=== PATIENT | male | born 1975 | race Two or more races ===

== ENCOUNTER 2022-12-21 07:58 | Outpatient (OUT) | payer BC, SELFPAY ==
--- NOTE | 2022-12-21 08:27 | PM.CN ---
Consult Note: HPI Data of Consult Patient: known to practice within the last 3 years Requesting Physician: Jeanna Stokes NP Primary Care Provider: Aguila Ponce DO Consult Narrative Reason for consult: Chronic Low back pain post lumbar fusion Narrative: Yasir Orourke a pleasant 47 year old male presents for follow up on chronic low back pain. Today rating low back pain 3/10. Patient had RFAs at bilateral L1/2/3/4 July/August of this year with moderate continuous pain relief and functional improvement. Patient reporting low back pain with intermittent left sided radiculopathy, chronic right leg numbness since spine surgery 10 years ago. Patient has been doing home exercises and using motrin 800mg daily for pain. cc:: CC: Jeanna Stokes NP Review of Systems ROS Status of ROS 10 or more systems reviewed and unremarkable except as noted in history and below Musculoskeletal Reports: back pain Meds Home Medications and Allergies Home Medications Medication Instructions Recorded Confirmed Type baclofen 10 mg tablet 10 mg PO DAILY #90 tabs 12/21/22 Rx Exam Constitutional Documenting provider has reviewed patient's vital signs: yes Common normals: no apparent distress, oriented x3, healthy appearing, alert and well nourished General appearance: cooperative HENMT Common normals: normocephalic, hearing grossly normal bilaterally and moist oral mucous membranes Head and scalp: normocephalic Eye Common normals: PERRL Pupil: PERRL Neck & C-Spine Common normals: full ROM General: normal visual inspection Chest Common normals: inspection of chest normal Respiratory Common normals: normal respiratory effort, no retractions and no use of accessory muscles Back & Pelvis Lumbar spine/lower back: ROM limited, pain with ROM and straight leg raise positive left Sacroiliac joints: SI joint(s) abnormal (bilateral positive JT, gaenslen, and thigh thrust) SI joint details: tender to palpation Extremity Common normals: normal to inspection, full ROM and no joint enlargement Neuro Common normals: oriented x3, CN's II-XII intact bilaterally, moves all extremities, no focal motor deficits, no sensory deficits noted and deep tendon reflexes 2+ bilaterally Sensorium/orientation: alert Gait (neuro): normal gait Motor exam: no movement abnormalities noted and strength abnormal (4/5 BLE) Other: 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 A drug screen was completed and reviewed within the last year, and if there has not been a drug screen completed we ordered one today to monitor higher risk, state monitored pain medication use. As part of providing excellent, safe, comprehensive care, the following was completed at our patient's visit: 1. A medication reconciliation and review to ensure accurate knowledge of current/active medications, including asking our patients to inform us about any [id number] medications or herbal remedies/nutritional supplements/alternative remedies. 2. A review to specifically ensure our patients have had annual screening for: elevated body mass index (BMI), tobacco use, screening for depression, and screening for unhealthy alcohol use. When screening is concerning, patients are provided with education and the specific recommendation to discuss the concerning health issue and treatment options with their primary care provider. The patient has had over 3 months of moderate to severe low back pain with radiculopathy with functional impairment and inadequate response to conservative care including NSAIDS (unless there are contraindication such as concurrent blood thinners), multiple oral or topical pain medications, and home exercise program/physical therapy.? Patient has completed >6 weeks of guided home exercise program and/or formal physical therapy program without relief of their symptoms.? I have reviewed the imaging of the lumbar spine and no red flags were identified.? 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 The Oswestry Disability Index was completed, and the patient scored a 28%.? The patient noted the following:??moderate pain, pain preventing from lighting heavy weights from the floor, pain prevents him from standing more than 1 hr, pain is interuptive to sleep and social life. We discussed the risks and benefits of the procedure with the patient, and we are not planning on using sedation as outlined in the guidelines from Medicare unless there is a documented reason that sedation would be strongly recommended.?? The procedure will be completed with fluoroscopic guidance.? Assessment and Plan Assessment and Plan (1) Status post lumbar spinal fusion: (2) Lumbar radiculopathy: (3) Muscle spasm: (4) Bilateral sacroiliitis: Assessment and Plan: bilateral positive JT, gaenslen, and thigh thrust (5) Neuropathy: Assessment and Plan: chronic RLE since fusion surgery, consider lyrica or gabapentin after HEBER (6) Diabetes mellitus: Assessment and Plan: patient unsure of last a1c reports blood sugars typically around 130, can be as high as 150 Plan refill and continue baclofen 10mg PRN continue home exercise program Lumbar HEBER under fluoroscopy f/u after HEBER
== END 2022-12-21 07:59 | disposition home or self-care (01) ==
PROVIDERS: PCP Internal Medicine; Visit Provider Nurse Practitioner
DX: M54.16 Radiculopathy, lumbar region (principal); M62.838 Other muscle spasm; M46.1 Sacroiliitis, not elsewhere classified; E11.40 Type 2 diabetes mellitus with diabetic neuropathy, unspecified
CPT/HCPCS: G0463

== ENCOUNTER 2023-02-28 10:03 | Day surgery (SDC) | payer BC, SELFPAY ==
[2023-02-28 10:19] VITALS: BP 147/89; PULSE 79; RESP 16; TEMP 36.3; O2SAT 98
[2023-02-28 10:26] LABS: Glucometer 164 mg/dL (74-106)
[2023-02-28 11:17] VITALS: BP 145/71; PULSE 70; RESP 16; O2SAT 98
[2023-02-28] MEDS: METHYLPREDNISOLONE ACETATE 80 MG/ML VIAL INJ (11:19)
[2023-02-28] MEDS: LIDOCAINE HCL 2% PF 100 MG/5 ML VIAL 12 ML INJ (11:19)
[2023-02-28] MEDS: 0.9 % SODIUM CHLORIDE 10 ML SYRINGE - SALINE FLUSH 2 ML INJ (11:19)
[2023-02-28] MEDS: IOHEXOL 300 MG/ML - 50 ML BTL 18 MG INJ (11:19)
[2023-02-28] MEDS: BUPIVACAINE HCL 0.25% PF 25 MG/10 ML VIAL 2 ML INJ (11:19)
[2023-02-28 11:21] VITALS: BP 144/72; PULSE 67; RESP 16; O2SAT 96
--- NOTE | 2023-02-28 11:38 | P.ON_ITS ---
Date of procedure: 02/28/23 Pre-op diagnosis: Lumbar Radiculopathy Post-op diagnosis: same as pre-op Procedure: Caudal Epidural Steroid Injection Under fluoroscopic guidance Immediate complications none Solution used for injection: Marcaine 0.25% 2mL, 2cc Normal saline, Depo-Medrol 80mg Omnipaque 3 mL Anesthesia local 2% lidocaine up to 4ml Timeout process compliant After informed consent obtained. Patient brought to the procedure room placed in the prone position. Skin overlying the area was prepped and draped in a sterile fashion using betadine. 25 gauge needle used to raise a skin wheel with local anesthetic over the target area identified under fluoroscopy. A 17 gauge Touhy needle Was inserted over the anesthetized area and directed towards the inter- space under fluoroscopic guidance. Epidural space was identified with loss of resistance technique to air. Needle Tip placement confirmed with injection of contrast solution. Steroid solution was then injected. Anesthesia: Local Surgeon: Rima Soto Condition: stable
== END 2023-02-28 11:27 | disposition home or self-care (01) ==
LOC: SURGOUT 10:03
PROVIDERS: PCP Internal Medicine; Visit Provider Anesthesiology Pain Medicine
DX: M54.16 Radiculopathy, lumbar region (principal)
CPT/HCPCS: 36415; 62323; 82948; J1040; Q9967

== ENCOUNTER 2023-03-09 07:37 | Outpatient (OUT) | payer BC, SELFPAY ==
--- NOTE | 2023-03-09 07:49 | PM.CN ---
Consult Note: HPI Data of Consult Patient: known to practice within the last 3 years Requesting Physician: Jeanna Stokes NP Primary Care Provider: Aguila Ponce DO Consult Narrative Reason for consult: Chronic Low back pain post lumbar fusion Narrative: Yasir Orourke a pleasant 47 year old male presents for follow up on chronic low back pain post fusion. Today rating low back pain /, continues to have neuropathy to RLE. Recently underwent caudal HEBER with 50% improvement in pain and functional ability ongoing. cc:: CC: Jeanna Stokes NP Review of Systems ROS Status of ROS 10 or more systems reviewed and unremarkable except as noted in history and below Musculoskeletal Reports: back pain Meds Home Medications and Allergies Home Medications Medication Instructions Recorded Confirmed Type baclofen 10 mg tablet 10 mg PO DAILY #90 tabs 12/21/22 Rx dulaglutide subcut QWEEK 12/21/22 History ibuprofen 800 mg tablet (IBU) 800 mg PO DAILY 12/21/22 02/28/23 History omeprazole 40 mg capsule,delayed 40 mg PO DAILY 12/21/22 02/28/23 History release Allergies Allergy/AdvReac Type Severity Reaction Status Date / Time No Known Drug Allergies Allergy Verified 12/21/22 08:59 Exam Constitutional Documenting provider has reviewed patient's vital signs: yes Common normals: no apparent distress, oriented x3, healthy appearing, alert and well nourished General appearance: cooperative HENMT Common normals: normocephalic, hearing grossly normal bilaterally and moist oral mucous membranes Head and scalp: normocephalic Eye Common normals: PERRL Pupil: PERRL Neck & C-Spine Common normals: full ROM General: normal visual inspection Chest Common normals: inspection of chest normal Respiratory Common normals: normal respiratory effort, no retractions and no use of accessory muscles Back & Pelvis Lumbar spine/lower back: ROM limited and pain with ROM Extremity Common normals: normal to inspection, full ROM and no joint enlargement Neuro Common normals: oriented x3, CN's II-XII intact bilaterally, moves all extremities, no focal motor deficits, no sensory deficits noted and deep tendon reflexes 2+ bilaterally Sensorium/orientation: alert Gait (neuro): normal gait Motor exam: no movement abnormalities noted and strength abnormal (4/5 BLE) Other: 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 patient reports this has been present 10 years since surgery, decrease in sensation to RLE Psych Common normals: mental status grossly normal, thought process normal, cooperative, affect normal, speech normal and activity/motor behavior normal Speech: normal speech Thought process: normal thought process Assessment and Plan Assessment and Plan (1) Neuropathy: (2) Muscle spasm: (3) Lumbar radiculopathy: (4) Status post lumbar spinal fusion: Plan start lyrica 50mg HS for one month then 100mg HS continue baclofen 10mg HS continue HEP f/u 3 months for medication management, consider SCS in the future
== END 2023-03-09 07:38 | disposition home or self-care (01) ==
LOC: PM 07:38
PROVIDERS: PCP Internal Medicine; Visit Provider Nurse Practitioner
DX: G62.9 Polyneuropathy, unspecified (principal); M62.838 Other muscle spasm; M54.16 Radiculopathy, lumbar region; Z98.890 Other specified postprocedural states
CPT/HCPCS: G0463

== ENCOUNTER 2023-05-30 07:46 | Outpatient (OUT) | payer BC, SELFPAY ==
--- OUTSIDE RECORDS SUMMARY | 2023-05-30 07:50 | XMS_ITS | CCD ---
Author Name Unknown Address [address] [place] [address] Organization [facility] Care Team Providers Care Ecommerce Marketing Manager Name Role Phone Aguila Ponce Unavailable LAKSHMIPATHY ., PRASHANT Attending Zina vailable LAKSHMIPATHY ., PRASHANT Admitting Zina vailable KRIS, DR NEWBY Primary Care Unavailable MARISABEL ROJAS Admitting Unavailable MARISABEL ROJAS Attending Unavailable KRIS, DR NEWBY Primary Care Unavailable GRECHNY ., HASEEB COHN Consulting UnavailSERGE Laboy Consulting Unavailable KRIS, DR NEWBY Primary Care Unavailable STEPANIC, DR MINER Admitting Unavailable STEPANIC, DR MINER Attending Unavailable BALL, DR NEWBY Primary Care Unavailable ANDERSON ., DR NADIR Xiao Admitting Unavailable ANDERSON ., DR NADIR Xiao Consulting Unavailable ANDERSON ., DR NADIR Xiao Attending Unavailable LAKSHMIPATHY ., PRASHANT Attending Zina vailable LAKSHMIPATHY ., PRASHANT Admitting Zina vailable KRIS, DR NEWBY Primary Care Unavailable SB VILLAFANA Consulting Unavailable LAKSHMIPATHY ., PRASHANT Consulting Zina vailable KRIS, DR NEWBY Primary Care Unavailable ANDERSON ., DR NADIR Xiao Admitting Unavailable ANDERSON ., DR NADIR Xiao Attending Unavailable MOSLEY .VIDHYA Consulting Unavailable ELIZABETH JUNIOR Consulting Unavailable KRIS, DR NEWBY Primary Care Unavailable BALL, DR NEWBY Attending Unavailable KRIS, DR NEWBY Admitting Unavailable KRIS, DR NEWBY Consulting Unavailable KRIS, DR NEWBY Admitting Unavailable KRIS, DR NEWBY Primary Care Unavailable BALL, DR NEWBY Consulting Unavailable KRIS, DR NEWBY Attending Unavailable BALL, DR NEWBY Admitting Unavailable BALL, DR NEWBY Primary Care Unavailable BALL, DR NEWBY Consulting Unavailable KRIS, DR NEWBY Attending Unavailable BALL, DR NEWBY Primary Care Unavailable MISC, DR WEBSTER Attending Unavailable MISC, DR WEBSTER Admitting Unavailable MISC, DR WEBSTER Consulting Unavailable ZIEBER, DR BEATRIZ Martinez Consulting Unavailable BALL, DR NEWBY Primary Care Unavailable ANDERSON ., DR NADIR Xiao Admitting Unavailable ANDERSON ., DR NADIR Xiao Consulting Unavailable ANDERSON ., DR NADIR Xiao Attending Unavailable MOSLEY ., VIDHAY Consulting Unavailable LAKSHMIPATHY ., NARENDRANATH Attending Zina vailable LAKSHMIPATHY ., NARENDRANATH Admitting Zina vailable LAKSHMIPATHY ., NARENDRANATH Consulting Zina vailable KRIS, DR NEWBY Primary Care Unavailable LAKSHMIPATHY ., NARENDRANATH Attending Zina vailable LAKSHMIPATHY ., NARENDRANATH Admitting Zina vailable LAKSHMIPATHY ., NARENDRANATH Consulting Zina vailable KRIS, DR NEWBY Primary Care Unavailable LAKSHMIPATHY ., NARENDRANATH Attending Zina vailable LAKSHMIPATHY ., NARENDRANATH Admitting Zina vailable KRIS, DR NEWBY Primary Care Unavailable SB VILLAFANA Consulting Unavailable LAKSHMIPATHY ., NARENDRANATH Consulting Zina vailable KRIS, DR NEWBY Primary Care Unavailable YULIA ., DANIELLE Admitting Unavailable YULIA ., DANIELLE Attending Unavailable YULIA ., DANIELLE Consulting Unavailable YULIA ., DANIELLE Attending Unavailable YULIA ., DANIELLE Admitting Unavailable KRIS, DR NEWBY Primary Care Unavailable YULIA ., DANIELLE Consulting Unavailable KRISTOFER MENON Attending Unavailable Provider, None Primary Care Unavailable STEPKRISTOFER VILLAFUERTE Admitting Unavailable STEPKRISTOFER VILLAFUERTE Admitting Unavailable STEPKRISTOFER VILLAFUERTE Attending Unavailable Provider, None Primary Care Unavailable Allergies Allergy Classification Reported Allergen(s) Allergy Type Date of Onset Reaction(s) Facility (2 sources) metFORMIN Drug Allergy unknown [facility] Other (7 sources) SITagliptin Drug Allergy unknown [facility] Other (6 sources) metFORMIN Drug Allergy 9 unknown [facility] Other (1 source) metFORMIN Drug Allergy [facility] Repository (1 source) patient allergy list reviewed by nurse or physicia Propensity to adverse reactions 9 Comment:Done [facility] Other Medications Current Medications Medication Drug Class(es) Dates Sig (Normalized) Sig (Original) BD Ultra-Fine Micro Pen Needle (7 sources) BD Ultra-Fine Micro Pen Needle 32g x1/4 misc needle subcutaneous as directed Active benazepril hydrochloride 10 mg oral tablet (7 sources) Angiotensin Converting Enzyme Inhibitor take 1 tablet by mouth every twenty-four hours Benazepril HCl 10 MG 1 tablet Orally Once a day for 90 days Active 24 hr buPROPion hydrochloride 300 mg extended release oral tablet (7 sources) Aminoketone take 1 tablet by mouth every twenty-four hours buPROPion HCl ER (XL) 300 MG 1 tablet in the morning Orally Once a day for 30 Active dapagliflozin 10 mg oral tablet (7 sources) Sodium-Glucose Cotransporter 2 Inhibitor Farxiga 10 MG TAKE 1 TABLET BY MOUTH EVERY DAY Orally Once a day for 30 days Active 0.5 ml dulaglutide 1.5 mg/ml auto-injector (3 sources) GLP-1 Receptor Agonist Start: 08-17-2022 Trulicity 0.75 MG/0.5ML as directed Subcutaneous weekly for 28 days Jul, Active glimepiride 4 mg oral tablet (5 sources) Sulfonylurea Start: 02-03-2023 take 1 tablet by mouth every twenty-four hours Glimepiride 4 MG 1 tablet with breakfast or the first main meal of the day Orally Once a day for 90 days Jan, Active take 1 tablet by prince th once daily 30 minutes before breakfast Glimepiride 4 MG 1 tablet daily, 30 minutes before breakfast Orally Not-Taking omeprazole 40 mg delayed release oral capsule (7 sources) Proton Pump Inhibitor Omeprazole 40 MG TAKE 1 CAPSULE BY MOUTH DAILY ON AN EMPTY STOMACH, FOLLOWED IN 30 MINUTES BY BREAKFAST for 90 Active OneTouch Verio - (7 sources) OneTouch Verio - as directed use to test home BS daily Active Completed/Discontinued Medications Medication Drug Class(es) Dates Sig (Normalized) Sig (Original) doxycycline hyclate 100 mg oral capsule (7 sources) Tetracycline-clas s Drug Start: 05-10-2022 take 1 capsule by mouth twice daily Doxycycline Hyclate 100 MG 1 capsule Orally twice daily for 7 days Apr, Not-Taking 3 ml insulin aspart protamine, human 70 unt/ml / insulin aspart, human 30 unt/ml pen injector (7 sources) Insulin Analog NovoLOG Mix 70/3 0 FlexPen (70-30) 100 UNIT/ML 40 units before breakfast, 30 units before supper. Subcutaneous Not-Taking ondansetron 8 mg disintegrating oral tablet (7 sources) Serotonin-3 Receptor Antagonist take 1 tablet by mouth every eight hours as needed for nausea Ondansetron 8 MG 1 tablet on the tongue and allow to dissolve as needed Orally Every 8 hours as needed for nausea Not-Taking tiZANidine 4 mg oral tablet (7 sources) Central alpha-2 Adrenergic Agonist tiZANidine HCl 4 MG TAKE 1/2 - 1 TABLET BY MOUTH EVERYDAY AT BEDTIME 30 for 90 Not-Taking Problems Active Problems Problem Classification Problem Date Documented Da te Episodic/Chronic Abdominal pain (7 sources) Epigastric pain; Translations: [Epigastric pain] Resolved: 03-17-2020 Episodic Acute bronchitis (1 source) Acute bronchitis; Translations: [Acute bronchitis due to other specified organisms] Episodic Diabetes mellitus with complications (19 sources) Hyperglycemia due to type 2 diabetes mellitus; Translations: [Type 2 diabetes mellitus with hyperglycemia] Onset: 06-22-2022 Chronic Diabetes mellitus without complication (2 sources) Type 2 diabetes mellitus without complications; Translations: [Type 2 diabetes mellitus without complication] Onset: 04-13-2018 Chronic Disorders of lipid metabolism (10 sources) Mixed hyperlipidemia; Translations: [Mixed hyperlipidemia] Onset: 05-11-2018 Chronic Esophageal disorders (2 sources) Gastro-esophageal reflux disease with esophagitis; Translations: [Gastro-esophageal reflux disease with esophagitis, without bleeding] Chronic Essential hypertension (11 sources) Essential hypertension; Translations: [Essential (primary) hypertension] Onset: 06-26-2022 Chronic Miscellaneous mental health disorders (1 source) Primary insomnia; Translations: [Primary insomnia] Chronic Mood disorders (8 sources) Recurrent major depression in remission; Translations: [Major depressive disorder, recurrent, in partial remission] Chronic Nausea and vomiting (11 sources) Nausea and vomiting; Translations: [Nausea with vomiting, unspecified] Episodic Open wounds of extremities (1 source) Laceration without foreign body of left hand, initial encounter Episodic Other aftercare (3 sources) Long-term current use of insulin; Translations: [correction (current) use of insulin] Episodic Other aftercare (1 source) long term care social worker (current) use of insulin Episodic Other connective tissue disease (5 sources) Inflammation of rotator cuff tendon; Translations: [Other shoulder lesions, right shoulder] Episodic Other connective tissue disease (1 source) Mass of shoulder region; Translations: [Other shoulder lesions, right shoulder] Episodic Other endocrine disorders (1 source) Testicular hypofunction; Translations: [Other testicular hypofunction] Onset: 04-06-2018 Chronic Other gastrointestinal disorders (5 sources) Diarrhea of presumed infectious origin; Translations: [Diarrhea, unspecified] Episodic Other gastrointestinal disorders (1 source) Diarrhea; Translations: [Diarrhea, unspecified] Episodic Other nervous system disorders (10 sources) Chronic pain; Translations: [Other chronic pain] Chronic Other nervous system disorders (1 source) Other chronic pain Chronic Other non-traumatic joint disorders (4 sources) Other specific joint derangements of right shoulder, not elsewhere classified; Translations: [OTH SPEC JOINT DERANG RT SHLDR NEC] Onset: 04-26-2022 Chronic Other non-traumatic joint disorders (7 sources) Shoulder joint pain; Translations: [Pain in right shoulder] Onset: 09-16-2016 Episodic Other nutritional; endocrine; and metabolic disorders (5 sources) Simple obesity ; Translations: [Other obesity due to excess calories] Chronic Other nutritional; endocrine; and metabolic disorders (6 sources) Obesity; Translations: [Obesity, unspecified] Chronic Other nutritional; endocrine; and metabolic disorders (1 source) Body mass index 30+ - obesity; Translations: [Body mass index 36.0-36.9, adult] Onset: 11-29-2016 Chronic Other nutritional; endocrine; and metabolic disorders (2 sources) Obese class I; Translations: [Body mass index 33.0-33.9, adult] Onset: 04-04-2018 Chronic Other nutritional; endocrine; and metabolic disorders (1 source) Morbid obesity; Translations: [Morbid (severe) obesity due to excess calories] Onset: 11-29-2016 Chronic Other upper respiratory disease (6 sources) Allergic rhinitis due to pollen; Translations: [Allergic rhinitis due to pollen] Chronic Residual codes; unclassified (5 sources) Influenza vaccination declined; Translations: [Immunization not carried out because of patient refusal] Episodic Residual codes; unclassified (1 source) Immunization refused ; Translations: [Immunization not carried out because of patient refusal] Episodic Skin and subcutaneous tissue infections (6 sources) Cellulitis of hand; Translations: [Cellulitis of unspecified part of limb] Episodic Spondylosis; intervertebral disc disorders; other back problems (20 sources) Disorder of joint of spine; Translations: [Other spondylosis with radiculopathy, lumbar region] Onset: 05-31-2022 Chronic Spondylosis; intervertebral disc disorders; other back problems (9 sources) Chronic low back pain; Translations: [Low back pain, unspecified] Onset: 09-22-2021 Episodic Substance-related disorders (8 sources) Tobacco user; Translations: [Nicotine dependence, chewing tobacco, uncomplicated] Chronic Unclassified (4 sources) LOW BACK PAIN, UNSPECIFIED; Translations: [LOW BACK PAIN, UNSPECIFIED] Onset: 07-16-2022 Unclassified (1 source) ELEV LVLS LIVER TRANSAMINASE LVLS; Translations: [ELEV LVLS LIVER TRANSAMINASE LVLS] Onset: 06-26-2022 Viral infection (10 sources) Disease caused by 2019-nCoV; Translations: [COVID-19] Onset: 11-04-2021 Past or Other Problems Problem Classification Problem Date Documented Date Episodic/Chronic E Codes: Cut/pierceb (1 source) Contact with other powered hand tools and household machinery, initial encounter; Translations: [CONTACT OTH POWER HT AND HH MACH INIT] Onset: 09-17-2021 Episodic Esophageal disorders (7 sources) Esophageal disorders; Translations: [Gastroesophageal reflux disease with esophagitis without hemorrhage] Headache; including migraine (1 source) Tension-type headache; Translations: [Tension-type headache, unspecified, intractable] Resolved: 03-17-2020 Episodic Immunizations and screening for infectious disease (2 sources) Encounter for immunization; Translations: [Contact with and (suspected) exposure to other viral communicable diseases] Onset: 11-05-2021 Resolved: 03-17-2020 Episodic Intestinal infection (1 source) Infectious colitis, enteritis and gastroenteritis; Translations: [Infectious gastroenteritis and colitis, unspecified] Resolved: 06-16-2021 Episodic Malaise and fatigue (1 source) Malaise and fatigue; Translations: [Other malaise and fatigue] Onset: 04-04-2018 Episodic Mycoses (1 source) Candidal balanitis; Translations: [Candidal balanitis] Resolved: 07-14-2020 Episodic Open wounds of extremities (4 sources) Laceration without foreign body of right index finger without damage to nail, initial encounter; Translations: [LAC W/O FB RT IF W/O DMG NAIL INIT] Onset: 09-15-2021 Episodic Other aftercare (1 source) correction (current) use of oral hypoglycemic drugs; Translations: [INTERMEDIATE USE ORAL HYPOGLYCEMIC DX] Onset: 09-17-2021 Episodic Other connective tissue disease (4 sources) Bicipital tendinitis, right shoulder; Translations: [BICIPITAL TENDINITIS RIGHT SHOULDER] Onset: 04-28-2022 Episodic Other connective tissue disease (1 source) Spasm; Translations: [Cramp and spasm] Resolved: 06-16-2021 Episodic Other connective tissue disease (1 source) Nontraumatic rupture of rotator cuff of left shoulder; Translations: [Unspecified rotator cuff tear or rupture of left shoulder, not specified as traumatic] Onset: 09-16-2016 Episodic Other liver diseases (1 source) Elevated levels of transaminase & lactic acid dehydrogenase; Translations: [Nonspecific elevation of levels of transaminase or lactic acid dehydrogenase (LDH)] Onset: 06-23-2018 Episodic Other lower respiratory disease (1 source) Cough; Translations: [Cough, unspecified] Onset: 10-22-2018 Episodic Other non-traumatic joint disorders (1 source) Arthralgia of the pelvic region and thigh; Translations: [Pain in joint, pelvic region and thigh] Onset: 04-04-2018 Episodic Other upper respiratory disease (1 source) Bleeding from nose; Translations: [Epistaxis] Onset: 04-11-2014 Episodic Screening and history of mental health and substance abuse codes (1 source) Personal history of nicotine dependence; Translations: [PERSONAL HISTORY OF NICOTINE DEPEND] Onset: 09-17-2021 Episodic Unclassified (1 source) Low back pain, unspecified M54.50 Unclassified (1 source) Elevated transaminase level R74.01 Unclassified (1 source) LOW BACK PAIN, UNSPECIFIED; Translations: [LOW BACK PAIN, UNSPECIFIED] Onset: 07-28-2022 Unclassified (1 source) Long-term current use of drug therapy; Translations: [Long-term (current) use of other medications] Onset: 04-11-2018 Results Test Name Value Interpretation Reference Range [facility] it POINT OF CARE GLUCOSEon 05-0 Glucose [Mass/Vol] 254 mg/dL Critically high 74-106 [facility] Comment on above: Performed By: #### P OCGLUC #### [facility] [address] [place] [address] Dr. Jose Cruz Balderas POINT OF CARE GLUCOSEon 07-24 Glucose [Mass/Vol] 241 mg/dL Critically high 74-106 [facility] Comment on above: Performed By: #### P OCGLUC #### [facility] [address] [place] [address] Dr. Jose Cruz Balderas POINT OF CARE GLUCOSEon 06-23 Glucose [Mass/Vol] 204 mg/dL Critically high 74-106 [facility] Comment on above: Performed By: #### P OCGLUC #### [facility] [address] [address] [address] Jose Cruz Balderas GLYCOHEMOGLOBIN A1Con 2022 ADA RECOMMENDATION SEE BELOW Normal [facility] Comment on above: Result Comment: ADA RECOMMENDED LIMIT 4.0 - 6.0 ADA THERAPEUTIC TARGET < 7.0 ACTION SUGGESTED > 7.0 Performed By: #### P OCGLUC #### [facility] [address] [place] [address] Dr. Jose Cruz Balderas Glucose [Mass/Vol] 134 mg/dL Normal [facility] Comment on above: Performed By: #### P OCGLUC #### [facility] [address] [place] [address] Dr. Jose Cruz Balderas HbA1c (Bld) [Mass fraction] 6.3 % Critically high 4.5-6.2 [facility] Comment on above: Performed By: #### P OCGLUC #### [facility] [address] [place] [address] Dr. Jose Cruz Balderas PROF 14(COMP METB)on 023 Albumin [Mass/Vol] 4.5 g/dL Normal 3.4-5.0 [facility] Comment on above: Performed By: #### C MP #### [facility] [address] [place] [address] Dr. Jose Cruz Balderas Albumin/Globulin [Mass ratio] 1.3 {ratio} Normal [facility] Comment on above: Performed By: #### C MP #### [facility] [address] [place] [address] Dr. Jose Cruz Balderas ALP [Catalytic activity/Vol] 93 U/L Normal 46-116 [facility] Comment on above: Performed By: #### C MP #### [facility] [address] [place] [address] Dr. Jose Cruz Balderas ALT [Catalytic activity/Vol] 41 U/L Normal 16-63 [facility] Comment on above: Performed By: #### C MP #### [facility] [address] [address] [address] Jose Cruz Balderas Anion gap [Moles/Vol] 12.0 mmol/L Normal [facility] Comment on above: Performed By: #### C MP #### [facility] [address] [address] [address] Jose Curz Balderas AST [Catalytic activity/Vol] 21 U/L Normal 15-37 [facility] Comment on above: Performed By: #### C MP #### [facility] [address] [place] [address] Dr. Jose Cruz Balderas Bilirubin [Mass/Vol] 0.8 mg/dL Normal 0.2-1.0 [facility] Comment on above: Performed By: #### C MP #### [facility] [address] [address] [address] Jose Cruz Balderas Calcium [Mass/Vol] 9.3 mg/dL Normal 8.5-10.1 [facility] Comment on above: Performed By: #### C MP #### [facility] [address] [address] [address] Jose Cruz Balderas Chloride [Moles/Vol] 105 mmol/L Normal 98-107 [facility] Comment on above: Performed By: #### C MP #### [facility] [address] [address] [address] Jose Cruz Balderas CO2 [Moles/Vol] 26.7 mmol/L Normal 21.0-32.0 [facility] Comment on above: Performed By: #### C MP #### [facility] [address] [address] [address] Jose Cruz Balderas Creatinine [Mass/Vol] 0.82 mg/dL Normal 0.70-1.30 [facility] Comment on above: Performed By: #### C MP #### [facility] [address] [address] [address] Jose Cruz Balderas EGFR-AF MONEGASQUE >60 Normal >=60 [facility] Comment on above: Performed By: #### C MP #### [facility] [address] [address] [address] Jose Cruz Balderas EGFR-NON AF MONEGASQUE >60 Normal >=60 [facility] Comment on above: Performed By: #### C MP #### [facility] [address] [address] [address] Jose Cruz Balderas Globulin (S) [Mass/Vol] 3.5 g/dL Normal [facility] Comment on above: Performed By: #### C MP #### [facility] [address] [address] [address] Jose Cruz Balderas Glucose [Mass/Vol] 180 mg/dL Critically high 74-106 [facility] Comment on above: Performed By: #### C MP #### [facility] [address] [address] [address] Jose Cruz Balderas Potassium [Moles/Vol] 3.7 mmol/L Normal 3.5-5.1 [facility] Comment on above: Performed By: #### C MP #### [facility] [address] [address] [address] Jose Cruz Balderas Protein [Mass/Vol] 8.0 g/dL Normal 6.4-8.2 [facility] Comment on above: Performed By: #### C MP #### [facility] [address] [address] [address] Jose Cruz Balderas Sodium [Moles/Vol] 140 mmol/L Normal 136-145 [facility] Comment on above: Performed By: #### C MP #### [facility] [address] [address] [address] Jose Cruz Balderas Urea nitrogen [Mass/Vol] 19.0 mg/dL Critically high 7.0-18.0 [facility] Comment on above: Performed By: #### C MP #### [facility] [address] [address] [address] Jose Cruz Balderas Urea nitrogen/Creatinine [Mass ratio] 23.2 mg/mg Normal [facility] Comment on above: Performed By: #### C MP #### [facility] [address] [place] [address] Dr. Jose Cruz Balderas POINT OF CARE GLUCOSEon 05-26 Glucose [Mass/Vol] 174 mg/dL Critically high 74-106 [facility] Comment on above: Performed By: #### P OCGLUC #### [facility] [address] [place] [address] Dr. Jose Cruz Balderas XR SHOULDER RT INJon 023 XR SHOULDER RT INJ EXAMINATION: XR SHOULDER RT INJ, XR SHOULDER RT 2V or > HISTORY: Derangement of right shoulder joint COMPARISON: No relevant comparison available. FLUOROSCOPY TIME: Fluoro time measures 1 minute and 4 images were obtained. TECHNIQUE: A joint injection was performed in the usual sterile manner after obtaining informed consent. Standard level fluoroscopic mode of operation utilized. FINDINGS: JOINT: Right shoulder NEEDLE: 22 gauge, 3.5 spinal needle. MEDICATION: 2cc buffered 1% lidocaine for subcutaneous anesthesia 2cc Omnipaque-300 iodinated contrast to visualize the joint space Mixture of Kenalog 40 mg, 0.5% Bupivacaine 2 mL and Omnipaque 300 5 mL was injected into the joint space. TECHNIQUE: Anterior approach was successful in gaining access to the joint space. CLINICAL: No change in patient's pain level immediately following the injection (5/10 pre and post injection). COMPLICATIONS: None. IMPRESSION: 1. Technically successful right shoulder injection. No immediate decrease in pain following the injection. 2. No contrast within the subacromial or subdeltoid bursa to suggest full-thickness rotator cuff tear. Electronically authenticated by: BEATRIZ MITCHELL Date: 2022-04-26 15:27 Normal [facility] CBC AUTO DIFFon 04-21-2022 BASO # 0.0 103/ul Normal 0.0-0.1 [facility] Comment on above: Performed By: #### P OCGLUC #### [facility] [address] [place] [address] Dr. Jose Cruz Balderas Basophils/100 WBC (Bld) 0.8 % Normal 0.2-2.0 [facility] Comment on above: Performed By: #### P OCGLUC #### [facility] [address] [place] [address] Dr. Jose Cruz Balderas EO # 0.1 103/ul Normal 0.0-0.7 [facility] Comment on above: Performed By: #### P OCGLUC #### [facility] [address] [place] [address] Dr. Jose Cruz Balderas Eosinophils/100 WBC (Bld) 2.3 % Normal 0.9-7.0 [facility] Comment on above: Performed By: #### P OCGLUC #### [facility] [address] [place] [address] Dr. Jose Cruz Balderas Erythrocyte distribution width (RBC) [Ratio] 12.8 % Normal 11.0-15.0 [facility] Comment on above: Performed By: #### P OCGLUC #### [facility] [address] [place] [address] Dr. Jose Cruz Balderas Hematocrit (Bld) [Volume fraction] 47.2 % Normal 42.0-54.0 [facility] Comment on above: Performed By: #### P OCGLUC #### [facility] [address] [place] [address] Dr. Jose Cruz Balderas Hemoglobin (Bld) [Mass/Vol] 16.4 g/dL Normal 14.0-18.0 [facility] Comment on above: Performed By: #### P OCGLUC #### [facility] [address] [place] [address] Dr. Jose Cruz Balderas IG # 0.01 10e3/ul Normal 0.00-0.03 [facility] Comment on above: Performed By: #### P OCGLUC #### [facility] [address] [place] [address] Dr. Jose Cruz Balderas IG % 0.2 % Normal 0.0-0.5 [facility] Comment on above: Performed By: #### P OCGLUC #### [facility] [address] [place] [address] Dr. Jose Cruz Balderas LYMPH # 1.3 103/ul Normal 1.2-3.8 [facility] Comment on above: Performed By: #### P OCGLUC #### [facility] [address] [place] [address] Dr. Jose Cruz Balderas Lymphocytes/100 WBC (Bld) 25.6 % Normal 20.5-60.0 [facility] Comment on above: Performed By: #### P OCGLUC #### [facility] [address] [place] [address] Dr. Jose Cruz Balderas MANUAL DIFF REQ NO Normal [facility] Comment on above: Performed By: #### P OCGLUC #### [facility] [address] [place] [address] Dr. Jose Cruz Balderas MCH (RBC) [Entitic mass] 30.7 pg Normal 25.9-34.0 [facility] Comment on above: Performed By: #### P OCGLUC #### [facility] [address] [place] [address] Dr. Jose Cruz Balderas MCHC (RBC) [Mass/Vol] 34.7 g/dL Normal 29.9-35.2 [facility] Comment on above: Performed By: #### P OCGLUC #### [facility] [address] [place] [address] Dr. Jose Cruz Balderas MCV (RBC) [Entitic vol] 88.4 fL Normal 80.0-94.0 [facility] Comment on above: Performed By: #### P OCGLUC #### [facility] [address] [place] [address] Dr. Jose Cruz Balderas MONO # 0.5 103/ul Normal 0.3-0.8 [facility] Comment on above: Performed By: #### P OCGLUC #### [facility] [address] [place] [address] Dr. Jose Cruz Balderas Monocytes/100 WBC (Bld) 8.7 % Normal 1.7-12.0 [facility] Comment on above: Performed By: #### P OCGLUC #### [facility] [address] [place] [address] Dr. Jose Cruz Balderas NEUT # 3.2 103/ul Normal 1.4-6.5 [facility] Comment on above: Performed By: #### P OCGLUC #### [facility] [address] [address] [address] Jose Cruz Balderas Neutrophils/100 WBC (Bld) 62.4 % Normal 43.0-75.0 [facility] Comment on above: Performed By: #### P OCGLUC #### [facility] [address] [address] [address] Jose Cruz Balderas Platelet mean volume (Bld) [Entitic vol] 10.9 fL Normal 9.5-13.5 [facility] Comment on above: Performed By: #### P OCGLUC #### [facility] [address] [address] [address] Jose Cruz Balderas PLT 159 103/ul Normal 150-450 [facility] Comment on above: Performed By: #### P OCGLUC #### [facility] [address] [address] [address] Jose Cruz Balderas RBC 5.34 106/ul Normal 4.70-6.10 [facility] Comment on above: Performed By: #### P OCGLUC #### [facility] [address] [address] [address] Jose Cruz Balderas WBC 5.2 103/ul Normal 4.0-11.0 [facility] Comment on above: Performed By: #### P OCGLUC #### [facility] [address] [place] [address] Dr. Jose Cruz Balderas GLYCOHEMOGLOBIN A1Con 2021 ADA RECOMMENDATION SEE BELOW Normal [facility] Comment on above: Result Comment: ADA RECOMMENDED LIMIT 4.0 - 6.0 ADA THERAPEUTIC TARGET < 7.0 ACTION SUGGESTED > 7.0 Performed By: #### P OCGLUC #### [facility] [address] [place] [address] Dr. Jose Cruz Balderas Glucose [Mass/Vol] 163 mg/dL Normal [facility] Comment on above: Performed By: #### P OCGLUC #### [facility] [address] [place] [address] Dr. Jose Cruz Balderas HbA1c (Bld) [Mass fraction] 7.3 % Critically high 4.5-6.2 [facility] Comment on above: Performed By: #### P OCGLUC #### [facility] [address] [address] [address] Jose Cruz Balderas LIPID PROFILEon 04-21-2022 CHOL-HDL RATIO NORM SEE BELOW Normal [facility] Comment on above: Result Comment: 3.3 - 4.4 LOW RISK 4.4 - 7.1 AVERAGE RISK 7.1 - 11.0 MODERATE RISK >11.0 HIGH RISK Performed By: #### L IPID, CMP #### [facility] [address] [address] [address] Jose Cruz Balderas Cholesterol [Mass/Vol] 197 mg/dL Normal <=200 [facility] Comment on above: Performed By: #### L IPID, CMP #### [facility] [address] [address] [address] Jose Cruz Balderas Cholesterol in HDL [Mass/Vol] 49 mg/dL Normal 40-60 [facility] Comment on above: Performed By: #### L IPID, CMP #### [facility] [address] [address] [address] Jose Cruz Balderas Cholesterol in LDL [Mass/Vol] 109.4 mg/dL Normal [facility] Comment on above: Performed By: #### L IPID, CMP #### [facility] [address] [place], [place] [address] Dr. Jose Cruz Balderas Cholesterol.total/Cho lesterol in HDL [Mass ratio] 4.0 {ratio} Normal [facility] Comment on above: Performed By: #### L IPID, CMP #### [facility] [address] [place], [place] [address] Dr. Jose Cruz Balderas HDL NORMAL > or = 60 mg/dl - LOW CARDIOVASCULAR RISK <40 mg/dl - HIGH CARDIOVASCULAR RISK Normal [facility] Comment on above: Performed By: #### L IPID, CMP #### [facility] [address] [address] [address] Jose Cruz Balderas LDL CALC NORMAL SEE BELOW Normal [facility] Comment on above: Result Comment: <100 mg/dl OPTIMAL 100 - 129 mg/dl NEAR OR ABOVE OPTIMAL 130 - 159 mg/dl BORDERLINE HIGH 160 - 189 mg/dl HIGH >190 mg/dl VERY HIGH Performed By: #### L IPID, CMP #### [facility] [address] [place] [address] Dr. Jose Cruz Balderas Triglyceride [Mass/Vol] 193 mg/dL Critically high <=150 [facility] Comment on above: Performed By: #### L IPID, CMP #### [facility] [address] [place] [address] Dr. Jose Cruz Balderas VLDL CALC 38.6 mg/dL Normal [facility] Comment on above: Performed By: #### L IPID, CMP #### [facility] [address] [place] [address] Dr. Jose Cruz Balderas MICROALBUMIN, RAND URon 12-2 mALB 1.4 mg/L Normal <=30.0 [facility] Comment on above: Performed By: #### M ALBR #### [facility] [address] [place] [address] Dr. Jose Cruz Balderas PROF 14(COMP METB)on 022 Albumin [Mass/Vol] 4.3 g/dL Normal 3.4-5.0 [facility] Comment on above: Performed By: #### L IPID, CMP #### [facility] [address] [place] [address] Dr. Jose Cruz Balderas Albumin/Globulin [Mass ratio] 1.2 {ratio} Normal [facility] Comment on above: Performed By: #### L IPID, CMP #### [facility] [address] [place] [address] Dr. Jose Cruz Balderas ALP [Catalytic activity/Vol] 94 U/L Normal 46-116 [facility] Comment on above: Performed By: #### L IPID, CMP #### [facility] [address] [place] [address] Dr. Jose Cruz Balderas ALT [Catalytic activity/Vol] 135 U/L Critically high 16-63 [facility] Comment on above: Performed By: #### L IPID, CMP #### [facility] [address] [address] [address] Jose Cruz Balderas Anion gap [Moles/Vol] 11.7 mmol/L Normal [facility] Comment on above: Performed By: #### L IPID, CMP #### [facility] [address] [address] [address] Jose Cruz Balderas AST [Catalytic activity/Vol] 105 U/L Critically high 15-37 [facility] Comment on above: Performed By: #### L IPID, CMP #### [facility] [address] [address] [address] Jose Cruz Balderas Bilirubin [Mass/Vol] 0.8 mg/dL Normal 0.2-1.0 [facility] Comment on above: Performed By: #### L IPID, CMP #### [facility] [address] [place] [address] Dr. Jose Cruz Balderas Calcium [Mass/Vol] 9.3 mg/dL Normal 8.5-10.1 [facility] Comment on above: Performed By: #### L IPID, CMP #### [facility] [address] [address] [address] Jose Cruz Balderas Chloride [Moles/Vol] 101 mmol/L Normal 98-107 [facility] Comment on above: Performed By: #### L IPID, CMP #### [facility] [address] [address] [address] Jose Cruz Balderas CO2 [Moles/Vol] 32.8 mmol/L Critically high 21.0-32.0 [facility] Comment on above: Performed By: #### L IPID, CMP #### [facility] [address] [address] [address] Jose Cruz Balderas Creatinine [Mass/Vol] 1.09 mg/dL Normal 0.70-1.30 [facility] Comment on above: Performed By: #### L IPID, CMP #### [facility] [address] [address] [address] Jose Cruz Balderas EGFR-AF MONEGASQUE >60 Normal >=60 [facility] Comment on above: Performed By: #### L IPID, CMP #### [facility] [address] [address] [address] Jose Cruz Balderas EGFR-NON AF MONEGASQUE >60 Normal >=60 [facility] Comment on above: Performed By: #### L IPID, CMP #### [facility] [address] [address] [address] Jose Cruz Balderas Globulin (S) [Mass/Vol] 3.6 g/dL Normal [facility] Comment on above: Performed By: #### L IPID, CMP #### [facility] [address] [address] [address] Jose Cruz Balderas Glucose [Mass/Vol] 174 mg/dL Critically high 74-106 [facility] Comment on above: Performed By: #### L IPID, CMP #### [facility] [address] [place] [address] Dr. Jose Cruz Balderas Potassium [Moles/Vol] 4.5 mmol/L Normal 3.5-5.1 [facility] Comment on above: Performed By: #### L IPID, CMP #### [facility] [address] [place] [address] Dr. Jose Cruz Balderas Protein [Mass/Vol] 7.9 g/dL Normal 6.4-8.2 [facility] Comment on above: Performed By: #### L IPID, CMP #### [facility] [address] [place] [address] Dr. Jose Cruz Balderas Sodium [Moles/Vol] 141 mmol/L Normal 136-145 [facility] Comment on above: Performed By: #### L IPID, CMP #### [facility] [address] [place] [address] Dr. Jose Cruz Balderas Urea nitrogen [Mass/Vol] 14.0 mg/dL Normal 7.0-18.0 [facility] Comment on above: Performed By: #### L IPID, CMP #### [facility] [address] [place] [address] Dr. Jose Cruz Balderas Urea nitrogen/Creatinine [Mass ratio] 12.8 mg/mg Normal [facility] Comment on above: Performed By: #### L IPID, CMP #### [facility] [address] [address] [address] Jose Cruz Balderas POINT OF CARE GLUCOSEon 08-23 Glucose [Mass/Vol] 240 mg/dL Critically high 74-106 [facility] Comment on above: Performed By: #### P OCGLUC #### [facility] [address] [address] [address] Jose Cruz Balderas XR FINGER MIN 2 VIEWSon 08-23 XR FINGER MIN 2 VIEWS EXAM: XR FINGER NM N 2 VIEWS HISTORY: Laceration of finger COMPARISON: None. TECHNIQUE: 3 views of the right index finger FINDINGS: No acute fracture seen. Joint alignment is normal. Joint spaces are preserved. Soft tissues are unremarkable. No radiopaque density seen within the soft tissues of the right second digit to suggest retained radiopaque foreign body. IMPRESSION: No acute fracture or malalignment. Electronically authenticated by: SERGE TAN Date: 2021-09-15 19:17 Normal [facility] Pathology Noteon 07-09-2021 Pathology Note [id number]#1.00CD:127 Normal [facility] Outside Colonoscopyon 2021 Outside Colonoscopy [id number] #1.00CD:127 Normal [facility] Lab Reportson 07-06-2021 Lab Reports [id number] #1.00CD:127 Normal [facility] Consent for Procedure/Surger yon 06-24-2021 Consent for Procedure/Surgery [id number] #1.00CD:127 Normal [facility] Ambulatory Visit Summaryon 0 06-23-2021 Ambulatory Visit Summary KYRAMYOY :1975 Visit Date:06/23/2021 Ambulatory Visit Instructions Your Diagnosis Nausea Dyspepsia, Abdominal pain, epigastric Change in bowel habits Abdominal pain, RLQ Frequent loose stools Your Care Team Attending Physician - XANDER DIEHL, Luc Martinez Primary Care Physician - AGUILA PONCE DO Referring Physician - AGUILA PONCE DO This Is Your Medications List Contact prescribing physician if questions or concerns benazepril (benazepril 10 mg Tab) glimepiride (glimepiride 4 mg Tab) insulin glargine (Basaglar KwikPen 100 units/mL subcutaneous solution) omeprazole (omeprazole 40 mg Cap-DR) ondansetron (ondansetron 8 mg Dis Tab) semaglutide (Ozempic (1 mg dose) 4 mg/3 mL subcutaneous solution) Procedures Performed Circumcision (04/22/2020), Arthroscopy of knee, Cholecystectomy, History of lumbar fusion, Rotator cuff repair. Discharge Vitals Temperature (Temporal Artery) 36.4 ?C Heart Rate (Peripheral) 68 Respiratory Rate 16 Blood Pressure 116/74 Height 188.0 cm Height 187.96 cm Weight 117.0 kg Weight 117 kg BMI 33.12 Medications What How Much When Instructions Unchanged benazepril (benazepril 10 mg Tab) 1 Tablets By Mouth Every day Contact prescribing physician if questions or concerns Unchanged glimepiride (glimepiride 4 mg Tab) 1 Tablets By Mouth Every day Contact prescribing physician if questions or concerns Unchanged insulin glargine (Basaglar KwikPen 100 units/ mL subcutaneous solution) 10 Units Subcutaneous Once a day (at bedtime) Contact prescribing physician if questions or concerns Unchanged omeprazole (omeprazole 40 mg Cap-DR) 1 Capsules By Mouth Every day Contact prescribing physician if questions or concerns Unchanged ondansetron (ondansetron 8 mg Dis Tab) 1 Tablets By Mouth Every 6 hours Contact prescribing physician if questions or concerns Unchanged semaglutide (Ozempic (1 mg dose) 4 mg/ 3 mL subcutaneous solution) 1 Milligram Subcutaneous Every week Contact prescribing physician if questions or concerns Medications and Immunizations Administered Not Given influenza virus vaccine, inactivated, Patient Refuses Allergies metFORMIN (Diarrhea) Problems Ongoing - Any problem that you are currently receiving treatment for. Abdominal pain, epigastric Abdominal pain, RLQ BMI 33.0-33.9,adult Change in bowel habits Diabetes Dyspepsia Dysuria Frequent loose stools Glycosuria Nausea Nocturia Phimosis S/P routine circumcision Swelling Historical - Any problem that you are no longer receiving treatment for. Hypertension Normal [facility] Physician Referralon 03-02-2 022 Physician Referral [id number] #1.00CD:127 [facility] Physician Referralon 022 Physician Referral [id number] #1.00CD:127 [facility] Vital Signs Date Time Vital Sign Value Performing Clinician Facility 06-20-2022 15:00-0500 Body height 187.96 cm Aguila Ball Other [facility] Other 06-20-2022 15:00-0500 Body mass index (BMI) [Ratio] 33.74 kg/m2 Aguila Ball Other [facility] Other 06-20-2022 15:00-0500 Body weight 119.21 kg Aguila Ball Other [facility] Other 06-20-2022 15:00-0500 Diastolic blood pressure 70 mm[Hg] Aguila Ball Other [facility] Other 06-20-2022 15:00-0500 Respiratory rate 12 /min Aguila Ball Other [facility] Other 06-20-2022 15:00-0500 Systolic blood pressure 108 mm[Hg] Aguila Ball Other [facility] Other 05-10-2022 11:15-0500 Body height 187.96 cm Aguila Ball Other [facility] Other 05-10-2022 11:15-0500 Body mass index (BMI) [Ratio] 33.79 kg/m2 Aguila Ball Other [facility] Other 05-10-2022 11:15-0500 Body weight 119.39 kg Aguila Ball Other [facility] Other 05-10-2022 11:15-0500 Diastolic blood pressure 70 mm[Hg] Aguila Ponce Other [facility] Other 05-10-2022 11:15-0500 Respiratory rate 12 /min Aguila Ponce Other [facility] Other 05-10-2022 11:15-0500 Systolic blood pressure 118 mm[Hg] Aguila Ponce Other [facility] Other Encounters Encounter Date Encounter Type Care Provider Facility Start: 02-03-2023 End: 02-03-2023 ambulatory Aguila Ponce Other [facility] Other Start: 02-03-2023 Telephone encounter Aguila Cody [facility] Start: 11-08-2022 End: 11-08-2022 ambulatory [facility] Facility:[facility] Start: 10-21-2022 End: 10-21-2022 ambulatory Aguila Ponce Other [facility] Other Start: 10-21-2022 Telephone encounter Aguila Cody [facility] Start: 10-21-2022 End: 10-21-2022 ambulatory [facility] Facility:[facility] Start: 09-22-2022 ambulatory NARENDRANATH LAKSHMIPATHY . Facility:[facility] Start: 08-23-2022 End: 08-23-2022 ambulatory NARENDRANATH LAKSHMIPATHY . Facility:[facility] Start: 08-16-2022 End: 08-16-2022 ambulatory NARENDRANATH LAKSHMIPATHY . Facility:[facility] Start: 08-15-2022 End: 08-15-2022 ambulatory Aguila Ponce Other [facility] Other Start: 08-15-2022 Telephone encounter Aguila [facility]DR[facility] Start: 07-28-2022 End: 07-29-2022 ambulatory NARENDRANATH LAKSHMIPATHY . Facility:[facility] Start: 07-12-2022 End: 07-12-2022 ambulatory NARENDRANBONG LAKSHMIPATHY . Facility:[facility] Start: 07-07-2022 End: 07-08-[address] AGUILA PONCE Facility:[facility] Start: 06-22-2022 End: 06-23-[address] AGUILA PONCE Facility:[facility] Start: 06-21-2022 Telephone encounter [facility] Start: 06-21-2022 End: 06-21-[address] AGUILA PONCE [employer] Other Start: 06-20-2022 End: 06-20-2022 ambulatory Aguila Ponce Other [facility] Other Start: 06-20-2022 Encounter for other preprocedural examination Aguila Ponce [facility] Start: 06-20-2022 Office outpatient vi sit 25 minutes Aguila Ponce [facility] Start: 05-26-2022 End: 05-27-[address] AGUILA PONCE Facility:[facility] Start: 05-10-2022 End: 05-10-2022 ambulatory Aguila Ponce Other [facility] Other Start: 05-10-2022 Office outpatient vi sit 15 minutes Aguila Ponce [facility] Start: 04-28-2022 End: 06-01-[address] AGUILA PONCE Facility:[facility] Start: 04-26-2022 Telephone encounter [facility] Start: 04-26-2022 End: 04-26-[address] AGUILA PONCE [employer] Other Start: 04-23-2022 Encounter for genera l adult medical examination without abnormal findings DR AGUILA PONCE [facility] Start: 04-21-2022 End: 04-22-[address] AGUILA PONCE Facility:[facility] Start: 04-21-2022 End: 04-22-2022 Encounter for general adult medical examination without abnormal findings DR AGUILA PONCE Facility:[facility] Start: 03-31-2022 Adult health examination Aguila Ponce Other [facility] Other Start: 11-04-2021 End: 11-04-[address] AGUILA PONCE Facility:[facility] Start: 09-24-2021 ambulatory DANIELLE Roque ty:[facility] Start: 09-17-2021 End: 09-17-[address] AGUILA PONCE Facility:[facility] Start: 09-15-2021 End: 09-15-2021 ambulatory MARISABEL ROJAS Facility:[facility] Procedures Date Procedure Procedure Detail Performing Clinician Start: 04-04-2018 General examination of patient Aguila Ponce Other End: 06-16-2021 Laboratory test result abnormal Aguila Ponce Other Immunizations Immunization Date Immunization Notes Care Provider Fa cility 09-15-2021 diphtheria, tetanus toxoids and pertussis vaccine Aguila Kris Other [facility] Other 02-12-2021 COVID-19 Vaccine Moderna - Documentation Purposes Only Aguila Ponce Other [facility] Other 07-03-2020 COVID-19 Vaccine Chelo - Documentation Purposes Only Aguila Ponce Other [facility] Other Payers Date Payer Category Payer [facility] [id number] 2019 Unknown [id number] 1975 Unknown [id number] 06.09. [id number] 1975 Unknown [id number] 1975 Unknown [id number] 0.1.174053.3.579.2.593 1975 Unknown [id number] 0.1.039513.3.579.2.593 1973 Unknown [id number] 06.09.84 0.1.540382.3.579.2.593 1975 Unknown [id number] 2.16.84 0.1.667411.3.579.2.593 1975 Unknown [id number] 2.16.84 0.1.819282.3.579.2.593 1975 Unknown [id number] 2.16.84 0.1.539107.3.579.2.593 1973 Unknown [id number] 2.16.84 0.1.835096.3.579.2.593 1973 Unknown [id number] 2.16.84 0.1.692032.3.579.2.593 1973 Unknown [id number] 2.16.84 0.1.946823.3.579.2.593 1973 Unknown [id number] 2.16.84 0.1.594532.3.579.2.593 1973 Unknown [id number] 2.16.84 0.1.806888.3.579.2.593 1973 Unknown [id number] 2.16.84 0.1.448750.3.579.2.593 1973 Unknown [id number] 2.16.84 0.1.823833.3.579.2.593 1973 Unknown [id number] 2.16.84 0.1.184174.3.579.2.593 1973 Unknown [id number] 2.16.8 40.1.895118.3.579.2.718 1975 Unknown [id number] 2.16.8 40.1.221135.3.579.2.718 Private Health Insurance BBS [id number] Social History Date Type Detail Facility Sex Assigned At [facility] Other Medical Equipment Procedure Code Equipment Code Equipment Original Text Equi pment Identifier Dates Sure-Fine Pen Ne edles 31G X 5 MM Clinical Notes 06-23-2021 to 02-03-2023 Note Date & Type Note Facility 02-03-2023 Evaluation note Encounter Date Diagnosis Assessment Notes Jan, Type 2 diabetes mellitus with hyperglycemia (ICD-10 - E11.65) [facility] Other 06-30-2023 Evaluation note* Encounter Date Diagnosis Assessment Notes Treatment Notes Treatment Clinical Notes Sep, Essential (primary) hypertension (ICD-10 - I10) [facility] Other 04-24-2023 Evaluation note* Encounter Date Diagnosis Assessment Notes Treatment Notes Treatment Clinical Notes Jul, Type 2 diabetes mellitus with hyperglycemia (ICD-10 - E11.65) Jul, 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 HISTORY: Patient presents today complaining of 5-7/10 pain in his lower back bilaterally, described as sharp pain, increased with activity such as standing, walking and performing transitioning maneuvers. He feels most comfortable in a semi-recumbent position. Denies any change in bowel and bladder habits or new sensorimotor changes in his lower extremities. EXAM: Notable for patient having no clinical radiculopathy or myelopathy involving his lower extremities. Patient did have severe pain with lumbar facet joint loading maneuvers occurring bilaterally, worse on the left than the right side, from L1 through L4 area, mainly from L1 through L3. Again, worse on the left than the right side, with associated myofascial spasm over the lumbar paravertebral muscles. IMPRESSION: Our impression is patient with chronic pain secondary to post laminectomy syndrome, complicated by lumbosacral spondylosis occurring bilaterally, worse on the left than the right side, occurring above his fusion levels. It appears to be most painful at the L2-3 level. He has had acute positive diagnostic medial branch blocks at L1, 2, 3, 4, with his pain improving by at least 80% in the immediate post procedural period, lasting for several hours, with recurrence of pain back to his baseline. RECOMMENDATIONS: I have recommended proceeding with a rhizotomy using radiofrequency ablation of the L1, 2, 3, 4 medial branches, starting on the left side initially, proceeding to the contralateral side, approximately 1-2 weeks later. In the interim, I have asked him to start Zonegran 50 mg pills, one pill at h.s. for one week, then two pills at h.s. thereafter, as tolerated. His MORAIMA on today's visit was 6. As part of providing excellent, safe, comprehensive care, the following was completed at our patient's visit: 1. A medication reconciliation and review to ensure accurate knowledge of current/active medications, including asking our patients to inform us about any [id number] medications or herbal remedies/nutritional supplements/alternative remedies. 2. A review to specifically ensure our patients have had annual screening for: elevated body mass index (BMI, see intake chart for exact total), tobacco use, screening for depression, and screening for unhealthy alcohol use. When screening is concerning, patients are provided with education and the specific recommendation to discuss the concerning health issue and treatment options with their primary care provider.[id number] Note CONSULTATION CONSULTATION DATE: 07/07/2022 HISTORY: This is a 47-year-old gentleman who returns to the clinic status post #1 bilateral MBB of L1, L2 and L3, L4 completed on 06/21/2022 that afforded him 80% relief for one day. Today, he rates his pain 3/10 at rest, will increase to 5/10 with activity. Twisting, pushing, pulling, prolonged standing, walking and lifting aggravate his pain. He does not currently use heat or ice, but he does stretch. Medications include Motrin 800 mg daily p.r.n. and baclofen 10 mg q.h.s. Patient does have a pending right shoulder surgery with Dr. Menon on 08/09/2022. Patient's REVIEW OF SYSTEMS / PAST MEDICAL HISTORY / ALLERGIES and IMAGES have been reviewed and noted on the chart. PHYSICAL EXAM: VITAL SIGNS: Blood pressure is 144/83. Heart rate is 79. Temperature is 97.5. He is 6'2 , weighs 119 kg. GENERAL IMPRESSION: Pleasant, appropriate, in no acute distress. FOCUSED EXAM - BACK: Range of motion is guarded in lateral rotation and flexion/extension. Paravertebral muscles are non-spasmodic. Reproduction of spinal axial pain noted to compression along the lumbar facets of L1, L2 and L3, L4 bilaterally. Fullness palpated at the facets as well, indicative of facet arthropathy, lumbar spondylosis. Pain does radiate to his right lower extremity. Elma's point non-tender bilaterally. MUSCULOSKELETAL: Motor is intact, 5/5 bilaterally. No vasomotor weakness noted. Patient walks unassisted with a stable gait and has good muscle tone. NEUROLOGICAL: Patchy hypoesthesia noted along the right L3, L4 distribution to the level of the ankle. +1 bilateral patellar and Achilles reflexes. DIAGNOSIS: Lumbar spondylosis, lumbar degenerative disc disease, spinal axial lower back pain, lumbar radiculitis. PLAN: We will progress to #2 bilateral MBB of L1, L2 and L3, L4. Patient states the baclofen does make him groggy in the morning; therefore, I recommended he break it in half and decrease the dose to 5 mg q.h.s. He is to continue with stretches and exercises, and I highly recommended the use of heat application. Patient agrees with this plan of care and will be followed up in the clinic post procedure.[id number]* Encounter Date Diagnosis Assessment Notes Treatment Notes Treatment Clinical Notes May, Elevated transaminase level (ICD-10 - R74.01) May, Essential (primary) hypertension (ICD-10 - I10) May, Controlled type 2 diabetes mellitus with hyperglycemia, without long-term current use of insulin (ICD-10 - E11.65) [facility] Other 02-27-2023 Evaluation note* Encounter Date Diagnosis Assessment Notes Treatment Notes Treatment Clinical Notes May, Essential (primary) hypertension (ICD-10 - I10) HTN stable w/ treatment, continue medication w/o interruption May, Preop exam for internal medicine (ICD-10 - Z01.818) Instructed to hold Farxiga the morning of surgery May, Controlled type 2 diabetes mellitus with hyperglycemia, without long-term current use of insulin (ICD-10 - E11.65) BS controlled, instructed to hold Farxiga the morning of surgery. May, Gastroesophageal reflux disease with esophagitis without hemorrhage (ICD-10 - K21.00) GERD stable, continue medication w/o interruption May, Hyperlipidemia, mixe d (ICD-10 - E78.2) Healthy diet and exercise. [facility] Other 02-02-2023 NoteCONSULTATION CONSULTATION DATE: 05/26/2022 HISTORY OF PRESENT ILLNESS: This is a 46-year-old gentleman who has been seen at this clinic prior, years ago by Dr. Anderson, but within a year he saw Dr. Pike. His complaint is lower back pain. He did have a lumbar fusion of L4- L5, L5-S1 in the past. Dr. Pike did bilateral SI joint injection on 09/17/2021 that did give him some relief. He christopher not returned since that time. Today, at rest, he rates his pain a 2/10; describes it as sharp and steady. With activity such as twisting, pushing, pulling, lying, lifting and bending, his pain will increase to 5/10. He denies any radiating pain down his lower extremities. Patient is a known diabetic with his last A1c at 7.0. He does take insulin daily. Patient currently does not use any heat to his back and does not do stretches. Medications include Motrin 800 mg daily p.r.n. He did have increased LFTs this past fall and is very aware of any Tylenol use or alcohol use. In the past, he was on Zanaflex, but he quit taking that, as he felt it made him foggy. His pain is in his lower back. He describes it as diffuse and deep and achy. Patient's REVIEW OF SYSTEMS / PAST MEDICAL HISTORY / ALLERGIES and IMAGES have been reviewed and noted on the chart. PHYSICAL EXAM: VITAL SIGNS: Blood pressure 121/69, heart rate is 53. Temperature is 97.7. He is 6'2 , weighs 121 kg. GENERAL IMPRESSION: Pleasant, appropriate, in no acute distress. FOCUSED EXAM - BACK: Range of motion is guarded in lateral rotation and flexion/extension. Slight extension is most painful. Compression along the posterior elements of L1, L2 and L3, L4 facets reproduce the patient's pain pattern. Fullness is palpated indicative of facet arthropathy, lumbar spondylosis. Bilateral lumbar trapezius and erector spinae muscles are taut, tender to the touch. Elma's point is non-tender bilaterally. No radiating pain. Negative FABERs, compression test and thigh thrust test. MUSCULOSKELETAL: Motor is intact, 5/5 bilaterally. Patient walks unassisted with a stable gait. NEUROLOGICAL: Radicular sensory is intact. Negative polyneuropathy. Reflexes are 2/2 bilaterally. DIAGNOSIS: Lower back pain, lumbar spondylosis, lumbar degenerative disc disease and lumbar spasms. PLAN: We will progress forward with a #1 bilateral MBB of L1, L2 and L3, L4 and start him on baclofen 10 mg q.h.s. Education was given regarding the use of a heat rub and heat pad application twice daily. Stretches were encouraged and demonstrated. Patient agrees to move forward with the plan of care and the procedure. He will be followed up in the office thereafter.[facility] 05-10-2022 Evaluation note* Encounter Date Diagnosis Assessment Notes Treatment Notes Treatment Clinical Notes Apr, Cellulitis of hand (ICD-10 - L03.119) Elevate and begin antibiotics. Apr, Laceration of left hand without foreign body, initial encounter (ICD-10 - S61.412A) Cleanse w/ soap and water. Keep dry. Monitor for worsening pain, erythmea or swelling Apr, Controlled type 2 diabetes mellitus with hyperglycemia, without long-term current use of insulin (ICD-10 - E11.65) Increased risk for severe infection Apr, Other Keep clean and dry. Cleanse w/ soap and water. UTD w/ tetanus booster Keep clean and dry. Cleanse w/ soap and water. UTD w/ tetanus booster [facility] Other 01-03-2023 Evaluation note* Encounter Date Diagnosis Assessment Notes Treatment Notes Treatment Clinical Notes Apr, Other chronic pain (ICD-10 - G89.29) Apr, Low back pain, unspecified (ICD-10 - M54.50) [facility] Other 03-02-2022 NoteChief Complaint consultation for screening colonoscopy and GI complaints HPI Staff 45 year old male presents on consultation from Dr. Ponce for screening colonoscopy and GI complaints. Reports intermittent diarrhea, nausea and bloating. Denies abdominal pain, vomiting, rectal pain or bleeding. Never had colonoscopy in the past. No known family history of colon cancer. History of Present Illness 45 yo male with h/o DMII, htn, referred for nausea, dyspepsia, epigastric pain, change in bms with frequent episodes of loose stools, no blood; no emesis; no fevers, no recent antibiotic therapy or travel; describes intermittent crampy abdominal pain, some sharp pains in epigastrium and RLQ, no radiation; no change with eating; no wt loss; no previous EGD or colonoscopy; only abdominal operation open cholecystectomy. denies asa or NSAID use, no SBE prophylaxis; no fmhx of GI malignancy or IBD. Review of Systems PHQ Score Initial Depression Screen Score: 0 ROS - Provider Constitutional: no fever, no sweats, no weight loss. Eyes: yes glasses, no blurred vision, no visual loss. ENMT: no dentures, no hoarseness, no swallowing difficulties, no hearing loss, no ear infection(s),no nose bleeds. Cardiovascular: normal blood pressure, no chest pain, regular heartbeat, no heart murmur. Respiratory: no shortness of breath, no cough, no asthma, no wheezing. Gastrointestinal: yes nausea, no vomiting, yes diarrhea, no constipation, no blood in stool, yes change in bowel habits, no abdominal pain, no hepatitis. Genitourinary: no kidney stones, no urine infection, no dysuria. Musculoskeletal: no pain, no weakness. Skin: no changing moles, no rash, no skin lumps. Neurologic: no seizures, no epilepsy, no headache. Psychiatric: no emotional or psychiatric problem. Heme/Lymph: no bleeding problems, no anemia, no blood clots, no transfusions. Allergy/Immunologic: no swollen lymph nodes/glands, no IV drug abuse. Other: Additional ROS info: Except as noted in the above Review of Systems and in the History of Present Illness, all other systems have been reviewed and are negative or noncontributory. Physical Exam Vitals & Measurements T: 36.4 ?C(Temporal Artery) HR: 68(Peripheral) RR: 16 BP: 116/74 HT: 188.0 cm HT: 187.96 cm WT: 117.0 kg WT: 117 kg BMI: 33.12 HEENT: normal conjunctiva, sclera clear, no scleral icterus, EOM intact, PERRLA, oral mucosa moist without lesions. Neck: trachea midline, no mass, symmetric, no thyromegaly or nodules, no adenopathy Respiratory: lungs CTA, respirations non labored. Cardiovascular: regular rate and rhythm, no murmur, no pedal edema or varicosities. Gastrointestinal: soft, non distended, no tenderness, no masses, well-healed right subcoastal scar no palpable hernias, diastasis recti no, no hepatosplenomegaly; normal bs Lymphatic: no cervical adenopathy, Musculoskeletal: normal gait, digits and nails without infection, nodes, cyanosis, clubbing. Skin: no rashes, no lesions, no ulcers, no subcutaneous nodules, induration. Psychiatric/Neuro: oriented to time, place, person, judgement normal, affect appropriate for age, insight intact, no focal deficits. Tests: labs reviewed, review of old records completed, Discussed surgical options, risks, and possible complications with patient. Assessment/Plan 1. Nausea (R11.0: Nausea) plan EGD and colonoscopy for further evaluation, informed consent obtained. 2. Dyspepsia, (R10.13: Epigastric pain)Abdominal pain, epigastric see # 1 3. Change in bowel habits (R19.4: Change in bowel habit) see # 1 5. Abdominal pain, RLQ (R10.31: Right lower quadrant pain) see # 1 6. Frequent loose stools (R19.7: Diarrhea, unspecified) see # 1 7. Smokeless tobacco use (Z72.0: Tobacco use) We strongly recommend to quit tobacco use. Cigarette smoking harms nearly every organ of the body, causes many diseases, and reduces the health of smokers in general. Quitting smoking lowers your risk for smoking-related diseases and can add years to your life. We encourage you to visit www.smokefree.gov access to helpful resources including free telephone support. If you decide on prescription treatment to help you quit, your family doctor would be happy to provide these. Follow-up No qualifying data available Problem List/Past Medical History Ongoing Abdominal pain, epigastric Abdominal pain, RLQ BMI 33.0-33.9,adult Change in bowel habits Diabetes Dyspepsia Dysuria Frequent loose stools Glycosuria Nausea Nocturia Phimosis S/P routine circumcision Smokeless tobacco use Swelling Historical Hypertension Procedure/Surgical History Circumcision (04/22/2020), Arthroscopy of knee, Cholecystectomy, History of lumbar fusion, Rotator cuff repair. Medications Basaglar KwikPen 100 units/mL subcutaneous solution, 10 unit(s), SubCutaneous, Once a day (at bedtime) benazepril 10 mg Tab, 10 mg= 1 tab(s), Oral, Daily glimepiride 4 mg Tab, 4 mg= 1 tab(s), Oral, Da (more content not included)... [facility]Comment [facility]:Result Comment: Electronically Signed By: XANDER DIEHL, Luc Blandon\Date and Time Signed: 06/23/21 17:02 EST History general Narrative - Reported* Type Description Date Medical History Right rotator cuff tendonitis Medical History Depression, major, recurrent, in partial remission Medical History Essential (primary) hypertension Medical History Controlled type 2 di abetes mellitus with hyperglycemia, without long-term current use of insulin Medical History Nausea and vomiting in adult Medical History Chronic pain Medical History Right shoulder pain Medical History COVID Medical History Lumbar spondylosis Medical History Degenerative disc disease, lumba r Medical History Epigastric abdominal pain Medical History Diarrhea of presumed infectious origin Medical History Primary insomnia Medical History Nausea Medical History Influenza vaccine refused Medical History Hyperlipidemia, mixed Medical History Acute seasonal allergic rhinitis due to pollen Medical History Obesity Medical History Gastroesophageal ref lux disease with esophagitis without hemorrhage Medical History Other obesity due to excess desmond gillian Medical History Chewing tobacco nicotine depende nce without complication Surgical History EGD 07/07/2021 Surgical History colonoscopy 07/07/2021 Surgical History Lumbar Discectomy 1999 Surgical History Lumbar Decompression Surgical History Bilateral Laminectomies Surgical History Foraminotomies 2003 Surgical History Right Knee Arthroscopy 2009 Surgical History Lumbar Discectomy with Fusion 2 011 Surgical History cholecystectomy 1993 Surgical History Arthroscopy L Shoulder 12/2016 Surgical History Debridement SLAP Lesion Surgical History Subacromion Decompression [facility] Other History general Narrative - Reported* Type Description Date Medical History Right rotator cuff tendonitis Medical History Depression, major, recurrent, in partial remission Medical History Essential (primary) hypertension Medical History Controlled type 2 di abetes mellitus with hyperglycemia, without long-term current use of insulin Medical History Nausea and vomiting in adult Medical History Chronic pain Medical History Right shoulder pain Medical History COVID Medical History Lumbar spondylosis Medical History Degenerative disc disease, lumba r Medical History Epigastric abdominal pain Medical History Diarrhea of presumed infectious origin Medical History Primary insomnia Medical History Nausea Medical History Influenza vaccine refused Medical History Hyperlipidemia, mixed Medical History Acute seasonal allergic rhinitis due to pollen Medical History Obesity Medical History Gastroesophageal ref lux disease with esophagitis without hemorrhage Medical History Other obesity due to excess desmond gillian Medical History Chewing tobacco veronica esperanza dependence without complication Surgical History EGD 07/07/2021 Surgical History colonoscopy 07/07/2021 Surgical History Lumbar Discectomy 1999 Surgical History Lumbar Decompression Surgical History Bilateral Laminectomies Surgical History Foraminotomies 2003 Surgical History Right Knee Arthroscopy 2009 Surgical History Lumbar Discectomy with Fusion 2 011 Surgical History cholecystectomy 1993 Surgical History Arthroscopy L Shoulder 12/2016 Surgical History Debridement SLAP Lesion Surgical History Subacromion Decompression Hospitalization History see surgical history [facility] Other Summary Purpose Family History No Family History Records FoundNo Family History Records FoundNo Family History Records Found Advance Directives No Advanced Directives Records FoundNo Advanced Directives Records FoundNo Advanced Directives Records Found Reason for Referral Reason 05/26/22 Patient morteza juan referred for treatment of low back pain. Diagnosis 1 Osteoarthritis of sp ine with radiculopathy, lumbar region (M47.26) Referral Organization [facility] Kris Tuttle alie Referring Provider First Name Aguila Referring Provider Last Name Kris Referring Provider Specialty Internal Me dicine Referred [facility] Referred Provider VIDHYA MOSLEY Referred Address [address], [place],[address] Referred Provider Specialty Pain Medicin e Referral Priority Routine Referral Appointment Date 2022-05-26 General Notes Patient experiencing persistent low back pain with history of HNP w/ central canal stenosis that involved L2-4. At times, his pain will radiate into both hips and legs. He has experienced N/T in his right lower extremity. Activity worsens his pain, while lying supine relieves his pain. He has a hx of 3 previous back surgeries (1999, 2003 and 2010). Emily Lee 04/29/2022 11:14:57 AM >received today, attached CT results and faxed referral Emily Lee 05/06/2022 10:01:28 AM >faxed first attempt letter Emily Lee 05/13/2022 11:03:41 AM >faxed second attempt letter Emily Lee 05/20/2022 09:54:00 AM >faxed third attempt letter. will call next Emily Lee 05/30/2022 03:23:04 PM >spoke with patient, he states he was seen last week sometime, and now is trying to get insurance to cover the injections. faxed letter to Dr. Anderson office for consult notes Emily Lee 06/06/2022 03:55:13 PM >faxed first request for consult notes to [phone] Emily Lee 06/07/2022 01:51:17 PM >received today notes sent for review. closing referral at this time. Clinical Notes CT lumbar spine comp leted July, P: [id number] F: [id number] Additional Source Comments (unrecognized sect ion and content) No Status Records FoundNo Status Records FoundNo Status Records Found INFORMATION SOURCE (unrecogn ized section and content) DATE CREATED AUTHOR 07/20/2021 [facility] DATE CREATED AUTHOR AUTHOR'S ORGANIZ ATION 09/07/2022 [facility] DATE CREATED AUTHOR AUTHOR'S ORGANIZ ATION 11/07/2022 [facility] l REASON FOR VISIT (unrecogniz ed section and content) Referralpossible cellulitisN o InformationPre-Op ClearancerefillRefillRefill FOR RECORDS PERTAINING TO PATIENTS WHO ARE OR HAVE BEEN ENROLLED IN A CHEMICAL DEPENDENCY/SUBSTANCEABUSE PROGRAM, SOME INFORMATION MAY BE OMITTED. This clinical summary was aggregated from multiple sources. Caution should be exercised in using it in the provision of clinical care. This summary normalizes information from multiple sources, and as a consequence, information in this document may materially change the coding, format and clinical context of patient data. In addition, data may be omitted in some cases. CLINICAL DECISIONS SHOULD BE BASED ON THE PRIMARY CLINICAL RECORDS. [facility] [employer] provides no warranty or guarantee of the accuracy or completeness of information in this document.
[2023-05-30 08:11] LABS: Basophils Percent Auto 0.8 % (0.2-2.0); Eosinophils Absolute Auto 0.2 10^3/uL (0.0-0.7); Eosinophils Percent Auto 3.4 % (0.9-7.0); Hematocrit 45.6 % (42.0-54.0); Hemoglobin 15.7 g/dL (14.0-18.0); Immature Granulocytes Abs Auto 0.01 10^3/uL (0.00-0.03); Immature Granulocytes Pct Auto 0.2 % (0.0-0.5); Lymphocytes Absolute Auto 1.2 10^3/uL (1.2-3.8); Lymphocytes Percent Auto 24.5 % (20.5-60.0); Mean Corpuscular HGB Conc 34.4 g/dL (29.9-35.2); Mean Corpuscular Hemoglobin 30.6 pg (25.9-34.0); Mean Corpuscular Volume 88.9 fL (80.0-94.0); Mean Platelet Volume 11.2 fL (9.5-13.5); Monocytes Absolute Auto 0.4 10^3/uL (0.3-0.8); Monocytes Percent Auto 7.3 % (1.7-12.0); Neutrophils Absolute Auto 3.1 10^3/uL (1.4-6.5); Neutrophils Percent Auto 63.8 % (43.0-75.0); Platelet Count 172 10^3/uL (150-450); Red Blood Count 5.13 10^6/uL (4.70-6.10); Red Cell Distribution Width 11.5 % (11.0-15.0); White Blood Count 4.9 10^3/uL (4.0-11.0)
[2023-05-30 08:56] LABS: Microalbumin Urine Random <1.3 mg/dL (<=30.0)
[2023-05-30 09:16] LABS: Prostate Specific Antigen Scrn <0.13 ng/mL (<=4.00)
[2023-05-30 10:41] LABS: Estimated Average Glucose 151 mg/dL; Glycohemoglobin A1C 6.9 % (4.5-6.2)
[2023-05-30 11:06] LABS: Alanine Aminotransferase 50 U/L (16-63); Albumin Globulin Ratio 1.1; Alkaline Phosphatase 139 U/L (46-116); Anion Gap 15.9; Aspartate Amino Transferase 24 U/L (15-37); BUN Creatinine Ratio 19.5; Bilirubin Total 0.6 mg/dL (0.2-1.0); Calcium 8.8 mg/dL (8.5-10.1); Carbon Dioxide 24.6 mmol/L (21.0-32.0); Chloride 105 mmol/L (98-107); Chol HDL Ratio 3.8; Cholesterol 148 mg/dL (<=200); Estimated GFR (African America >60 (>=60); Estimated GFR (Non-African Ame >60 (>=60); Globulin 3.8 g/dL; Glucose 229 mg/dL (74-106); HDL Cholesterol 39 mg/dL (40-60); Potassium 3.5 mmol/L (3.5-5.1); Sodium 142 mmol/L (136-145); Total Protein 7.8 g/dL (6.4-8.2); Triglycerides 197 mg/dL (<=150); VLDL CHOLESTEROL 39.4 mg/dL
== END 2023-05-30 07:47 | disposition home or self-care (01) ==
LOC: LAB 07:47
PROVIDERS: PCP Internal Medicine; Visit Provider Internal Medicine
DX: Z00.00 Encounter for general adult medical examination without abnormal findings (principal); Z12.5 Encounter for screening for malignant neoplasm of prostate
CPT/HCPCS: 36415; 80053; 80061; 82043; 83036; 85025; G0103

== ENCOUNTER 2023-06-08 15:24 | Outpatient (OUT) | payer BC, SELFPAY ==
--- NOTE | 2023-06-08 15:38 | P.CN_ITS ---
Consult Note: HPI Data of Consult Patient: known to practice within the last 3 years Requesting Physician: Jeanna Stokes NP Primary Care Provider: Aguila Ponce DO Consult Narrative Reason for consult: Chronic Low back pain post lumbar fusion Narrative: Yasir Orourke a pleasant 47 year old male presents for follow up on chronic low back pain post fusion. Today rating low back pain 2/10, continues to have neuropathy to RLE. Previous caudal HEBER with 50% improvement in pain and functional ability ongoing. Has started lyrica 50mg HS 1 week ago with no improvement in radicular symptoms. cc:: CC: Jeanna Stokes NP Review of Systems ROS Status of ROS 10 or more systems reviewed and unremark able except as noted in history and below Musculoskeletal Reports: back pain Meds Home Medications and Allergies Home Medications Medication Instructions Recorded Confirmed Type baclofen 10 mg tablet 10 mg PO DAILY #90 tabs 12/21/22 Rx dulaglutide subcut QWEEK 12/21/22 History ibuprofen 800 mg tablet (IBU) 800 mg PO DAILY 12/21/22 02/28/23 History omeprazole 40 mg capsule,delayed 40 mg PO DAILY 12/21/22 02/28/23 History release Allergies Allergy/AdvReac Type Severity Reaction Status Date / Time No Known Drug Allergies Allergy Verified 12/21/22 08:59 Exam Constitutional Documenting provider has reviewed patient's vital signs: yes Common normals: no apparent distress, oriented x3, healthy appearing, alert and well nourished General appearance: cooperative HENPA Common normals: normocephalic, hearing grossly normal bilaterally and moist oral mucous membranes Head and scalp: normocephalic Eye Common normals: PERRL Pupil: PERRL Neck & C-Spine Common normals: full ROM General: normal visual inspection Chest Common normals: inspection of chest normal Respiratory Common normals: normal respiratory effort, no retractions and no use of accessory muscles Back & Pelvis Lumbar spine/lower back: ROM limited and pain with ROM Extremity Common normals: normal to inspection, full ROM and no joint enlargement Neuro Common normals: oriented x3, CN's II-XII intact bilaterally, moves all extremities, no focal motor deficits, no sensory deficits noted and deep tendon reflexes 2+ bilaterally Sensorium/orientation: alert Gait (neuro): normal gait Motor exam: strength 5/5 throughout and no movement abnormalities noted Other: 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 A drug screen was completed and reviewed within the last year, and if there has not been a drug screen completed we ordered one today to monitor higher risk, state monitored pain medication use. As part of providing excellent, safe, comprehensive care, the following was completed at our patient's visit: 1. A medication reconciliation and review to ensure accurate knowledge of current/active medications, including asking our patients to inform us about any [id number] medications or herbal remedies/nutritional supplements/alternative remedies. 2. A review to specifically ensure our patients have had annual screening for: elevated body mass index (BMI), tobacco use, screening for depression, and screening for unhealthy alcohol use. When screening is concerning, patients are provided with education and the specific recommendation to discuss the concerning health issue and treatment options with their primary care provider. Assessment and Plan Assessment and Plan (1) Neuropathy: (2) Muscle spasm: (3) Lumbar radiculopathy: (4) Status post lumbar spinal fusion: Plan increase lyrica 100mg HS, can increase to BID next fill continue baclofen 10mg HS continue HEP f/u 3 months for medication management, consider SCS revision in the future
--- OUTSIDE RECORDS SUMMARY | 2023-06-08 15:46 | XMS_ITS | CCD ---
Author Name Unknown Address [address] [place] [address] Organization [facility] Care Team Providers Care Flamer After Lasting Name Role Phone Aguila Ponce Unavailable LAKSHMIPATHY [...] Care Unavailable BALL, DR NEWBY Consulting Unavailable KIRS, DR NEWBY Attending Unavailable BALL, DR NEWBY Admitting Unavailable BALL, DR NEWBY Primary Care Unavailable BALL, DR NEWBY Consulting Unavailable KRIS, DR NEWBY Attending Unavailable BALL, DR NEWBY Primary Care Unavailable MISC, DR WEBSTER Attending Unavailable MISC, DR WEBSTER Admitting Unavailable MISC, DR WEBSTER Consulting Unavailable ZIEBER, DR BEATRIZ Martinez Consulting Unavailable BALL, DR NEWBY Primary Care Unavailable ANDERSON ., DR NADRI Xiao Admitting Unavailable ANDERSON ., DR NADIR Xiao Consulting Unavailable ANDERSON ., DR NADIR Xiao Attending Unavailable MOSLEY ., VIDHYA Consulting Unavailable LAKSHMIPATHY ., NARENDRANATH Attending Zina [...] Facility (2 sources) metFORMIN Drug Allergy unknown [employer] Other (7 sources) SITagliptin Drug Allergy unknown [employer] Other (6 sources) [employer] Drug Allergy 9 unknown [employer] Other (1 source) metFORMIN Drug Allergy [facility] Repository (1 source) patient allergy list reviewed by nurse or physicia Propensity to adverse reactions 9 Comment:Done [employer] Other Medications Current Medications Medication Drug Class(es) [...] sources) Long-term current use of insulin; Translations: [snf (current) use of insulin] Episodic Other aftercare (1 source) snf (current) use of insulin Episodic Other connective [...] Onset: 09-15-2021 Episodic Other aftercare (1 source) snf (current) use of oral hypoglycemic drugs; Translations: [DETENTION USE ORAL HYPOGLYCEMIC DX] Onset: 09-17-2021 Episodic [...] Results Test Name Value Interpretation Reference Range [facility] it POINT OF CARE GLUCOSEon 05-0 Glucose [Mass/Vol] 254 mg/dL Critically high 74-106 T [facility] Comment on above: Performed By: #### P OCGLUC #### [facility] [address] [place] [address] Dr. Jose Cruz Balderas POINT OF CARE GLUCOSEon 07-24 Glucose [Mass/Vol] 241 mg/dL Critically high 74-106 [facility] Comment on above: Performed By: #### P OCGLUC #### [facility] [address] [place] [address] Dr. Jose Cruz Balderas POINT OF CARE GLUCOSEon 06-23 Glucose [Mass/Vol] 204 mg/dL Critically high 74-106 [facility] Comment on above: Performed By: #### P OCGLUC #### [facility] [address] [address] [address] Jose Cruz Balderas GLYCOHEMOGLOBIN A1Con 2022 ADA RECOMMENDATION SEE BELOW Normal [facility] Comment on above: Result Comment: ADA RECOMMENDED LIMIT 4.0 - 6.0 ADA THERAPEUTIC TARGET < 7.0 ACTION SUGGESTED > 7.0 Performed By: #### P OCGLUC #### [facility] [address] [place] [address] Dr. Jose Cruz Balderas Glucose [Mass/Vol] 134 mg/dL Normal [facility] Comment on above: Performed By: #### P OCGLUC #### [facility] [address] [place] [address] Dr. Jose Cruz Balderas HbA1c (Bld) [Mass fraction] 6.3 % Critically high 4.5-6.2 [facility] Comment on above: Performed By: #### P OCGLUC #### [facility] [address] [place] [address] Dr. Jose Cruz Balderas PROF 14(COMP METB)on 023 Albumin [Mass/Vol] 4.5 g/dL Normal 3.4-5.0 [facility] Comment on above: Performed By: #### C MP #### [facility] [address] [place] [address] Dr. Jose Cruz Balderas Albumin/Globulin [Mass ratio] 1.3 {ratio} Normal [facility] Comment on above: Performed By: #### C MP #### [facility] [address] [place] [address] Dr. Jose Cruz Balderas ALP [Catalytic activity/Vol] 93 U/L Normal 46-116 [facility] Comment on above: Performed By: #### C MP #### [facility] [address] [place] [address] Dr. Jose Cruz Balderas ALT [Catalytic activity/Vol] 41 U/L Normal 16-63 [facility] Comment on above: Performed By: #### C MP #### [facility] [address] [address] [address] Jose Cruz Balderas Anion gap [Moles/Vol] 12.0 mmol/L Normal Th [facility] Comment on above: Performed By: #### C MP #### [facility] [address] [address] [address] Jose Cruz Balderas AST [Catalytic activity/Vol] 21 U/L Normal 15-37 [facility] Comment on above: Performed By: #### C MP #### [facility] [address] [place] [address] Dr. Jose Cruz Balderas Bilirubin [Mass/Vol] 0.8 mg/dL Normal 0.2-1.0 [facility] Comment on above: Performed By: #### C MP #### [facility] [address] [address] [address] Jose Cruz Balderas Calcium [Mass/Vol] 9.3 mg/dL Normal 8.5-10.1 [facility] Comment on above: Performed By: #### C MP #### [facility] [address] [address] [address] Jose Cruz Balderas Chloride [Moles/Vol] 105 mmol/L Normal 98-107 [facility] Comment on above: Performed By: #### C MP #### [facility] [address] [address] [address] Jose Cruz Balderas CO2 [Moles/Vol] 26.7 mmol/L Normal 21.0-32.0 [facility] [place] [facility] Comment on above: Performed By: #### C MP #### [facility] [address] [address] [address] Jose Cruz Balderas Creatinine [Mass/Vol] 0.82 mg/dL Normal 0.70-1.30 [facility] Comment on above: Performed By: #### C MP #### [facility] [address] [address] [address] Jose Cruz Balderas EGFR-AF GABONESE >60 Normal >=60 [facility] [place] [facility] Comment on above: Performed By: #### C MP #### [facility] [address] [address] [address] Jose Cruz Balderas EGFR-NON AF GABONESE >60 Normal >=60 [facility] Comment on above: Performed By: #### C MP #### [facility] [address] [address] [address] Jose Cruz Balderas Globulin (S) [Mass/Vol] 3.5 g/dL Normal [facility] Comment on above: Performed By: #### C MP #### [facility] [address] [address] [address] Jose Cruz Balderas Glucose [Mass/Vol] 180 mg/dL Critically high 74-106 [facility] Comment on above: Performed By: #### C MP #### [facility] [address] [address] [address] Jose Cruz Balderas Potassium [Moles/Vol] 3.7 mmol/L Normal 3.5-5.1 [facility] Comment on above: Performed By: #### C MP #### [facility] [address] [address] [address] Jose Cruz Balderas Protein [Mass/Vol] 8.0 g/dL Normal 6.4-8.2 [facility] Comment on above: Performed By: #### C MP #### [facility] [address] [address] [address] Jose Cruz Balderas Sodium [Moles/Vol] 140 mmol/L Normal 136-145 [facility] Comment on above: Performed By: #### C MP #### [facility] [address] [address] [address] Jose Cruz Balderas Urea nitrogen [Mass/Vol] 19.0 mg/dL Critically high 7.0-18.0 [facility] Comment on above: Performed By: #### C MP #### [facility] [address] [address] [address] Jose Cruz Balderas Urea nitrogen/Creatinine [Mass ratio] 23.2 mg/mg Normal [facility] Comment on above: Performed By: #### C MP #### [facility] [address] [place] [address] Dr. Jose Cruz Balderas POINT OF CARE GLUCOSEon 05-26 Glucose [Mass/Vol] 174 mg/dL Critically high 74-106 T [facility] Comment on above: Performed By: #### P OCGLUC #### [facility] [address] [place] [address] Dr. Jose Cruz Balderas XR SHOULDER RT [...] BEATRIZ MITCHELL Date: 2022-04-26 15:27 Normal [facility] CBC AUTO DIFFon 04-21-2022 BASO # 0.0 103/ul Normal 0.0-0.1 [facility] Comment on above: Performed By: #### P OCGLUC #### [facility] [address] [place] [address] Dr. Jose Cruz Balderas Basophils/100 WBC (Bld) 0.8 % Normal 0.2-2.0 [facility] Comment on above: Performed By: #### P OCGLUC #### [facility] [address] [place] [address] Dr. Jose Cruz Balderas EO # 0.1 103/ul Normal 0.0-0.7 [facility] Comment on above: Performed By: #### P OCGLUC #### [facility] [address] [place] [address] Dr. Jose Cruz Balderas Eosinophils/100 WBC (Bld) 2.3 % Normal 0.9-7.0 [facility] Comment on above: Performed By: #### P OCGLUC #### [facility] [address] [place] [address] Dr. Jose Cruz Balderas Erythrocyte distribution width (RBC) [Ratio] 12.8 % Normal 11.0-15.0 [facility] Comment on above: Performed By: #### P OCGLUC #### [facility] [address] [place] [address] Dr. Jose Cruz Balderas Hematocrit (Bld) [Volume fraction] 47.2 % Normal 42.0-54.0 [facility] Comment on above: Performed By: #### P OCGLUC #### [facility] [address] [place] [address] Dr. Jose Cruz Balderas Hemoglobin (Bld) [Mass/Vol] 16.4 g/dL Normal 14.0-18.0 [facility] Comment on above: Performed By: #### P OCGLUC #### [facility] [address] [place] [address] Dr. Jose Cruz Balderas IG # 0.01 10e3/ul Normal 0.00-0.03 [facility] Comment on above: Performed By: #### P OCGLUC #### [facility] [address] [place] [address] Dr. Jose Cruz Balderas IG % 0.2 % Normal 0.0-0.5 [facility] Comment on above: Performed By: #### P OCGLUC #### [facility] [address] [place] [address] Dr. Jose Cruz Balderas LYMPH # 1.3 103/ul Normal 1.2-3.8 [facility] Comment on above: Performed By: #### P OCGLUC #### [facility] [address] [place] [address] Dr. Jose Cruz Balderas Lymphocytes/100 WBC (Bld) 25.6 % Normal 20.5-60.0 [facility] Comment on above: Performed By: #### P OCGLUC #### [facility] [address] [place] [address] Dr. Jose Cruz Balderas MANUAL DIFF REQ NO Normal [facility] Comment on above: Performed By: #### P OCGLUC #### [facility] [address] [place] [address] Dr. Jose Cruz Balderas MCH (RBC) [Entitic mass] 30.7 pg Normal 25.9-34.0 [facility] Comment on above: Performed By: #### P OCGLUC #### [facility] [address] [place] [address] Dr. Jose Cruz Balderas MCHC (RBC) [Mass/Vol] 34.7 g/dL Normal 29.9-35.2 [facility] Comment on above: Performed By: #### P OCGLUC #### [facility] [address] [place] [address] Dr. Jose Cruz Balderas MCV (RBC) [Entitic vol] 88.4 fL Normal 80.0-94.0 [facility] Comment on above: Performed By: #### P OCGLUC #### [facility] [address] [place] [address] Dr. Jose Cruz Balderas MONO # 0.5 103/ul Normal 0.3-0.8 [facility] Comment on above: Performed By: #### P OCGLUC #### [facility] [address] [place] [address] Dr. Jose Cruz Balderas Monocytes/100 WBC (Bld) 8.7 % Normal 1.7-12.0 [facility] Comment on above: Performed By: #### P OCGLUC #### [facility] [address] [place] [address] Dr. Jose Cruz Balderas NEUT # 3.2 103/ul Normal 1.4-6.5 [facility] Comment on above: Performed By: #### P OCGLUC #### [facility] [address] [address] [address] Jose Cruz Balderas Neutrophils/100 WBC (Bld) 62.4 % Normal 43.0-75.0 [facility] Comment on above: Performed By: #### P OCGLUC #### [facility] [address] [address] [address] Jose Cruz Balderas Platelet mean volume (Bld) [Entitic vol] 10.9 fL Normal 9.5-13.5 [facility] Comment on above: Performed By: #### P OCGLUC #### [facility] [address] [address] [address] Jose Cruz Balderas PLT 159 103/ul Normal 150-450 [facility] Comment on above: Performed By: #### P OCGLUC #### [facility] [address] [address] [address] Jose Cruz Balderas RBC 5.34 106/ul Normal 4.70-6.10 [facility] Comment on above: Performed By: #### P OCGLUC #### [facility] [address] [address] [address] Jose Cruz Balderas WBC 5.2 103/ul Normal 4.0-11.0 [facility] Comment on above: Performed By: #### P OCGLUC #### [facility] [address] [place] [address] Dr. Jose Cruz Balderas GLYCOHEMOGLOBIN A1Con 2021 ADA RECOMMENDATION SEE BELOW Normal [facility] Comment on above: Result Comment: ADA RECOMMENDED LIMIT 4.0 - 6.0 ADA THERAPEUTIC TARGET < 7.0 ACTION SUGGESTED > 7.0 Performed By: #### P OCGLUC #### [facility] [address] [place] [address] Dr. Jose Cruz Balderas Glucose [Mass/Vol] 163 mg/dL Normal [facility] Comment on above: Performed By: #### P OCGLUC #### [facility] [address] [place] [address] Dr. Jose Cruz Balderas HbA1c (Bld) [Mass fraction] 7.3 % Critically high 4.5-6.2 [facility] Comment on above: Performed By: #### P OCGLUC #### [facility] [address] [address] [address] Jose Cruz Balderas LIPID PROFILEon 04-21-2022 CHOL-HDL RATIO NORM SEE BELOW Normal [facility] Comment on above: Result Comment: 3.3 - 4.4 LOW RISK 4.4 - 7.1 AVERAGE RISK 7.1 - 11.0 MODERATE RISK >11.0 HIGH RISK Performed By: #### L IPID, CMP #### [facility] [address] [address] [address] Jose Cruz Balderas Cholesterol [Mass/Vol] 197 mg/dL Normal <=200 [facility] Comment on above: Performed By: #### L IPID, CMP #### [facility] [address] [address] [address] Jose Cruz Balderas Cholesterol in HDL [Mass/Vol] 49 mg/dL Normal 40-60 [facility] Comment on above: Performed By: #### L IPID, CMP #### [facility] [address] [address] [address] Jose Cruz Balderas Cholesterol in LDL [Mass/Vol] 109.4 mg/dL Normal [facility] Comment on above: Performed By: #### L IPID, CMP #### [facility] [address] [place], [place] [address] Dr. Jose Cruz Balderas Cholesterol.total/Cho lesterol in HDL [Mass ratio] 4.0 {ratio} Normal [facility] Comment on above: Performed By: #### L IPID, CMP #### [facility] [address] [place], [place] [address] Dr. Jose Cruz Balderas HDL NORMAL > or = 60 mg/dl - LOW CARDIOVASCULAR RISK <40 mg/dl - HIGH CARDIOVASCULAR RISK Normal [facility] Comment on above: Performed By: #### L IPID, CMP #### [facility] [address] [address] [address] Jose Cruz Balderas LDL CALC NORMAL SEE BELOW Normal [facility] Comment on above: Result Comment: <100 mg/dl OPTIMAL 100 - 129 mg/dl NEAR OR ABOVE OPTIMAL 130 - 159 mg/dl BORDERLINE HIGH 160 - 189 mg/dl HIGH >190 mg/dl VERY HIGH Performed By: #### L IPID, CMP #### [facility] [address] [place] [address] Dr. Joes Cruz Balderas Triglyceride [Mass/Vol] 193 mg/dL Critically high <=150 [facility] Comment on above: Performed By: #### L IPID, CMP #### [facility] [address] [place] [address] Dr. Jose Cruz Balderas VLDL CALC 38.6 mg/dL Normal [facility] Comment on above: Performed By: #### L IPID, CMP #### [facility] [address] [place] [address] Dr. Jose Cruz Balderas MICROALBUMIN, RAND URon 12-2 mALB 1.4 mg/L Normal <=30.0 [facility] Comment on above: Performed By: #### M ALBR #### [facility] [address] [place] [address] Dr. Jose Cruz Balderas PROF 14(COMP METB)on 022 Albumin [Mass/Vol] 4.3 g/dL Normal 3.4-5.0 [facility] Comment on above: Performed By: #### L IPID, CMP #### [facility] [address] [place] [address] Dr. Jose Cruz Balderas Albumin/Globulin [Mass ratio] 1.2 {ratio} Normal [facility] Comment on above: Performed By: #### L IPID, CMP #### [facility] [address] [place] [address] Dr. Jose Cruz Balderas ALP [Catalytic activity/Vol] 94 U/L Normal 46-[address] [facility] Comment on above: Performed By: #### L IPID, CMP #### [facility] [address] [place] [address] Dr. Jose Cruz Balderas ALT [Catalytic activity/Vol] 135 U/L Critically high 16-63 [facility] Comment on above: Performed By: #### L IPID, CMP #### [facility] [address] [address] [address] Jose Cruz Balderas Anion gap [Moles/Vol] 11.7 mmol/L Normal [facility] Comment on above: Performed By: #### L IPID, CMP #### [facility] [address] [address] [address] Jose Cruz Balderas AST [Catalytic activity/Vol] 105 U/L Critically high 15-37 [facility] Comment on above: Performed By: #### L IPID, CMP #### [facility] [address] [address] [address] Jose Cruz Balderas Bilirubin [Mass/Vol] 0.8 mg/dL Normal 0.2-1.0 [facility] Comment on above: Performed By: #### L IPID, CMP #### [facility] [address] [place] [address] Dr. Jose Cruz Balderas Calcium [Mass/Vol] 9.3 mg/dL Normal 8.5-10.1 [facility] Comment on above: Performed By: #### L IPID, CMP #### [facility] [address] [address] [address] Jose Cruz Balderas Chloride [Moles/Vol] 101 mmol/L Normal 98-107 [facility] Comment on above: Performed By: #### L IPID, CMP #### [facility] [address] [address] [address] Jose Cruz Balderas CO2 [Moles/Vol] 32.8 mmol/L Critically high 21.0-32.0 [facility] Comment on above: Performed By: #### L IPID, CMP #### [facility] [address] [address] [address] Jose Cruz Balderas Creatinine [Mass/Vol] 1.09 mg/dL Normal 0.70-1.30 [facility] Comment on above: Performed By: #### L IPID, CMP #### [facility] [address] [address] [address] Jose Cruz Balderas EGFR-AF GABONESE >60 Normal >=60 [facility] [place] [facility] Comment on above: Performed By: #### L IPID, CMP #### [facility] [address] [address] [address] Jose Cruz Balderas EGFR-NON AF GABONESE >60 Normal >=60 [facility] Comment on above: Performed By: #### L IPID, CMP #### [facility] [address] [address] [address] Jose Cruz Balderas Globulin (S) [Mass/Vol] 3.6 g/dL Normal [facility] Comment on above: Performed By: #### L IPID, CMP #### [facility] [address] [address] [address] Jose Cruz Balderas Glucose [Mass/Vol] 174 mg/dL Critically high 74-106 [facility] Comment on above: Performed By: #### L IPID, CMP #### [facility] [address] [place] [address] Dr. Jose Cruz Balderas Potassium [Moles/Vol] 4.5 mmol/L Normal 3.5-5.1 [facility] Comment on above: Performed By: #### L IPID, CMP #### [facility] [address] [place] [address] Dr. Jose Cruz Balderas Protein [Mass/Vol] 7.9 g/dL Normal 6.4-8.2 [facility] Comment on above: Performed By: #### L IPID, CMP #### [facility] [address] [place] [address] Dr. Jose Cruz Balderas Sodium [Moles/Vol] 141 mmol/L Normal 136-145 [facility] Comment on above: Performed By: #### L IPID, CMP #### [facility] [address] [place] [address] Dr. Jose Cruz Balderas Urea nitrogen [Mass/Vol] 14.0 mg/dL Normal 7.0-18.0 [facility] Comment on above: Performed By: #### L IPID, CMP #### [facility] [address] [place] [address] Dr. Jose Cruz Balderas Urea nitrogen/Creatinine [Mass ratio] 12.8 mg/mg Normal [facility] Comment on above: Performed By: #### L IPID, CMP #### [facility] [address] [address] [address] Jose Cruz Balderas POINT OF CARE GLUCOSEon 08-23 Glucose [Mass/Vol] 240 mg/dL Critically high 74-106 [facility] Comment on above: Performed By: #### P OCGLUC #### [facility] [address] [address] [address] Jose Cruz Balderas XR FINGER MIN 2 VIEWSon 08-23 XR FINGER MIN 2 VIEWS EXAM: XR FINGER W[place] N 2 VIEWS HISTORY: Laceration of finger [...] by: SERGE TAN Date: 2021-09-15 19:17 Normal [facility] Pathology Noteon 07-09-2021 Pathology Note [id number]#1.00CD:127 Normal [facility] Outside Colonoscopyon 2021 Outside Colonoscopy [id number] #1.00CD:127 Normal [facility] Lab Reportson 07-06-2021 Lab Reports [id number] #1.00CD:127 Normal [facility] Consent for Procedure/Surger yon 06-24-2021 Consent for Procedure/Surgery [id number] #1.00CD:127 Normal [facility] Ambulatory Visit Summaryon 0 06-23-2021 Ambulatory Visit [...] no longer receiving treatment for. Hypertension Normal [facility] Physician Referralon 03-02-2 022 Physician Referral [id number] #1.00CD:127 [facility] Physician Referralon 022 Physician Referral [id number] #[id number]:[id number] [facility] Vital Signs Date Time Vital Sign Value Performing Clinician Facility 06-20-2022 15:00-0500 Body height 187.96 cm Aguila Ball Other [facility] Other 06-20-2022 15:00-0500 Body mass index (BMI) [Ratio] 33.74 kg/m2 Aguila Ball Other [facility] Other 06-20-2022 15:00-0500 Body weight 119.21 kg Aguila Ball Other [facility] Other 06-20-2022 15:00-0500 Diastolic blood pressure 70 mm[Hg] Aguila Ball Other [facility] Other 06-20-2022 15:00-0500 Respiratory rate 12 /min Aguila Ball Other [facility] Other 06-20-2022 15:00-0500 Systolic blood pressure 108 mm[Hg] Aguila Ball Other [facility] Other 05-10-2022 11:15-0500 Body height 187.96 cm Aguila Ball Other [facility] Other 05-10-2022 11:15-0500 Body mass index (BMI) [Ratio] 33.79 kg/m2 Aguila Ball Other [facility] Other 05-10-2022 11:15-0500 Body weight 119.39 kg Aguila Ball Other [facility] Other 05-10-2022 11:15-0500 Diastolic blood pressure 70 mm[Hg] Aguila Ponce Other [facility] Other 05-10-2022 11:15-0500 Respiratory rate 12 /min Aguila Ponce Other [facility] Other 05-10-2022 11:15-0500 Systolic blood pressure 118 mm[Hg] Aguila Ponce Other [facility] Other Encounters Encounter Date Encounter Type Care Provider Facility Start: 02-03-2023 End: 02-03-2023 ambulatory Aguila Ponce Other [facility] Other Start: 02-03-2023 Telephone encounter Aguila Cody [facility] Start: 11-08-2022 End: 11-08-2022 ambulatory [facility] Facility:[facility] Start: 10-21-2022 End: 10-21-2022 ambulatory Aguila Ponce Other [facility] Other Start: 10-21-2022 Telephone encounter Aguila Cody [facility] Start: 10-21-2022 End: 10-21-2022 ambulatory [facility] Facility:[facility] Start: 09-22-2022 ambulatory NARENDRANATH LAKSHMIPATHY . Facility:[facility] Start: 08-23-2022 End: 08-23-2022 ambulatory NARENDRANATH LAKSHMIPATHY . Facility:[facility] Start: 08-16-2022 End: 08-16-2022 ambulatory NARENDRANATH LAKSHMIPATHY . Facility:[facility] Start: 08-15-2022 End: 08-15-2022 ambulatory Aguila Ponce Other [facility] Other Start: 08-15-2022 Telephone encounter Aguila LANDRUM G [facility] Start: 07-28-2022 End: 07-29-2022 ambulatory NARENDRANATH LAKSHMIPATHY . Facility:[facility] Start: 07-12-2022 End: 07-12-2022 ambulatory NARENDRANBONG LAKSHMIPATHY . Facility:[facility] Start: 07-07-2022 End: 07-08-[address] AGUILA PONCE Facility:[facility] Start: 06-22-2022 End: 06-23-[address] AGUILA PONCE Facility:[facility] Start: 06-21-2022 Telephone encounter [facility] Start: 06-21-2022 End: 06-21-[address] AGUILA PONCE [place] [facility] Other Start: 06-20-2022 End: 06-20-2022 ambulatory Aguila Ponce Other [facility] Other Start: 06-20-2022 Encounter for other preprocedural examination Aguila Ponce [facility] Start: 06-20-2022 Office outpatient vi sit 25 minutes Aguila Ponce [facility] Start: 05-26-2022 End: 05-27-[address] AGUILA PONCE Facility:[facility] Start: 05-10-2022 End: 05-10-2022 ambulatory Aguila Ponce Other [facility] Other Start: 05-10-2022 Office outpatient vi sit 15 minutes Aguila Ponce [facility] Start: 04-28-2022 End: 06-01-[address] AGUILA PONCE Facility:[facility] Start: 04-26-2022 Telephone encounter [facility] Start: 04-26-2022 End: 04-26-[address] AGUILA PONCE [place] [facility] Other Start: 04-23-2022 Encounter for genera l adult medical examination without abnormal findings DR AGUILA PONCE [facility] Start: 04-21-2022 End: 04-22-[address] AGUILA PONCE Facility:[facility] Start: 04-21-2022 End: 04-22-2022 Encounter for general adult medical examination without abnormal findings DR AGUILA PONCE Facility:[facility] Start: 03-31-2022 Adult health examination Aguila Ponce Other [facility] Other Start: 11-04-2021 End: 11-04-[address] [...] toxoids and pertussis vaccine Aguila Kris Other [facility] Other 02-12-2021 COVID-19 Vaccine Moderna - Documentation Purposes Only Aguila Ponce Other [facility] Other 07-03-2020 COVID-19 Vaccine Chelo - Documentation Purposes Only Aguila Ponce Other [facility] Other Payers Date Payer Category Payer [facility] [id number] 2019 Unknown [id number] 1975 Unknown [id number] 06.09. [id number] 1973 Unknown [id number] 0.1.084998.3.579.2.593 1973 Unknown [id number] 0.1.343935.3.579.2.593 1973 Unknown [id number] 0.1.833574.3.579.2.593 1973 Unknown [id number] 06.09.84 0.1.810325.3.579.2.593 1973 Unknown [id number] 2.16.84 0.1.063727.3.579.2.593 1973 Unknown [id number] 2.16.84 0.1.711493.3.579.2.593 1973 Unknown [id number] 2.16.84 0.1.345819.3.579.2.593 1973 Unknown [id number] 2.16.84 0.1.930290.3.579.2.593 1973 Unknown [id number] 2.16.84 0.1.178942.3.579.2.593 1973 Unknown [id number] 2.16.84 0.1.535553.3.579.2.593 1973 Unknown [id number] 2.16.84 0.1.435135.3.579.2.593 1973 Unknown [id number] 2.16.84 0.1.837575.3.579.2.593 1973 Unknown [id number] 2.16.84 0.1.261985.3.579.2.593 1973 Unknown [id number] 2.16.84 0.1.056270.3.579.2.593 1973 Unknown [id number] 2.16.84 0.1.612658.3.579.2.593 1973 Unknown [id number] 2.16.8 40.1.478461.3.579.2.718 1973 Unknown [id number] 2.16.8 40.1.829648.3.579.2.718 Private Health Insurance BBS [id number] Social History Date Type Detail Facility Sex Assigned At [facility] Other Medical Equipment Procedure Code Equipment Code Equipment Original Text Equi pment Identifier Dates Sure-Fine Pen Ne edles 31G X 5 MM Clinical Notes 06-23-2021 to 02-03-2023 Note Date & Type Note Facility 02-03-2023 Evaluation note Encounter Date Diagnosis Assessment Notes Jan, Type 2 diabetes mellitus with hyperglycemia (ICD-10 - E11.65) [facility] Other 06-30-2023 Evaluation note* Encounter Date Diagnosis Assessment Notes Treatment Notes Treatment Clinical Notes Sep, Essential (primary) hypertension (ICD-10 - I10) [facility] Other 04-24-2023 Evaluation note* Encounter Date Diagnosis Assessment Notes Treatment Notes Treatment Clinical Notes Jul, Type 2 diabetes mellitus with hyperglycemia (ICD-10 - E11.65) Jul, snf (current) use of insulin (ICD-10 - Z79.4) [facility] Other 04-06-2023 NoteCONSULTATION CONSULTATION DATE: 07/28/2022 TO: [...] our patients to inform us about any [id number] medications or herbal remedies/nutritional supplements/alternative remedies. 2. [...] treatment options with their primary care provider.[id number] Note CONSULTATION CONSULTATION DATE: 07/07/2022 HISTORY: This [...] followed up in the clinic post procedure.[id number] Evaluation note* Encounter Date Diagnosis Assessment Notes Treatment Notes Treatment Clinical Notes May, Elevated transaminase level (ICD-10 - R74.01) May, Essential (primary) hypertension (ICD-10 - I10) May, Controlled type 2 diabetes mellitus with hyperglycemia, without long-term current use of insulin (ICD-10 - E11.65) [facility] Other 02-27-2023 Evaluation note* Encounter Date Diagnosis [...] (ICD-10 - E78.2) Healthy diet and exercise. [facility] Other 02-02-2023 NoteCONSULTATION CONSULTATION DATE: 05/26/2022 HISTORY [...] be followed up in the office thereafter.[facility] 05-10-2022 Evaluation note* Encounter Date Diagnosis [...] soap and water. UTD w/ tetanus booster [facility] Other 01-03-2023 Evaluation note* Encounter Date Diagnosis Assessment Notes Treatment Notes Treatment Clinical Notes Apr, Other chronic pain (ICD-10 - G89.29) Apr, Low back pain, unspecified (ICD-10 - M54.50) [facility] Other 03-02-2022 NoteChief Complaint consultation for screening [...] tab(s), Oral, Da (more content not included)... [facility]Result Comment: Electronically Signed By: XANDER [...] Debridement SLAP Lesion Surgical History Subacromion Decompression [facility] Other History general Narrative - Reported* Type [...] Subacromion Decompression Hospitalization History see surgical history [facility] Other Summary Purpose Family History No Family History Records FoundNo Family History Records FoundNo Family History Records Found Advance Directives No Advanced Directives Records FoundNo Advanced Directives Records FoundNo Advanced Directives Records Found Reason for Referral Reason 05/26/22 Patient morteza juan referred for treatment of low back pain. Diagnosis 1 Osteoarthritis of sp ine with radiculopathy, lumbar region (M47.26) Referral Organization [facility] Kris Tuttle alie Referring Provider First Name Aguila Referring Provider Last Name Kris Referring Provider Specialty Internal Me dicine Referred Organization [facility] Referred Provider VIDHYA MOSLEY Referred Address [address], [place],[address] Referred Provider Specialty Pain Medicin e Referral [...] >faxed first request for consult notes to [phone] Emily Lee 06/07/2022 01:51:17 PM >received today notes sent for review. closing referral at this time. Clinical Notes CT lumbar spine comp leted July, P: [phone] F: [id number] Additional Source Comments (unrecognized sect ion and content) No Status Records FoundNo Status Records FoundNo Status Records Found INFORMATION SOURCE (unrecogn ized section and content) DATE CREATED AUTHOR 07/20/2021 [facility] DATE CREATED AUTHOR AUTHOR'S ORGANIZ ATION 09/07/2022 [facility] DATE CREATED AUTHOR AUTHOR'S ORGANIZ ATION 11/07/2022 [facility] l REASON FOR VISIT (unrecogniz ed [...] BE BASED ON THE PRIMARY CLINICAL RECORDS. [facility] [employer] provides no warranty or guarantee of the accuracy or completeness of information in this document.
== END 2023-06-08 15:25 | disposition home or self-care (01) ==
LOC: PM 15:25
PROVIDERS: PCP Internal Medicine; Visit Provider Nurse Practitioner
DX: G62.9 Polyneuropathy, unspecified (principal); M62.838 Other muscle spasm; M54.16 Radiculopathy, lumbar region; Z98.890 Other specified postprocedural states
CPT/HCPCS: G0463

== ENCOUNTER 2023-11-20 12:42 | Emergency (ER) | payer BC, SELFPAY ==
[2023-11-20 12:49] VITALS: BP 151/96; PULSE 98; TEMP 36.6; O2SAT 98; BMI 28.5
--- NOTE | 2023-11-20 13:08 | CT_ITS ---
[address] [address] Patient Name: MOI MCPHERSON MRN: [id number] date: 1975 Sex: M Assigned Patient Location: ER Current Patient Location: Accession/Order Number: [id number] Exam Date: 11/20/2023 13:42 Report Date: 11/20/2023 14:21 At the request of: SHOBHA ORANTES Procedure: CT abdomen pelvis w con EXAMINATION: CT abdomen pelvis w con HISTORY: Weight loss/family history liver CA COMPARISON: CT abdomen 08/11/2021 TECHNIQUE: Axial, Coronal, and Sagittal images were obtained without and/or with IV contrast as indicated by examination type. Dose reduction techniques were achieved by using automated exposure control and/or adjustment of mA and/or kV according to patient size and/or use of iterative reconstruction technique. FINDINGS: LUNG BASES: No visible pulmonary or pleural disease. LIVER: Fatty infiltration. BILIARY: Cholecystectomy. PANCREAS: No lesion, fluid collection, or abnormal duct dilatation. SPLEEN: No enlargement or focal lesion. ADRENALS: No mass or enlargement. KIDNEYS: No mass, obstruction, or calcification. BOWEL/MESENTERY: No visible mass, obstruction, or bowel wall thickening. AORTA/VASCULAR: No aneurysm or dissection. RETROPERITONEUM: No mass or adenopathy. LYMPH NODES: No adenopathy. URINARY BLADDER: No visible focal wall thickening, lesion, or calculus. PELVIC ORGANS: No visible mass. Pelvic organs appropriate for patient age. ABDOMINAL WALL: No mass or hernia. BONES: Posterior mechanical fusion L4-5-S1 with posterior decompression. OTHER: Negative. CT/CT abdomen pelvis w con IMPRESSION: 1. Fatty infiltration of the liver. 2. No mass, lymphadenopathy, or suspicious findings to suggest primary or metastatic neoplasm. Electronically authenticated by: BEATRIZ MITCHELL Date: 11/20/2023 14:21
--- NOTE | 2023-11-20 13:10 | ED_ITS ---
HPI HPI - General Adult General Chief complaint: Shortness of Breath/Dyspnea Stated complaint: RASH Time Seen by Provider: 11/20/23 13:08 Source: patient Mode of arrival: walk-in Limitations: no limitations History of Present Illness HPI narrative: Patient here complaining of itching and a rash. The rash just started recently prior to that time he seen his primary care doctor and they placed him on steroids and Benadryl. He started out with a sore throat and that is when the itching started. He has not run a fever at home. There is concerned about weight loss of approximately 20 to 25 pounds over the last several months. He has a strong family history on both sides of hepatic cancer. He had a colonoscopy about 2 years ago and had some polyps removed and is scheduled to have another routine surveillance colonoscopy but they were not malignant at the time. His bowel movements have not been white or cortney colored. His urine has not been dark. No one in the family has noticed any scleral icterus. He has somewhat of a decreased appetite. He has no shortness of breath or chest pain. His bowel movements are not changed in color or character or consistency. He does use alcohol products off-and-on over the years. The rash is primarily on the anterior knees the flank area and then scattered throughout the torso. There is no raised whelps or hives. Related Data Home Medications ?Medication ?Instructions ?Recorded ?Confirmed dulaglutide subcut QWEEK 12/21/22 omeprazole 40 mg capsule,delayed 40 mg PO DAILY 12/21/22 11/20/23 release dapagliflozin propanediol 10 mg mg 11/20/23 tablet (Farxiga) Previous Rx's ?Medication ?Instructions ?Recorded baclofen 10 mg tablet 10 mg PO DAILY #90 tabs 12/21/22 Allergies Allergy/AdvReac Type Severity Reaction Status Date / Time No Known Drug Allergies Allergy Verified 11/20/23 12:54 Opioid HPI Opioid Management Most Recent Opioid Data: Last Pain Scale 3 02/28/23 10:19 Exam Narrative Exam Narrative: Very pleasant 48-year-old male here with his . He does not appear acutely ill. Vital noted. He is not complaining of any specific pain but he does have a fair amount of itching. On HEENT examination his pharynx is diffusely erythematous but there is no vesicles ulcerations or abscess. Voice is normal. There is no stridor. There is no cervical or supraclavicular adenitis. Lungs are clear no wheeze rales or rhonchi. Heart sounds normal. Examination abdomen a large right upper quadrant cholecystectomy incision is noted. He has good bowel sounds there is no hepatomegaly or tenderness. No guarding rebound or rigidity. Skin and integument are normal with no pallor or scleral icterus. Lower extremities have no peripheral edema. He does have a diffuse macular punctate rash about the flank on the left and the right and the knees bilaterally. There is no joint effusion or joint pain per se. Constitutional Vital Signs, click to edit/add: Last Vital Signs Temp 97.8 F 11/20/23 12:49 Pulse 98 H 11/20/23 12:49 Resp 18 11/20/23 12:49 BP 151/96 H 11/20/23 12:49 Pulse Ox 98 11/20/23 12:49 O2 Del Method Room Air 11/20/23 12:49 Course Vital Signs Vital signs: Vital Signs Temperature 97.8 F 11/20/23 12:49 Pulse Rate 98 H 11/20/23 12:49 Respiratory Rate 18 11/20/23 12:49 Blood Pressure 151/96 H 11/20/23 12:49 Pulse Oximetry 98 11/20/23 12:49 Oxygen Delivery Method Room Air 11/20/23 12:49 Temperature 97.8 F 11/20/23 12:49 Pulse Rate 98 H 11/20/23 12:49 Respiratory Rate 18 11/20/23 12:49 Blood Pressure 151/96 H 11/20/23 12:49 Pulse Oximetry 98 11/20/23 12:49 Oxygen Delivery Method Room Air 11/20/23 12:49 Medical Decision Making [facility] Narrative Medical decision making narrative: Patient presents with weight loss ongoing alcohol use and family history of liver CA. Also had sore throat and a rash develop recently. His laboratory test show elevation of his liver function test and mild elevation of alk phos. CBC is normal. CEA is pending. A CT of the abdomen with IV contrast was done to rule out any metastatic disease or primary tumors and we see no acute findings per the radiologist interpretation. There is a fatty liver and elevation of his LFTs. I discussed this case and follow-up with Dr. Hesham ramirez. Lab Data Labs: Lab Results 11/20/23 Range/Units 12:55 WBC 7.9 (4.0-11.0) 10^3/uL RBC 5.06 (4.70-6.10) 10^6/uL Hgb 16.3 (14.0-18.0) g/dL Hct 44.5 (42.0-54.0) % MCV 87.9 (80.0-94.0) fL MCH 32.2 (25.9-34.0) pg MCHC 36.6 H (29.9-35.2) g/dL RDW 12.1 (11.0-15.0) % Plt Count 164 (150-450) 10^3/uL MPV 10.8 (9.5-13.5) fL Neut % (Auto) 72.9 (43.0-75.0) % Lymph % (Auto) 17.2 L (20.5-60.0) % [place] % (Auto) 8.0 (1.7-12.0) % Eos % (Auto) 1.1 (0.9-7.0) % Baso % (Auto) 0.5 (0.2-2.0) % Neut # (Auto) 5.8 (1.4-6.5) 10^3/uL Lymph # (Auto) 1.4 (1.2-3.8) 10^3/uL [place] # (Auto) 0.6 (0.3-0.8) 10^3/uL Eos # (Auto) 0.1 (0.0-0.7) 10^3/uL Baso # (Auto) 0.0 (0.0-0.1) 10^3/uL Abs Immat Gran (auto) 0.02 (0.00-0.03) 10^3/uL Imm/Tot Granulo (auto) 0.3 (0.0-0.5) % PT 10.8 (9.0-11.6) sec INR 1.02 Sodium 130 L (136-145) mmol/L Potassium 3.8 (3.5-5.1) mmol/L Chloride 93 L (98-107) mmol/L Carbon Dioxide 22.2 (21.0-32.0) mmol/L Anion Gap 18.6 BUN 23.0 H (7.0-18.0) mg/dL Creatinine 0.97 (0.70-1.30) mg/dL Est GFR ( Amer) >60 (>=60) Est GFR (Non-Af Amer) >60 (>=60) BUN/Creatinine Ratio 23.7 Glucose 276 H (74-106) mg/dL Calcium 9.0 (8.5-10.1) mg/dL Total Bilirubin 1.3 H (0.2-1.0) mg/dL AST 63 H (15-37) U/L ALT 100 H (16-63) U/L Alkaline Phosphatase 144 H (46-116) U/L Total Protein 7.4 (6.4-8.2) g/dL Albumin 4.0 (3.4-5.0) g/dL Globulin 3.4 g/dL Albumin/Globulin Ratio 1.2 Discharge Plan Discharge Stand Alone Forms: Portal Instructions Chief Complaint: Shortness of Breath/Dyspnea Clinical Impression: Alcohol induced fatty liver Patient Disposition: Home, Self-Care Time of Disposition Decision: 14:29 Prescriptions / Home Meds: No Action baclofen 10 mg tablet 10 mg PO DAILY Qty: 90 0RF omeprazole 40 mg capsule,delayed release(DR/EC) 40 mg PO DAILY dulaglutide [Trulicity] subcut QWEEK dapagliflozin propanediol [Farxiga] 10 mg tablet Print Language: Danish Additional Instructions: Follow-up with Dr. Ramirez later this week to consider further testing on your liver Referrals: Aguila Ramirez DO [Primary Care Provider] - 1 week
[2023-11-20 13:22] LABS: Basophils Percent Auto 0.5 % (0.2-2.0); Eosinophils Absolute Auto 0.1 10^3/uL (0.0-0.7); Eosinophils Percent Auto 1.1 % (0.9-7.0); Hematocrit 44.5 % (42.0-54.0); Hemoglobin 16.3 g/dL (14.0-18.0); Immature Granulocytes Abs Auto 0.02 10^3/uL (0.00-0.03); Immature Granulocytes Pct Auto 0.3 % (0.0-0.5); Lymphocytes Absolute Auto 1.4 10^3/uL (1.2-3.8); Lymphocytes Percent Auto 17.2 % (20.5-60.0); Mean Corpuscular HGB Conc 36.6 g/dL (29.9-35.2); Mean Corpuscular Hemoglobin 32.2 pg (25.9-34.0); Mean Corpuscular Volume 87.9 fL (80.0-94.0); Mean Platelet Volume 10.8 fL (9.5-13.5); Monocytes Absolute Auto 0.6 10^3/uL (0.3-0.8); Neutrophils Absolute Auto 5.8 10^3/uL (1.4-6.5); Neutrophils Percent Auto 72.9 % (43.0-75.0); Platelet Count 164 10^3/uL (150-450); Red Blood Count 5.06 10^6/uL (4.70-6.10); Red Cell Distribution Width 12.1 % (11.0-15.0); White Blood Count 7.9 10^3/uL (4.0-11.0)
[2023-11-20 13:28] LABS: INR 1.02; Prothrombin Time 10.8 sec (9.0-11.6)
[2023-11-20 13:30] LABS: Alanine Aminotransferase 100 U/L (16-63); Albumin Globulin Ratio 1.2; Alkaline Phosphatase 144 U/L (46-116); Anion Gap 18.6; Aspartate Amino Transferase 63 U/L (15-37); BUN Creatinine Ratio 23.7; Bilirubin Total 1.3 mg/dL (0.2-1.0); Carbon Dioxide 22.2 mmol/L (21.0-32.0); Chloride 93 mmol/L (98-107); Estimated GFR (African America >60 (>=60); Estimated GFR (Non-African Ame >60 (>=60); Globulin 3.4 g/dL; Glucose 276 mg/dL (74-106); Potassium 3.8 mmol/L (3.5-5.1); Sodium 130 mmol/L (136-145); Total Protein 7.4 g/dL (6.4-8.2)
[2023-11-20] MEDS: HYDROXYZINE HCL 25 MG TABLET PO (14:12)
[2023-11-20 14:29] LABS: Internal Control Within Normal Limits; Strep A Antigen Screen Negative
[2023-11-20] MEDS: ONDANSETRON PF 4 MG/2 ML VIAL IV (14:49)
[2023-11-20 14:53] VITALS: BP 126/76; PULSE 77; TEMP 36.7; O2SAT 96
[2023-11-20 14:54] VITALS: O2SAT 97
[2023-11-21 08:12] LABS: CEA 2.3 ng/mL (0.0-4.7)
== END 2023-11-20 14:57 | disposition home or self-care (01) ==
PROVIDERS: Emergency Provider Emergency Medicine Emergency Medical Services; PCP Internal Medicine
DX: K70.0 Alcoholic fatty liver (principal); Z80.8 Family history of malignant neoplasm of other organs or systems
CPT/HCPCS: 36415; 74177; 80053; 82378; 85025; 85610; 87070; 87880; 99284; J2405; Q9967

== ENCOUNTER 2024-01-23 09:54 | Emergency (ER) | payer BC, SELFPAY ==
[2024-01-23 10:02] VITALS: BP 159/94; PULSE 77; TEMP 36.9; O2SAT 97; BMI 31.5
--- NOTE | 2024-01-23 10:03 | ED.UPPEXIN1 ---
HPI HPI - Extremity Injury (Upper) General Chief Complaint: Wound/Laceration Stated Complaint: RIGHT UPPER EXTREMITY INJURY Time Seen by Provider: 01/23/24 09:56 Source: patient Mode of arrival: walk-in Limitations: no limitations History of Present Illness HPI narrative: 48-year-old male presents to the emergency department for laceration to the distal aspect of his right thumb sustained on a knife about half an hour ago. He is not sure when his last tetanus shot was. No other injury was sustained. Related Data Home Medications ?Medication ?Instructions ?Recorded ?Confirmed dulaglutide subcut QWEEK 12/21/22 omeprazole 40 mg capsule,delayed 40 mg PO DAILY 12/21/22 01/23/24 release baclofen 10 mg tablet 10 mg PO DAILY PRN pain 01/23/24 01/23/24 Allergies Allergy/AdvReac Type Severity Reaction Status Date / Time No Known Drug Allergies Allergy Verified 11/20/23 12:54 Opioid HPI Opioid Management Most Recent Pain and Opioid Data: Last Pain Scale 3 02/28/23 10:19 Review of Systems ROS Narrative A ten point review of systems is negative except as noted above. PFSH PFSH Social History Little interest or pleasure in doing things: not at all Feeling down, depressed, or hopeless: not at all Exam Narrative Exam Narrative: Nurses note and vital signs reviewed and patient is not hypoxic. General: The patient appears well and in no apparent distress. Patient is resting comfortably on cart. Skin: Warm, dry, no pallor noted. There is no rash noted. Head: Normocephalic, atraumatic Eye: Normal conjunctiva, no drainage Ears, Nose, Mouth, and Throat: oral mucosa is moist. Nares patent. Cardiovascular: Regular Rate and Rhythm Respiratory: Patient is in no distress, no accessory muscle use GI: Nontender Musculoskeletal: 1.5 cm laceration present at the distal aspect of his right thumb. Nail is unaffected. No current active bleeding and no obvious foreign body. Neurological: Awake and alert Psychiatric: Cooperative Constitutional Vital Signs, click to edit/add: Last Vital Signs Temp 98.4 F 01/23/24 10:02 Pulse 77 01/23/24 10:02 Resp 18 01/23/24 10:02 BP 159/94 H 01/23/24 10:02 Pulse Ox 97 01/23/24 10:02 O2 Del Method Room Air 01/23/24 10:02 Course Vital Signs Vital signs: Vital Signs Temperature 98.4 F 01/23/24 10:02 Pulse Rate 77 01/23/24 10:02 Respiratory Rate 18 01/23/24 10:02 Blood Pressure 159/94 H 01/23/24 10:02 Pulse Oximetry 97 01/23/24 10:02 Oxygen Delivery Method Room Air 01/23/24 10:02 Temperature 98.4 F 01/23/24 10:02 Pulse Rate 77 01/23/24 10:02 Respiratory Rate 18 01/23/24 10:02 Blood Pressure 159/94 H 01/23/24 10:02 Pulse Oximetry 97 01/23/24 10:02 Oxygen Delivery Method Room Air 01/23/24 10:02 MDM - Extremity Injury (Upper) MDM Narrative Medical decision making narrative: He had a tetanus shot within the last 1 or 2 years according to his . The wound has been closed and sutures are to be removed in 7 days. Treatment diagnosis and follow-up were discussed with the patient. No evidence of foreign body. Differential Diagnosis Differential diagnosis: Likely other (Laceration) Discharge Plan Discharge Chief Complaint: Wound/Laceration Clinical Impression: Laceration of thumb Patient Disposition: Home, Self-Care Time of Disposition Decision: 10:38 Condition: Good Mode of Transportation: Private Vehicle Prescriptions / Home Meds: No Action omeprazole 40 mg capsule,delayed release(DR/EC) 40 mg PO DAILY dulaglutide [Trulicity] subcut QWEEK baclofen 10 mg tablet 10 mg PO DAILY PRN (Reason: pain) Print Language: South Korean Instructions: Finger Laceration (ED) Additional Instructions: Sutures to be removed in a week Referrals: Aguila Ponce DO [Primary Care Provider] - 1 week Procedures ED Procedure Instructions Procedures Procedures: The following procedure was performed by me. Right thumb block applied with 1% lidocaine without epinephrine resulting in complete skin anesthesia. The area was prepped with Betadine x 3 and draped sterilely. It was explored for foreign bodies and none were found. It was then closed with three 5-0 Ethilon sutures resulting in good skin reapproximation and no complications. He tolerated the procedure well.
[2024-01-23] MEDS: LIDOCAINE HCL 1% 100 MG/10 ML MDV INJ (10:08)
== END 2024-01-23 10:52 | disposition home or self-care (01) ==
PROVIDERS: Emergency Provider Emergency Medicine; PCP Internal Medicine
DX: S61.011A Laceration without foreign body of right thumb without damage to nail, initial encounter (principal); W26.0XXA Contact with knife, initial encounter
CPT/HCPCS: 12001; 99284

== ENCOUNTER 2024-04-04 21:48 | Inpatient (IN) | payer BC, SELFPAY ==
--- OUTSIDE RECORDS SUMMARY | 2024-04-04 22:06 | XMS_ITS | CCD ---
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 Name Role Phone Kris Aguila Unavailable LAKSHMIPATHY ., NARENDISAATH Attending Zina vailable LAKSHMIPATHY ., PRASHANT Admitting Zina vailable KRIS, DR NEWBY Primary Care Unavailable MARISABEL ROJAS Admitting Unavailable MARISABEL ROJAS Attending Unavailable BALL, DR NEWBY Primary Care Unavailable GRECHNY ., [...] ANDERSON ., DR NADIR Xiao Attending Unavailable MOSELY .VIDHYA Consulting Unavailable ELIZABETH JUNIOR Consulting Unavailable KRIS, DR NEWBY Primary Care Unavailable BALL, DR NEWBY Attending Unavailable BALL, DR NEWBY Admitting Unavailable BALL, DR NEWBY Consulting Unavailable KRIS, DR NEWBY Admitting Unavailable KRIS, DR NEWBY Primary Care Unavailable KRIS, DR NEWBY Consulting Unavailable KRIS, DR NEWBY Attending Unavailable BALL, DR NEWBY Admitting Unavailable BALL, DR NEWBY Primary Care Unavailable BALL, DR NEWBY Consulting Unavailable BALL, DR NEWBY Attending Unavailable BALL, DR NEWBY Primary Care Unavailable MISC, DR WEBSTER Attending Unavailable MISC, DR WEBSTER Admitting Unavailable MISC, DR WEBSTER Consulting Unavailable ZIEBER, DR BEATRIZ Martinez Consulting Unavailable KRIS, DR NEWBY Primary Care Unavailable ANDERSON [...] Attending Unavailable YULIA ., DANIELLE Admitting Unavailable DR AGUILA PONCE Primary Care Unavailable YULIA ., DANIELLE Consulting Unavailable KRISTOFER MENON Attending Unavailable Provider, None Primary Care Unavailable KRISTOFER MENON Admitting Unavailable KRISTOFER MENON Admitting Unavailable KRISTOFER MENON Attending Unavailable Provider, None Primary Care Unavailable Allergies Allergy Classification Reported Allergen(s) Allergy Type Date of Onset Reaction(s) Facility (2 sources) metFORMIN Drug Allergy unknown [facility] Other (11 sources) SITagliptin Drug Allergy 4 unknown [facility] (10 sources) metFORMIN Drug Allergy 9 unknown [facility] (1 source) metFORMIN Drug Allergy [facility] (1 source) patient allergy list reviewed by nurse or physicia Propensity to adverse reactions 9 Comment:Done [facility] Other Medications Current Medications Medication Drug Class(es) Dates Sig (Normalized) Sig (Original) BD Ultra-Fine Micro Pen Needle (7 sources) BD Ultra-Fine Mi farmworker field crop Pen Needle 32g x1/4 misc needle subcutaneous as directed Active dulaglutide (13 sources) GLP-1 Receptor Agonist Start: 01-05-2024 inject 3 mg by subcutaneous injection every week Dulaglutide Active 3 MG SUBCUT every week 2 January 05, 2024 9:14am Start: 11-29-2023 End: 01-05-2024 inject 1.5 mg by subcutaneous injection every week Dulaglutide Discontinued 1.5 MG SUBCUT every week 2 November 29, 2023 4:22pm January 05, 2024 9:15am Start: 11-09-2023 End: 11-29-2023 Dulaglutide (Trulicity) 0.75 mg/0.5 mL pen injector Discontinued 0 .ROUTE .COMPLEX 6 November 09, 2023 8:39am November 29, 2023 4:25pm INJECT 1 PEN SUBCUTANEOUSLY ONCE A WEEK FOR 28 DAYS Start: 07-07-2023 End: 11-09-2023 Dulaglutide (Trulicity) 0.75 mg/0.5 mL pen injector Discontinued 0.75 MG SUBCUT every week 2 July 07, 2023 12:00am November 09, 2023 8:40am Start: 08-17-2022 Trulicity 0.75 MG/0.5ML as directed [...] omeprazole 40 mg delayed release oral capsule (14 sources) Proton Pump Inhibitor Start: 09-19-2023 take 1 capsule by mouth once daily at breakfast Omeprazole Active 0 .ROUTE .COMPLEX September 19, 2023 7:03am TAKE 1 CAPSULE BY MOUTH ONCE A DAY ON AN EMPTY STOMACH FOLLOWED IN 30 MINUTES BY BREAKFAST Start: 06-12-2023 End: 09-19-2023 take 1 capsule by mouth once daily at breakfast Omeprazole Discontinued 40 MG PO Daily June 12, 2023 1:00am September 19, 2023 7:03am TAKE 1 CAPSULE BY MOUTH DAILY ON AN EMPTY STOMACH, FOLLOWED IN 30 MINUTES BY BREAKFAST Omeprazole 40 MG TAKE 1 CAPSULE BY MOUTH DAILY ON AN EMPTY STOMACH, FOLLOWED IN 30 MINUTES BY BREAKFAST for 90 Active OneTouch Verio - (7 sources) OneTouch Verio - as directed use to test home BS daily Active Completed/Discontinued Medications Medication Drug Class(es) Dates Sig (Normalized) Sig (Original) benazepril hydrochloride 10 mg oral tablet (11 sources) Angiotensin Converting Enzyme Inhibitor Start: 06-12-2023 End: 07-07-2023 take 10 mg by mouth once daily Benazepril Discontinued 10 MG PO Daily June 12, 2023 1:00am July 07, 2023 9:53am take 1 tablet by prince th every twenty-four hours Benazepril HCl 10 MG 1 tablet Orally Onc e a day for 90 days Active 24 hr buPROPion hydrochloride 300 mg extended release oral tablet (15 sources) Aminoketone Start: 06-12-2023 End: 11-29-2023 take 300 mg by mouth once daily Bupropion Hcl Discontinued 300 MG PO Daily 90 July 07, 2023 10:28am November 29, 2023 5:42pm take 1 tablet by prince th every twenty-four hours buPROPion HCl ER (XL) 300 MG 1 tablet in the morning Orally Once a day for 30 Active dapagliflozin 10 mg oral tablet (19 sources) Sodium-Glucose Cotransporter 2 Inhibitor Start: 06-20-2023 End: 11-29-2023 take 1 tablet by mouth once daily Dapagliflozin Propanediol (Farxiga) 10 mg tablet Discontinued 0 .ROUTE .COMPLEX June 20, 2023 9:43pm November 29, 2023 4:25pm TAKE 1 TABLET BY MOUTH EVERY DAY Start: 06-12-2023 End: 07-07-2023 take 1 tablet by mouth once daily Dapagliflozin Propanediol (Farxiga) 10 mg tablet Discontinued 10 MG PO Daily June 20, 2023 1:00am June 20, 2023 9:43pm Farxiga 10 MG TA KE 1 TABLET BY MOUTH EVERY DAY Orally Once a day for 30 days Active doxycycline hyclate 100 mg oral capsule (7 sources) Tetracycline-class Drug Start: 05-10-2022 take 1 capsule by mouth twice daily Doxycycline Hyclate 100 MG 1 capsule Orally twice daily for 7 days Apr, Not-Taking 3 ml insulin aspart protamine, human 70 unt/ml / insulin aspart, human 30 unt/ml pen injector (7 sources) Insulin Analog NovoLOG Mix 70/3 0 FlexPen (70-30) 100 UNIT/ML 40 units before breakfast, 30 units before supper. Subcutaneous Not-Taking methylPREDNISolone 4 mg oral tablet (3 sources) Corticosteroid Start: 11-13-2023 End: 11-29-2023 take 1 tablet by mouth once Methylprednisolone (Medrol (Shabbir)) 4 mg tablets,dose pack Discontinued 0 PO per package directions 12 10November 13, 2023 12:00am November 29, 2023 4:26pm PO PER PKG DIR ondansetron 8 mg disintegrating oral tablet (7 sources) Serotonin-3 Receptor Antagonist take 1 tablet by mouth every eight hours as needed for nausea Ondansetron 8 MG 1 tablet on the tongue and allow to dissolve as needed Orally Every 8 hours as needed for nausea Not-Taking pregabalin 100 mg oral capsule (4 sources) Start: 07-07-2023 End: 11-29-2023 take 1 capsule by mouth once daily at bedtime Pregabalin (Lyrica) 100 mg capsule Discontinued 100 MG PO Daily at bedtime July 07, 2023 12:00am November 29, 2023 5:42pm tiZANidine 4 mg oral tablet (7 sources) [...] bronchitis due to other specified organisms] Episodic Allergic reactions (6 sources) Allergic reaction; Translations: [Allergy, unspecified, initial encounter] 11-13-2023 Episodic Diabetes mellitus with complications (20 sources) Hyperglycemia due to type 2 diabetes mellitus; Translations: [Type 2 diabetes mellitus with hyperglycemia] Onset: 06-22-2022 Chronic Diabetes mellitus without complication (2 sources) Type 2 diabetes mellitus without complications; Translations: [Type 2 diabetes mellitus without complication] Onset: 04-13-2018 Chronic Disorders of lipid metabolism (17 sources) Mixed hyperlipidemia; Translations: [Mixed hyperlipidemia] Onset: 05-11-2018 Chronic Esophageal disorders (10 sources) Gastro-esophageal reflux disease with esophagitis; Translations: [Gastro-esophageal reflux disease with esophagitis, without bleeding] 06-12-2023 Chronic Essential hypertension (18 sources) Essential hypertension; Translations: [Essential (primary) hypertension] Onset: 06-26-2022 Chronic Fluid and electrolyte disorders (1 source) Hyponatremia; Translations: [Hypo-osmolality and hyponatremia] 01-05-2024 Episodic Miscellaneous mental health disorders (1 source) Primary insomnia; Translations: [Primary insomnia] Chronic Mood disorders (15 sources) Recurrent major depression in remission; Translations: [Major depressive disorder, recurrent, in partial remission] 07-06-2023 Chronic Nausea and vomiting (11 sources) Nausea and vomiting; Translations: [Nausea with vomiting, unspecified] Episodic Open wounds of extremities (1 source) Laceration without foreign body of left hand, initial encounter Episodic Other aftercare (3 sources) Long-term current use of insulin; Translations: [exterminator termite (current) use of insulin] Episodic Other aftercare (1 source) exterminator termite (current) use of insulin Episodic Other connective [...] source) Diarrhea; Translations: [Diarrhea, unspecified] Episodic Other liver diseases (1 source) Steatosis of liver; Translations: [Fatty (change of) liver, not elsewhere classified] 11-29-2023 Chronic Other liver diseases (2 sources) Fatty (change of) liver, not elsewhere classified; Translations: [Other chronic nonalcoholic liver disease] 11-29-2023 Chronic Other nervous system disorders (10 sources) Chronic [...] to excess calories] Onset: 11-29-2016 Chronic Other screening for suspected conditions (not mental disorders or infectious disease) (1 source) Encounter for screening for malignant neoplasm of prostate; Translations: [Screening for malignant neoplasms of prostate] 07-07-2023 Episodic Other upper respiratory disease (6 sources) Allergic rhinitis due to pollen; Translations: [Allergic rhinitis due to pollen] Chronic Other upper respiratory disease (2 sources) Seasonal allergy; Translations: [Other seasonal allergic rhinitis] 11-14-2023 Chronic Other upper respiratory disease (2 sources) Other seasonal allergic rhinitis; Translations: [Allergic rhinitis, cause unspecified] 11-13-2023 Chronic Residual codes; unclassified (5 sources) Influenza [...] Onset: 09-15-2021 Episodic Other aftercare (1 source) exterminator termite (current) use of oral hypoglycemic drugs; Translations: [HALF-WAY USE ORAL HYPOGLYCEMIC DX] Onset: 09-17-2021 Episodic [...] Results Test Name Value Interpretation Reference Range Facility Basophils Auto (Bld) [#/Vol] on 11-20-2023 Basophils (Bld) [#/Vol] 0.0 10 3/uL 0.0-0.1 [facility] Basophils/100 WBC Auto (Bld) on 11-20-2023 Basophils/100 WBC (Bld) 0.5 % 0.2-2.0 [facility] Eosinophils/100 WBC Auto (Bl d)on 11-20-2023 Eosinophils/100 WBC (Bld) 1.1 % 0.9-7.0 [facility] Erythrocyte distribution wid th Auto (RBC) [Ratio]on 11-20-2023 Erythrocyte distribution width (RBC) [Ratio] 12.1 % 11.0-15.0 [facility] Estimated glomerular filtrat ion rate (GFR) non- Americanon 11-20-2023 GFR/1.73 sq M.predicted among non-blacks MDRD (S/P/Bld) [Vol rate/Area] mL/min/{1.73_m2} >=60 [facility] Globulin Calc (S) [Mass/Vol] on 11-20-2023 Globulin (S) [Mass/Vol] 3.4 g/dL [facility] Hematocrit Auto (Bld) [Volum e fraction]on 11-20-2023 Hematocrit (Bld) [Volume fraction] 44.5 % 42.0-54.0 [facility] Hemoglobin [Mass/volume] in Bloodon 11-20-2023 Hemoglobin (Bld) [Mass/Vol] 16.3 g/dL 14.0-18.0 [facility] INR in Platelet poor plasma by Coagulation assayon 11-20-2023 INR Coag (PPP) [Relative time] 1.02 {INR} [facility] Comment on above: DESIRED INR:2.0-3.0 CONDITIONS NOT LISTED BELOW2.5-3.5 FOR PROSTHETIC HEART VALVE REPLACEMENT2.5-3.5 RECURRENT THROMBOSIS Laboratory - Chemistry and C hemistry - challengeon 11-20-2023 Albumin [Mass/Vol] 4.0 g/dL 3.4-5.0 [facility] ALP [Catalytic activity/Vol] 144 U/L High 46-116 [facility] ALT [Catalytic activity/Vol] 100 U/L High 16-63 [facility] AST [Catalytic activity/Vol] 63 U/L High 15-37 [facility] Bilirubin [Mass/Vol] 1.3 mg/dL High 0.2-1.0 [facility] Calcium [Mass/Vol] 9.0 mg/dL 8.5-10.1 [facility] Chloride [Moles/Vol] 93 mmol/L Low 98-107 [facility] CO2 [Moles/Vol] 22.2 mmol/L 21.0-32.0 [facility] Creatinine [Mass/Vol] 0.97 mg/dL 0.70-1.30 [facility] GFR/1.73 sq M.predicted MDRD (S/P/Bld) [Vol rate/Area] mL/min/{1.73_m2} >=60 [facility] Glucose [Mass/Vol] 276 mg/dL High 74-106 [facility] Potassium [Moles/Vol] 3.8 mmol/L 3.5-5.1 [facility] Protein [Mass/Vol] 7.4 g/dL 6.4-8.2 [facility] Sodium [Moles/Vol] 130 mmol/L Low 136-145 [facility] Urea nitrogen [Mass/Vol] 23.0 mg/dL High 7.0-18.0 [facility] Urea nitrogen/Creatinine [Mass ratio] 23.7 mg/mg [facility] Laboratory - Hematology and Cell countson 11-20-2023 Immature granulocytes/100 WBC (Bld) 0.3 % 0.0-0.5 [facility] Laboratory - Microbiology an d Antimicrobial susceptibilityon 11-20-2023 S. pyogenes Ag Ql (Unsp spec) Negative [facility] Leukocytes [#/volume] correc rebecca for nucleated erythrocytes in Blood by Automated counon 11-20-2023 WBC corrected for nucl RBC Auto (Bld) [#/Vol] 7.9 10 3/uL 4.0-11.0 [facility] Lymphocytes Auto (Bld) [#/Vo l]on 11-20-2023 Lymphocytes (Bld) [#/Vol] 1.4 10 3/uL 1.2-3.8 [facility] Lymphocytes/100 WBC Auto (Bl d)on 11-20-2023 Lymphocytes/100 WBC (Bld) 17.2 % Low 20.5-60.0 [facility] MCH Auto (RBC) [Entitic mass ]on 11-20-2023 MCH (RBC) [Entitic mass] 32.2 pg 25.9-34.0 [facility] MCHC Auto (RBC) [Mass/Vol]on 11-20-2023 MCHC (RBC) [Mass/Vol] 36.6 g/dL High 29.9-35.2 [facility] MCV Auto (RBC) [Entitic vol] on 11-20-2023 MCV (RBC) [Entitic vol] 87.9 fL 80.0-94.0 [facility] Monocytes Auto (Bld) [#/Vol] on 11-20-2023 Monocytes (Bld) [#/Vol] 0.6 10 3/uL 0.3-0.8 [facility] Monocytes/100 WBC Auto (Bld) on 11-20-2023 Monocytes/100 WBC (Bld) 8.0 % 1.7-12.0 [facility] Neutrophils Auto (Bld) [#/Vo l]on 11-20-2023 Neutrophils (Bld) [#/Vol] 5.8 10 3/uL 1.4-6.5 [facility] Neutrophils/100 WBC Auto (Bl d)on 11-20-2023 Neutrophils/100 WBC (Bld) 72.9 % 43.0-75.0 [facility] No Panel Informationon 11-19 Eosinophils # (Auto) 0.1 10 3/uL 0.0-0.7 [facility] Immature Granulocyte # (Auto) 0.02 10 3/uL 0.00-0.03 [facility] Platelet mean volume Auto (B ld) [Entitic vol]on 11-20-2023 Platelet mean volume (Bld) [Entitic vol] 10.8 fL 9.5-13.5 [facility] Platelets Auto (Bld) [#/Vol] on 11-20-2023 Platelets (Bld) [#/Vol] 164 10 3/uL 150-450 [facility] Prothrombin time (PT)on 10-23 PT Coag (PPP) [Time] 10.8 s 9.0-11.6 [facility] RBC Auto (Bld) [#/Vol]on RBC (Bld) [#/Vol] 5.06 10 6/uL 4.70-6.10 [facility] Serum or plasma albumin/glob ulin mass ratioon 11-20-2023 Albumin/Globulin [Mass ratio] 1.2 {ratio} [facility] Serum or plasma anion gap de terminationon 11-20-2023 Anion gap [Moles/Vol] 18.6 mmol/L [facility] POINT OF CARE GLUCOSEon 05-0 Glucose [Mass/Vol] 254 mg/dL Critically high 74-106 [facility] Comment on above: Performed By: #### P OCGLUC #### [facility] [address] [address] [address] Jose Cruz Balderas POINT OF CARE GLUCOSEon 07-24 Glucose [Mass/Vol] 241 mg/dL Critically high -106 [facility] Comment on above: Performed By: #### P OCGLUC #### [facility] [address] [address] [address] Jose Cruz Balderas POINT OF CARE GLUCOSEon 06-23 Glucose [Mass/Vol] 204 mg/dL Critically high -106 [facility] Comment on above: Performed By: #### P OCGLUC #### [facility] [address] [address] [address] Jose Cruz Balderas GLYCOHEMOGLOBIN A1Con 2022 ADA RECOMMENDATION SEE BELOW Normal [facility] Comment on above: Result Comment: ADA RECOMMENDED LIMIT 4.0 - 6.0 ADA THERAPEUTIC TARGET < 7.0 ACTION SUGGESTED > 7.0 Performed By: #### P OCGLUC #### [facility] [address] [address] [address] Jose Cruz Balderas Glucose [Mass/Vol] 134 mg/dL Normal [facility] Comment on above: Performed By: #### P OCGLUC #### [facility] [address] [address] [address] Jose Cruz Balderas HbA1c (Bld) [Mass fraction] 6.3 % Critically high 4.5-6.2 [facility] Comment on above: Performed By: #### P OCGLUC #### [facility] [address] [place] [address] Dr. Jose Cruz Balderas PROF 14(COMP METB)on 023 Albumin [Mass/Vol] 4.5 g/dL Normal 3.4-5.0 [facility] Comment on above: Performed By: #### C MP #### [facility] [address] [place] [address] Dr. Jose Cruz Balderas Albumin/Globulin [Mass ratio] 1.3 {ratio} Normal [facility] Comment on above: Performed By: #### C MP #### [facility] [address] [place] [address] Dr. Jose Cruz Balderas ALP [Catalytic activity/Vol] 93 U/L Normal 46-116 [facility] Comment on above: Performed By: #### C MP #### [facility] [address] [place] [address] Dr. Jose Cruz Balderas ALT [Catalytic activity/Vol] 41 U/L Normal 16-63 [facility] Comment on above: Performed By: #### C MP #### [facility] [address] [place] [address] Dr. Jose Cruz Balderas Anion gap [Moles/Vol] 12.0 mmol/L Normal [facility] Comment on above: Performed By: #### C MP #### [facility] [address] [place] [address] Dr. Jose Cruz Balderas AST [Catalytic activity/Vol] 21 U/L Normal 15-37 [facility] Comment on above: Performed By: #### C MP #### [facility] [address] [place] [address] Dr. Jose Cruz Balderas Bilirubin [Mass/Vol] 0.8 mg/dL Normal 0.2-1.0 [facility] Comment on above: Performed By: #### C MP #### [facility] [address] [place] [address] Dr. Jose Cruz Balderas Calcium [Mass/Vol] 9.3 mg/dL Normal 8.5-10.1 [facility] Comment on above: Performed By: #### C MP #### [facility] [address] [place] [address] Dr. Jose Cruz Balderas Chloride [Moles/Vol] 105 mmol/L Normal 98-107 [facility] Comment on above: Performed By: #### C MP #### [facility] [address] [address] [address] Jose Cruz Balderas CO2 [Moles/Vol] 26.7 mmol/L Normal 21.0-32.0 [facility] Comment on above: Performed By: #### C MP #### [facility] [address] [address] [address] Jose Cruz Balderas Creatinine [Mass/Vol] 0.82 mg/dL Normal 0.70-1.30 [facility] Comment on above: Performed By: #### C MP #### [facility] [address] [address] [address] Jose Cruz Balderas EGFR-AF BELARUSIAN >60 Normal >=60 [facility] Comment on above: Performed By: #### C MP #### [facility] [address] [place] [address] Dr. Jose Cruz Balderas EGFR-NON AF BELARUSIAN >60 Normal >=60 [facility] Comment on above: Performed By: #### C MP #### [facility] [address] [address] [address] Jose Cruz Balderas Globulin (S) [Mass/Vol] 3.5 g/dL Normal [facility] Comment on above: Performed By: #### C MP #### [facility] [address] [place] [address] Dr. Jose Cruz Balderas Glucose [Mass/Vol] 180 mg/dL Critically high 74-106 [facility] Comment on above: Performed By: #### C MP #### [facility] [address] [place] [address] Dr. Jose Cruz Balderas Potassium [Moles/Vol] 3.7 mmol/L Normal 3.5-5.1 [facility] Comment on above: Performed By: #### C MP #### [facility] [address] [address] [address] Jose Cruz Balderas Protein [Mass/Vol] 8.0 g/dL Normal 6.4-8.2 [facility] Comment on above: Performed By: #### C MP #### [facility] [address] [address] [address] Jose Cruz Balderas Sodium [Moles/Vol] 140 mmol/L Normal 136-145 [facility] Comment on above: Performed By: #### C MP #### [facility] [address] [address] [address] Jose Cruz Baldears Urea nitrogen [Mass/Vol] 19.0 mg/dL Critically high 7.0-18.0 [facility] Comment on above: Performed By: #### C MP #### [facility] [address] [place] [address] Dr. Jose Cruz Balderas Urea nitrogen/Creatinine [Mass ratio] 23.2 mg/mg Normal [facility] Comment on above: Performed By: #### C MP #### [facility] [address] [place] [address] Dr. Jose Cruz Balderas POINT OF CARE GLUCOSEon 05-26 Glucose [Mass/Vol] 174 mg/dL Critically high 74-106 [facility] Comment on above: Performed By: #### P OCGLUC #### [facility] [address] [place] [address] Dr. Jose Cruz Balderas XR SHOULDER RT [...] BEATRIZ MITCHELL Date: 2022-04-26 15:[address] [facility] CBC AUTO DIFFon 04-21-2022 BASO # 0.0 103/ul Normal 0.0-0.1 [facility] Comment on above: Performed By: #### P OCGLUC #### [facility] [address] [address] [address] Jose Cruz Balderas Basophils/100 WBC (Bld) 0.8 % Normal 0.2-2.[address] [facility] Comment on above: Performed By: #### P OCGLUC #### [facility] [address] [address] [address] Jose Cruz Balderas EO # 0.1 103/ul Normal 0.0-0.7 [facility] Comment on above: Performed By: #### P OCGLUC #### [facility] [address] [address] [address] Jose Cruz Balderas Eosinophils/100 WBC (Bld) 2.3 % Normal 0.9-7.0 [facility] Comment on above: Performed By: #### P OCGLUC #### [facility] [address] [address] [address] Jose Cruz Balderas Erythrocyte distribution width (RBC) [Ratio] 12.8 % Normal 11.0-15.0 [facility] Comment on above: Performed By: #### P OCGLUC #### [facility] [address] [address] [address] Jose Cruz Balderas Hematocrit (Bld) [Volume fraction] 47.2 % Normal 42.0-54.0 [facility] Comment on above: Performed By: #### P OCGLUC #### [facility] [address] [address] [address] Jose Cruz Balderas Hemoglobin (Bld) [Mass/Vol] 16.4 g/dL Normal 14.0-18.0 [facility] Comment on above: Performed By: #### P OCGLUC #### [facility] [address] [address] [address] Jose Cruz Balderas IG # 0.01 10e3/ul Normal 0.00-0.03 [facility] Comment on above: Performed By: #### P OCGLUC #### [facility] [address] [place] [address] Dr. Jose Cruz Balderas IG % 0.2 % Normal 0.0-0.5 [facility] Comment on above: Performed By: #### P OCGLUC #### [facility] [address] [address] [address] Jose Cruz Balderas LYMPH # 1.3 103/ul Normal 1.2-3.8 [facility] Comment on above: Performed By: #### P OCGLUC #### [facility] [address] [place] [address] Dr. Jose Cruz Balderas Lymphocytes/100 WBC (Bld) 25.6 % Normal 20.5-60.0 [facility] Comment on above: Performed By: #### P OCGLUC #### [facility] [address] [place] [address] Dr. Jose Cruz Balderas MANUAL DIFF REQ NO Normal [facility] Comment on above: Performed By: #### P OCGLUC #### [facility] [address] [address] [address] Jose Cruz Balderas MCH (RBC) [Entitic mass] 30.7 pg Normal 25.9-34.0 [facility] Comment on above: Performed By: #### P OCGLUC #### [facility] [address] [place] [address] Dr. Jose Cruz Balderas MCHC (RBC) [Mass/Vol] 34.7 g/dL Normal 29.9-35.2 [facility] Comment on above: Performed By: #### P OCGLUC #### [facility] [address] [address] [address] Jose Cruz Balderas MCV (RBC) [Entitic vol] 88.4 fL Normal 80.0-94.0 [facility] Comment on above: Performed By: #### P OCGLUC #### [facility] [address] [address] [address] Jose Cruz Balderas MONO # 0.5 103/ul Normal 0.3-0.8 [facility] Comment on above: Performed By: #### P OCGLUC #### [facility] [address] [address] [address] Jose Cruz Balderas Monocytes/100 WBC (Bld) 8.7 % Normal 1.7-12.0 [facility] Comment on above: Performed By: #### P OCGLUC #### [facility] [address] [address] [address] Jose Cruz [place] NEUT # 3.2 103/ul Normal 1.4-6.5 [facility] Comment on above: Performed By: #### P OCGLUC #### [facility] [address] [address] [address] Jose Cruz Balderas Neutrophils/100 WBC (Bld) 62.4 % Normal 43.0-75.0 [facility] Comment on above: Performed By: #### P OCGLUC #### [facility] [address] [place] [address] Dr. Jose Cruz Balderas Platelet mean volume (Bld) [Entitic vol] 10.9 fL Normal 9.5-13.5 [facility] Comment on above: Performed By: #### P OCGLUC #### [facility] [address] [place] [address] Dr. Jose Cruz Balderas PLT 159 103/ul Normal 150-450 [facility] Comment on above: Performed By: #### P OCGLUC #### [facility] [address] [address] [address] Jose Cruz Balderas RBC 5.34 106/ul Normal 4.70-6.10 [facility] Comment on above: Performed By: #### P OCGLUC #### [facility] [address] [address] [address] Jose Cruz Balderas WBC 5.2 103/ul Normal 4.0-11.0 [facility] Comment on above: Performed By: #### P OCGLUC #### [facility] [address] [place] [address] Dr. Jose Curz Balderas GLYCOHEMOGLOBIN A1Con 2021 ADA RECOMMENDATION SEE BELOW Normal [facility] Comment on above: Result Comment: ADA RECOMMENDED LIMIT 4.0 - 6.0 ADA THERAPEUTIC TARGET < 7.0 ACTION SUGGESTED > 7.0 Performed By: #### P OCGLUC #### [facility] [address] [address] [address] Jose Cruz Balderas Glucose [Mass/Vol] 163 mg/dL Normal [facility] Comment on above: Performed By: #### P OCGLUC #### [facility] [address] [address] [address] Jose Cruz Balderas HbA1c (Bld) [Mass fraction] 7.3 % Critically high 4.5-6.2 [facility] Comment on above: Performed By: #### P OCGLUC #### [facility] [address] [place] [address] Dr. Jose Cruz Balderas LIPID PROFILEon 04-21-2022 CHOL-HDL RATIO NORM SEE BELOW Normal [facility] Comment on above: Result Comment: 3.3 - 4.4 LOW RISK 4.4 - 7.1 AVERAGE RISK 7.1 - 11.0 MODERATE RISK >11.0 HIGH RISK Performed By: #### L IPID, CMP #### [facility] [address] [place] [address] Dr. Jose Cruz Balderas Cholesterol [Mass/Vol] 197 mg/dL Normal <=[address] [facility] Comment on above: Performed By: #### L IPID, CMP #### [facility] [address] [place] [address] Dr. Jose Cruz Balderas Cholesterol in HDL [Mass/Vol] 49 mg/dL Normal 40-60 [facility] Comment on above: Performed By: #### L IPID, CMP #### [facility] [address] [place] [address] Dr. Jose Cruz Balderas Cholesterol in LDL [Mass/Vol] 109.4 mg/dL Normal [facility] Comment on above: Performed By: #### L IPID, CMP #### [facility] [address] [place] [address] Dr. Jose Cruz Balderas Cholesterol.total/Chol esterol in HDL [Mass ratio] 4.0 {ratio} Normal [facility] Comment on above: Performed By: #### L IPID, CMP #### [facility] [address] [address] [address] Jose Cruz Balderas HDL NORMAL > or = 60 mg/dl - LOW CARDIOVASCULAR RISK <40 mg/dl - HIGH CARDIOVASCULAR RISK Normal [facility] Comment on above: Performed By: #### L IPID, CMP #### [facility] [address] [address] [address] Jose Cruz Balderas LDL CALC NORMAL SEE BELOW Normal [facility] Comment on above: Result Comment: <100 mg/dl OPTIMAL 100 - 129 mg/dl NEAR OR ABOVE OPTIMAL 130 - 159 mg/dl BORDERLINE HIGH 160 - 189 mg/dl HIGH >190 mg/dl VERY HIGH Performed By: #### L IPID, CMP #### [facility] [address] [address] [address] Jose Cruz Balderas Triglyceride [Mass/Vol] 193 mg/dL Critically high <=150 [facility] Comment on above: Performed By: #### L IPID, CMP #### [facility] [address] [address] [address] Jose Cruz Balderas VLDL CALC 38.6 mg/dL Normal [facility] Comment on above: Performed By: #### L IPID, CMP #### [facility] [address] [place] [address] Dr. Jose Cruz Balderas MICROALBUMIN, RAND URon 03-25 mALB 1.4 mg/L Normal <=30.0 [facility] Comment on above: Performed By: #### M ALBR #### [facility] [address] [address] [address] Jose Cruz Balderas PROF 14(COMP METB)on 022 Albumin [Mass/Vol] 4.3 g/dL Normal 3.4-5.0 [facility] Comment on above: Performed By: #### L IPID, CMP #### [facility] [address] [place] [address] Dr. oJse Cruz Balderas Albumin/Globulin [Mass ratio] 1.2 {ratio} Normal [facility] Comment on above: Performed By: #### L IPID, CMP #### [facility] [address] [address] [address] Jose Cruz Balderas ALP [Catalytic activity/Vol] 94 U/L Normal 46-116 [facility] Comment on above: Performed By: #### L IPID, CMP #### [facility] [address] [address] [address] Jose Cruz Balderas ALT [Catalytic activity/Vol] 135 U/L Critically high 16-63 [facility] Comment on above: Performed By: #### L IPID, CMP #### [facility] [address] [address] [address] Jose Cruz Balderas Anion gap [Moles/Vol] 11.7 mmol/L Normal Th [facility] Comment on above: Performed By: #### L IPID, CMP #### [facility] [address] [address] [address] Jose Cruz Balderas AST [Catalytic activity/Vol] 105 U/L Critically high 15-37 [facility] Comment on above: Performed By: #### L IPID, CMP #### [facility] [address] [address] [address] Jose Cruz Balderas Bilirubin [Mass/Vol] 0.8 mg/dL Normal 0.2-1.0 [facility] Comment on above: Performed By: #### L IPID, CMP #### [facility] [address] [address] [address] Jose Cruz Balderas Calcium [Mass/Vol] 9.3 mg/dL Normal 8.5-10.1 [facility] Comment on above: Performed By: #### L IPID, CMP #### [facility] [address] [address] [address] Jose Cruz Balderas Chloride [Moles/Vol] 101 mmol/L Normal 98-107 [facility] Comment on above: Performed By: #### L IPID, CMP #### [facility] [address] [address] [address] Jose Cruz Balderas CO2 [Moles/Vol] 32.8 mmol/L Critically high 21.0-32.0 [facility] Comment on above: Performed By: #### L IPID, CMP #### [facility] [address] [address] [address] Jose Cruz Balderas Creatinine [Mass/Vol] 1.09 mg/dL Normal 0.70-1.30 [facility] Comment on above: Performed By: #### L IPID, CMP #### [facility] [address] [address] [address] Jose Cruz Balderas EGFR-AF BELARUSIAN >60 Normal >=60 [facility] Comment on above: Performed By: #### L IPID, CMP #### [facility] [address] [address] [address] Jose Cruz Balderas EGFR-NON AF BELARUSIAN >60 Normal >=60 [facility] Comment on above: Performed By: #### L IPID, CMP #### [facility] [address] [address] [address] Jose Cruz Balderas Globulin (S) [Mass/Vol] 3.6 g/dL Normal [facility] Comment on above: Performed By: #### L IPID, CMP #### [facility] [address] [address] [address] Jose Cruz Balderas Glucose [Mass/Vol] 174 mg/dL Critically high 74-106 [facility] Comment on above: Performed By: #### L IPID, CMP #### [facility] [address] [address] [address] Jose Cruz Balderas Potassium [Moles/Vol] 4.5 mmol/L Normal 3.5-5.1 [facility] Comment on above: Performed By: #### L IPID, CMP #### [facility] [address] [address] [address] Jose Cruz Balderas Protein [Mass/Vol] 7.9 g/dL Normal 6.4-8.2 [facility] Comment on above: Performed By: #### L IPID, CMP #### [facility] [address] [address] [address] Jose Cruz Balderas Sodium [Moles/Vol] 141 mmol/L Normal 136-145 [facility] Comment on above: Performed By: #### L IPID, CMP #### [facility] [address] [place], [place] [address] Dr. Jose Cruz Balderas Urea nitrogen [Mass/Vol] 14.0 mg/dL Normal 7.0-18.0 [facility] Comment on above: Performed By: #### L IPID, CMP #### [facility] [address] [address] [address] Jose Cruz Balderas Urea nitrogen/Creatinine [Mass ratio] 12.8 mg/mg Normal [facility] Comment on above: Performed By: #### L IPID, CMP #### [facility] [address] [address] [address] Jose Cruz Balderas POINT OF CARE GLUCOSEon 08-23 Glucose [Mass/Vol] 240 mg/dL Critically high 74-106 [facility] Comment on above: Performed By: #### P OCGLUC #### [facility] [address] [address] [address] Jose Cruz Balderas XR FINGER MIN 2 VIEWSon 08-23 XR FINGER MIN 2 VIEWS EXAM: XR FINGER PA N 2 VIEWS HISTORY: Laceration of finger [...] by: SERGE TAN Date: 2021-09-15 19:17 Normal [facility] Pathology Noteon 07-09-2021 Pathology Note [id number]#1.00CD:127 Normal [place] Outside Colonoscopyon 2021 Outside Colonoscopy [id number] [id number]#1.00CD:127 Normal [place] Lab Reportson 07-06-2021 Lab Reports [id number] FC#1.00CD:127 Normal [place] Consent for Procedure/Surger yon 06-24-2021 Consent for Procedure/Surgery [id number] [id number]#1.00CD:127 Normal [place] Ambulatory Visit Summaryon 0 06-23-2021 Ambulatory Visit Summary MOI OROURKE :1975 Visit Date:06/23/2021 Ambulatory Visit Instructions Your [...] are no longer receiving treatment for. Hypertension [facility] Physician Referralon 022 Physician Referral [id number]#1.00CD:[address] [facility] Physician Referralon 022 Physician Referral [id number] FC#1.00CD:[address] [facility] Vital Signs Date Time Vital Sign Value Performing Clinician Facility 01-05-2024 09:09-0400 Body height 187.96 cm [facility] 01-05-2024 09:09-0400 Body mass index (BMI) [Ratio] 31.4 kg/m2 [facility] 01-05-2024 09:09-0400 Body weight 111.18 kg [facility] 01-05-2024 09:09-0400 Diastolic blood pressure 78 mm[Hg] [facility] 01-05-2024 09:09-0400 Heart rate 76 /min [facility] 01-05-2024 09:09-0400 Respiratory rate 12 /min [facility] 01-05-2024 09:09-0400 Systolic blood pressure 118 mm[Hg] [facility] 11-29-2023 16:02-0400 Body height 187.96 cm [facility] 11-29-2023 16:02-0400 Body mass index (BMI) [Ratio] 29.9 kg/m2 [facility] 11-29-2023 16:02-0400 Body weight 105.68 kg [facility] 11-29-2023 16:02-0400 Diastolic blood pressure 74 mm[Hg] [facility] 11-29-2023 16:02-0400 Heart rate 68 /min [facility] 11-29-2023 16:02-0400 Respiratory rate 12 /min [facility] 11-29-2023 16:02-0400 Systolic blood pressure 117 mm[Hg] [facility] 11-13-2023 14:05-0400 Body height 187.96 cm [facility] 11-13-2023 14:05-0400 Body mass index (BMI) [Ratio] 30 kg/m2 [facility] 11-13-2023 14:05-0400 Body weight 106.14 kg [facility] 11-13-2023 14:05-0400 Diastolic blood pressure 72 mm[Hg] [facility] 11-13-2023 14:05-0400 Heart rate 83 /min [facility] 11-13-2023 14:05-0400 SaO2% (BldA) [Mass fraction] 97 % [facility] 11-13-2023 14:05-0400 Systolic blood pressure 120 mm[Hg] [facility] 07-07-2023 09:53-0400 Body height 187.96 cm [facility] 07-07-2023 09:53-0400 Body mass index (BMI) [Ratio] 31.6 kg/m2 [facility] 07-07-2023 09:53-0400 Body weight 111.58 kg [facility] 07-07-2023 09:53-0400 Diastolic blood pressure 84 mm[Hg] [facility] 07-07-2023 09:53-0400 Heart rate 75 /min [facility] 07-07-2023 09:53-0400 Respiratory rate 12 /min [facility] 07-07-2023 09:53-0400 Systolic blood pressure 131 mm[Hg] [facility] 06-20-2022 15:00-0500 Body height 187.96 cm Aguila Ball Other [facility] Other 06-20-2022 15:00-0500 Body mass index (BMI) [Ratio] 33.74 kg/m2 [facility] Other [facility] Other 06-20-2022 15:00-0500 Body weight 119.21 kg Aguila Ball Other [facility] Other 06-20-2022 15:00-0500 Diastolic blood pressure 70 mm[Hg] Agu[facility] Ball Other [facility] Other 06-20-2022 15:00-0500 Respiratory rate 12 /min Aguila Ball Other [facility] Other 06-20-2022 15:00-0500 Systolic blood pressure 108 mm[Hg] Aguila Ball Other [facility] Other 05-10-2022 11:15-0500 Body height 187.96 cm Aguila Ball Other [facility] Other 05-10-2022 11:15-0500 Body mass index (BMI) [Ratio] 33.79 kg/m2 Augila Ball Other [facility] Other 05-10-2022 11:15-0500 Body weight 119.39 kg Aguila Ball Other [facility] Other 05-10-2022 11:15-0500 Diastolic blood pressure 70 mm[Hg] Aguila Ball Other [facility] Other 05-10-2022 11:15-0500 Respiratory rate 12 /min Aguila Ball Other [facility] Other 05-10-2022 11:15-0500 Systolic blood pressure 118 mm[Hg] Aguila Ball Other [facility] Other Encounters Encounter Date Encounter Type Care Provider Facility Start: 01-05-2024 End: 01-05-2024 ambulatory [facility] Work Phone: Start: 01-05-2024 End: 01-05-2024 [facility] procedure [facility] Work Phone: Start: 11-29-2023 End: 11-29-2023 ambulatory [facility] Work Phone: Start: 11-29-2023 End: 11-29-2023 Patient encounter procedure [facility] Work Phone: Start: 11-20-2023 Non-patient / Non-visit [facility] Work Phone: Start: 11-13-2023 End: 11-13-2023 ambulatory [facility] Work Phone: Start: 11-13-2023 End: 11-13-2023 Patient encounter procedure [facility] Work Phone: Start: 07-07-2023 End: 07-07-2023 ambulatory [facility] Work Phone: Start: 07-07-2023 End: 07-07-2023 Encounter for general adult medical examination without abnormal findings [facility] Start: 07-07-2023 End: 07-07-2023 Patient encounter procedure [facility] Work Phone: Start: 06-20-2023 Non-patient / Non-visit [facility] Work Phone: Start: 06-12-2023 Non-patient / Non-visit [facility] Work Phone: Start: 02-03-2023 End: 02-03-2023 ambulatory Aguila Ponce Other [facility] [employer] Other Start: 02-03-2023 Telephone encounter Aguila LANDRUM [facility] Start: 11-08-2022 End: 11-08-2022 ambulatory [facility] Facility:[facility] Start: 10-21-2022 End: 10-21-2022 ambulatory Aguila Ponce Other [facility] Other Start: 10-21-2022 Telephone encounter Aguila Ponce [facility] Start: 10-21-2022 End: 10-21-2022 ambulatory [facility] Facility:[facility] Start: 09-22-2022 ambulatory NARENDRANATH LAKSHMIPATHY . Facility:[facility] Start: 08-23-2022 End: 08-23-2022 ambulatory NARENDRANATH LAKSHMIPATHY . Facility:[facility] Start: 08-16-2022 End: 08-16-2022 ambulatory NARENDRANATH LAKSHMIPATHY . Facility:[facility] Start: 08-15-2022 End: 08-15-2022 ambulatory Aguila Ponce Other [facility] Other Start: 08-15-2022 Telephone encounter Aguila LANDRUM [facility] Start: 07-28-2022 End: 07-29-2022 ambulatory NARENDRANATH LAKSHMIPATHY . Facility:[facility] Start: 07-12-2022 End: 07-12-2022 ambulatory NARENDRANATH LAKSHMIPATHY . Facility:[facility] Start: 07-07-2022 End: 07-08-[address] AGUILA PONCE Facility:[facility] Start: 06-22-2022 End: 06-23-[address] AGUILA PONCE Facility:[facility] Start: 06-21-2022 Telephone encounter [facility] Start: 06-21-2022 End: 06-21-[address] AGUILA PONCE [facility] Other Start: 06-20-2022 End: 06-20-2022 ambulatory Aguila Ponce Other [facility] Other Start: 06-20-2022 Encounter for other preprocedural examination Aguila Ponce [facility] Start: 06-20-2022 Office outpatient vi sit 25 minutes Aguila Ponce [facility] Start: 05-26-2022 End: 05-27-[address] AGUILA PONCE Facility:[facility] Start: 05-10-2022 End: 05-10-2022 ambulatory Aguila Ponce Other [facility] Other Start: 05-10-2022 Office outpatient vi sit 15 minutes Aguila Ponce [facility] Start: 04-28-2022 End: 06-01-[address] AGUILA PONCE Facility:[facility] Start: 04-26-2022 Telephone encounter [facility] Start: 04-26-2022 End: 04-26-[address] AGUILA PONCE [facility] [employer] Other Start: 04-23-2022 Encounter for genera l adult medical examination without abnormal findings DR AGUILA PONCE [facility] Start: 04-21-2022 End: 04-22-[address] AGUILA PONCE Facility:[facility] Start: 04-21-2022 End: 04-22-2022 Encounter for general adult medical examination without abnormal findings DR AGUILA PONCE Facility:[facility] Start: 03-31-2022 Adult health examination Aguila Ponce Other [facility] Other Start: 11-04-2021 End: 11-04-[address] AGUILA PONCE Facility:[facility] Start: 09-24-2021 ambulatory DANIELLE Roque ty:[facility] Start: 09-17-2021 End: 09-17-[address] AGUILA PONCE Facility:[facility] Start: 09-15-2021 End: 09-15-2021 ambulatory MARISABEL ROJAS Facility:[facility] Procedures Date Procedure Procedure Detail Performing Clinician Start: 11-20-2023 Carcinoembryonic antigen cea Comment on above: Nonsmokers <3.9 Smokers <5.6[employer] Electrochemiluminescence Immunoassay(ECLIA)Values obtained with different assay methods or kitscannot be used interchangeably. Results cannot beinterpreted as absolute evidence of the presence orabsence of malignant disease.Performed at: [address] [id number] Director: Zach Lucia PhD, Phone: [phone] Start: 04-04-2018 General examination of patient Aguila Ponce Other End: 06-16-2021 Laboratory test result abnormal Aguila Ponce Other Plan of Treatment Date Care Activity Detail Author Comprehensive metabo lic 2000 panel - Serum or Plasma [facility] Immunizations Immunization Date Immunization Notes Care Provider Fa shasta 09-15-2021 diphtheria, tetanus toxoids and pertussis vaccine Aguila Ponce Other [facility] 02-12-2021 COVID-19 Vaccine Mod sheri - Documentation Purposes Only Aguila Ponce Other [facility] 07-03-2020 COVID-19 Vaccine Jl ssen - Documentation Purposes Only Aguila Ponce Other [facility] Payers Date Payer Category [facility]ayer [id number] 2019 Unknown [id number] 1975 Unknown [id number] 1975 Unknown [id number] 1975 Unknown [id number] [id number]3 1975 Unknown [id number] 2.16.840.1.495753.3.579.2.593 1973 Unknown [id number] 2.16.840.1.616991.3.579.2.593 1973 Unknown [id number] 2.16.840.1.117436.3.579.2.593 1973 Unknown [id number] 2.16.840.1.772764.3.579.2.593 1973 Unknown [id number] 2.16.840.1.866435.3.579.2.593 1973 Unknown [id number] 2.16.840.1.670230.3.579.2.593 1973 Unknown [id number] 2.16.840.1.715903.3.579.2.593 1973 Unknown [id number] 2.16.840.1.910834.3.579.2.593 1973 Unknown [id number] 2.16.840.1.363663.3.579.2.593 1973 Unknown [id number] 2.16.840.1.758623.3.579.2.593 1973 Unknown [id number] 2.16.840.1.645662.3.579.2.593 1973 Unknown [id number] 2.16.840.1.768152.3.579.2.593 1973 Unknown [id number] 2.16.840.1.612900.3.579.2.593 1973 Unknown [id number] 2.16.840.1.061620.3.579.2.718 1975 Unknown [id number] [id number] Private Health Insurance [id number] [id number] Unknown MMO [employer] [id number] Social History Date Type Detail Facility Sex Assigned At [facility] Other Start: 06-12-2023 Tobacco smoking stat [facility] Unknown if ever smoked [facility] Start: 1975 Sex Assigned At Male F [facility] Start: 11-13-[facility]23 [facility] Medical Equipment Procedure Code Equipment Code Equipment Origin al Text Equipment Identifier Dates Sure-Fine Pen [place] 31G X 5 MM Blood Sugar Diagnostic (Onetouch Verio Test Strips) strip Start: 06-12-2023 Pen Needle, Diab etic (Bd Ultra-Fine Micro Pen Needle) 32 gauge x 1/4 needle Start: 06-12-2023 Blood Sugar Diagnostic (Onetouch Verio Test Strips) strip Start: 06-12-2023 Pen Needle, Diab etic (Bd Ultra-Fine Micro Pen Needle) 32 gauge x 1/4 needle Start: 06-12-2023 Blood Sugar Diagnostic (Onetouch Verio Test Strips) strip Start: 06-12-2023 Pen Needle, Diab etic (Bd Ultra-Fine Micro Pen Needle) 32 gauge x 1/4 needle Start: 06-12-2023 Blood Sugar Diagnostic (Onetouch Verio Test Strips) strip Start: 06-12-2023 Pen Needle, Diab etic (Bd Ultra-Fine Micro Pen Needle) 32 gauge x 1/4 needle Start: 06-12-2023 Clinical Notes 06-23-2021 to 02-03-2023 Note Date & Type Note Facility 02-03-2023 Evaluation note Encounter Date Diagnosis Assessment Notes Jan, Type 2 diabetes mellitus with hyperglycemia (ICD-10 - E11.65) [facility] Other 06-30-2023 Evaluation note* Encounter Date Diagnosis Assessment Notes Treatment Notes Treatment Clinical Notes Sep, Essential (primary) hypertension (ICD-10 - I10) [facility] Other 04-24-2023 Evaluation note* Encounter Date Diagnosis Assessment Notes Treatment Notes Treatment Clinical Notes Jul, Type 2 diabetes mellitus with hyperglycemia (ICD-10 - E11.65) 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 2. [...] treatment options with their primary care provider.[id number] Note CONSULTATION CONSULTATION DATE: 07/07/2022 HISTORY: This [...] followed up in the clinic post procedure.[id number]* Encounter Date Diagnosis Assessment Notes Treatment Notes Treatment Clinical Notes May, Elevated transaminase level (ICD-10 - R74.01) May, Essential (primary) hypertension (ICD-10 - I10) May, Controlled type 2 diabetes mellitus with hyperglycemia, without long-term current use of insulin (ICD-10 - E11.65) [facility] Other 02-27-2023 Evaluation note* Encounter Date Diagnosis [...] (ICD-10 - E78.2) Healthy diet and exercise. [facility] Other 02-02-2023 NoteCONSULTATION CONSULTATION DATE: 05/26/2022 HISTORY [...] be followed up in the office thereafter.[facility] 05-10-2022 Evaluation note* Encounter Date Diagnosis [...] soap and water. UTD w/ tetanus booster [facility] Other 01-03-2023 Evaluation note* Encounter Date Diagnosis Assessment Notes Treatment Notes Treatment Clinical Notes Apr, Other chronic pain (ICD-10 - G89.29) Apr, Low back pain, unspecified (ICD-10 - M54.50) [facility] Other 03-02-2022 NoteChief Complaint consultation for screening [...] tab(s), Oral, Da (more content not included)... 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 [facility] Work Phone: Evaluation note* Diagnosis Onset Date Resolution Status Allergic reaction [facility] Work Phone: Evaluation note* Diagnosis Onset Date Resolution Status Allergic reaction acute Seasonal allergies acute Depression, major, recurrent, in partial remission acute Essential (primary) hypertension acute Gastroesophageal reflux dise ase with esophagitis without hemorrhage acute Hyperlipidemia, mixed acute Type 2 diabetes mellitus with hyperglycemia acute [facility] Work Phone: Evaluation note* Diagnosis Onset Date Resolution Status Allergic reaction acute Seasonal allergies acute Depression, major, recurrent, in partial remission acute Essential (primary) hypertension acute Gastroesophageal reflux dise ase with esophagitis without hemorrhage acute Hyperlipidemia, mixed acute [id number] acute Type 2 diabetes mellitus with hyperglycemia acute Gastroesophageal reflux dise ase with esophagitis without hemorrhage acute [id number] acute Type 2 diabetes mellitus with hyperglycemia acute [facility] Work Phone: History general Narrative - Reported* Type Description [...] Debridement SLAP Lesion Surgical History Subacromion Decompression Postling Other Hisvjov general Narrative - Reported* Type Description Date [...] Subacromion Decompression Hospitalization History see surgical history Postling Other Summary Purpose Family History No Family History Records FoundNo Family History Records FoundNo Family History Records Found Advance Directives Advance Directive Response Recorded Date/ Time Advance Directives No May 29, 2023 3:54pm Reason for Referral Reason 05/26/22 Patient b drake referred for treatment of low back pain. Diagnosis 1 Osteoarthritis of sp ine with radiculopathy, lumbar region (M47.26) Referral Organization [facility] Kris strange Referring Provider First Name Aguila Referring Provider Last Name Kris Referring Provider Specialty Internal Me vida Referred Organization [facility] Referred Provider VIDHYA MOSLEY Referred Address [address] [place], [place],[address] Referred Provider Specialty Pain Medicin e Referral [...] >faxed first request for consult notes to [phone] Emily Lee 06/07/2022 01:51:17 PM >received today notes sent for review. closing referral at this time. Clinical Notes CT lumbar spine comp leted July, P: [id number] F: [id number] Chief Complaint and Reason for Visit Chief Complaint Amb Documentation Amb Documentation Wellness Reason for Visit Depression, major, r ecurrent, in partial remission Essential (primary) hypertension Gastroesophageal reflux disease with esophagitis without hemorrhage Hyperlipidemia, mixed Type 2 diabetes mellitus with hyperglycemia Screening PSA (prostate specific antigen) Wellness examination Chief Complaint allergic reaction Reason for Visit Allergic reaction Chief Complaint allergic reaction TBH, Liver enzymes Reason for Visit Allergic reaction Seasonal allergies Depression, major, recurrent, in partial remission Essential (primary) hypertension Gastroesophageal reflux disease with esophagitis without hemorrhage Hyperlipidemia, mixed Type 2 diabetes mellitus with hyperglycemia Chief Complaint allergic reaction TBH, Liver enzymes 6 month follow up Reason for Visit Allergic reaction Seasonal allergies Depression, major, recurrent, in partial remission Essential (primary) hypertension Gastroesophageal reflux disease with esophagitis without hemorrhage Hyperlipidemia, mixed [id number] Type 2 diabetes mellitus with hyperglycemia Gastroesophageal reflux disease with esophagitis without hemorrhage [id number] Type 2 diabetes mellitus with hyperglycemia Additional Source Comments (unrecognized sect ion and content) No Status Records FoundNo Status Records FoundNo Status Records Found INFORMATION SOURCE (unrecogn ized section and content) DATE CREATED AUTHOR 07/20/2021 [facility] DATE CREATED AUTHOR AUTHOR'S ORGANIZ ATION 09/07/2022 [facility] DATE CREATED AUTHOR AUTHOR'S ORGANIZ ATION 11/07/2022 [facility] REASON FOR VISIT (unrecogniz ed section and content) Referralpossible cellulitisN o InformationPre-Op ClearancerefillRefillRefill Care Teams (unrecognized sec tion and content) Team Status: Active Member Role Status Dates Aguila Ponce DO Primary Care Provider Active Team Status: Inactive Member Role Status Dates Aguila Ponce DO Primary Care Provider Active Start: November 13, 2023 End: November 13, 2023 Thu Ren APRN [employer]-C Attending Provider Act briegtte Start: November 13, 2023 End: November 13, 2023 Team Status: Active Member Role Status Dates Aguila Ponce , DO Primary Care Provider Active Start: June 12, 2023 ADX Gonzalez Attending Provider Active St art: June 12, 2023 Team Status: Active Member Role Status Dates Aguila Ponce , DO Primary Care Provider Active Start: June 20, 2023 DAX Goldsmith Attending Provider Active Start : June 20, 2023 Team Status: Inactive Member Role Status Dates Aguila Ponce , DO Primary Care Provide r, Attending Provider Active Start: July 07, 2023 End: July 07, 2023 Team Status: Active Member Role Status Dates Aguila Kris , DO Primary Care Provider Active Start: November 20, 2023 Edmar Overton Attending Provider Active Start: November 20, 2023 Team Status: Inactive Member Role Status Dates Aguila Kris , DO Primary Care Provide r, Attending Provider Active Start: November 29, 2023 End: November 29, 2023 Team Status: Inactive Member Role Status Dates Aguila Ponce , DO Primary Care Provide r, Attending Provider Active Start: January 05, 2024 End: January 05, 2024 Goals (unrecognized section and content) Goals may be documented in a n alternate section FOR RECORDS PERTAINING TO PATIENTS WHO ARE [...] BE BASED ON THE PRIMARY CLINICAL RECORDS. [email or web address] provides no warranty or guarantee of the accuracy or completeness of information in this document.
[2024-04-04 22:14] VITALS: BP 140/92
[2024-04-04 22:17] VITALS: BP 140/92; PULSE 134; TEMP 36.5; O2SAT 98; BMI 31.5
--- NOTE | 2024-04-04 22:24 | ECG_ITS ---
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
--- NOTE | 2024-04-04 22:25 | ED_ITS ---
HPI - Nausea/Vomiting/Diarrhea General Chief complaint: Nausea/Vomiting/Diarrhea Stated complaint: VOMITING Time Seen by Provider: 04/04/24 22:19 Source: patient Mode of arrival: walk-in Limitations: no limitations History of Present Illness HPI Narrative: This 48-year-old male who is a type I diabetic presents for evaluation of nausea and vomiting that started around noon today. He states he cannot keep anything down. His mouth is dry. He is having abdominal cramps. He denies any chest pain or shortness of breath. He does not have any diarrhea. He denies any recent travel out of the country, sick contacts or eating at fast food restaurants. He states he checked his sugar earlier today and it was in the 180s. He states that he takes Trulicity for his diabetes as well as Farxiga. He has been out of the Trulicity for the past 3 weeks but has been taking the Farxiga. This is not a new medication for him. He denies any additional new medications or dietary changes. Related Data Home Medications ?Medication ?Instructions ?Recorded ?Confirmed omeprazole 40 mg capsule,delayed 40 mg PO DAILY 12/21/22 01/23/24 release baclofen 10 mg tablet 10 mg PO DAILY PRN pain 01/23/24 01/23/24 dapagliflozin propanediol 10 mg 10 mg PO DAILY 04/05/24 04/05/24 tablet (Farxiga) Allergies Allergy/AdvReac Type Severity Reaction Status Date / Time No Known Drug Allergies Allergy Verified 04/04/24 22:20 Review of Systems ROS Status of ROS 10 or more systems reviewed and unremark able except as noted in history and below PFSH PFSH Social History Little interest or pleasure in doing things: not at all Feeling down, depressed, or hopeless: not at all Exam Narrative Exam Narrative: Vital signs and Nursing Notes reviewed: Patient is afebrile, he is tachycardic with a pulse of 134 blood pressure is elevated 140/92, he is not hypoxic with pulse ox of 98% on room air General: Awake, alert, oriented, nontoxic but uncomfortable and mildly ill- appearing adult male, no respiratory distress HEENT: Normocephalic atraumatic, mucous membranes are dry with cracked lips Neck: Supple, no meningeal signs, no anterior or posterior cervical lymphadenopathy Chest: Lungs are clear to auscultation with good air entry, there is no wheezing rhonchi or rales appreciated no accessory muscle use, patient is speaking in complete sentences-no chest wall tenderness to palpation CVS: Regular rate and rhythm S1-S2, tachycardic with pulse in the 130s, no murmurs rubs or gallops, pulses are brisk and equal bilaterally ABD: Soft, nondistended, nontender, no rebound guarding or rigidity, bowel sounds are normal, no pulsatile masses appreciated Extremities: Moving all extremities, no lower extremity tenderness or swelling noted, negative Homans' sign, pulses are brisk and equal bilaterally Skin: Normal in appearance without rash,pallor, petechiae or purpura Neuro: No focal deficits Constitutional Vital Signs, click to edit/add: Last Vital Signs Temp 97.7 F 04/04/24 22:17 Pulse 96 H 04/05/24 00:45 Resp 16 04/04/24 22:17 BP 140/92 H 04/04/24 22:17 Pulse Ox 98 04/04/24 22:17 O2 Del Method Room Air 04/04/24 22:17 Course Vital Signs Vital signs: Vital Signs Blood Pressure 140/92 H 04/04/24 22:14 Temperature 97.7 F 04/04/24 22:17 Pulse Rate 96 H 04/05/24 00:45 Respiratory Rate 16 04/04/24 22:17 Blood Pressure 140/92 H 04/04/24 22:17 Pulse Oximetry 98 04/04/24 22:17 Oxygen Delivery Method Room Air 04/04/24 22:17 MDM - Nausea/Vomiting/Diarrhea MDM Narrative Medical decision making narrative: This 48-year-old male with a history of diabetes who is on Trulicity but states he has been out of it for the past several weeks and also on Farxiga presents for evaluation of nausea and vomiting. He states he has been unable to keep anything down since around noon. He denies any butch abdominal pain but states he gets abdominal cramps before an episode of vomiting. He has not had a fever. He denies any chest pain or shortness of breath. He is an occasional alcohol user but denies any recent alcohol use. He has a history of chronic back pain and has had back surgery in the past. He does not feel this is related to his current symptoms. He states his blood sugar was in the 180s at home. The patient was noted to be tachycardic upon arrival. His pulse was in the 130s. His mucous membranes are dry. The remainder of his exam was normal. IV was placed and he was medicated with IV fluids, Zofran and Pepcid. On reevaluation his nausea and vomiting have improved. He is able to tolerate ice chips. Routine labs are reviewed. He has a normal white count and hemoglobin. The patient has a venous pH of 7.17 with a venous pCO2 of 25 indicating a metabolic acidosis. Sodium was normal at 137. Potassium was normal at 4.4. Chloride was normal at 99 but CO2 is markedly low at 10. BUN and creatinine are normal at 18 and 1.22. Initial glucose was 230. His anion gap was 32.4. Lactic acid on the initial blood work was 1.4. This was discussed at length with the patient. He states the only medication he is currently taking is ibuprofen, occasional aspirin and the Farxiga. After 2 L of normal saline repeat blood work was ordered. His pH is now 7.146. pCO2 is somewhat improved at 31.6. Lactic acid is 1. His CO2 is now 12.2 on the BMP. His vital signs have improved. He has not had any additional nausea or vomiting. Pulse is in the 90s. Blood pressure has remained stable. The patient has an anion gap metabolic acidosis. The only reasonable explanation is his medications. He was started on D5 LR. The case was discussed with the hospitalist DUCO POLISHER and he will be started on a bicarb drip and lactated Ringer's overnight. He was given a dose of morphine for his chronic back pain to help him rest and get comfortable. Critical care time 35 minutes Lab Data Attestation: I reviewed the patient's lab results. Labs: Lab Results 04/04/24 04/04/24 04/05/24 Range/Units 22:50 22:55 00:21 WBC 8.8 (4.0-11.0) 10^3/uL RBC 5.79 (4.70-6.10) 10^6/uL Hgb 17.4 (14.0-18.0) g/dL Hct 49.8 (42.0-54.0) % MCV 86.0 (80.0-94.0) fL MCH 30.1 (25.9-34.0) pg MCHC 34.9 (29.9-35.2) g/dL RDW 15.0 (11.0-15.0) % Plt Count 146 L (150-450) 10^3/uL MPV 11.6 (9.5-13.5) fL Seg Neuts % (Manual) 92.0 H (43.0-75.0) Lymphocytes % (Manual) 5.0 L (20.5-60.0) % Monocytes % (Manual) 3.0 (1.7-12.0) % Eosinophils % (Manual) 0.0 L (0.9-7.0) % Basophils % (Manual) 0.0 L (0.2-2.0) % Neutrophils # (Manual) 8.09 H (1.4-6.5) 10^3/uL Lymphocytes # (Manual) 0.44 L (1.20-3.80) 10^3/uL Monocytes # (Manual) 0.26 L (0.30-0.80) 10^3/uL Eosinophils # (Manual) 0.00 (0.00-0.70) 10^3/uL Basophils # (Manual) 0.00 (0.00-0.10) 10^3/uL VBG pH 7.172 L (7.330-7.430) VBG pCO2 25.2 L (40.0-52.0) mmHg Sodium 137 138 (136-145) mmol/L Potassium 4.4 4.5 (3.5-5.1) mmol/L Chloride 99 103 (98-107) mmol/L Carbon Dioxide 10.0 L 12.2 L (21.0-32.0) mmol/L Anion Gap 32.4 27.3 BUN 18.0 16.0 (7.0-18.0) mg/dL Creatinine 1.22 1.09 (0.70-1.30) mg/dL Est GFR ( Amer) >60 >60 (>=60 mL/min/1.73m^2) Est GFR (Non-Af Amer) >60 >60 (>=60 mL/min/1.73m^2) BUN/Creatinine Ratio 14.8 14.7 Glucose 230 H 196 H (74-106) mg/dL Lactate 1.4 (0.4-2.0) mmol/L Calcium 9.0 7.9 L (8.5-10.1) mg/dL Total Bilirubin 1.4 H (0.2-1.0) mg/dL AST 29 (15-37) U/L ALT 62 (16-63) U/L Alkaline Phosphatase 93 (46-116) U/L Total Protein 8.6 H (6.4-8.2) g/dL Albumin 4.5 (3.4-5.0) g/dL Globulin 4.1 g/dL Albumin/Globulin Ratio 1.1 Lipase 16.0 (16.0-77.0) U/L Acetone, Qual Moderate A (NEGATIVE) POC Glucose 235 H (74-106) mg/dL 04/05/24 Range/Units 00:25 WBC (4.0-11.0) 10^3/uL RBC (4.70-6.10) 10^6/uL Hgb (14.0-18.0) g/dL Hct (42.0-54.0) % MCV (80.0-94.0) fL MCH (25.9-34.0) pg MCHC (29.9-35.2) g/dL RDW (11.0-15.0) % Plt Count (150-450) 10^3/uL MPV (9.5-13.5) fL Seg Neuts % (Manual) (43.0-75.0) Lymphocytes % (Manual) (20.5-60.0) % Monocytes % (Manual) (1.7-12.0) % Eosinophils % (Manual) (0.9-7.0) % Basophils % (Manual) (0.2-2.0) % Neutrophils # (Manual) (1.4-6.5) 10^3/uL Lymphocytes # (Manual) (1.20-3.80) 10^3/uL Monocytes # (Manual) (0.30-0.80) 10^3/uL Eosinophils # (Manual) (0.00-0.70) 10^3/uL Basophils # (Manual) (0.00-0.10) 10^3/uL VBG pH 7.146 L (7.330-7.430) VBG pCO2 31.6 L (40.0-52.0) mmHg Sodium (136-145) mmol/L Potassium (3.5-5.1) mmol/L Chloride (98-107) mmol/L Carbon Dioxide (21.0-32.0) mmol/L Anion Gap BUN (7.0-18.0) mg/dL Creatinine (0.70-1.30) mg/dL Est GFR ( Amer) (>=60 mL/min/1.73m^2) Est GFR (Non-Af Amer) (>=60 mL/min/1.73m^2) BUN/Creatinine Ratio Glucose (74-106) mg/dL Lactate 1.0 (0.4-2.0) mmol/L Calcium (8.5-10.1) mg/dL Total Bilirubin (0.2-1.0) mg/dL AST (15-37) U/L ALT (16-63) U/L Alkaline Phosphatase (46-116) U/L Total Protein (6.4-8.2) g/dL Albumin (3.4-5.0) g/dL Globulin g/dL Albumin/Globulin Ratio Lipase (16.0-77.0) U/L Acetone, Qual (NEGATIVE) POC Glucose (74-106) mg/dL ECG Data Attestation: I personally reviewed and interpreted this ECG as follows: (Sinus tachycardia at 119 bpm, normal axis, normal intervals, no acute ST segment elevation or T wave inversion) Discharge Plan Discharge Chief Complaint: Nausea/Vomiting/Diarrhea Clinical Impression: Metabolic acidosis, increased anion gap Patient Disposition: Admitted as Observation Time of Disposition Decision: 01:51 Condition: Fair Prescriptions / Home Meds: No Action omeprazole 40 mg capsule,delayed release(DR/EC) 40 mg PO DAILY baclofen 10 mg tablet 10 mg PO DAILY PRN (Reason: pain) dapagliflozin propanediol [Farxiga] 10 mg tablet 10 mg PO DAILY Print Language: Turkmen Referrals: Aguila Ponce DO [Primary Care Provider] - 1 week
[2024-04-04 22:58] LABS: Glucometer 235 mg/dL (74-106)
[2024-04-04] MEDS: ONDANSETRON PF 4 MG/2 ML VIAL IV (23:00)
[2024-04-04] MEDS: 0.9 % SODIUM CHLORIDE 1,000 ML 1000 ML IV ×2 (23:00→23:45)
[2024-04-04] MEDS: FAMOTIDINE/PF 20 MG/2 ML VIAL IV (23:00)
--- NOTE | 2024-04-04 23:10 | PC.NURSE ---
Patient with DMII, blood sugar was 162 prior to arrival, 265 on recheck here Has had nausea and vomiting most of the day today Started out of nowhere, had felt fine up until the first time he vomited at work, then has gotten progressively worse. Also c/o headache
[2024-04-04 23:20] LABS: Hematocrit 49.8 % (42.0-54.0); Hemoglobin 17.4 g/dL (14.0-18.0); Mean Corpuscular HGB Conc 34.9 g/dL (29.9-35.2); Mean Corpuscular Hemoglobin 30.1 pg (25.9-34.0); Mean Platelet Volume 11.6 fL (9.5-13.5); Platelet Count 146 10^3/uL (150-450); Red Blood Count 5.79 10^6/uL (4.70-6.10); White Blood Count 8.8 10^3/uL (4.0-11.0)
[2024-04-04 23:31] LABS: PCO2 VBG 25.2 mmHg (40.0-52.0); pH VBG 7.172 (7.330-7.430)
[2024-04-04] MEDS: KETOROLAC TROMETHAMINE 30 MG/ML VIAL 15 MG IVP (23:31)
[2024-04-04 23:39] LABS: Acetone MODERATE (NEGATIVE); Alanine Aminotransferase 62 U/L (16-63); Albumin Globulin Ratio 1.1; Albumin Level 4.5 g/dL (3.4-5.0); Alkaline Phosphatase 93 U/L (46-116); Anion Gap 32.4; Aspartate Amino Transferase 29 U/L (15-37); BUN Creatinine Ratio 14.8; Bilirubin Total 1.4 mg/dL (0.2-1.0); Chloride 99 mmol/L (98-107); Estimated GFR (African America >60 (>=60 mL/min/1.73m^2); Estimated GFR (Non-African Ame >60 (>=60 mL/min/1.73m^2); Globulin 4.1 g/dL; Glucose 230 mg/dL (74-106); Potassium 4.4 mmol/L (3.5-5.1); Sodium 137 mmol/L (136-145); Total Protein 8.6 g/dL (6.4-8.2)
[2024-04-04 23:42] LABS: Lactate/Lactic Acid 1.4 mmol/L (0.4-2.0)
[2024-04-04 23:54] LABS: Lymphocytes Absolute Manual 0.44 10^3/uL (1.20-3.80); Monocytes Absolute Manual 0.26 10^3/uL (0.30-0.80); Segmented Neut Absolute Manual 8.09 10^3/uL (1.4-6.5)
[2024-04-05] VITALS (19 sets, daily range): BP systolic 112–137; BP diastolic 62–79; PULSE 70–98; TEMP 36.1–37.1; O2SAT 75–98; BMI 32.4
[2024-04-05 00:35] LABS: PCO2 VBG 31.6 mmHg (40.0-52.0); pH VBG 7.146 (7.330-7.430)
[2024-04-05 00:43] LABS: Anion Gap 27.3; BUN Creatinine Ratio 14.7; Calcium 7.9 mg/dL (8.5-10.1); Carbon Dioxide 12.2 mmol/L (21.0-32.0); Chloride 103 mmol/L (98-107); Estimated GFR (African America >60 (>=60 mL/min/1.73m^2); Estimated GFR (Non-African Ame >60 (>=60 mL/min/1.73m^2); Glucose 196 mg/dL (74-106); Potassium 4.5 mmol/L (3.5-5.1); Sodium 138 mmol/L (136-145)
[2024-04-05] MEDS: DEXTROSE 5%-LACTATED RINGERS 1,000 ML 150 ML IV ×4 (01:04→20:54)
[2024-04-05] MEDS: MORPHINE SULFATE 4 MG/ML VIAL IV (01:54)
[2024-04-05] MEDS: ONDANSETRON PF 4 MG/2 ML VIAL IV ×2 (02:03→08:43)
[2024-04-05] MEDS: LACTATED RINGER'S SOLUTION 1,000 ML 200 ML IV (02:03)
--- OUTSIDE RECORDS SUMMARY | 2024-04-05 02:27 | XMS_ITS | CCD ---
Author Organization [facility] Care Team Providers Care Clay Temperer Name Role Phone Kris Aguila Unavailable LAKSHMIPATHY [...] Facility (2 sources) metFORMIN Drug Allergy unknown [employer] Other (11 sources) SITagliptin Drug Allergy 4 unknown [facility] (10 sources) metFORMIN Drug Allergy 9 unknown [facility] (1 source) metFORMIN Drug Allergy [facility] Repository (1 source) patient allergy list reviewed by nurse or physicia Propensity to adverse reactions 9 Comment:Done [employer] Other Medications Current Medications Medication Drug Class(es) Dates Sig (Normalized) Sig (Original) BD Ultra-Fine Micro Pen Needle (7 sources) BD Ultra-Fine Mi aerial crop duster Pen Needle 32g x1/4 misc needle subcutaneous [...] sources) Long-term current use of insulin; 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] Episodic Other aftercare (1 source) 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 Episodic Other connective [...] Onset: 09-15-2021 Episodic Other aftercare (1 source) 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) use of oral hypoglycemic drugs; Translations: [CUSTODIAL USE ORAL HYPOGLYCEMIC DX] Onset: 09-17-2021 Episodic [...] Basophils (Bld) [#/Vol] 0.0 10 3/uL 0.0-0.1 [facility] Basophils/100 WBC Auto (Bld) on 11-20-2023 Basophils/100 WBC (Bld) 0.5 % 0.2-2.0 [facility] Eosinophils/100 WBC Auto (Bl d)on 11-20-2023 Eosinophils/100 WBC (Bld) 1.1 % 0.9-7.0 [facility] Erythrocyte distribution wid th Auto (RBC) [Ratio]on 11-20-2023 Erythrocyte distribution width (RBC) [Ratio] 12.1 % 11.0-15.0 [facility] Estimated glomerular filtrat ion rate (GFR) non- Americanon 11-20-2023 GFR/1.73 sq M.predicted among non-blacks MDRD (S/P/Bld) [Vol rate/Area] mL/min/{1.73_m2} >=60 [facility] Globulin Calc (S) [Mass/Vol] on 11-20-2023 Globulin (S) [Mass/Vol] 3.4 g/dL [facility] Hematocrit Auto (Bld) [Volum e fraction]on 11-20-2023 Hematocrit (Bld) [Volume fraction] 44.5 % 42.0-54.0 [facility] Hemoglobin [Mass/volume] in Bloodon 11-20-2023 Hemoglobin (Bld) [Mass/Vol] 16.3 g/dL 14.0-18.0 [facility] INR in Platelet poor plasma by Coagulation assayon 11-20-2023 INR Coag (PPP) [Relative time] 1.02 {INR} [facility] Comment on above: DESIRED INR:2.0-3.0 CONDITIONS NOT LISTED BELOW2.5-3.5 FOR PROSTHETIC HEART VALVE REPLACEMENT2.5-3.5 RECURRENT THROMBOSIS Laboratory - Chemistry and C hemistry - challengeon 11-20-2023 Albumin [Mass/Vol] 4.0 g/dL 3.4-5.0 [facility] ALP [Catalytic activity/Vol] 144 U/L High 46-116 [facility] ALT [Catalytic activity/Vol] 100 U/L High 16-63 [facility] AST [Catalytic activity/Vol] 63 U/L High 15-37 [facility] Bilirubin [Mass/Vol] 1.3 mg/dL High 0.2-1.0 [facility] Calcium [Mass/Vol] 9.0 mg/dL 8.5-10.1 [facility] Chloride [Moles/Vol] 93 mmol/L Low 98-107 [facility] CO2 [Moles/Vol] 22.2 mmol/L 21.0-32.0 [facility] Creatinine [Mass/Vol] 0.97 mg/dL 0.70-1.[address] [facility] GFR/1.73 sq M.predicted MDRD (S/P/Bld) [Vol rate/Area] mL/min/{1.73_m2} >=60 [facility] Glucose [Mass/Vol] 276 mg/dL High 74-106 [facility] Potassium [Moles/Vol] 3.8 mmol/L 3.5-5.[address] [facility] Protein [Mass/Vol] 7.4 g/dL 6.4-8.2 [facility] Sodium [Moles/Vol] 130 mmol/L Low 136-145 [facility] Urea nitrogen [Mass/Vol] 23.0 mg/dL High 7.0-18.0 [facility] Urea nitrogen/Creatinine [Mass ratio] 23.7 mg/mg [facility] Laboratory - Hematology and Cell countson 11-20-2023 Immature granulocytes/100 WBC (Bld) 0.3 % 0.0-0.5 [facility] Laboratory - Microbiology an d Antimicrobial susceptibilityon 11-20-2023 S. pyogenes Ag Ql (Unsp spec) Negative [facility] Leukocytes [#/volume] correc rebecca for nucleated erythrocytes in Blood by Automated counon 11-20-2023 WBC corrected for nucl RBC Auto (Bld) [#/Vol] 7.9 10 3/uL 4.0-11.0 [facility] Lymphocytes Auto (Bld) [#/Vo l]on 11-20-2023 Lymphocytes (Bld) [#/Vol] 1.4 10 3/uL 1.2-3.8 [facility] Lymphocytes/100 WBC Auto (Bl d)on 11-20-2023 Lymphocytes/100 WBC (Bld) 17.2 % Low 20.5-60.0 [facility] MCH Auto (RBC) [Entitic mass ]on 11-20-2023 MCH (RBC) [Entitic mass] 32.2 pg 25.9-34.0 [facility] MCHC Auto (RBC) [Mass/Vol]on 11-20-2023 MCHC (RBC) [Mass/Vol] 36.6 g/dL High 29.9-35.[address] [facility] MCV Auto (RBC) [Entitic vol] on 11-20-2023 MCV (RBC) [Entitic vol] 87.9 fL 80.0-94.0 [facility] Monocytes Auto (Bld) [#/Vol] on 11-20-2023 Monocytes (Bld) [#/Vol] 0.6 10 3/uL 0.3-0.8 [facility] Monocytes/100 WBC Auto (Bld) on 11-20-2023 Monocytes/100 WBC (Bld) 8.0 % 1.7-12.0 [facility] Neutrophils Auto (Bld) [#/Vo l]on 11-20-2023 Neutrophils (Bld) [#/Vol] 5.8 10 3/uL 1.4-6.5 [facility] Neutrophils/100 WBC Auto (Bl d)on 11-20-2023 Neutrophils/100 WBC (Bld) 72.9 % 43.0-75.0 [facility] No Panel Informationon 11-19 Eosinophils # (Auto) 0.1 10 3/uL 0.0-0.[address] [facility] Immature Granulocyte # (Auto) 0.02 10 3/uL 0.00-0.03 [facility] Platelet mean volume Auto (B ld) [Entitic vol]on 11-20-2023 Platelet mean volume (Bld) [Entitic vol] 10.8 fL 9.5-13.5 [facility] Platelets Auto (Bld) [#/Vol] on 11-20-2023 Platelets (Bld) [#/Vol] 164 10 3/uL 150-450 [facility] Prothrombin time (PT)on 10-23 PT Coag (PPP) [Time] 10.8 s 9.0-11.6 [facility] RBC Auto (Bld) [#/Vol]on RBC (Bld) [#/Vol] 5.06 10 6/uL 4.70-6.10 [facility] Serum or plasma albumin/glob ulin mass ratioon 11-20-2023 Albumin/Globulin [Mass ratio] 1.2 {ratio} [facility] Serum or plasma anion gap de terminationon 11-20-2023 Anion gap [Moles/Vol] 18.6 mmol/L [facility] POINT OF CARE GLUCOSEon 05-0 Glucose [Mass/Vol] 254 mg/dL Critically high 74-106 [facility] Comment on above: Performed By: #### P OCGLUC #### [facility] [address] [address] [address] Jose Cruz Balderas POINT OF CARE GLUCOSEon 07-24 Glucose [Mass/Vol] 241 mg/dL Critically high -106 [facility] Comment on above: Performed By: #### P OCGLUC #### [facility] [address] [address] [address] Jose Cruz Balderas POINT OF CARE GLUCOSEon 06-23 Glucose [Mass/Vol] 204 mg/dL Critically high -106 [facility] Comment on above: Performed By: #### P OCGLUC #### [facility] [address] [address] [address] Jose Cruz Balderas GLYCOHEMOGLOBIN A1Con 2022 ADA RECOMMENDATION SEE BELOW Normal [place] Comment on above: Result Comment: ADA RECOMMENDED LIMIT 4.0 - 6.0 ADA THERAPEUTIC TARGET < 7.0 ACTION SUGGESTED > 7.0 Performed By: #### P OCGLUC #### [facility] [address] [address] [address] Jose Cruz Balderas Glucose [Mass/Vol] 134 mg/dL Normal [facility] Comment on above: Performed By: #### P OCGLUC #### [facility] [address] [address] [address] Jose Cruz Balderas HbA1c (Bld) [Mass fraction] 6.3 % Critically high 4.5-6.2 [facility] Comment on above: Performed By: #### P OCGLUC #### [facility] [address] [place] [address] Dr. Jose Cruz Balderas PROF 14(COMP METB)on 023 Albumin [Mass/Vol] 4.5 g/dL Normal 3.4-5.0 [place] Comment on above: Performed By: #### C MP #### [facility] [address] [place] [address] Dr. Jose Cruz Balderas Albumin/Globulin [Mass ratio] 1.3 {ratio} Normal [facility] Comment on above: Performed By: #### C MP #### [facility] [address] [place] [address] Dr. Jose Cruz Balderas ALP [Catalytic activity/Vol] 93 U/L Normal 46-116 [facility] Comment on above: Performed By: #### C MP #### [facility] [address] [place] [address] Dr. Jose Cruz Balderas ALT [Catalytic activity/Vol] 41 U/L Normal 16-63 [facility] Comment on above: Performed By: #### C MP #### [facility] [address] [place] [address] Dr. Jose Cruz Balderas Anion gap [Moles/Vol] 12.0 mmol/L Normal [facility] Comment on above: Performed By: #### C MP #### [facility] [address] [place] [address] Dr. Jose Cruz Baldears AST [Catalytic activity/Vol] 21 U/L Normal 15-37 [facility] Comment on above: Performed By: #### C MP #### [facility] [address] [place] [address] Dr. Jose Cruz Balderas Bilirubin [Mass/Vol] 0.8 mg/dL Normal 0.2-1.0 [facility] Comment on above: Performed By: #### C MP #### [facility] [address] [place] [address] Dr. Jose Cruz Balderas Calcium [Mass/Vol] 9.3 mg/dL Normal 8.5-10.1 [place] Comment on above: Performed By: #### C MP #### [facility] [address] [place] [address] Dr. Jose Cruz Balderas Chloride [Moles/Vol] 105 mmol/L Normal 98-107 [facility] Comment on above: Performed By: #### C MP #### [facility] [address] [address] [address] Jose Cruz Balderas CO2 [Moles/Vol] 26.7 mmol/L Normal 21.0-32.0 [facility] Comment on above: Performed By: #### C MP #### [facility] [address] [address] [address] Jose Cruz Balderas Creatinine [Mass/Vol] 0.82 mg/dL Normal 0.70-1.30 [facility] Comment on above: Performed By: #### C MP #### [facility] [address] [address] [address] Jose Cruz Balderas EGFR-AF GUINEAN >60 Normal >=60 [facility] Comment on above: Performed By: #### C MP #### [facility] [address] [place] [address] Dr. Jose Cruz Balderas EGFR-NON AF GUINEAN >60 Normal >=60 [facility] Comment on above: Performed By: #### C MP #### [facility] [address] [address] [address] Jose Cruz Balderas Globulin (S) [Mass/Vol] 3.5 g/dL Normal [facility] Comment on above: Performed By: #### C MP #### [facility] [address] [place] [address] Dr. Jose Cruz Balderas Glucose [Mass/Vol] 180 mg/dL Critically high 74-106 [facility] Comment on above: Performed By: #### C MP #### [facility] [address] [place] [address] Dr. Jose Cruz Balderas Potassium [Moles/Vol] 3.7 mmol/L Normal 3.5-5.1 [facility] Comment on above: Performed By: #### C MP #### [facility] [address] [address] [address] Jose Cruz Balderas Protein [Mass/Vol] 8.0 g/dL Normal 6.4-8.2 [facility] Comment on above: Performed By: #### C MP #### [facility] [address] [address] [address] Jose Cruz Balderas Sodium [Moles/Vol] 140 mmol/L Normal 136-145 [place] Comment on above: Performed By: #### C MP #### [facility] [address] [address] [address] Jose Cruz Balderas Urea nitrogen [Mass/Vol] 19.0 mg/dL Critically high 7.0-18.0 [facility] Comment on above: Performed By: #### C MP #### [facility] [address] [place] [address] Dr. Jose Cruz Balderas Urea nitrogen/Creatinine [Mass ratio] 23.2 mg/mg Normal [facility] Comment on above: Performed By: #### C MP #### [facility] [address] [place] [address] Dr. Jose Cruz Balderas POINT OF CARE GLUCOSEon 05-26 Glucose [Mass/Vol] 174 mg/dL Critically high 74-106 [facility] Comment on above: Performed By: #### P OCGLUC #### [facility] [address] [place] [address] Dr. Jose Cruz Balderas XR SHOULDER RT [...] BEATRIZ MITCHELL Date: 2022-04-26 15:27 Normal [facility] CBC AUTO DIFFon 04-21-2022 BASO # 0.0 103/ul Normal 0.0-0.1 [facility] Comment on above: Performed By: #### P OCGLUC #### [facility] [address] [address] [address] Jose Cruz Balderas Basophils/100 WBC (Bld) 0.8 % Normal 0.2-2.0 [facility] Comment on above: Performed By: #### P OCGLUC #### [facility] [address] [address] [address] Jose Cruz Balderas EO # 0.1 103/ul Normal 0.0-0.7 [facility] Comment on above: Performed By: #### P OCGLUC #### [facility] [address] [address] [address] Jose Cruz Balderas Eosinophils/100 WBC (Bld) 2.3 % Normal 0.9-7.0 [facility] Comment on above: Performed By: #### P OCGLUC #### [facility] [address] [address] [address] Jose Cruz Balderas Erythrocyte distribution width (RBC) [Ratio] 12.8 % Normal 11.0-15.0 [facility] Comment on above: Performed By: #### P OCGLUC #### [facility] [address] [address] [address] Jose Cruz Balderas Hematocrit (Bld) [Volume fraction] 47.2 % Normal 42.0-54.0 [facility] Comment on above: Performed By: #### P OCGLUC #### [facility] [address] [address] [address] Jose Cruz Balderas Hemoglobin (Bld) [Mass/Vol] 16.4 g/dL Normal 14.0-18.0 [facility] Comment on above: Performed By: #### P OCGLUC #### [facility] [address] [address] [address] Jose Cruz Balderas IG # 0.01 10e3/ul Normal 0.00-0.03 [facility] Comment on above: Performed By: #### P OCGLUC #### [facility] [address] [place] [address] Dr. Jose Cruz Balderas IG % 0.2 % Normal 0.0-0.5 [facility] Comment on above: Performed By: #### P OCGLUC #### [facility] [address] [address] [address] Jose Cruz Balderas LYMPH # 1.3 103/ul Normal 1.2-3.8 [facility] Comment on above: Performed By: #### P OCGLUC #### [facility] [address] [place] [address] Dr. Jose Cruz Balderas Lymphocytes/100 WBC (Bld) 25.6 % Normal 20.5-60.0 [facility] Comment on above: Performed By: #### P OCGLUC #### [facility] [address] [place] [address] Dr. Jose Cruz Balderas MANUAL DIFF REQ NO Normal [facility] Comment on above: Performed By: #### P OCGLUC #### [facility] [address] [address] [address] Jose Cruz Balderas MCH (RBC) [Entitic mass] 30.7 pg Normal 25.9-34.0 [facility] Comment on above: Performed By: #### P OCGLUC #### [facility] [address] [place] [address] Dr. Jose Cruz Balderas MCHC (RBC) [Mass/Vol] 34.7 g/dL Normal 29.9-35.2 [facility] Comment on above: Performed By: #### P OCGLUC #### [facility] [address] [address] [address] Jose Cruz Balderas MCV (RBC) [Entitic vol] 88.4 fL Normal 80.0-94.0 [facility] Comment on above: Performed By: #### P OCGLUC #### [facility] [address] [address] [address] Jose Cruz Balderas MONO # 0.5 103/ul Normal 0.3-0.8 [facility] Comment on above: Performed By: #### P OCGLUC #### [facility] [address] [address] [address] Jose Cruz Balderas Monocytes/100 WBC (Bld) 8.7 % Normal 1.7-12.0 [facility] Comment on above: Performed By: #### P OCGLUC #### [facility] [address] [address] [address] Jose Cruz Balderas NEUT # 3.2 103/ul Normal 1.4-6.5 [facility] Comment on above: Performed By: #### P OCGLUC #### [facility] [address] [address] [address] Jose Cruz Balderas Neutrophils/100 WBC (Bld) 62.4 % Normal 43.0-75.0 [facility] Comment on above: Performed By: #### P OCGLUC #### [facility] [address] [place] [address] Dr. Jose Cruz Balderas Platelet mean volume (Bld) [Entitic vol] 10.9 fL Normal 9.5-13.5 [facility] Comment on above: Performed By: #### P OCGLUC #### [facility] [address] [place] [address] Dr. Jose Cruz Balderas PLT 159 103/ul Normal 150-450 [facility] Comment on above: Performed By: #### P OCGLUC #### [facility] [address] [address] [address] Jose Cruz Balderas RBC 5.34 106/ul Normal 4.70-6.10 [facility] Comment on above: Performed By: #### P OCGLUC #### [facility] [address] [address] [address] Jose Cruz Balderas WBC 5.2 103/ul Normal 4.0-11.0 [facility] Comment on above: Performed By: #### P OCGLUC #### [facility] [address] [place] [address] Dr. Jose Cruz Balderas GLYCOHEMOGLOBIN A1Con 2021 ADA RECOMMENDATION SEE BELOW Normal [facility] Comment on above: Result Comment: ADA RECOMMENDED LIMIT 4.0 - 6.0 ADA THERAPEUTIC TARGET < 7.0 ACTION SUGGESTED > 7.0 Performed By: #### P OCGLUC #### [facility] [address] [address] [address] Jose Cruz Balderas Glucose [Mass/Vol] 163 mg/dL Normal [place] Comment on above: Performed By: #### P OCGLUC #### [facility] [address] [address] [address] Jose Cruz Balderas HbA1c (Bld) [Mass fraction] 7.3 % Critically high 4.5-6.2 [facility] Comment on above: Performed By: #### P OCGLUC #### [facility] [address] [place] [address] Dr. Jose Cruz Balderas LIPID PROFILEon 04-21-2022 CHOL-HDL RATIO NORM SEE BELOW Normal [facility] Comment on above: Result Comment: 3.3 - 4.4 LOW RISK 4.4 - 7.1 AVERAGE RISK 7.1 - 11.0 MODERATE RISK >11.0 HIGH RISK Performed By: #### L IPID, CMP #### [facility] [address] [place] [address] Dr. Jose Cruz Balderas Cholesterol [Mass/Vol] 197 mg/dL Normal <=200 [facility] Comment on above: Performed By: #### L IPID, CMP #### [facility] [address] [place] [address] Dr. Jose Cruz Balderas Cholesterol in HDL [Mass/Vol] 49 mg/dL Normal 40-60 [facility] Comment on above: Performed By: #### L IPID, CMP #### [facility] [address] [place] [address] Dr. Jose Cruz Balderas Cholesterol in LDL [Mass/Vol] 109.4 mg/dL Normal [facility] Comment on above: Performed By: #### L IPID, CMP #### [facility] [address] [place] [address] Dr. Jose Cruz Balderas Cholesterol.total/Chol esterol in HDL [Mass ratio] 4.0 {ratio} Normal [facility] Comment on above: Performed By: #### L IPID, CMP #### [facility] [address] [address] [address] Jose Cruz Balderas HDL NORMAL > or = 60 mg/dl - LOW CARDIOVASCULAR RISK <40 mg/dl - HIGH CARDIOVASCULAR RISK Normal [facility] Comment on above: Performed By: #### L IPID, CMP #### [facility] [address] [address] [address] Jose Cruz Balderas LDL CALC NORMAL SEE BELOW Normal [facility] Comment on above: Result Comment: <100 mg/dl OPTIMAL 100 - 129 mg/dl NEAR OR ABOVE OPTIMAL 130 - 159 mg/dl BORDERLINE HIGH 160 - 189 mg/dl HIGH >190 mg/dl VERY HIGH Performed By: #### L IPID, CMP #### [facility] [address] [address] [address] Jose Cruz Balderas Triglyceride [Mass/Vol] 193 mg/dL Critically high <=150 [facility] Comment on above: Performed By: #### L IPID, CMP #### [facility] [address] [address] [address] Jose Cruz Balderas VLDL CALC 38.6 mg/dL Normal [facility] Comment on above: Performed By: #### L IPID, CMP #### [facility] [address] [place] [address] Dr. Jose Cruz Balderas MICROALBUMIN, RAND URon 03-25 mALB 1.4 mg/L Normal <=30.0 [facility] Comment on above: Performed By: #### M ALBR #### [facility] [address] [address] [address] Jose Cruz Balderas PROF 14(COMP METB)on 022 Albumin [Mass/Vol] 4.3 g/dL Normal 3.4-5.0 [facility] Comment on above: Performed By: #### L IPID, CMP #### [facility] [address] [place] [address] Dr. Jose Cruz Balderas Albumin/Globulin [Mass ratio] 1.2 {ratio} Normal [facility] Comment on above: Performed By: #### L IPID, CMP #### [facility] [address] [address] [address] Jose Cruz Balderas ALP [Catalytic activity/Vol] 94 U/L Normal 46-116 [facility] Comment on above: Performed By: #### L IPID, CMP #### [facility] [address] [address] [address] Jose Cruz Balderas ALT [Catalytic activity/Vol] 135 U/L Critically high 16-63 [facility] Comment on above: Performed By: #### L IPID, CMP #### [facility] [address] [address] [address] Jose Cruz Balderas Anion gap [Moles/Vol] 11.7 mmol/L Normal [facility] Comment on above: Performed By: #### L IPID, CMP #### [facility] [address] [address] [address] Jose Cruz Balderas AST [Catalytic activity/Vol] 105 U/L Critically high 15-37 [facility] Comment on above: Performed By: #### L IPID, CMP #### [facility] [address] [address] [address] Jose Cruz Balderas Bilirubin [Mass/Vol] 0.8 mg/dL Normal 0.2-1.0 [facility] Comment on above: Performed By: #### L IPID, CMP #### [facility] [address] [address] [address] Jose Cruz Balderas Calcium [Mass/Vol] 9.3 mg/dL Normal 8.5-10.1 [place] Comment on above: Performed By: #### L IPID, CMP #### [facility] [address] [address] [address] Jose Cruz Balderas Chloride [Moles/Vol] 101 mmol/L Normal 98-107 [facility] Comment on above: Performed By: #### L IPID, CMP #### [facility] [address] [address] [address] Jose Cruz Balderas CO2 [Moles/Vol] 32.8 mmol/L Critically high 21.0-32.0 [facility] Comment on above: Performed By: #### L IPID, CMP #### [facility] [address] [address] [address] Jose Cruz Balderas Creatinine [Mass/Vol] 1.09 mg/dL Normal 0.70-1.30 [facility] Comment on above: Performed By: #### L IPID, CMP #### [facility] [address] [address] [address] Jose Cruz Balderas EGFR-AF GUINEAN >60 Normal >=60 [facility] Comment on above: Performed By: #### L IPID, CMP #### [facility] [address] [address] [address] Jose Cruz Balderas EGFR-NON AF GUINEAN >60 Normal >=60 [facility] Comment on above: Performed By: #### L IPID, CMP #### [facility] [address] [address] [address] Jose Cruz Balderas Globulin (S) [Mass/Vol] 3.6 g/dL Normal [facility] Comment on above: Performed By: #### L IPID, CMP #### [facility] [address] [address] [address] Jose Cruz Balderas Glucose [Mass/Vol] 174 mg/dL Critically high 74-106 [facility] Comment on above: Performed By: #### L IPID, CMP #### [facility] [address] [address] [address] Jose Cruz Balderas Potassium [Moles/Vol] 4.5 mmol/L Normal 3.5-5.1 [facility] Comment on above: Performed By: #### L IPID, CMP #### [facility] [address] [address] [address] Jose Cruz Balderas Protein [Mass/Vol] 7.9 g/dL Normal 6.4-8.2 [facility] Comment on above: Performed By: #### L IPID, CMP #### [facility] [address] [address] [address] Jose Cruz Balderas Sodium [Moles/Vol] 141 mmol/L Normal 136-145 [place] Comment on above: Performed By: #### L IPID, CMP #### [facility] [address] [place], [place] [address] Dr. Jose Cruz Balderas Urea nitrogen [Mass/Vol] 14.0 mg/dL Normal 7.0-18.0 [facility] Comment on above: Performed By: #### L IPID, CMP #### [facility] [address] [address] [address] Jose Cruz Balderas Urea nitrogen/Creatinine [Mass ratio] 12.8 mg/mg Normal [facility] Comment on above: Performed By: #### L IPID, CMP #### [facility] [address] [address] [address] Jose Cruz Balderas POINT OF CARE GLUCOSEon 08-23 Glucose [Mass/Vol] 240 mg/dL Critically high 74-106 [facility] Comment on above: Performed By: #### P OCGLUC #### [facility] [address] [address] [address] Jose Cruz Balderas XR FINGER MIN 2 VIEWSon 08-23 XR FINGER MIN 2 VIEWS EXAM: XR FINGER IL N 2 VIEWS HISTORY: Laceration of finger [...] by: SERGE TAN Date: 2021-09-15 19:17 Normal [facility] Pathology Noteon 07-09-2021 Pathology Note [id number]#1.00CD:127 Normal [facility] Outside Colonoscopyon 2021 Outside Colonoscopy [id number] [id number]#1.00CD:127 Normal [facility] Lab Reportson 07-06-2021 Lab Reports [id number] FC#1.00CD:127 Normal [facility] Consent for Procedure/Surger yon 06-24-2021 Consent for Procedure/Surgery [id number] F5#1.00CD:127 Normal [facility] Ambulatory Visit Summaryon 0 06-23-2021 Ambulatory Visit [...] are no longer receiving treatment for. Hypertension [facility] Physician Referralon 022 Physician Referral [id number] B2#1.00CD:127 [facility] Physician Referralon 022 Physician Referral [id number] FC#1.00CD:127 [facility] Vital Signs Date Time Vital Sign Value Performing Clinician Facility 01-05-2024 09:09-0400 Body height 187.96 cm [facility] 01-05-2024 09:09-0400 Body mass index (BMI) [Ratio] 31.4 kg/m2 [facility] 01-05-2024 09:09-0400 Body weight 111.18 kg [facility] 01-05-2024 09:09-0400 Diastolic blood pressure 78 mm[Hg] [facility] 01-05-2024 09:09-0400 Heart rate 76 /min [facility] 01-05-2024 09:09-0400 Respiratory rate 12 /min [facility] 01-05-2024 09:09-0400 Systolic blood pressure 118 mm[Hg] [facility] 11-29-2023 16:02-0400 Body height 187.96 cm [facility] 11-29-2023 16:02-0400 Body mass index (BMI) [Ratio] 29.9 kg/m2 [facility] 11-29-2023 16:02-0400 Body weight 105.68 kg [facility] 11-29-2023 16:02-0400 Diastolic blood pressure 74 mm[Hg] [facility] 11-29-2023 16:02-0400 Heart rate 68 /min [facility] 11-29-2023 16:02-0400 Respiratory rate 12 /min [facility] 11-29-2023 16:02-0400 Systolic blood pressure 117 mm[Hg] [facility] 11-13-2023 14:05-0400 Body height 187.96 cm [facility] 11-13-2023 14:05-0400 Body mass index (BMI) [Ratio] 30 kg/m2 [facility] 11-13-2023 14:05-0400 Body weight 106.14 kg [facility] 11-13-2023 14:05-0400 Diastolic blood pressure 72 mm[Hg] [facility] 11-13-2023 14:05-0400 Heart rate 83 /min [facility] 11-13-2023 14:05-0400 SaO2% (BldA) [Mass fraction] 97 % [facility] 11-13-2023 14:05-0400 Systolic blood pressure 120 mm[Hg] [facility] 07-07-2023 09:53-0400 Body height 187.96 cm [facility] 07-07-2023 09:53-0400 Body mass index (BMI) [Ratio] 31.6 kg/m2 [facility] 07-07-2023 09:53-0400 Body weight 111.58 kg [facility] 07-07-2023 09:53-0400 Diastolic blood pressure 84 mm[Hg] [facility] 07-07-2023 09:53-0400 Heart rate 75 /min [facility] 07-07-2023 09:53-0400 Respiratory rate 12 /min [facility] 07-07-2023 09:53-0400 Systolic blood pressure 131 mm[Hg] [facility] 06-20-2022 15:00-0500 Body height 187.96 cm Aguila Ball Other [employer] Other 06-20-2022 15:00-0500 Body mass index (BMI) [Ratio] 33.74 kg/m2 Aguila Ball Other [employer] Other 06-20-2022 15:00-0500 Body weight 119.21 kg Aguila Ball Other [employer] Other 06-20-2022 15:00-0500 Diastolic blood pressure 70 mm[Hg] Aguila Ball Other [employer] Other 06-20-2022 15:00-0500 Respiratory rate 12 /min Aguila Ball Other [employer] Other 06-20-2022 15:00-0500 Systolic blood pressure 108 mm[Hg] Aguila Ball Other [employer] Other 05-10-2022 11:15-0500 Body height 187.96 cm Aguila Ball Other [employer] Other 05-10-2022 11:15-0500 Body mass index (BMI) [Ratio] 33.79 kg/m2 Aguila Ball Other [employer] Other 05-10-2022 11:15-0500 Body weight 119.39 kg Aguila Ball Other [employer] Other 05-10-2022 11:15-0500 Diastolic blood pressure 70 mm[Hg] Aguila Ball Other [employer] Other 05-10-2022 11:15-0500 Respiratory rate 12 /min Aguila Ball Other [employer] Other 05-10-2022 11:15-0500 Systolic blood pressure 118 mm[Hg] Aguila Ball Other [employer] Other Encounters Encounter Date Encounter Type Care Provider Facility Start: 01-05-2024 End: 01-05-2024 ambulatory [facility] Work Phone: Start: 01-05-2024 End: 01-05-2024 Patient encounter procedure [facility] Physician [facility] Work Phone: Start: 11-29-2023 End: 11-29-2023 ambulatory [facility] Work Phone: Start: 11-29-2023 End: 11-29-2023 Patient encounter procedure [facility] Physician [facility] Work Phone: Start: 11-20-2023 Non-patient / Non-visit [facility] Physician [facility] [employer] Work Phone: Start: 11-13-2023 End: 11-13-2023 ambulatory [facility] Work Phone: Start: 11-13-2023 End: 11-13-2023 Patient encounter procedure [facility] Physician [facility] Work Phone: Start: 07-07-2023 End: 07-07-2023 ambulatory [facility] Work Phone: Start: 07-07-2023 End: 07-07-2023 Encounter for general adult medical examination without abnormal findings [facility] Start: 07-07-2023 End: 07-07-2023 Patient encounter procedure [facility] Physician [facility] Work Phone: Start: 06-20-2023 Non-patient / Non-visit [facility] Physician [facility] Work Phone: Start: 06-12-2023 Non-patient / Non-visit [facility] Physician [facility] Work Phone: Start: 02-03-2023 End: 02-03-2023 ambulatory Aguila Ponce Other [facility] [employer] Other Start: 02-03-2023 Telephone encounter Aguila LANDRUM [facility] Start: 11-08-2022 End: 11-08-2022 ambulatory [facility] Facility:[facility] Start: 10-21-2022 End: 10-21-2022 ambulatory Aguila Ponce Other [employer] Other Start: 10-21-2022 Telephone encounter Aguila Ponce [facility] Start: 10-21-2022 End: 10-21-2022 ambulatory [facility] Facility:[facility] Start: 09-22-2022 ambulatory NARENDRANATH LAKSHMIPATHY . Facility:[facility] Start: 08-23-2022 End: 08-23-2022 ambulatory NARENDRANATH LAKSHMIPATHY . Facility:[facility] Start: 08-16-2022 End: 08-16-2022 ambulatory NARENDRANATH LAKSHMIPATHY . Facility:[facility] Start: 08-15-2022 End: 08-15-2022 ambulatory Aguila Ponce Other [employer] Other Start: 08-15-2022 Telephone encounter Aguila LANDRUM [facility] Start: 07-28-2022 End: 07-29-2022 ambulatory NARENDRANATH LAKSHMIPATHY . Facility:[facility] Start: 07-12-2022 End: 07-12-2022 ambulatory NARENDRANATH LAKSHMIPATHY . Facility:[facility] Start: 07-07-2022 End: 07-08-[address] AGUILA PONCE Facility:[facility] Start: 06-22-2022 End: 06-23-[address] AGUILA PONCE Facility:[facility] Start: 06-21-2022 Telephone encounter Aguila Ponce [facility] Start: 06-21-2022 End: 06-21-[address] AGUILA PONCE [employer] Other Start: 06-20-2022 End: 06-20-2022 ambulatory Aguila Ponce Other [employer] Other Start: 06-20-2022 Encounter for other preprocedural examination Aguila Ponce [facility] Start: 06-20-2022 Office outpatient vi sit 25 minutes [address] Ponce [facility] Start: 05-26-2022 End: 05-27-[address] AGUILA PONCE Facility:[facility] Start: 05-10-2022 End: 05-10-2022 ambulatory Aguila Ponce Other [employer] Other Start: 05-10-2022 Office outpatient vi sit 15 minutes Aguila Ponce [facility] Start: 04-28-2022 End: 06-01-[address] AGUILA PONCE Facility:[facility] Start: 04-26-2022 Telephone encounter [facility] Start: 04-26-2022 End: 04-26-[address] AGUILA PONCE [facility] [employer] Other Start: 04-23-2022 Encounter for genera l adult medical examination without abnormal findings DR AGUILA PONCE [facility] Start: 04-21-2022 End: 04-22-[address] AGUILA PONCE Facility:[facility] Start: 04-21-2022 End: 04-22-2022 Encounter for general adult medical examination without abnormal findings DR AGUILA PONCE Facility:[facility] Start: 03-31-2022 Adult health examination Aguila Ponce Other [employer] Other Start: 11-04-2021 End: 11-04-[address] [...] the presence orabsence of malignant disease.Performed at: [address] [id number] Director: Zach Lucia PhD, Phone: [phone] Start: 04-04-2018 General examination of patient Aguila Ponce Other End: 06-16-2021 Laboratory test result abnormal Aguila Ponce Other Plan of Treatment Date Care Activity Detail Author Comprehensive metabo lic 2000 panel - Serum or Plasma [facility] enter [facility] Immunizations Immunization Date Immunization Notes Care Provider Fa shasta 09-15-2021 diphtheria, tetanus toxoids and pertussis vaccine Aguila Ponce Other [facility] 02-12-2021 COVID-19 Vaccine Mod sheri - Documentation Purposes Only Aguila Ponce Other [facility] 07-03-2020 COVID-19 Vaccine Jl ssen - Documentation Purposes Only Aguila Ponce Other [facility] Payers Date Payer Category [id number] 2019 Unknown [id number] 1973 Unknown [id number] 1973 Unknown [id number] 2.16840.1.529407.3.579.2.593 1973 Unknown [id number] 2.16.840.1.340442.3.579.2.593 1973 Unknown [id number] 2.16.840.1.312078.3.579.2.593 1973 Unknown [id number] 2.16.840.1.126398.3.579.2.593 1973 Unknown [id number] 2.16.840.1.775955.3.579.2.593 1973 Unknown [id number] 2.16.840.1.309196.3.579.2.593 1973 Unknown [id number] 2.16.840.1.307967.3.579.2.593 1973 Unknown [id number] 2.16.840.1.548367.3.579.2.593 1973 Unknown [id number] 2.16.840.1.159568.3.579.2.593 1973 Unknown [id number] 2.16.840.1.524806.3.579.2.593 1973 Unknown [id number] 2.16.840.1.197407.3.579.2.593 1973 Unknown [id number] 2.16.840.1.004892.3.579.2.593 1973 Unknown [id number] 2.16.840.1.992804.3.579.2.593 1973 Unknown [id number] 2.16.840.1.284744.3.579.2.593 1973 Unknown [id number] 2.16.840.1.215655.3.579.2.593 1973 Unknown [id number] 2.16.840.1.986765.3.579.2.718 1973 Unknown [id number] 2.16.840.1.386028.3.579.2.718 Private Health Insurance [id number] [id number] Unknown MMO [employer] [id number] Social History Date Type Detail Facility Sex Assigned At [employer] Other Start: 06-12-2023 Tobacco smoking stat [facility] Unknown if ever smoked [facility] Start: 1975 Sex Assigned At Male F [facility] Start: 11-13-2023 [facility] Medical Equipment Procedure Code Equipment Code Equipment Origin al Text Equipment Identifier Dates Sure-Fine Pen [place] 31G X 5 MM Blood Sugar Diagnostic [...] diabetes mellitus with hyperglycemia (ICD-10 - E11.65) [employer] Other 06-30-2023 Evaluation note* Encounter Date Diagnosis Assessment Notes Treatment Notes Treatment Clinical Notes Sep, Essential (primary) hypertension (ICD-10 - I10) [employer] Other 04-24-2023 Evaluation note* Encounter Date Diagnosis Assessment Notes Treatment Notes Treatment Clinical Notes Jul, Type 2 diabetes mellitus with hyperglycemia (ICD-10 - E11.65) Jul, 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 2. [...] treatment options with their primary care provider.[id number] Note CONSULTATION CONSULTATION DATE: 07/07/2022 HISTORY: This [...] followed up in the clinic post procedure.[facility] [id number] Evaluation note* Encounter Date Diagnosis Assessment Notes Treatment Notes Treatment Clinical Notes May, Elevated transaminase level (ICD-10 - R74.01) May, Essential (primary) hypertension (ICD-10 - I10) May, Controlled type 2 diabetes mellitus with hyperglycemia, without long-term current use of insulin (ICD-10 - E11.65) [employer] Other 02-27-2023 Evaluation note* Encounter Date Diagnosis [...] (ICD-10 - E78.2) Healthy diet and exercise. [employer] Other 02-02-2023 NoteCONSULTATION CONSULTATION DATE: 05/26/2022 HISTORY [...] be followed up in the office thereafter.[facility] 05-10-2022 Evaluation note* Encounter Date Diagnosis Assessment [...] soap and water. UTD w/ tetanus booster [employer] Other 01-03-2023 Evaluation note* Encounter Date Diagnosis Assessment Notes Treatment Notes Treatment Clinical Notes Apr, Other chronic pain (ICD-10 - G89.29) Apr, Low back pain, unspecified (ICD-10 - M54.50) [employer] Other 03-02-2022 NoteChief Complaint consultation for screening [...] tab(s), Oral, Da (more content not included)... [facility]Result Comment: Electronically Signed By: XANDER DIEHL, Luc Blandon\Date and Time Signed: 06/23/21 17:02 EST Evaluation note* Diagnosis Onset Date Resolution Status Depression, major, recurrent, in partial remission acute Essential (primary) hypertension acute Gastroesophageal reflux dise ase with esophagitis without hemorrhage acute Hyperlipidemia, mixed acute Type 2 diabetes mellitus with hyperglycemia acute Screening PSA (prostate specific antigen) noneactive Wellness examination noneact brigette [facility] Work Phone: Evaluation note* Diagnosis Onset Date Resolution Status Allergic reaction [facility] Work Phone: Evaluation note* Diagnosis Onset Date Resolution Status Allergic reaction acute Seasonal allergies acute Depression, major, recurrent, in partial remission acute Essential (primary) hypertension acute Gastroesophageal reflux dise ase with esophagitis without hemorrhage acute Hyperlipidemia, mixed acute Type 2 diabetes mellitus with hyperglycemia acute [facility] Work Phone: Evaluation note* Diagnosis Onset Date Resolution Status Allergic reaction acute Seasonal allergies acute Depression, major, recurrent, in partial remission acute Essential (primary) hypertension acute Gastroesophageal reflux dise ase with esophagitis without hemorrhage acute Hyperlipidemia, mixed acute [id number] acute Type 2 diabetes mellitus with hyperglycemia acute Gastroesophageal reflux dise ase with esophagitis without hemorrhage acute [id number] acute Type 2 diabetes mellitus with hyperglycemia acute [facility] Work Phone: History general Narrative - Reported* [...] Debridement SLAP Lesion Surgical History Subacromion Decompression [employer] Other Hishdtb general Narrative - Reported* Type Description Date [...] Subacromion Decompression Hospitalization History see surgical history [employer] Other Summary Purpose Family History No Family History Records FoundNo Family History Records FoundNo Family History Records Found Advance Directives Advance Directive Response Recorded Date/ Time Advance Directives No May 29, 2023 3:54pm Reason for Referral Reason 05/26/22 Patient b drake referred for treatment of low back pain. Diagnosis 1 Osteoarthritis of sp ine with radiculopathy, lumbar region (M47.26) Referral Organization [facility] Kris strange Referring Provider First Name Aguila Referring Provider Last Name Kris Referring Provider Specialty Internal Me vida Referred Organization [facility] Referred Provider VIDHYA MOSLEY Referred Address [address], [place],[address] Referred Provider Specialty Pain Medicin e Referral [...] >faxed first request for consult notes to [phone] Emily Lee 06/07/2022 01:51:17 PM >received today notes sent for review. closing referral at this time. Clinical Notes CT lumbar spine comp leted July, P: [phone] F: [id number] Chief Complaint and Reason for Visit Chief [...] disease with esophagitis without hemorrhage Hyperlipidemia, mixed [id number] Type 2 diabetes mellitus with hyperglycemia Gastroesophageal reflux disease with esophagitis without hemorrhage [id number] Type 2 diabetes mellitus with hyperglycemia Additional Source Comments (unrecognized sect ion and content) No Status Records FoundNo Status Records FoundNo Status Records Found INFORMATION SOURCE (unrecogn ized section and content) DATE CREATED AUTHOR 07/20/2021 [facility] DATE CREATED AUTHOR AUTHOR'S ORGANIZ ATION 09/07/2022 [facility] DATE CREATED AUTHOR AUTHOR'S ORGANIZ ATION 11/07/2022 [facility] REASON FOR VISIT (unrecogniz ed section and content) Referralpossible cellulitisN o InformationPre-Op ClearancerefillRefillRefill Care Teams (unrecognized sec tion and content) Team Status: Active Member Role Status Dates Aguila Pnoce DO Primary Care Provider Active Team Status: Inactive Member Role Status Dates Aguila Ponce DO Primary Care Provider Active Start: November 13, 2023 End: November 13, 2023 Thu Ren APRN [employer]C Attending Provider Act brigette Start: November 13, 2023 End: November 13, 2023 Team Status: Active Member Role Status Dates Aguila Ponce , DO Primary Care Provider Active Start: June 12, 2023 DAX Gonzalez Attending Provider Active St art: June [...] BE BASED ON THE PRIMARY CLINICAL RECORDS. [employer] provides no warranty or guarantee of the accuracy or completeness of information in this document.
[2024-04-05] MEDS: SODIUM BICARBONATE 150 MEQ in DEXTROSE 5 % IN WATER 1,000 ML 100 MEQ IV (02:56)
--- OUTSIDE RECORDS SUMMARY | 2024-04-05 05:59 | XMS_ITS | CCD ---
Author Organization [facility] Care Team Providers Care Assembly Lead Person Name Role Phone Kris Aguila Unavailable LAKSHMIPATHY [...] Facility (2 sources) metFORMIN Drug Allergy unknown [facility] Other (11 sources) SITagliptin Drug Allergy 4 unknown [facility] (10 sources) metFORMIN Drug Allergy 9 unknown [facility] (1 source) metFORMIN Drug Allergy [facility] Rep[facility] (1 source) patient allergy list reviewed by nurse or physicia Propensity to adverse reactions 9 Comment:Done [facility] Other Medications Current Medications Medication Drug Class(es) Dates Sig (Normalized) Sig (Original) BD Ultra-Fine Micro Pen Needle (7 sources) BD Ultra-Fine Mi micro photographer Pen Needle 32g x1/4 misc needle subcutaneous [...] sources) Long-term current use of insulin; Translations: [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] Episodic Other aftercare (1 source) 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 Episodic Other connective [...] Onset: 09-15-2021 Episodic Other aftercare (1 source) 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 of oral hypoglycemic drugs; Translations: [SENIOR LIVING USE ORAL HYPOGLYCEMIC DX] Onset: 09-17-2021 Episodic [...] Basophils (Bld) [#/Vol] 0.0 10 3/uL 0.0-0.1 [facility] Basophils/100 WBC Auto (Bld) on 11-20-2023 Basophils/100 WBC (Bld) 0.5 % 0.2-2.0 [facility] Eosinophils/100 WBC Auto (Bl d)on 11-20-2023 Eosinophils/100 WBC (Bld) 1.1 % 0.9-7.0 [facility] Erythrocyte distribution wid th Auto (RBC) [Ratio]on 11-20-2023 Erythrocyte distribution width (RBC) [Ratio] 12.1 % 11.0-15.0 [facility] Estimated glomerular filtrat ion rate (GFR) non- Americanon 11-20-2023 GFR/1.73 sq M.predicted among non-blacks MDRD (S/P/Bld) [Vol rate/Area] mL/min/{1.73_m2} >=60 [facility] Globulin Calc (S) [Mass/Vol] on 11-20-2023 Globulin (S) [Mass/Vol] 3.4 g/dL [facility] Hematocrit Auto (Bld) [Volum e fraction]on 11-20-2023 Hematocrit (Bld) [Volume fraction] 44.5 % 42.0-54.0 [facility] Hemoglobin [Mass/volume] in Bloodon 11-20-2023 Hemoglobin (Bld) [Mass/Vol] 16.3 g/dL 14.0-18.0 [facility] INR in Platelet poor plasma by Coagulation assayon 11-20-2023 INR Coag (PPP) [Relative time] 1.02 {INR} [facility] Comment on above: DESIRED INR:2.0-3.0 CONDITIONS NOT LISTED BELOW2.5-3.5 FOR PROSTHETIC HEART VALVE REPLACEMENT2.5-3.5 RECURRENT THROMBOSIS Laboratory - Chemistry and C hemistry - challengeon 11-20-2023 Albumin [Mass/Vol] 4.0 g/dL 3.4-5.0 [facility] ALP [Catalytic activity/Vol] 144 U/L High 46-116 [facility] ALT [Catalytic activity/Vol] 100 U/L High 16-63 [facility] AST [Catalytic activity/Vol] 63 U/L High 15-37 [facility] Bilirubin [Mass/Vol] 1.3 mg/dL High 0.2-1.0 [facility] Calcium [Mass/Vol] 9.0 mg/dL 8.5-10.1 [facility] Chloride [Moles/Vol] 93 mmol/L Low 98-107 [facility] CO2 [Moles/Vol] 22.2 mmol/L 21.0-32.0 [facility] Creatinine [Mass/Vol] 0.97 mg/dL 0.70-1.30 [facility] GFR/1.73 sq M.predicted MDRD (S/P/Bld) [Vol rate/Area] mL/min/{1.73_m2} >=60 [facility] Glucose [Mass/Vol] 276 mg/dL High 74-106 [facility] Potassium [Moles/Vol] 3.8 mmol/L 3.5-5.1 [facility] Protein [Mass/Vol] 7.4 g/dL 6.4-8.2 [facility] Sodium [Moles/Vol] 130 mmol/L Low 136-145 [facility] Urea nitrogen [Mass/Vol] 23.0 mg/dL High 7.0-18.0 [facility] Urea nitrogen/Creatinine [Mass ratio] 23.7 mg/mg [facility] Laboratory - Hematology and Cell countson 11-20-2023 Immature granulocytes/100 WBC (Bld) 0.3 % 0.0-0.5 [facility] Laboratory - Microbiology an d Antimicrobial susceptibilityon 11-20-2023 S. pyogenes Ag Ql (Unsp spec) Negative [facility] Leukocytes [#/volume] correc rebecca for nucleated erythrocytes in Blood by Automated counon 11-20-2023 WBC corrected for nucl RBC Auto (Bld) [#/Vol] 7.9 10 3/uL 4.0-11.0 [facility] Lymphocytes Auto (Bld) [#/Vo l]on 11-20-2023 Lymphocytes (Bld) [#/Vol] 1.4 10 3/uL 1.2-3.8 [facility] Lymphocytes/100 WBC Auto (Bl d)on 11-20-2023 Lymphocytes/100 WBC (Bld) 17.2 % Low 20.5-60.0 [facility] MCH Auto (RBC) [Entitic mass ]on 11-20-2023 MCH (RBC) [Entitic mass] 32.2 pg 25.9-34.0 [facility] MCHC Auto (RBC) [Mass/Vol]on 11-20-2023 MCHC (RBC) [Mass/Vol] 36.6 g/dL High 29.9-35.2 [facility] MCV Auto (RBC) [Entitic vol] on 11-20-2023 MCV (RBC) [Entitic vol] 87.9 fL 80.0-94.0 [facility] Monocytes Auto (Bld) [#/Vol] on 11-20-2023 Monocytes (Bld) [#/Vol] 0.6 10 3/uL 0.3-0.8 [facility] Monocytes/100 WBC Auto (Bld) on 11-20-2023 Monocytes/100 WBC (Bld) 8.0 % 1.7-12.0 [facility] Neutrophils Auto (Bld) [#/Vo l]on 11-20-2023 Neutrophils (Bld) [#/Vol] 5.8 10 3/uL 1.4-6.5 [facility] Neutrophils/100 WBC Auto (Bl d)on 11-20-2023 Neutrophils/100 WBC (Bld) 72.9 % 43.0-75.0 [facility] No Panel Informationon 11-19 Eosinophils # (Auto) 0.1 10 3/uL 0.0-0.7 [facility] Immature Granulocyte # (Auto) 0.02 10 3/uL 0.00-0.03 [facility] Platelet mean volume Auto (B ld) [Entitic vol]on 11-20-2023 Platelet mean volume (Bld) [Entitic vol] 10.8 fL 9.5-13.5 [facility] Platelets Auto (Bld) [#/Vol] on 11-20-2023 Platelets (Bld) [#/Vol] 164 10 3/uL 150-450 [facility] Prothrombin time (PT)on 10-23 PT Coag (PPP) [Time] 10.8 s 9.0-11.6 [facility] RBC Auto (Bld) [#/Vol]on RBC (Bld) [#/Vol] 5.06 10 6/uL 4.70-6.10 [facility] Serum or plasma albumin/glob ulin mass ratioon 11-20-2023 Albumin/Globulin [Mass ratio] 1.2 {ratio} [facility] Serum or plasma anion gap de terminationon 11-20-2023 Anion gap [Moles/Vol] 18.6 mmol/L [facility] POINT OF CARE GLUCOSEon 05-0 Glucose [Mass/Vol] 254 mg/dL Critically high 74-106 [facility] Comment on above: Performed By: #### P OCGLUC #### [facility] [address] [address] [address] Jose Cruz Balderas POINT OF CARE GLUCOSEon 07-24 Glucose [Mass/Vol] 241 mg/dL Critically high -106 [facility] Comment on above: Performed By: #### P OCGLUC #### [facility] [address] [address] [address] Jose Cruz Balderas POINT OF CARE GLUCOSEon 06-23 Glucose [Mass/Vol] 204 mg/dL Critically high -106 [facility] Comment on above: Performed By: #### P OCGLUC #### [facility] [address] [address] [address] Jose Cruz Balderas GLYCOHEMOGLOBIN A1Con 2022 ADA RECOMMENDATION SEE BELOW Normal [facility] Comment on above: Result Comment: ADA RECOMMENDED LIMIT 4.0 - 6.0 ADA THERAPEUTIC TARGET < 7.0 ACTION SUGGESTED > 7.0 Performed By: #### P OCGLUC #### [facility] [address] [address] [address] Jose Cruz Balderas Glucose [Mass/Vol] 134 mg/dL Normal [facility] Comment on above: Performed By: #### P OCGLUC #### [facility] [address] [address] [address] Jose Cruz Balderas HbA1c (Bld) [Mass fraction] 6.3 % Critically high 4.5-6.2 [facility] Comment on above: Performed By: #### P OCGLUC #### [facility] [address] [place] [address] Dr. Jose Cruz Balderas PROF 14(COMP METB)on 023 Albumin [Mass/Vol] 4.5 g/dL Normal 3.4-5.0 [facility] Comment on above: Performed By: #### C MP #### [facility] [address] [place] [address] Dr. Jose Cruz Balderas Albumin/Globulin [Mass ratio] 1.3 {ratio} Normal [facility] Comment on above: Performed By: #### C MP #### [facility] [address] [place] [address] Dr. Jose Cruz Balderas ALP [Catalytic activity/Vol] 93 U/L Normal 46-116 [facility] Comment on above: Performed By: #### C MP #### [facility] [address] [place] [address] Dr. Jose Cruz Balderas ALT [Catalytic activity/Vol] 41 U/L Normal 16-63 [facility] Comment on above: Performed By: #### C MP #### [facility] [address] [place] [address] Dr. Jose Cruz Balderas Anion gap [Moles/Vol] 12.0 mmol/L Normal [facility] Comment on above: Performed By: #### C MP #### [facility] [address] [place] [address] Dr. Jose rCuz Balderas AST [Catalytic activity/Vol] 21 U/L Normal 15-37 [facility] Comment on above: Performed By: #### C MP #### [facility] [address] [place] [address] Dr. Jose Cruz Balderas Bilirubin [Mass/Vol] 0.8 mg/dL Normal 0.2-1.0 [facility] Comment on above: Performed By: #### C MP #### [facility] [address] [place] [address] Dr. Jose Cruz Balderas Calcium [Mass/Vol] 9.3 mg/dL Normal 8.5-10.1 [facility] Comment on above: Performed By: #### C MP #### [facility] [address] [place] [address] Dr. Jose Cruz Balderas Chloride [Moles/Vol] 105 mmol/L Normal 98-107 [facility] Comment on above: Performed By: #### C MP #### [facility] [address] [address] [address] Jose Cruz Balderas CO2 [Moles/Vol] 26.7 mmol/L Normal 21.0-32.0 [facility] Comment on above: Performed By: #### C MP #### [facility] [address] [address] [address] Jose Cruz Balderas Creatinine [Mass/Vol] 0.82 mg/dL Normal 0.70-1.30 [facility] Comment on above: Performed By: #### C MP #### [facility] [address] [address] [address] Jose Cruz Balderas EGFR-AF ITALIAN >60 Normal >=60 [facility] Comment on above: Performed By: #### C MP #### [facility] [address] [place] [address] Dr. Jose Cruz Balderas EGFR-NON AF ITALIAN >60 Normal >=60 [facility] Comment on above: Performed By: #### C MP #### [facility] [address] [address] [address] Jose Cruz Balderas Globulin (S) [Mass/Vol] 3.5 g/dL Normal [facility] Comment on above: Performed By: #### C MP #### [facility] [address] [place] [address] Dr. Jose Cruz Balderas Glucose [Mass/Vol] 180 mg/dL Critically high 74-106 [facility] Comment on above: Performed By: #### C MP #### [facility] [address] [place] [address] Dr. Jose Cruz Balderas Potassium [Moles/Vol] 3.7 mmol/L Normal 3.5-5.1 [facility] Comment on above: Performed By: #### C MP #### [facility] [address] [address] [address] Jose Cruz Balderas Protein [Mass/Vol] 8.0 g/dL Normal 6.4-8.2 [facility] Comment on above: Performed By: #### C MP #### [facility] [address] [address] [address] Jose Cruz Balderas Sodium [Moles/Vol] 140 mmol/L Normal 136-145 [facility] Comment on above: Performed By: #### C MP #### [facility] [address] [address] [address] Jose Cruz Balderas Urea nitrogen [Mass/Vol] 19.0 mg/dL Critically high 7.0-18.0 [facility] Comment on above: Performed By: #### C MP #### [facility] [address] [place] [address] Dr. Jose Cruz Balderas Urea nitrogen/Creatinine [Mass ratio] 23.2 mg/mg Normal [facility] Comment on above: Performed By: #### C MP #### [facility] [address] [place] [address] Dr. Jose Cruz Balderas POINT OF CARE GLUCOSEon 05-26 Glucose [Mass/Vol] 174 mg/dL Critically high 74-106 [facility] Comment on above: Performed By: #### P OCGLUC #### [facility] [address] [place] [address] Dr. Jose Cruz Balderas XR SHOULDER RT [...] BEATRIZ MITCHELL Date: 2022-04-26 15:27 Normal [facility] CBC AUTO DIFFon 04-21-2022 BASO # 0.0 103/ul Normal 0.0-0.1 [facility] Comment on above: Performed By: #### P OCGLUC #### [facility] [address] [address] [address] Jose Cruz Balderas Basophils/100 WBC (Bld) 0.8 % Normal 0.2-2.0 [facility] Comment on above: Performed By: #### P OCGLUC #### [facility] [address] [address] [address] Jose Cruz Balderas EO # 0.1 103/ul Normal 0.0-0.7 [facility] Comment on above: Performed By: #### P OCGLUC #### [facility] [address] [address] [address] Jose Cruz Balderas Eosinophils/100 WBC (Bld) 2.3 % Normal 0.9-7.0 [facility] Comment on above: Performed By: #### P OCGLUC #### [facility] [address] [address] [address] Jose Cruz Balderas Erythrocyte distribution width (RBC) [Ratio] 12.8 % Normal 11.0-15.0 [facility] Comment on above: Performed By: #### P OCGLUC #### [facility] [address] [address] [address] Jose Cruz Balderas Hematocrit (Bld) [Volume fraction] 47.2 % Normal 42.0-54.0 [facility] Comment on above: Performed By: #### P OCGLUC #### [facility] [address] [address] [address] Jose Cruz Balderas Hemoglobin (Bld) [Mass/Vol] 16.4 g/dL Normal 14.0-18.0 [facility] Comment on above: Performed By: #### P OCGLUC #### [facility] [address] [address] [address] Jose Cruz Balderas IG # 0.01 10e3/ul Normal 0.00-0.03 [facility] Comment on above: Performed By: #### P OCGLUC #### [facility] [address] [place] [address] Dr. Jose Cruz Balderas IG % 0.2 % Normal 0.0-0.5 [facility] Comment on above: Performed By: #### P OCGLUC #### [facility] [address] [address] [address] Jose Cruz Balderas LYMPH # 1.3 103/ul Normal 1.2-3.8 [facility] Comment on above: Performed By: #### P OCGLUC #### [facility] [address] [place] [address] Dr. Jose Cruz Baledras Lymphocytes/100 WBC (Bld) 25.6 % Normal 20.5-60.0 [facility] Comment on above: Performed By: #### P OCGLUC #### [facility] [address] [place] [address] Dr. Jose Cruz Balderas MANUAL DIFF REQ NO Normal [facility] Comment on above: Performed By: #### P OCGLUC #### [facility] [address] [address] [address] Jose Cruz Balderas MCH (RBC) [Entitic mass] 30.7 pg Normal 25.9-34.0 [facility] Comment on above: Performed By: #### P OCGLUC #### [facility] [address] [place] [address] Dr. Jose Cruz Balderas MCHC (RBC) [Mass/Vol] 34.7 g/dL Normal 29.9-35.2 [facility] Comment on above: Performed By: #### P OCGLUC #### [facility] [address] [address] [address] Jose Cruz Balderas MCV (RBC) [Entitic vol] 88.4 fL Normal 80.0-94.0 [facility] Comment on above: Performed By: #### P OCGLUC #### [facility] [address] [address] [address] Jose Cruz Balderas MONO # 0.5 103/ul Normal 0.3-0.8 [facility] Comment on above: Performed By: #### P OCGLUC #### [facility] [address] [address] [address] Jose Cruz Balderas Monocytes/100 WBC (Bld) 8.7 % Normal 1.7-12.0 [facility] Comment on above: Performed By: #### P OCGLUC #### [facility] [address] [address] [address] Jose Cruz Balderas NEUT # 3.2 103/ul Normal 1.4-6.5 [facility] Comment on above: Performed By: #### P OCGLUC #### [facility] [address] [address] [address] Jose Cruz Balderas Neutrophils/100 WBC (Bld) 62.4 % Normal 43.0-75.0 [facility] Comment on above: Performed By: #### P OCGLUC #### [facility] [address] [place] [address] Dr. Jose Cruz Balderas Platelet mean volume (Bld) [Entitic vol] 10.9 fL Normal 9.5-13.5 [facility] Comment on above: Performed By: #### P OCGLUC #### [facility] [address] [place] [address] Dr. Jose Cruz Balderas PLT 159 103/ul Normal 150-450 [facility] Comment on above: Performed By: #### P OCGLUC #### [facility] [address] [address] [address] Jose Cruz Balderas RBC 5.34 106/ul Normal 4.70-6.10 [facility] Comment on above: Performed By: #### P OCGLUC #### [facility] [address] [address] [address] Jose Cruz Balderas WBC 5.2 103/ul Normal 4.0-11.0 [facility] Comment on above: Performed By: #### P OCGLUC #### [facility] [address] [place] [address] Dr. Jose Cruz Balderas GLYCOHEMOGLOBIN A1Con 2021 ADA RECOMMENDATION SEE BELOW Normal [facility] Comment on above: Result Comment: ADA RECOMMENDED LIMIT 4.0 - 6.0 ADA THERAPEUTIC TARGET < 7.0 ACTION SUGGESTED > 7.0 Performed By: #### P OCGLUC #### [facility] [address] [address] [address] Jose Cruz Balderas Glucose [Mass/Vol] 163 mg/dL Normal [facility] Comment on above: Performed By: #### P OCGLUC #### [facility] [address] [address] [address] Jose Cruz Balderas HbA1c (Bld) [Mass fraction] 7.3 % Critically high 4.5-6.2 [facility] Comment on above: Performed By: #### P OCGLUC #### [facility] [address] [place] [address] Dr. Jose Cruz Balderas LIPID PROFILEon 04-21-2022 CHOL-HDL RATIO NORM SEE BELOW Normal [facility] Comment on above: Result Comment: 3.3 - 4.4 LOW RISK 4.4 - 7.1 AVERAGE RISK 7.1 - 11.0 MODERATE RISK >11.0 HIGH RISK Performed By: #### L IPID, CMP #### [facility] [address] [place] [address] Dr. Jose Cruz Balderas Cholesterol [Mass/Vol] 197 mg/dL Normal <=200 [facility] Comment on above: Performed By: #### L IPID, CMP #### [facility] [address] [place] [address] Dr. Jose Cruz Balderas Cholesterol in HDL [Mass/Vol] 49 mg/dL Normal 40-60 [facility] Comment on above: Performed By: #### L IPID, CMP #### [facility] [address] [place] [address] Dr. Jose Cruz Balderas Cholesterol in LDL [Mass/Vol] 109.4 mg/dL Normal [facility] Comment on above: Performed By: #### L IPID, CMP #### [facility] [address] [place] [address] Dr. Jose Cruz Balderas Cholesterol.total/Chol esterol in HDL [Mass ratio] 4.0 {ratio} Normal [facility] Comment on above: Performed By: #### L IPID, CMP #### [facility] [address] [address] [address] Jose Cruz Balderas HDL NORMAL > or = 60 mg/dl - LOW CARDIOVASCULAR RISK <40 mg/dl - HIGH CARDIOVASCULAR RISK Normal [facility] Comment on above: Performed By: #### L IPID, CMP #### [facility] [address] [address] [address] Jose Cruz Balderas LDL CALC NORMAL SEE BELOW Normal [facility] Comment on above: Result Comment: <100 mg/dl OPTIMAL 100 - 129 mg/dl NEAR OR ABOVE OPTIMAL 130 - 159 mg/dl BORDERLINE HIGH 160 - 189 mg/dl HIGH >190 mg/dl VERY HIGH Performed By: #### L IPID, CMP #### [facility] [address] [address] [address] Jose Cruz Balderas Triglyceride [Mass/Vol] 193 mg/dL Critically high <=150 [facility] Comment on above: Performed By: #### L IPID, CMP #### [facility] [address] [address] [address] Jose Cruz Balderas VLDL CALC 38.6 mg/dL Normal [facility] Comment on above: Performed By: #### L IPID, CMP #### [facility] [address] [place] [address] Dr. Jose Cruz Balderas MICROALBUMIN, RAND URon 03-25 mALB 1.4 mg/L Normal <=30.0 [facility] Comment on above: Performed By: #### M ALBR #### [facility] [address] [address] [address] Jose Cruz Balderas PROF 14(COMP METB)on 022 Albumin [Mass/Vol] 4.3 g/dL Normal 3.4-5.0 [facility] Comment on above: Performed By: #### L IPID, CMP #### [facility] [address] [place] [address] Dr. Jose Cruz Balderas Albumin/Globulin [Mass ratio] 1.2 {ratio} Normal [facility] Comment on above: Performed By: #### L IPID, CMP #### [facility] [address] [address] [address] Jose Cruz Balderas ALP [Catalytic activity/Vol] 94 U/L Normal 46-116 [facility] Comment on above: Performed By: #### L IPID, CMP #### [facility] [address] [address] [address] Jose Cruz Balderas ALT [Catalytic activity/Vol] 135 U/L Critically high 16-63 [facility] Comment on above: Performed By: #### L IPID, CMP #### [facility] [address] [address] [address] Jose Cruz Balderas Anion gap [Moles/Vol] 11.7 mmol/L Normal [facility] Comment on above: Performed By: #### L IPID, CMP #### [facility] [address] [address] [address] Jose Cruz Balderas AST [Catalytic activity/Vol] 105 U/L Critically high 15-37 [facility] Comment on above: Performed By: #### L IPID, CMP #### [facility] [address] [address] [address] Jose Cruz Balderas Bilirubin [Mass/Vol] 0.8 mg/dL Normal 0.2-1.0 [facility] Comment on above: Performed By: #### L IPID, CMP #### [facility] [address] [address] [address] Jose Cruz Balderas Calcium [Mass/Vol] 9.3 mg/dL Normal 8.5-10.1 [facility] Comment on above: Performed By: #### L IPID, CMP #### [facility] [address] [address] [address] Jose Cruz Balderas Chloride [Moles/Vol] 101 mmol/L Normal 98-107 [facility] Comment on above: Performed By: #### L IPID, CMP #### [facility] [address] [address] [address] Jose Cruz Balderas CO2 [Moles/Vol] 32.8 mmol/L Critically high 21.0-32.0 [facility] Comment on above: Performed By: #### L IPID, CMP #### [facility] [address] [address] [address] Jose Cruz Balderas Creatinine [Mass/Vol] 1.09 mg/dL Normal 0.70-1.30 [facility] Comment on above: Performed By: #### L IPID, CMP #### [facility] [address] [address] [address] Jose Cruz Balderas EGFR-AF ITALIAN >60 Normal >=60 [facility] Comment on above: Performed By: #### L IPID, CMP #### [facility] [address] [address] [address] Jose Cruz Balderas EGFR-NON AF ITALIAN >60 Normal >=60 [facility] Comment on above: Performed By: #### L IPID, CMP #### [facility] [address] [address] [address] Jose Cruz Balderas Globulin (S) [Mass/Vol] 3.6 g/dL Normal [facility] Comment on above: Performed By: #### L IPID, CMP #### [facility] [address] [address] [address] Jose Cruz Balderas Glucose [Mass/Vol] 174 mg/dL Critically high 74-106 [facility] Comment on above: Performed By: #### L IPID, CMP #### [facility] [address] [address] [address] Jose Cruz Balderas Potassium [Moles/Vol] 4.5 mmol/L Normal 3.5-5.1 [facility] Comment on above: Performed By: #### L IPID, CMP #### [facility] [address] [address] [address] Jose Cruz Balderas Protein [Mass/Vol] 7.9 g/dL Normal 6.4-8.2 [facility] Comment on above: Performed By: #### L IPID, CMP #### [facility] [address] [address] [address] Jose Cruz Balderas Sodium [Moles/Vol] 141 mmol/L Normal 136-145 [facility] Comment on above: Performed By: #### L IPID, CMP #### [facility] [address] [place], [place] [address] Dr. Jose Cruz Balderas Urea nitrogen [Mass/Vol] 14.0 mg/dL Normal 7.0-18.0 [facility] Comment on above: Performed By: #### L IPID, CMP #### [facility] [address] [address] [address] Jose Cruz Balderas Urea nitrogen/Creatinine [Mass ratio] 12.8 mg/mg Normal [facility] Comment on above: Performed By: #### L IPID, CMP #### [facility] [address] [address] [address] Jose Cruz Balderas POINT OF CARE GLUCOSEon 08-23 Glucose [Mass/Vol] 240 mg/dL Critically high 74-106 T [facility] Comment on above: Performed By: #### P OCGLUC #### [facility] [address] [address] [address] Jose Cruz Balderas XR FINGER MIN 2 VIEWSon 08-23 XR FINGER MIN 2 VIEWS EXAM: XR FINGER TX N 2 VIEWS HISTORY: Laceration of finger [...] by: SERGE TAN Date: 2021-09-15 19:17 Normal [facility] Pathology Noteon 07-09-2021 Pathology Note [id number]#1.00CD:127 Normal [facility] Outside Colonoscopyon 2021 Outside Colonoscopy [id number] [id number]#1.00CD:127 Normal [facility] Lab Reportson 07-06-2021 Lab Reports [id number] FC#1.00CD:127 Normal [facility] Consent for Procedure/Surger yon 06-24-2021 Consent for Procedure/Surgery [id number] [id number]#1.00CD:127 Normal [facility] Ambulatory Visit Summaryon 0 06-23-2021 Ambulatory [...] are no longer receiving treatment for. Hypertension [facility] Physician Referralon 022 Physician Referral [id number]#1.00CD:127 [facility] Physician Referralon 022 Physician Referral [id number] FC#1.00CD:127 [facility] Vital Signs Date Time Vital Sign Value Performing Clinician Facility 01-05-2024 09:09-0400 Body height 187.96 cm [facility] 01-05-2024 09:09-0400 Body mass index (BMI) [Ratio] 31.4 kg/m2 [facility] 01-05-2024 09:09-0400 Body weight 111.18 kg [facility] 01-05-2024 09:09-0400 Diastolic blood pressure 78 mm[Hg] [facility] 01-05-2024 09:09-0400 Heart rate 76 /min [facility] 01-05-2024 09:09-0400 Respiratory rate 12 /min [facility] 01-05-2024 09:09-0400 Systolic blood pressure 118 mm[Hg] [facility] 11-29-2023 16:02-0400 Body height 187.96 cm [facility] 11-29-2023 16:02-0400 Body mass index (BMI) [Ratio] 29.9 kg/m2 [facility] 11-29-2023 16:02-0400 Body weight 105.68 kg [facility] 11-29-2023 16:02-0400 Diastolic blood pressure 74 mm[Hg] [facility] 11-29-2023 16:02-0400 Heart rate 68 /min [facility] 11-29-2023 16:02-0400 Respiratory rate 12 /min [facility] 11-29-2023 16:02-0400 Systolic blood pressure 117 mm[Hg] [facility] 11-13-2023 14:05-0400 Body height 187.96 cm [facility] 11-13-2023 14:05-0400 Body mass index (BMI) [Ratio] 30 kg/m2 [facility] 11-13-2023 14:05-0400 Body weight 106.14 kg [facility] 11-13-2023 14:05-0400 Diastolic blood pressure 72 mm[Hg] [facility] 11-13-2023 14:05-0400 Heart rate 83 /min [facility] 11-13-2023 14:05-0400 SaO2% (BldA) [Mass fraction] 97 % [facility] 11-13-2023 14:05-0400 Systolic blood pressure 120 mm[Hg] [facility] 07-07-2023 09:53-0400 Body height 187.96 cm [facility] 07-07-2023 09:53-0400 Body mass index (BMI) [Ratio] 31.6 kg/m2 [facility] 07-07-2023 09:53-0400 Body weight 111.58 kg [facility] 07-07-2023 09:53-0400 Diastolic blood pressure 84 mm[Hg] [facility] 07-07-2023 09:53-0400 Heart rate 75 /min [facility] 07-07-2023 09:53-0400 Respiratory rate 12 /min [facility] 07-07-2023 09:53-0400 Systolic blood pressure 131 mm[Hg] [facility] 06-20-2022 15:00-0500 Body height 187.96 cm Aguila Ball Other [facility] Other 06-20-2022 15:00-0500 Body mass index (BMI) [Ratio] 33.74 kg/m2 Aguila Ball Other [facility] Other 06-20-2022 15:00-0500 Body weight 119.21 kg Aguila Ball Other [facility] Other 06-20-2022 15:00-0500 Diastolic blood pressure 70 mm[Hg] Aguila Ball Other [facility] Other 06-20-2022 15:00-0500 Respiratory rate 12 /min Aguila Ball Other [facility] Other 06-20-2022 15:00-0500 Systolic blood pressure 108 mm[Hg] Aguila Ball Other [facility] Other 05-10-2022 11:15-0500 Body height 187.96 cm Aguila Ball Other [facility] Other 05-10-2022 11:15-0500 Body mass index (BMI) [Ratio] 33.79 kg/m2 Aguila Ball Other [facility] Other 05-10-2022 11:15-0500 Body weight 119.39 kg Aguila Ball Other [facility] Other 05-10-2022 11:15-0500 Diastolic blood pressure 70 mm[Hg] Aguila Ball Other [facility] Other 05-10-2022 11:15-0500 Respiratory rate 12 /min Aguila Ball Other [facility] Other 05-10-2022 11:15-0500 Systolic blood pressure 118 mm[Hg] Aguila Ball Other [facility] Other Encounters Encounter Date Encounter Type Care Provider Facility Start: 01-05-2024 End: 01-05-2024 ambulatory [facility] Work Phone: Start: 01-05-2024 End: 01-05-2024 Patient encounter procedure [facility] Work Phone: Start: 11-29-2023 End: 11-29-2023 ambulatory [facility] Work Phone: Start: 11-29-2023 End: 11-29-2023 Patient encounter procedure [facility] Physician [facility] Work Phone: Start: 11-20-2023 Non-patient / Non-visit [facility] Physician [facility] Work Phone: Start: 11-13-2023 End: 11-13-2023 ambulatory [facility] Work Phone: Start: 11-13-2023 End: 11-13-2023 Patient encounter procedure [facility] Physician [facility] Work Phone: Start: 07-07-2023 End: 07-07-2023 ambulatory [facility] Work Phone: Start: 07-07-2023 End: 07-07-2023 Encounter for general adult medical examination without abnormal findings [facility] Start: 07-07-2023 End: 07-07-2023 Patient encounter procedure [facility] Physician [facility] Work Phone: Start: 06-20-2023 Non-patient / Non-visit [facility] Physician [facility] Work Phone: Start: 06-12-2023 Non-patient / Non-visit [facility] Physician [facility] Work Phone: Start: 02-03-2023 End: 02-03-2023 ambulatory Aguila Ponce Other [facility] [id number] Other Start: 02-03-2023 Telephone encounter Aguila LANDRUM [facility] Start: 11-08-2022 End: 11-08-2022 ambulatory [facility] Facility:[facility] Start: 10-21-2022 End: 10-21-2022 ambulatory Aguila Ponce Other [facility] Other Start: 10-21-[address] [facility] Start: 10-21-2022 End: 10-21-2022 ambulatory [facility] Facility:[facility] Start: 09-22-2022 ambulatory NARENDRANATH LAKSHMIPATHY . Facility:[facility] Start: 08-23-2022 End: 08-23-2022 ambulatory NARENDRANATH LAKSHMIPATHY . Facility:[facility] Start: 08-16-2022 End: 08-16-2022 ambulatory NARENDRANATH LAKSHMIPATHY . Facility:[facility] Start: 08-15-2022 End: 08-15-2022 ambulatory Aguila Ponce Other [facility] Other Start: 08-15-2022 Telephone encounter Aguila LANDRUM [facility] Start: 07-28-2022 End: 07-29-2022 ambulatory NARENDRANATH LAKSHMIPATHY . Facility:[facility] Start: 07-12-2022 End: 07-12-2022 ambulatory NARENDRANATH LAKSHMIPATHY . Facility:[facility] Start: 07-07-2022 End: 07-08-[address] AGUILA PONCE Facility:[facility] Start: 06-22-2022 End: 06-23-[address] AGUILA PONCE Facility:[facility] Start: 06-21-2022 Telephone encounter Aguila Ponce [facility] Start: 06-21-2022 End: 06-21-[address] AGUILA PONCE [facility] Other Start: 06-20-2022 End: 06-20-2022 ambulatory Aguila Ponce Other [facility] Other Start: 06-20-2022 Encounter for other preprocedural examination [facility] Start: 06-20-2022 Office outpatient vi sit 25 minutes Aguila Ponce [facility] Start: 05-26-2022 End: 05-27-[address] AGUILA PONCE Facility:[facility] Start: 05-10-2022 End: 05-10-2022 ambulatory Aguila Ponce Other [facility] Other Start: 05-10-2022 Office outpatient vi sit 15 minutes Aguila Ponce [facility] Start: 04-28-2022 End: 06-01-[address] AGUILA PONCE Facility:[facility] Start: 04-26-2022 Telephone encounter [facility] Start: 04-26-2022 End: 04-26-[address] AGUILA PONCE [facility] [id number] Other Start: 04-23-2022 Encounter for genera l adult medical examination without abnormal findings DR AGUILA PONCE [facility] Start: 04-21-2022 End: 04-22-[address] AGUILA PONCE Facility:[facility] Start: 04-21-2022 End: 04-22-2022 Encounter for general adult medical examination without abnormal findings DR AGUILA PONCE Facility:[facility] Start: 03-31-2022 Adult health examination Aguila Ponce Other [facility] Other Start: 11-04-2021 End: 11-04-[address] [...] the presence orabsence of malignant disease.Performed at: [address] [id number] Director: Zach Lucia PhD, Phone: [phone] Start: 04-04-2018 General examination of patient Aguila Ponce Other End: 06-16-2021 Laboratory test result abnormal Aguila Ponce Other Plan of Treatment Date Care Activity Detail Author Comprehensive metabo lic 2000 panel - Serum or Plasma [facility] enter [facility] Immunizations Immunization Date Immunization Notes Care Provider Fa shasta 09-15-2021 diphtheria, tetanus toxoids and pertussis vaccine Aguila Ponce Other [facility] 02-12-2021 COVID-19 Vaccine Mod sheri - Documentation Purposes Only Aguila Ponce Other [facility] 07-03-2020 COVID-19 Vaccine Lj ssen - Documentation Purposes Only Aguila Ponce Other [facility] Payers Date Payer Category [id number] 2019 Unknown [id number] 1973 Unknown [id number] 1973 Unknown [id number] 2.16840.1.141036.3.579.2.593 1973 Unknown [id number] 2.16.840.1.952513.3.579.2.593 1973 Unknown [id number] 2.16.840.1.658379.3.579.2.593 1973 Unknown [id number] 2.16.840.1.736039.3.579.2.593 1973 Unknown [id number] 2.16.840.1.719094.3.579.2.593 1973 Unknown [id number] 2.16.840.1.125124.3.579.2.593 1973 Unknown [id number] 2.16.840.1.053008.3.579.2.593 1973 Unknown [id number] 2.16.840.1.650410.3.579.2.593 1973 Unknown [id number] 2.16.840.1.837715.3.579.2.593 1973 Unknown [id number] 2.16.840.1.406499.3.579.2.593 1973 Unknown [id number] 2.16.840.1.471258.3.579.2.593 1973 Unknown [id number] 2.16.840.1.480044.3.579.2.593 1973 Unknown [id number] 2.16.840.1.025255.3.579.2.593 1973 Unknown [id number] 2.16.840.1.119980.3.579.2.593 1973 Unknown [id number] 2.16.840.1.473926.3.579.2.593 1973 Unknown [id number] 2.16.840.1.088937.3.579.2.718 1973 Unknown [id number] 2.16.840.1.888903.3.579.2.718 Private Health Insurance [id number] [id number] Unknown MMO [employer] [id number] Social History Date Type Detail Facility Sex Assigned At [facility] Other Start: 06-12-2023 Tobacco smoking stat [facility] Unknown if ever smoked [facility] Start: 1975 Sex Assigned At Male F [facility] Start: 11-13-2023 [facility] Medical Equipment Procedure Code Equipment Code Equipment Origin al Text Equipment Identifier Dates Sure-Fine Pen Smithers 31G X 5 MM Blood Sugar Diagnostic [...] diabetes mellitus with hyperglycemia (ICD-10 - E11.65) [facility] Other 06-30-2023 Evaluation note* Encounter Date Diagnosis Assessment Notes Treatment Notes Treatment Clinical Notes Sep, Essential (primary) hypertension (ICD-10 - I10) [facility] Other 04-24-2023 Evaluation note* Encounter Date Diagnosis Assessment Notes Treatment Notes Treatment Clinical Notes Jul, Type 2 diabetes mellitus with hyperglycemia (ICD-10 - E11.65) Jul, 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 2. [...] treatment options with their primary care provider.[id number] Note CONSULTATION CONSULTATION DATE: 07/07/2022 HISTORY: This [...] followed up in the clinic post procedure.[id number] Evaluation note* Encounter Date Diagnosis Assessment Notes Treatment Notes Treatment Clinical Notes May, Elevated transaminase level (ICD-10 - R74.01) May, Essential (primary) hypertension (ICD-10 - I10) May, Controlled type 2 diabetes mellitus with hyperglycemia, without long-term current use of insulin (ICD-10 - E11.65) [facility] Other 02-27-2023 Evaluation note* Encounter Date Diagnosis [...] (ICD-10 - E78.2) Healthy diet and exercise. [facility] Other 02-02-2023 NoteCONSULTATION CONSULTATION DATE: 05/26/2022 HISTORY [...] be followed up in the office thereafter.[facility] 05-10-2022 Evaluation note* Encounter Date Diagnosis Assessment [...] soap and water. UTD w/ tetanus booster [facility] Other 01-03-2023 Evaluation note* Encounter Date Diagnosis Assessment Notes Treatment Notes Treatment Clinical Notes Apr, Other chronic pain (ICD-10 - G89.29) Apr, Low back pain, unspecified (ICD-10 - M54.50) [facility] Other 03-02-2022 NoteChief Complaint consultation for screening [...] tab(s), Oral, Da (more content not included)... [facility]Result Comment: Electronically Signed By: [...] specific antigen) noneactive Wellness examination noneact brigette [facility] Work Phone: Evaluation note* Diagnosis Onset Date Resolution Status Allergic reaction [facility] Work Phone: Evaluation note* Diagnosis Onset Date Resolution Status Allergic reaction acute Seasonal allergies acute Depression, major, recurrent, in partial remission acute Essential (primary) hypertension acute Gastroesophageal reflux dise ase with esophagitis without hemorrhage acute Hyperlipidemia, mixed acute Type 2 diabetes mellitus with hyperglycemia acute [facility] Work Phone: Evaluation note* Diagnosis Onset Date Resolution Status Allergic reaction acute Seasonal allergies acute Depression, major, recurrent, in partial remission acute Essential (primary) hypertension acute Gastroesophageal reflux dise ase with esophagitis without hemorrhage acute Hyperlipidemia, mixed acute [id number] acute Type 2 diabetes mellitus with hyperglycemia acute Gastroesophageal reflux dise ase with esophagitis without hemorrhage acute [id number] acute Type 2 diabetes mellitus with hyperglycemia acute [facility] Work Phone: History general Narrative - Reported* [...] Debridement SLAP Lesion Surgical History Subacromion Decompression [facility] Other Hiszmdn general Narrative - Reported* Type Description Date [...] Subacromion Decompression Hospitalization History see surgical history [facility] Other Summary Purpose Family History No Family History Records FoundNo Family History Records FoundNo Family History Records Found Advance Directives Advance Directive Response Recorded Date/ Time Advance Directives No May 29, 2023 3:54pm Reason for Referral Reason 05/26/22 Patient b drake referred for treatment of low back pain. Diagnosis 1 Osteoarthritis of sp ine with radiculopathy, lumbar region (M47.26) Referral Organization [facility] Kris strange Referring Provider First Name Aguila Referring Provider Last Name Krsi Referring Provider Specialty Internal Me vida Referred Organization [facility] Referred Provider VIDHYA MOSLEY Referred Address [address] [place], [place],[address] Referred Provider Specialty Pain Medicin e Referral [...] >faxed first request for consult notes to [phone] Emily Lee 06/07/2022 01:51:17 PM >received today notes sent for review. closing referral at this time. Clinical Notes CT lumbar spine comp leted July, P: [id number] F: [id number] Chief Complaint and Reason for Visit Chief [...] disease with esophagitis without hemorrhage Hyperlipidemia, mixed [id number] Type 2 diabetes mellitus with hyperglycemia Gastroesophageal reflux disease with esophagitis without hemorrhage [id number] Type 2 diabetes mellitus with hyperglycemia Additional Source Comments (unrecognized sect ion and content) No Status Records FoundNo Status Records FoundNo Status Records Found INFORMATION SOURCE (unrecogn ized section and content) DATE CREATED AUTHOR 07/20/2021 [facility] DATE CREATED AUTHOR AUTHOR'S ORGANIZ ATION 09/07/2022 [facility] DATE CREATED AUTHOR AUTHOR'S ORGANIZ ATION 11/07/2022 [facility] REASON FOR VISIT (unrecogniz ed section and content) Referralpossible cellulitisN o InformationPre-Op ClearancerefillRefillRefill Care Teams (unrecognized sec tion and content) Team Status: Active Member Role Status Dates Aguila Ponce DO Primary Care Provider Active Team Status: Inactive Member Role Status Dates Aguila Ponce DO Primary Care Provider Active Start: November 13, 2023 End: November 13, 2023 Thu Ren APRN 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 [employer] provides no warranty or guarantee of the accuracy or completeness of information in this document.
[2024-04-05 06:35] LABS: PCO2 VBG 41.6 mmHg (40.0-52.0); pH VBG 7.173 (7.330-7.430)
[2024-04-05 06:52] LABS: Anion Gap 22.6; BUN Creatinine Ratio 14.7; Calcium 7.7 mg/dL (8.5-10.1); Carbon Dioxide 18.6 mmol/L (21.0-32.0); Chloride 102 mmol/L (98-107); Estimated GFR (African America >60 (>=60 mL/min/1.73m^2); Estimated GFR (Non-African Ame >60 (>=60 mL/min/1.73m^2); Glucose 165 mg/dL (74-106); Magnesium 1.7 mg/dL (1.8-2.4); Potassium 4.2 mmol/L (3.5-5.1); Sodium 139 mmol/L (136-145)
--- NOTE | 2024-04-05 07:43 | P.HP_ITS ---
HPI H&P: HPI History of Present Illness Chief complaint: ANION GAP, METABOLIC ACIDOSIS Narrative: Patient presented to emergency room with less than 24-hour history of nausea vomiting some mild abdominal pain. In ER found to have evidence for diabetic ketoacidosis, is not hyperglycemic though, but significant metabolic acidosis. Patient was admitted to the ICU When I saw patient up in the ICU he was resting company bed, really no complaints some mild nausea but no abdominal pain and no vomiting since has been admitted. Relates no illness recently, no change in his alcohol intake. No unusual foods to reduce the nausea vomiting. Opioid HPI Opioid Management Most Recent Pain and Opioid Data: Last Pain Scale 4 04/05/24 08:43 04/05/24 Last Pain Assessment 04/05/24 09:00 Last MAR Pain Assessment 04/05/24 08:43 Last ORT Total Score 0 04/05/24 02:26 04/05/24 Last ORT Risk Category Low Risk 04/05/24 02:26 04/05/24 Review of Systems ROS Status of ROS 10 or more systems reviewed and unremark able except as noted in history and below PFSH PFS Medical History (Updated 04/05/24 @ 09:27 by Edouard Ortega MD) Back pain ?M54.9 - Dorsalgia, unspecified (ICD-10) Type 1 diabetes ?E10.9 - Type 1 diabetes mellitus without complications (ICD-10) Surgical History (Updated 04/05/24 @ 02:39 by Arielle Alvarenga) History of back surgery ?Z98.890 - Other specified postprocedural states (ICD-10) Family History (Updated 04/05/24 @ 02:40 by Arielle Alvarenga) Father Family history of cancer Family history of diabetes mellitus Social History (Updated 04/05/24 @ 02:42 by Arielle Alvarenga) Within the past year, how often did you have a drink containing alcohol: 2-3 times a week Within the past year, how many standard drinks containing alcohol did you have on a typical day: 1 or 2 Total score: 0 Score interpretation: A score less than 4 is consistent with normal alcohol consumption. 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 Highest level of school completed/degree received: some college, no degree Are you now , , , , never or living with a partner: In a typical week, how many times do you talk on the telephone with family, friends, or neighbors: 3 or more times per week How often do you get together with friends or relatives: 3 or more times per week How often do you attend christian or adventism services: 4 or more times per year Little interest or pleasure in doing things: not at all Feeling down, depressed, or hopeless: not at all Feel stressed/tense/nervous/anxious/difficulty sleeping: not at all Meds Home Medications and Allergies Home Medications ?Medication ?Instructions ?Recorded ?Confirmed ?Type omeprazole 40 mg capsule,delayed 40 mg PO DAILY 12/21/22 04/05/24 History release dapagliflozin propanediol 10 mg 10 mg PO DAILY 04/05/24 04/05/24 History tablet (Farxiga) Allergies Allergy/AdvReac Type Severity Reaction Status Date / Time No Known Drug Allergies Allergy Verified 04/04/24 22:20 Exam Constitutional Vital Signs, click to edit/add: Last Vital Signs Temp 98.8 F 04/05/24 02:33 Pulse 70 04/05/24 06:02 Resp 20 04/05/24 04:08 BP 116/66 04/05/24 02:33 Pulse Ox 98 04/05/24 02:42 O2 Del Method Room Air 04/05/24 02:42 Documenting provider has reviewed patient's vital signs: yes Common normals: no apparent distress Chest Common normals: inspection of chest normal Respiratory Common normals: normal respiratory effort and no retractions Cardio Common normals: regular rate, regular rhythm and no murmurs GI Common normals: Normal to inspection, nondistended, normoactive bowel sounds present, soft to palpation and non-tender Extremity Common normals: normal to inspection, full ROM, normal capillary refill and no clubbing, cyanosis or edema Results Labs Labs: Short CBC 04/04/24 Range/Units 22:50 WBC 8.8 (4.0-11.0) 10^3/uL Hgb 17.4 (14.0-18.0) g/dL Hct 49.8 (42.0-54.0) % Plt Count 146 L (150-450) 10^3/uL BMP 04/04/24 04/05/24 04/05/24 22:50 00:21 05:37 Sodium 137 138 139 Potassium 4.4 4.5 4.2 Chloride 99 103 102 Carbon Dioxide 10.0 L 12.2 L 18.6 L BUN 18.0 16.0 16.0 Creatinine 1.22 1.09 1.09 Glucose 230 H 196 H 165 H Calcium 9.0 7.9 L 7.7 L Liver Function 04/04/24 Range/Units 22:50 Total Bilirubin 1.4 H (0.2-1.0) mg/dL AST 29 (15-37) U/L ALT 62 (16-63) U/L Alkaline Phosphatase 93 (46-116) U/L Albumin 4.5 (3.4-5.0) g/dL ABG ABG results: 04/04/24 04/05/24 04/05/24 22:50 00:25 05:37 VBG pH 7.172 L 7.146 L 7.173 L VBG pCO2 25.2 L 31.6 L 41.6 Assessment and Plan Assessment and Plan (1) Alcohol induced fatty liver: (2) Metabolic acidosis, increased anion gap: (3) Diabetes mellitus: (4) Diabetic ketoacidosis: (5) Alcohol abuse: (6) GERD (gastroesophageal reflux disease): (7) Borderline hypertension: (8) Hyperbilirubinemia: (9) Hypomagnesemia: (10) Thrombocytopenia: Plan Admission findings: Hyperglycemia, sinus tachycardia, borderline hypertension, thrombocytopenia, metabolic acidosis with pH of less than 7.2, secondary to the euglycemic (sugars well less than 300) diabetic ketoacidosis, likely related to Farxiga Euglycemic diabetic ketoacidosis-will start patient on low-dose insulin drip and continue with the D5 LR, adjust to keep sugars under control and continue to monitor pH, since admission pH is not improved and is still in the 7.1 range. Anion gap has improved. Continuous glucose monitor, checking sugar every hour, no signs of infection as an inciting agent, so likely will Farxiga Alcohol abuse-patient has abstained in the past and not had withdrawals we will place patient on CIWA scale and as needed Librium Thrombocytopenia-likely secondary to the alcohol abuse-monitor daily Hypomagnesemia-supplement Hyperbilirubinemia likely secondary to the alcohol abuse and fatty liver disease-monitor daily Borderline hypertension on admission-improved GERD-IV Protonix Admission status: Patient with you glycemic diabetic ketoacidosis not improving with initial fluid resuscitation, pH remains 7.1, medically necessary treatment will span 2 midnights is will start patient on insulin drip this morning. Inpatient status.
--- NOTE | 2024-04-05 08:30 | CM.NOTE ---
Rounds made with Dr. Ortega. Plan of care reviewed with Mr. Orourke with understanding verbalized. No discharge today.
[2024-04-05] MEDS: PANTOPRAZOLE SODIUM 40 MG VIAL IV (08:43)
[2024-04-05] MEDS: MAGNESIUM OXIDE 400 MG TABLET PO ×2 (08:43→20:53)
[2024-04-05] MEDS: ACETAMINOPHEN 500 MG TABLET 1000 MG PO ×2 (08:43→15:27)
[2024-04-05] MEDS: INSULIN REGULAR IN 0.9 % NACL 100 UNIT/100 ML PLAST..BAG IV (08:44)
[2024-04-05] MEDS: ENOXAPARIN SODIUM 40 MG/0.4 ML SYRINGE SUBQ (08:44)
[2024-04-05 08:57] LABS: Glucometer 165 mg/dL (74-106)
[2024-04-05 09:09] LABS: PCO2 VBG 27.1 mmHg (40.0-52.0); pH VBG 7.301 (7.330-7.430)
[2024-04-05 09:16] LABS: BUN Creatinine Ratio 14.6; Calcium 7.8 mg/dL (8.5-10.1); Carbon Dioxide 14.9 mmol/L (21.0-32.0); Chloride 101 mmol/L (98-107); Estimated GFR (African America >60 (>=60 mL/min/1.73m^2); Estimated GFR (Non-African Ame >60 (>=60 mL/min/1.73m^2); Glucose 168 mg/dL (74-106); Potassium 3.9 mmol/L (3.5-5.1); Sodium 137 mmol/L (136-145)
[2024-04-05 09:17] LABS: Ammonia 36 umol/L (11-32)
--- NOTE | 2024-04-05 12:18 | NUTR.NU ---
Dietary Consult completed this date. Interviewed Yasir at bedside. Discussed standard diabetic diet guidelines including eating regularly at the same time; blood glucose testing and goals. Yasir shared he does not eat regularly and that he has been a diabetic 5 years. Suggested additional diabetic diet education as an outpatient.
[2024-04-05 13:32] LABS: PCO2 VBG 40.1 mmHg (40.0-52.0); pH VBG 7.294 (7.330-7.430)
[2024-04-05 13:39] LABS: BUN Creatinine Ratio 10.2; Calcium 7.9 mg/dL (8.5-10.1); Carbon Dioxide 22.7 mmol/L (21.0-32.0); Chloride 99 mmol/L (98-107); Estimated GFR (African America >60 (>=60 mL/min/1.73m^2); Estimated GFR (Non-African Ame >60 (>=60 mL/min/1.73m^2); Glucose 185 mg/dL (74-106); Potassium 3.7 mmol/L (3.5-5.1); Sodium 136 mmol/L (136-145)
[2024-04-05 17:28] LABS: PCO2 VBG 45.6 mmHg (40.0-52.0); pH VBG 7.301 (7.330-7.430)
[2024-04-05 17:29] LABS: Anion Gap 15.1; BUN Creatinine Ratio 9.7; Calcium 7.9 mg/dL (8.5-10.1); Carbon Dioxide 23.5 mmol/L (21.0-32.0); Chloride 102 mmol/L (98-107); Estimated GFR (African America >60 (>=60 mL/min/1.73m^2); Estimated GFR (Non-African Ame >60 (>=60 mL/min/1.73m^2); Glucose 192 mg/dL (74-106); Potassium 3.6 mmol/L (3.5-5.1); Sodium 137 mmol/L (136-145)
[2024-04-05 21:22] LABS: PCO2 VBG 40.1 mmHg (40.0-52.0); pH VBG 7.385 (7.330-7.430)
[2024-04-05 21:30] LABS: Anion Gap 12.2; BUN Creatinine Ratio 9.4; Calcium 7.6 mg/dL (8.5-10.1); Chloride 102 mmol/L (98-107); Estimated GFR (African America >60 (>=60 mL/min/1.73m^2); Estimated GFR (Non-African Ame >60 (>=60 mL/min/1.73m^2); Glucose 256 mg/dL (74-106); Potassium 3.2 mmol/L (3.5-5.1); Sodium 136 mmol/L (136-145)
[2024-04-05] MEDS: LACTATED RINGER'S SOLUTION 1,000 ML 100 ML IV (23:14)
[2024-04-06] VITALS (30 sets, daily range): BP systolic 107; BP diastolic 66; PULSE 65–113; O2SAT 98
[2024-04-06 05:53] LABS: Basophils Percent Auto 1.1 % (0.2-2.0); Eosinophils Absolute Auto 0.2 10^3/uL (0.0-0.7); Eosinophils Percent Auto 5.6 % (0.9-7.0); Hemoglobin 13.5 g/dL (14.0-18.0); Immature Granulocytes Abs Auto 0.01 10^3/uL (0.00-0.03); Immature Granulocytes Pct Auto 0.3 % (0.0-0.5); Lymphocytes Absolute Auto 0.8 10^3/uL (1.2-3.8); Lymphocytes Percent Auto 20.9 % (20.5-60.0); Mean Corpuscular HGB Conc 34.6 g/dL (29.9-35.2); Mean Corpuscular Hemoglobin 29.8 pg (25.9-34.0); Mean Corpuscular Volume 86.1 fL (80.0-94.0); Mean Platelet Volume 10.7 fL (9.5-13.5); Monocytes Absolute Auto 0.5 10^3/uL (0.3-0.8); Monocytes Percent Auto 13.4 % (1.7-12.0); Neutrophils Absolute Auto 2.2 10^3/uL (1.4-6.5); Neutrophils Percent Auto 58.7 % (43.0-75.0); Platelet Count 104 10^3/uL (150-450); Red Blood Count 4.53 10^6/uL (4.70-6.10); White Blood Count 3.7 10^3/uL (4.0-11.0)
[2024-04-06 05:55] LABS: PCO2 VBG 40.8 mmHg (40.0-52.0); pH VBG 7.362 (7.330-7.430)
[2024-04-06 06:06] LABS: Anion Gap 11.9; Carbon Dioxide 25.6 mmol/L (21.0-32.0); Chloride 105 mmol/L (98-107); Estimated GFR (African America >60 (>=60 mL/min/1.73m^2); Estimated GFR (Non-African Ame >60 (>=60 mL/min/1.73m^2); Glucose 234 mg/dL (74-106); Potassium 3.5 mmol/L (3.5-5.1); Sodium 139 mmol/L (136-145)
[2024-04-06 06:10] LABS: Ammonia 21 umol/L (11-32)
[2024-04-06 06:14] LABS: Alanine Aminotransferase 48 U/L (16-63); Alkaline Phosphatase 83 U/L (46-116); Aspartate Amino Transferase 28 U/L (15-37); Bilirubin Direct 0.2 mg/dL (0.0-0.2); Bilirubin Total 0.9 mg/dL (0.2-1.0); Globulin 3.1 g/dL; Total Protein 6.1 g/dL (6.4-8.2)
--- NOTE | 2024-04-06 07:28 | PM.PN ---
Exam Constitutional Vital Signs, click to edit/add: Last Vital Signs Temp 97.5 F L 04/05/24 23:40 Pulse 65 04/06/24 07:20 Resp 18 04/06/24 04:00 BP 122/66 04/05/24 23:40 Pulse Ox 98 04/06/24 05:00 O2 Del Method Room Air 04/05/24 23:40 Progress Note: Objective Labs Labs: Short CBC 04/06/24 Range/Units 05:46 WBC 3.7 L (4.0-11.0) 10^3/uL Hgb 13.5 L (14.0-18.0) g/dL Hct 39.0 L (42.0-54.0) % Plt Count 104 L (150-450) 10^3/uL BMP 04/05/24 04/05/24 04/05/24 09:01 13:15 17:00 Sodium 137 136 137 Potassium 3.9 3.7 3.6 Chloride 101 99 102 Carbon Dioxide 14.9 L 22.7 23.5 BUN 14.0 11.0 10.0 Creatinine 0.96 1.08 1.03 Glucose 168 H 185 H 192 H Calcium 7.8 L 7.9 L 7.9 L 04/05/24 04/06/24 21:00 05:44 Sodium 136 139 Potassium 3.2 L 3.5 Chloride 102 105 Carbon Dioxide 25.0 25.6 BUN 9.0 9.0 Creatinine 0.96 0.90 Glucose 256 H 234 H Calcium 7.6 L 8.0 L Liver Function 04/06/24 Range/Units 05:46 Total Bilirubin 0.9 (0.2-1.0) mg/dL Direct Bilirubin 0.2 (0.0-0.2) mg/dL AST 28 (15-37) U/L ALT 48 (16-63) U/L Alkaline Phosphatase 83 (46-116) U/L Albumin 3.0 L (3.4-5.0) g/dL Progress Note: A&P Assessment and Plan (1) Alcohol induced fatty liver: (2) Metabolic acidosis, increased anion gap: (3) Diabetes mellitus: (4) Diabetic ketoacidosis: (5) Alcohol abuse: (6) GERD (gastroesophageal reflux disease): (7) Borderline hypertension: (8) Hyperbilirubinemia: (9) Hypomagnesemia: (10) Thrombocytopenia:
[2024-04-06 07:37] LABS: Magnesium 1.8 mg/dL (1.8-2.4)
[2024-04-06] MEDS: MAGNESIUM OXIDE 400 MG TABLET PO (08:34)
[2024-04-06] MEDS: ENOXAPARIN SODIUM 40 MG/0.4 ML SYRINGE SUBQ (08:34)
[2024-04-06] MEDS: LACTATED RINGER'S SOLUTION 1,000 ML 100 ML IV (08:34)
[2024-04-06] MEDS: OMEPRAZOLE 40 MG CAPSULE.DR PO (08:34)
[2024-04-06] MEDS: INSULIN ASPART 300 UNIT/3 ML PEN SUBQ (08:40)
--- NOTE | 2024-04-06 10:55 | P.DS_ITS ---
DS: Providers Provider Date of admission: 04/05/24 02:18 Primary care physician: Aguila Ponce DO Admitting clinician: Edouard Ortega Consults: 04/05/24 Consult to Dietitian Routine Reason for consultation: nausea, vomiting Discharging clinician: Francesca Brandt DS: Diagnosis Discharge Diagnosis (1) Alcohol induced fatty liver: (2) Metabolic acidosis, increased anion gap: (3) Diabetes mellitus: (4) Diabetic ketoacidosis: (5) Alcohol abuse: (6) GERD (gastroesophageal reflux disease): (7) Borderline hypertension: (8) Hyperbilirubinemia: (9) Hypomagnesemia: (10) Thrombocytopenia: DS: Summary Hospital Course Hospital Course: Patient is a 48 yo male with past medical history of non-insulin dependent type 2 diabetes, Alcoholic induced fatty liver disease who presented to the ER yesterday with nausea/vomiting and abdominal pain. Patient found to be in euglycemic DKA with significant elevation Anion gap, positive blood ketones, and acidosis. Patient was started and maintained on insulin drip along with IVF. last night, labs returned to normal and insulin drip was stopped and Anion Gap is now 11. Patient has been off insulin drip for 14 hours, he is tolerating dinner and breakfast. No further n/v. Liver function and bilirubin are also normal range. Patient will stop Farxiga. Since he is in between restarting Trulicity or Ozempic, Patient is amendable to trying Levemir flexpen 10 units daily. Discussed him checking sugars before breakfast and after largest meal. He has close appointment with Dr. Ponce to discuss his sugars further treatment next week. He has a glucometer with test strips at home. He is aware on how to give himself injections. Please return to the ER with any worsening signs or symptoms. Status at Discharge Functional status at discharge: independent ambulation Overall status at discharge: patient is back to baseline Time Spent with Patient Time attestation: Total time spent providing and/or coordinating discharge services: Time spent: greater than 30 minutes Exam Narrative Exam Narrative: General: Patient is alert, and oriented to person, place and time with normal affect, proper hygiene Skin: no visible rashes, or ulcers Head: atraumatic, acephalic Eyes: PERRLA, no nystagmus present, conjunctiva clear, no scleral icterus Neck: no masses palpated, normal thyroid, no JVD or audible carotid bruits Heart: Normal rate and rhythm, no murmurs/rubs/gallops Lungs: no audible wheezes, crackles and normal breath sounds all lung gracia Musculoskeletal: no swelling bilateral lower extremities Neuro: CN II-X grossly intact Constitutional Vital Signs, click to edit/add: Last Vital Signs Temp 97.5 F L 04/05/24 23:40 Pulse 74 04/06/24 09:56 Resp 18 04/06/24 04:00 BP 107/66 04/06/24 08:32 Pulse Ox 98 04/06/24 05:00 O2 Del Method Room Air 04/05/24 23:40 DS: Data Data Completed and Pending Labs on day of discharge: Labs from last 24 hours 04/06/24 04/06/24 04/05/24 05:46 05:44 21:00 WBC 3.7 L RBC 4.53 L Hgb 13.5 L Hct 39.0 L MCV 86.1 MCH 29.8 MCHC 34.6 RDW 15.0 Plt Count 104 L MPV 10.7 Neut % (Auto) 58.7 Lymph % (Auto) 20.9 Blanco % (Auto) 13.4 H Eos % (Auto) 5.6 Baso % (Auto) 1.1 Neut # (Auto) 2.2 Lymph # (Auto) 0.8 L Blanco # (Auto) 0.5 Eos # (Auto) 0.2 Baso # (Auto) 0.0 Abs Immat Gran (auto) 0.01 Imm/Tot Granulo (auto) 0.3 VBG pH 7.362 7.385 VBG pCO2 40.8 40.1 Sodium 139 136 Potassium 3.5 3.2 L Chloride 105 102 Carbon Dioxide 25.6 25.0 Anion Gap 11.9 12.2 BUN 9.0 9.0 Creatinine 0.90 0.96 Est GFR ( Amer) >60 >60 Est GFR (Non-Af Amer) >60 >60 BUN/Creatinine Ratio 10.0 9.4 Glucose 234 H 256 H Calcium 8.0 L 7.6 L Magnesium 1.8 Total Bilirubin 0.9 Direct Bilirubin 0.2 AST 28 ALT 48 Alkaline Phosphatase 83 Ammonia 21 Total Protein 6.1 L Albumin 3.0 L Globulin 3.1 Albumin/Globulin Ratio 1.0 04/05/24 04/05/24 17:00 13:15 WBC RBC Hgb Hct MCV MCH MCHC RDW Plt Count MPV Neut % (Auto) Lymph % (Auto) Blanco % (Auto) Eos % (Auto) Baso % (Auto) Neut # (Auto) Lymph # (Auto) Blanco # (Auto) Eos # (Auto) Baso # (Auto) Abs Immat Gran (auto) Imm/Tot Granulo (auto) VBG pH 7.301 L 7.294 L VBG pCO2 45.6 40.1 Sodium 137 136 Potassium 3.6 3.7 Chloride 102 99 Carbon Dioxide 23.5 22.7 Anion Gap 15.1 18.0 BUN 10.0 11.0 Creatinine 1.03 1.08 Est GFR ( Amer) >60 >60 Est GFR (Non-Af Amer) >60 >60 BUN/Creatinine Ratio 9.7 10.2 Glucose 192 H 185 H Calcium 7.9 L 7.9 L Magnesium Total Bilirubin Direct Bilirubin AST ALT Alkaline Phosphatase Ammonia Total Protein Albumin Globulin Albumin/Globulin Ratio Discharge Plan Discharge Disposition: Home, Self-Care Condition: Fair Discharge Medications: New Levemir FlexTouch U100 Insulin 100 unit/mL (3 mL) insulin pen 10 unit subcut DAILY Qty: 15 0RF Rx Instructions: for hyperglycemia and uncontrolled Type 2 diabetes Continued omeprazole 40 mg capsule,delayed release(DR/EC) 40 mg PO DAILY Discontinued dapagliflozin propanediol [Farxiga] 10 mg tablet 10 mg PO DAILY Activity: increase activity as tolerated Diet: diabetic diet Print Language: Indonesian Patient Instructions: Insulin Detemir (By injection) (Levemir, Levemir FlexPen, Levemir... Activity Restrictions/Additional Instructions: Please check blood sugars daily before breakfast, then after largest meal of the day; keep a log to take to Primary Doctors follow up. Also check your sugar if you have feelings of hypoglycemia, shaking, lightheaded, nauseated. Forms: Portal Instructions Follow Up Appointments: Please follow up with Dr. Ponce next week as scheduled.
--- NOTE | 2024-04-06 11:10 | PC.NURSE ---
tele and saline locks dc'd for discharge. dc instructions given to pt, verbalized understanding. ambulated to exit with steady gait, discharged to private vehicle with belongings.
--- NOTE | 2024-04-08 13:00 | CM.DCFOLLOWU ---
Person spoke with:patient How are you feeling?well, back to work today How is your pain?none Did you understand your discharge instructions?yes Do you have any questions about your discharge instructions?no Were you given any prescriptions at discharge?yes Were you able to get your prescriptions filled?yes, yesterday Do you understand how to take your medications as ordered?yes Do you have any questions about your follow up appointment and do you plan to keep your follow up appointment? no questions, follow up scheduled Is there anything else that you would like to discuss?no Questions/Comments/Concerns/Other:none
== END 2024-04-06 11:10 | disposition home or self-care (01) | DRG 639 ==
LOC: ER 04-05 01:51 → ICU 04-05 05:56
PROVIDERS: Family Medicine; Registered Nurse; Admitting Provider Family Medicine; Emergency Provider Emergency Medicine; PCP Internal Medicine; Visit Provider Family Medicine
DX: E10.10 Type 1 diabetes mellitus with ketoacidosis without coma (principal); D69.6 Thrombocytopenia, unspecified; E83.42 Hypomagnesemia; E80.6 Other disorders of bilirubin metabolism; F10.10 Alcohol abuse, uncomplicated; K21.9 Gastro-esophageal reflux disease without esophagitis; K70.0 Alcoholic fatty liver; R03.0 Elevated blood-pressure reading, without diagnosis of hypertension; Z79.84 Long term (current) use of oral hypoglycemic drugs; Z79.85 Long-term (current) use of injectable non-insulin antidiabetic drugs; Z87.891 Personal history of nicotine dependence
CPT/HCPCS: 36415; 80048; 80053; 80076; 82009; 82140; 82800; 83036; 83605; 83690; 83735; 84100; 85007; 85025; 85027; 93005; 94761; 96361; 96374; 96375; 96376; 99285; J1650; J1885; J2270; J2405

== ENCOUNTER 2024-07-16 10:33 | Outpatient (OUT) | payer BC, SELFPAY ==
--- OUTSIDE RECORDS SUMMARY | 2024-07-16 10:52 | XMS_ITS | CCD ---
Author Organization [facility] Care Team Providers Care Pharmacy Aide Name Role Phone Kris Aguila Unavailable LAKSHMIPATHY [...] Facility (2 sources) metFORMIN Drug Allergy unknown Preventes[facility]fr Other (11 sources) SITagliptin Drug Allergy 4 unknown [facility] (10 sources) metFORMIN Drug Allergy 9 unknown [facility] (1 source) metFORMIN Drug Allergy [facility] (1 source) patient allergy list reviewed by nurse or physicia Propensity to adverse reactions 9 Comment:Done Preventes[employer]fr Other Medications Current Medications Medication Drug Class(es) Dates Sig (Normalized) Sig (Original) BD Ultra-Fine Micro Pen Needle (7 sources) BD 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-Fine 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 32g x1/4 misc needle subcutaneous [...] sources) Long-term current use of insulin; Translations: [intermediate (current) use of insulin] Episodic Other aftercare (1 source) 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 Episodic Other connective [...] Onset: 09-15-2021 Episodic Other aftercare (1 source) 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) use of oral hypoglycemic drugs; Translations: [FDC USE ORAL HYPOGLYCEMIC DX] Onset: 09-17-2021 Episodic [...] Basophils (Bld) [#/Vol] 0.0 10 3/uL 0.0-0.1 [facility] Basophils/100 WBC Auto (Bld) on 11-20-2023 Basophils/100 WBC (Bld) 0.5 % 0.2-2.0 [facility] Eosinophils/100 WBC Auto (Bl d)on 11-20-2023 Eosinophils/100 WBC (Bld) 1.1 % 0.9-7.0 [facility] Erythrocyte distribution wid th Auto (RBC) [Ratio]on 11-20-2023 Erythrocyte distribution width (RBC) [Ratio] 12.1 % 11.0-15.0 [facility] Estimated glomerular filtrat ion rate (GFR) non- Americanon 11-20-2023 GFR/1.73 sq M.predicted among non-blacks MDRD (S/P/Bld) [Vol rate/Area] mL/min/{1.73_m2} >=60 [facility] Globulin Calc (S) [Mass/Vol] on 11-20-2023 Globulin (S) [Mass/Vol] 3.4 g/dL [facility] Hematocrit Auto (Bld) [Volum e fraction]on 11-20-2023 Hematocrit (Bld) [Volume fraction] 44.5 % 42.0-54.0 [facility] Hemoglobin [Mass/volume] in Bloodon 11-20-2023 Hemoglobin (Bld) [Mass/Vol] 16.3 g/dL 14.0-18.0 [facility] INR in Platelet poor plasma by Coagulation assayon 11-20-2023 INR Coag (PPP) [Relative time] 1.02 {INR} [facility] Comment on above: DESIRED INR:2.0-3.0 CONDITIONS NOT LISTED BELOW2.5-3.5 FOR PROSTHETIC HEART VALVE REPLACEMENT2.5-3.5 RECURRENT THROMBOSIS Laboratory - Chemistry and C hemistry - challengeon 11-20-2023 Albumin [Mass/Vol] 4.0 g/dL 3.4-5.0 [facility] ALP [Catalytic activity/Vol] 144 U/L High 46-116 [facility] ALT [Catalytic activity/Vol] 100 U/L High 16-63 [facility] AST [Catalytic activity/Vol] 63 U/L High 15-37 [facility] Bilirubin [Mass/Vol] 1.3 mg/dL High 0.2-1.0 [facility] Calcium [Mass/Vol] 9.0 mg/dL 8.5-10.1 [facility] Chloride [Moles/Vol] 93 mmol/L Low 98-107 [facility] CO2 [Moles/Vol] 22.2 mmol/L 21.0-32.0 [facility] Creatinine [Mass/Vol] 0.97 mg/dL 0.70-1.30 [facility] GFR/1.73 sq M.predicted MDRD (S/P/Bld) [Vol rate/Area] mL/min/{1.73_m2} >=60 [facility] Glucose [Mass/Vol] 276 mg/dL High 74-106 [facility] Potassium [Moles/Vol] 3.8 mmol/L 3.5-5.1 [facility] Protein [Mass/Vol] 7.4 g/dL 6.4-8.2 [facility] Sodium [Moles/Vol] 130 mmol/L Low 136-145 [facility] Urea nitrogen [Mass/Vol] 23.0 mg/dL High 7.0-18.0 [facility] Urea nitrogen/Creatinine [Mass ratio] 23.7 mg/mg [facility] Laboratory - Hematology and Cell countson 11-20-2023 Immature granulocytes/100 WBC (Bld) 0.3 % 0.0-0.5 [facility] Laboratory - Microbiology an d Antimicrobial susceptibilityon 11-20-2023 S. pyogenes Ag Ql (Unsp spec) Negative [facility] Leukocytes [#/volume] correc rebecca for nucleated erythrocytes in Blood by Automated counon 11-20-2023 WBC corrected for nucl RBC Auto (Bld) [#/Vol] 7.9 10 3/uL 4.0-11.0 [facility] Lymphocytes Auto (Bld) [#/Vo l]on 11-20-2023 Lymphocytes (Bld) [#/Vol] 1.4 10 3/uL 1.2-3.8 [facility] Lymphocytes/100 WBC Auto (Bl d)on 11-20-2023 Lymphocytes/100 WBC (Bld) 17.2 % Low 20.5-60.0 [facility] MCH Auto (RBC) [Entitic mass ]on 11-20-2023 MCH (RBC) [Entitic mass] 32.2 pg 25.9-34.0 [facility] MCHC Auto (RBC) [Mass/Vol]on 11-20-2023 MCHC (RBC) [Mass/Vol] 36.6 g/dL High 29.9-35.2 [facility] MCV Auto (RBC) [Entitic vol] on 11-20-2023 MCV (RBC) [Entitic vol] 87.9 fL 80.0-94.0 [facility] Monocytes Auto (Bld) [#/Vol] on 11-20-2023 Monocytes (Bld) [#/Vol] 0.6 10 3/uL 0.3-0.8 [facility] Monocytes/100 WBC Auto (Bld) on 11-20-2023 Monocytes/100 WBC (Bld) 8.0 % 1.7-12.0 [facility] Neutrophils Auto (Bld) [#/Vo l]on 11-20-2023 Neutrophils (Bld) [#/Vol] 5.8 10 3/uL 1.4-6.5 [facility] Neutrophils/100 WBC Auto (Bl d)on 11-20-2023 Neutrophils/100 WBC (Bld) 72.9 % 43.0-75.0 [facility] No Panel Informationon 11-19 Eosinophils # (Auto) 0.1 10 3/uL 0.0-0.7 [facility] Immature Granulocyte # (Auto) 0.02 10 3/uL 0.00-0.03 [facility] Platelet mean volume Auto (B ld) [Entitic vol]on 11-20-2023 Platelet mean volume (Bld) [Entitic vol] 10.8 fL 9.5-13.5 [facility] Platelets Auto (Bld) [#/Vol] on 11-20-2023 Platelets (Bld) [#/Vol] 164 10 3/uL 150-450 [facility] Prothrombin time (PT)on 10-23 PT Coag (PPP) [Time] 10.8 s 9.0-11.6 [facility] RBC Auto (Bld) [#/Vol]on RBC (Bld) [#/Vol] 5.06 10 6/uL 4.70-6.10 [facility] Serum or plasma albumin/glob ulin mass ratioon 11-20-2023 Albumin/Globulin [Mass ratio] 1.2 {ratio} [facility] Serum or plasma anion gap de terminationon 11-20-2023 Anion gap [Moles/Vol] 18.6 mmol/L [facility] POINT OF CARE GLUCOSEon 05-0 Glucose [Mass/Vol] 254 mg/dL Critically high 74-106 [facility] Comment on above: Performed By: #### P OCGLUC #### [facility] [address] [address] [address] Jose Cruz Balderas POINT OF CARE GLUCOSEon 07-24 Glucose [Mass/Vol] 241 mg/dL Critically high -106 [facility] Comment on above: Performed By: #### P OCGLUC #### [facility] [address] [address] [address] Jose Cruz Balderas POINT OF CARE GLUCOSEon 06-23 Glucose [Mass/Vol] 204 mg/dL Critically high -106 [facility] Comment on above: Performed By: #### P OCGLUC #### [facility] [address] [address] [address] Jose Cruz Balderas GLYCOHEMOGLOBIN A1Con 2022 ADA RECOMMENDATION SEE BELOW Normal [facility] Comment on above: Result Comment: ADA RECOMMENDED LIMIT 4.0 - 6.0 ADA THERAPEUTIC TARGET < 7.0 ACTION SUGGESTED > 7.0 Performed By: #### P OCGLUC #### [facility] [address] [address] [address] Jose Cruz Balderas Glucose [Mass/Vol] 134 mg/dL Normal [facility] Comment on above: Performed By: #### P OCGLUC #### [facility] [address] [address] [address] Jose Cruz Balderas HbA1c (Bld) [Mass fraction] 6.3 % Critically high 4.5-6.2 [facility] Comment on above: Performed By: #### P OCGLUC #### [facility] [address] [place] [address] Dr. Jose Cruz Balderas PROF 14(COMP METB)on 023 Albumin [Mass/Vol] 4.5 g/dL Normal 3.4-5.0 [facility] Comment on above: Performed By: #### C MP #### [facility] [address] [place] [address] Dr. Jose Cruz Balderas Albumin/Globulin [Mass ratio] 1.3 {ratio} Normal [facility] Comment on above: Performed By: #### C MP #### [facility] [address] [place] [address] Dr. Jose Cruz Balderas ALP [Catalytic activity/Vol] 93 U/L Normal 46-116 [facility] Comment on above: Performed By: #### C MP #### [facility] [address] [place] [address] Dr. Jose Cruz Balderas ALT [Catalytic activity/Vol] 41 U/L Normal 16-63 [facility] Comment on above: Performed By: #### C MP #### [facility] [address] [place] [address] Dr. Jose Cruz Balderas Anion gap [Moles/Vol] 12.0 mmol/L Normal [facility] Comment on above: Performed By: #### C MP #### [facility] [address] [place] [address] Dr. Jose Cruz Balderas AST [Catalytic activity/Vol] 21 U/L Normal 15-37 [facility] Comment on above: Performed By: #### C MP #### [facility] [address] [place] [address] Dr. Jose Cruz Balderas Bilirubin [Mass/Vol] 0.8 mg/dL Normal 0.2-1.0 [facility] Comment on above: Performed By: #### C MP #### [facility] [address] [place] [address] Dr. Jose Cruz Balderas Calcium [Mass/Vol] 9.3 mg/dL Normal 8.5-10.1 [facility] Comment on above: Performed By: #### C MP #### [facility] [address] [place] [address] Dr. Jose Cruz Balderas Chloride [Moles/Vol] 105 mmol/L Normal 98-107 [facility] Comment on above: Performed By: #### C MP #### [facility] [address] [address] [address] Jose Cruz Balderas CO2 [Moles/Vol] 26.7 mmol/L Normal 21.0-32.0 [facility] Comment on above: Performed By: #### C MP #### [facility] [address] [address] [address] Jose Cruz Balderas Creatinine [Mass/Vol] 0.82 mg/dL Normal 0.70-1.30 [facility] Comment on above: Performed By: #### C MP #### [facility] [address] [address] [address] Jose Cruz Balderas EGFR-AF MAURITANIAN >60 Normal >=60 [facility] Comment on above: Performed By: #### C MP #### [facility] [address] [place] [address] Dr. Jose Cruz Balderas EGFR-NON AF MAURITANIAN >60 Normal >=60 [facility] Comment on above: Performed By: #### C MP #### [facility] [address] [address] [address] Jose Cruz Balderas Globulin (S) [Mass/Vol] 3.5 g/dL Normal [facility] Comment on above: Performed By: #### C MP #### [facility] [address] [place] [address] Dr. Jose Cruz Balderas Glucose [Mass/Vol] 180 mg/dL Critically high 74-106 [facility] Comment on above: Performed By: #### C MP #### [facility] [address] [place] [address] Dr. Jose Cruz Balderas Potassium [Moles/Vol] 3.7 mmol/L Normal 3.5-5.1 [facility] Comment on above: Performed By: #### C MP #### [facility] [address] [address] [address] Jose Cruz Balderas Protein [Mass/Vol] 8.0 g/dL Normal 6.4-8.2 [facility] Comment on above: Performed By: #### C MP #### [facility] [address] [address] [address] Jose Cruz Balderas Sodium [Moles/Vol] 140 mmol/L Normal 136-145 [facility] Comment on above: Performed By: #### C MP #### [facility] [address] [address] [address] Jose Cruz Balderas Urea nitrogen [Mass/Vol] 19.0 mg/dL Critically high 7.0-18.0 [facility] Comment on above: Performed By: #### C MP #### [facility] [address] [place] [address] Dr. Jose Cruz Balderas Urea nitrogen/Creatinine [Mass ratio] 23.2 mg/mg Normal [facility] Comment on above: Performed By: #### C MP #### [facility] [address] [place] [address] Dr. Jose Cruz Balderas POINT OF CARE GLUCOSEon 05-26 Glucose [Mass/Vol] 174 mg/dL Critically high 74-106 [facility] Comment on above: Performed By: #### P OCGLUC #### [facility] [address] [place] [address] Dr. Jose Cruz Balderas XR SHOULDER RT [...] MITCHELL Date: 2022-04-26 15:27 Normal [facility] CBC AUTO DIFFon 04-21-2022 BASO # 0.0 103/ul Normal 0.0-0.1 [facility] Comment on above: Performed By: #### P OCGLUC #### [facility] [address] [address] [address] Jose Cruz Balderas Basophils/100 WBC (Bld) 0.8 % Normal 0.2-2.0 [facility] Comment on above: Performed By: #### P OCGLUC #### [facility] [address] [address] [address] Jose Cruz Balderas EO # 0.1 103/ul Normal 0.0-0.7 [facility] Comment on above: Performed By: #### P OCGLUC #### [facility] [address] [address] [address] Jose Cruz Balderas Eosinophils/100 WBC (Bld) 2.3 % Normal 0.9-7.0 [facility] Comment on above: Performed By: #### P OCGLUC #### [facility] [address] [address] [address] Jose Cruz Balderas Erythrocyte distribution width (RBC) [Ratio] 12.8 % Normal 11.0-15.0 [facility] Comment on above: Performed By: #### P OCGLUC #### [facility] [address] [address] [address] Jose Cruz Balderas Hematocrit (Bld) [Volume fraction] 47.2 % Normal 42.0-54.0 [facility] Comment on above: Performed By: #### P OCGLUC #### [facility] [address] [address] [address] Jose Cruz Balderas Hemoglobin (Bld) [Mass/Vol] 16.4 g/dL Normal 14.0-18.0 [facility] Comment on above: Performed By: #### P OCGLUC #### [facility] [address] [address] [address] Jose Cruz Balderas IG # 0.01 10e3/ul Normal 0.00-0.03 [facility] Comment on above: Performed By: #### P OCGLUC #### [facility] [address] [place] [address] Dr. Jose Cruz Balderas IG % 0.2 % Normal 0.0-0.5 [facility] Comment on above: Performed By: #### P OCGLUC #### [facility] [address] [address] [address] Jose Cruz Balderas LYMPH # 1.3 103/ul Normal 1.2-3.8 [facility] Comment on above: Performed By: #### P OCGLUC #### [facility] [address] [place] [address] Dr. Jose Cruz Balderas Lymphocytes/100 WBC (Bld) 25.6 % Normal 20.5-60.0 [facility] Comment on above: Performed By: #### P OCGLUC #### [facility] [address] [place] [address] Dr. Jose Cruz Balderas MANUAL DIFF REQ NO Normal [facility] Comment on above: Performed By: #### P OCGLUC #### [facility] [address] [address] [address] Jose Cruz Balderas MCH (RBC) [Entitic mass] 30.7 pg Normal 25.9-34.0 [facility] Comment on above: Performed By: #### P OCGLUC #### [facility] [address] [place] [address] Dr. Jose Cruz Balderas MCHC (RBC) [Mass/Vol] 34.7 g/dL Normal 29.9-35.2 [facility] Comment on above: Performed By: #### P OCGLUC #### [facility] [address] [address] [address] Jose Cruz Balderas MCV (RBC) [Entitic vol] 88.4 fL Normal 80.0-94.0 [facility] Comment on above: Performed By: #### P OCGLUC #### [facility] [address] [address] [address] Jose Cruz Balderas MONO # 0.5 103/ul Normal 0.3-0.8 [facility] Comment on above: Performed By: #### P OCGLUC #### [facility] [address] [address] [address] Jose Cruz Balderas Monocytes/100 WBC (Bld) 8.7 % Normal 1.7-12.0 [facility] Comment on above: Performed By: #### P OCGLUC #### [facility] [address] [address] [address] Jose Cruz Balderas NEUT # 3.2 103/ul Normal 1.4-6.5 [facility] Comment on above: Performed By: #### P OCGLUC #### [facility] [address] [address] [address] Jose Cruz Balderas Neutrophils/100 WBC (Bld) 62.4 % Normal 43.0-75.0 [facility] Comment on above: Performed By: #### P OCGLUC #### [facility] [address] [place] [address] Dr. Jose Cruz Balderas Platelet mean volume (Bld) [Entitic vol] 10.9 fL Normal 9.5-13.5 [facility] Comment on above: Performed By: #### P OCGLUC #### [facility] [address] [place] [address] Dr. Jose Cruz Balderas PLT 159 103/ul Normal 150-450 [facility] Comment on above: Performed By: #### P OCGLUC #### [facility] [address] [address] [address] Jose Cruz Balderas RBC 5.34 106/ul Normal 4.70-6.10 [facility] Comment on above: Performed By: #### P OCGLUC #### [facility] [address] [address] [address] Jose Cruz Balderas WBC 5.2 103/ul Normal 4.0-11.0 [facility] Comment on above: Performed By: #### P OCGLUC #### [facility] [address] [place] [address] Dr. Jose Cruz Balderas GLYCOHEMOGLOBIN A1Con 2021 ADA RECOMMENDATION SEE BELOW Normal [facility] Comment on above: Result Comment: ADA RECOMMENDED LIMIT 4.0 - 6.0 ADA THERAPEUTIC TARGET < 7.0 ACTION SUGGESTED > 7.0 Performed By: #### P OCGLUC #### [facility] [address] [address] [address] Jose Cruz Balderas Glucose [Mass/Vol] 163 mg/dL Normal [facility] Comment on above: Performed By: #### P OCGLUC #### [facility] [address] [address] [address] Jose Cruz Balderas HbA1c (Bld) [Mass fraction] 7.3 % Critically high 4.5-6.2 [facility] Comment on above: Performed By: #### P OCGLUC #### [facility] [address] [place] [address] Dr. Jose Cruz Balderas LIPID PROFILEon 04-21-2022 CHOL-HDL RATIO NORM SEE BELOW Normal [facility] [place] Comment on above: Result Comment: 3.3 - 4.4 LOW RISK 4.4 - 7.1 AVERAGE RISK 7.1 - 11.0 MODERATE RISK >11.0 HIGH RISK Performed By: #### L IPID, CMP #### [facility] [address] [place] [address] Dr. Jose Cruz Balderas Cholesterol [Mass/Vol] 197 mg/dL Normal <=200 [facility] Comment on above: Performed By: #### L IPID, CMP #### [facility] [address] [place] [address] Dr. Jose Cruz Balderas Cholesterol in HDL [Mass/Vol] 49 mg/dL Normal 40-60 [facility] Comment on above: Performed By: #### L IPID, CMP #### [facility] [address] [place] [address] Dr. Jose Cruz Balderas Cholesterol in LDL [Mass/Vol] 109.4 mg/dL Normal [facility] Comment on above: Performed By: #### L IPID, CMP #### [facility] [address] [place] [address] Dr. Jose Cruz Balderas Cholesterol.total/Chol esterol in HDL [Mass ratio] 4.0 {ratio} Normal [facility] Comment on above: Performed By: #### L IPID, CMP #### [facility] [address] [address] [address] Jose Cruz Balderas HDL NORMAL > or = 60 mg/dl - LOW CARDIOVASCULAR RISK <40 mg/dl - HIGH CARDIOVASCULAR RISK Normal [facility] Comment on above: Performed By: #### L IPID, CMP #### [facility] [address] [address] [address] Jose Cruz Balderas LDL CALC NORMAL SEE BELOW Normal [facility] Comment on above: Result Comment: <100 mg/dl OPTIMAL 100 - 129 mg/dl NEAR OR ABOVE OPTIMAL 130 - 159 mg/dl BORDERLINE HIGH 160 - 189 mg/dl HIGH >190 mg/dl VERY HIGH Performed By: #### L IPID, CMP #### [facility] [address] [address] [address] Jose Cruz Balderas Triglyceride [Mass/Vol] 193 mg/dL Critically high <=150 [facility] Comment on above: Performed By: #### L IPID, CMP #### [facility] [address] [address] [address] Jose Cruz Balderas VLDL CALC 38.6 mg/dL Normal [facility] Comment on above: Performed By: #### L IPID, CMP #### [facility] [address] [place] [address] Dr. Jose Cruz Balderas MICROALBUMIN, RAND URon 03-25 mALB 1.4 mg/L Normal <=30.0 [facility] Comment on above: Performed By: #### M ALBR #### [facility] [address] [address] [address] Jose Cruz Balderas PROF 14(COMP METB)on 022 Albumin [Mass/Vol] 4.3 g/dL Normal 3.4-5.0 [facility] Comment on above: Performed By: #### L IPID, CMP #### [facility] [address] [place] [address] Dr. Jose Cruz Balderas Albumin/Globulin [Mass ratio] 1.2 {ratio} Normal [facility] Comment on above: Performed By: #### L IPID, CMP #### [facility] [address] [address] [address] Jose Cruz Balderas ALP [Catalytic activity/Vol] 94 U/L Normal 46-116 [facility] Comment on above: Performed By: #### L IPID, CMP #### [facility] [address] [address] [address] Jose Cruz Balderas ALT [Catalytic activity/Vol] 135 U/L Critically high 16-63 [facility] Comment on above: Performed By: #### L IPID, CMP #### [facility] [address] [address] [address] Jose Cruz Balderas Anion gap [Moles/Vol] 11.7 mmol/L Normal [facility] Comment on above: Performed By: #### L IPID, CMP #### [facility] [address] [address] [address] Jose Cruz Balderas AST [Catalytic activity/Vol] 105 U/L Critically high 15-37 [facility] Comment on above: Performed By: #### L IPID, CMP #### [facility] [address] [address] [address] Jose Cruz Balderas Bilirubin [Mass/Vol] 0.8 mg/dL Normal 0.2-1.0 [facility] Comment on above: Performed By: #### L IPID, CMP #### [facility] [address] [address] [address] Jose Cruz Balderas Calcium [Mass/Vol] 9.3 mg/dL Normal 8.5-10.1 [facility] Comment on above: Performed By: #### L IPID, CMP #### [facility] [address] [address] [address] Jose Cruz Balderas Chloride [Moles/Vol] 101 mmol/L Normal 98-107 [facility] Comment on above: Performed By: #### L IPID, CMP #### [facility] [address] [address] [address] Jose Cruz Balderas CO2 [Moles/Vol] 32.8 mmol/L Critically high 21.0-32.0 [facility] Comment on above: Performed By: #### L IPID, CMP #### [facility] [address] [address] [address] Jose Cruz Balderas Creatinine [Mass/Vol] 1.09 mg/dL Normal 0.70-1.30 [facility] Comment on above: Performed By: #### L IPID, CMP #### [facility] [address] [address] [address] Jose Cruz Balderas EGFR-AF MAURITANIAN >60 Normal >=60 [facility] Comment on above: Performed By: #### L IPID, CMP #### [facility] [address] [address] [address] Jose Cruz Balderas EGFR-NON AF MAURITANIAN >60 Normal >=60 [facility] Comment on above: Performed By: #### L IPID, CMP #### [facility] [address] [address] [address] Jose Cruz Balderas Globulin (S) [Mass/Vol] 3.6 g/dL Normal [facility] Comment on above: Performed By: #### L IPID, CMP #### [facility] [address] [address] [address] Jose Cruz Balderas Glucose [Mass/Vol] 174 mg/dL Critically high 74-106 [facility] Comment on above: Performed By: #### L IPID, CMP #### [facility] [address] [address] [address] Jose Cruz Balderas Potassium [Moles/Vol] 4.5 mmol/L Normal 3.5-5.1 [facility] Comment on above: Performed By: #### L IPID, CMP #### [facility] [address] [address] [address] Jose Cruz Balderas Protein [Mass/Vol] 7.9 g/dL Normal 6.4-8.2 [facility] Comment on above: Performed By: #### L IPID, CMP #### [facility] [address] [address] [address] Jose Cruz Balderas Sodium [Moles/Vol] 141 mmol/L Normal 136-145 [facility] Comment on above: Performed By: #### L IPID, CMP #### [facility] [address] [place], [place] [address] Dr. Jose Cruz Balderas Urea nitrogen [Mass/Vol] 14.0 mg/dL Normal 7.0-18.0 [facility] Comment on above: Performed By: #### L IPID, CMP #### [facility] [address] [address] [address] Jose Cruz Balderas Urea nitrogen/Creatinine [Mass ratio] 12.8 mg/mg Normal [facility] Comment on above: Performed By: #### L IPID, CMP #### [facility] [address] [address] [address] Jose Cruz Balderas POINT OF CARE GLUCOSEon 08-23 Glucose [Mass/Vol] 240 mg/dL Critically high 74-106 [facility] [facility] Comment on above: Performed By: #### P OCGLUC #### [facility] [address] [address] [address] Jose Cruz Balderas XR FINGER MIN 2 VIEWSon 08-23 XR FINGER MIN 2 VIEWS EXAM: XR FINGER [place] N 2 VIEWS HISTORY: Laceration of finger [...] by: SERGE TAN Date: 2021-09-15 19:17 Normal [facility] Pathology Noteon 07-09-2021 Pathology Note [id number]#1.00CD:127 Normal [facility] Outside Colonoscopyon 2021 Outside Colonoscopy [id number]#1.00CD:127 Normal [facility] Lab Reportson 07-06-2021 Lab Reports [id number] FC#1.00CD:127 Normal [facility] Consent for Procedure/Surger yon 06-24-2021 Consent for Procedure/Surgery [id number]#1.00CD:127 Normal [facility] Ambulatory Visit Summaryon 0 06-23-2021 Ambulatory [...] are no longer receiving treatment for. Hypertension [facility] Physician Referralon 022 Physician Referral [id number]#1.00CD:127 [facility] Physician Referralon 022 Physician Referral [id number] FC#1.00CD:127 [facility] Vital Signs Date Time Vital Sign Value Performing Clinician Facility 01-05-2024 09:09-0400 Body height 187.96 cm [facility] 01-05-2024 09:09-0400 Body mass index (BMI) [Ratio] 31.4 kg/m2 [facility] 01-05-2024 09:09-0400 Body weight 111.18 kg [facility] 01-05-2024 09:09-0400 Diastolic blood pressure 78 mm[Hg] [facility] 01-05-2024 09:09-0400 Heart rate 76 /min [facility] 01-05-2024 09:09-0400 Respiratory rate 12 /min [facility] 01-05-2024 09:09-0400 Systolic blood pressure 118 mm[Hg] [facility] 11-29-2023 16:02-0400 Body height 187.96 cm [facility] 11-29-2023 16:02-0400 Body mass index (BMI) [Ratio] 29.9 kg/m2 [facility] 11-29-2023 16:02-0400 Body weight 105.68 kg [facility] 11-29-2023 16:02-0400 Diastolic blood pressure 74 mm[Hg] [facility] 11-29-2023 16:02-0400 Heart rate 68 /min [facility] 11-29-2023 16:02-0400 Respiratory rate 12 /min [facility] 11-29-2023 16:02-0400 Systolic blood pressure 117 mm[Hg] [facility] 11-13-2023 14:05-0400 Body height 187.96 cm [facility] 11-13-2023 14:05-0400 Body mass index (BMI) [Ratio] 30 kg/m2 [facility] 11-13-2023 14:05-0400 Body weight 106.14 kg [facility] 11-13-2023 14:05-0400 Diastolic blood pressure 72 mm[Hg] [facility] 11-13-2023 14:05-0400 Heart rate 83 /min [facility] 11-13-2023 14:05-0400 SaO2% (BldA) [Mass fraction] 97 % [facility] 11-13-2023 14:05-0400 Systolic blood pressure 120 mm[Hg] [facility] 07-07-2023 09:53-0400 Body height 187.96 cm [facility] 07-07-2023 09:53-0400 Body mass index (BMI) [Ratio] 31.6 kg/m2 [facility] 07-07-2023 09:53-0400 Body weight 111.58 kg [facility] 07-07-2023 09:53-0400 Diastolic blood pressure 84 mm[Hg] [facility] 07-07-2023 09:53-0400 Heart rate 75 /min [facility] 07-07-2023 09:53-0400 Respiratory rate 12 /min [facility] 07-07-2023 09:53-0400 Systolic blood pressure 131 mm[Hg] [facility] 06-20-2022 15:00-0500 Body height 187.96 cm Aguila Ball Other [facility] Other 06-20-2022 15:00-0500 Body mass index (BMI) [Ratio] 33.74 kg/m2 Aguila Ball Other [facility] Other 06-20-2022 15:00-0500 Body weight 119.21 kg Aguila Ball Other [facility] Other 06-20-2022 15:00-0500 Diastolic blood pressure 70 mm[Hg] Aguila Ball Other [facility] Other 06-20-2022 15:00-0500 Respiratory rate 12 /min Aguila Ball Other [facility] Other 06-20-2022 15:00-0500 Systolic blood pressure 108 mm[Hg] Aguila Ball Other [facility] Other 05-10-2022 11:15-0500 Body height 187.96 cm Aguila Ball Other [facility] Other 05-10-2022 11:15-0500 Body mass index (BMI) [Ratio] 33.79 kg/m2 Aguila Ball Other [facility] Other 05-10-2022 11:15-0500 Body weight 119.39 kg Aguila Ball Other [facility] Other 05-10-2022 11:15-0500 Diastolic blood pressure 70 mm[Hg] Aguila Ball Other [facility] Other 05-10-2022 11:15-0500 Respiratory rate 12 /min Aguila Ball Other [facility] Other 05-10-2022 11:15-0500 Systolic blood pressure 118 mm[Hg] Aguila Ball Other [facility] Other Encounters Encounter Date Encounter Type Care Provider Facility Start: 01-05-2024 End: 01-05-2024 ambulatory [facility] Work Phone: Start: 01-05-2024 End: 01-05-2024 Patient encounter procedure [facility] Physician [facility] Work Phone: Start: 11-29-2023 End: 11-29-2023 ambulatory [facility] Work Phone: Start: 11-29-2023 End: 11-29-2023 Patient encounter procedure [facility] Physician [facility] Work Phone: Start: 11-20-2023 Non-patient / Non-visit [facility] Physician [facility] Work Phone: Start: 11-13-2023 End: 11-13-2023 ambulatory [facility] Work Phone: Start: 11-13-2023 End: 11-13-2023 Patient encounter procedure [facility] Physician [facility] Work Phone: Start: 07-07-2023 End: 07-07-2023 ambulatory [facility] Work Phone: Start: 07-07-2023 End: 07-07-2023 Encounter for general adult medical examination without abnormal findings [facility] Start: 07-07-2023 End: 07-07-2023 Patient encounter procedure [facility] Physician [facility] Work Phone: Start: 06-20-2023 Non-patient / Non-visit [facility] Physician [facility] Work Phone: Start: 06-12-2023 Non-patient / Non-visit [facility] Physician [facility] Work Phone: Start: 02-03-2023 End: 02-03-2023 ambulatory Aguila Ponce Other [facility] Other Start: 02-03-2023 Telephone encounter Aguila [facility]DR[facility] Start: 11-08-2022 End: 11-08-2022 ambulatory [facility] Facility:[facility] Start: 10-21-2022 End: 10-21-2022 ambulatory Aguila Ponce Other [facility] Other Start: 10-21-2022 Telephone encounter Aguila Ponce [facility] Start: 10-21-2022 End: 10-21-2022 ambulatory [facility] Facility:[facility] Start: 09-22-2022 ambulatory NARENDRANATH LAKSHMIPATHY . Facility:[facility] Start: 08-23-2022 End: 08-23-2022 ambulatory NARENDRANATH LAKSHMIPATHY . Facility:[facility] Start: 08-16-2022 End: 08-16-2022 ambulatory NARENDRANATH LAKSHMIPATHY . Facility:[facility] Start: 08-15-2022 End: 08-15-2022 ambulatory Aguila Ponce Other [facility] Other Start: 08-15-2022 Telephone encounter Aguila [facility] Start: 07-28-2022 End: 07-29-2022 ambulatory NARENDRANATH LAKSHMIPATHY . Facility:[facility] Start: 07-12-2022 End: 07-12-2022 ambulatory NARENDRANATH LAKSHMIPATHY . Facility:[facility] Start: 07-07-2022 End: 07-08-[address] AGUILA PONCE Facility:[facility] Start: 06-22-2022 End: 06-23-[address] AGUILA PONCE Facility:[facility] Start: 06-21-2022 Telephone encounter Aguila Ponce [facility] Start: 06-21-2022 End: 06-21-[address] AGUILA PONCE [facility] Other Start: 06-20-2022 End: 06-20-2022 ambulatory Aguila Ponce Other [facility] Other Start: 06-20-2022 Encounter for other preprocedural examination Aguila Ponce [facility] Start: 06-20-2022 Office outpatient vi sit 25 minutes Aguila Ponce [facility] Start: 05-26-2022 End: 05-27-[address] AGUILA PONCE Facility:[facility] Start: 05-10-2022 End: 05-10-2022 ambulatory Aguila Ponce Other [facility] Other Start: 05-10-2022 Office outpatient vi sit 15 minutes Aguila Ponce [facility] Start: 04-28-2022 End: 06-01-[address] AGUILA PONCE Facility:[facility] Start: 04-26-2022 Telephone encounter [facility] Start: 04-26-2022 End: 04-26-[address] AGUILA PONCE [facility] Other Start: 04-23-2022 Encounter for genera l adult medical examination without abnormal findings DR AGUILA PONCE [facility] Start: 04-21-2022 End: 04-22-[address] AGUILA PONCE Facility:[facility] Start: 04-21-2022 End: 04-22-2022 Encounter for general adult medical examination without abnormal findings DR AGUILA PONCE Facility:[facility] Start: 03-31-2022 Adult health examination Aguila Ponce Other [facility] Other Start: 11-04-2021 End: 11-04-[address] [...] the presence orabsence of malignant disease.Performed at: [address] [id number] Director: Zach Lucia PhD, Phone: [phone] Start: 04-04-2018 General examination of patient Aguila Ponce Other End: 06-16-2021 Laboratory test result abnormal Agulia Ponce Other Plan of Treatment Date Care Activity Detail Author Comprehensive metabo lic 2000 panel - Serum or Plasma [facility] enter [facility] Immunizations Immunization Date Immunization Notes Care Provider Fa shasta 09-15-2021 diphtheria, tetanus toxoids and pertussis vaccine Aguila Ponce Other [facility] 02-12-2021 COVID-19 Vaccine Mod sheri - Documentation Purposes Only Aguila Ponce Other [facility] 07-03-2020 COVID-19 Vaccine Jl ssen - Documentation Purposes Only Aguila Ponce Other [facility] Payers Date Payer Category [id number] 2019 Unknown [id number] 1975 Unknown [id number] 1973 Unknown [id number] 2.16840.1.280029.3.579.2.593 1973 Unknown [id number] 2.16.840.1.121193.3.579.2.593 1973 Unknown [id number] 2.16.840.1.949230.3.579.2.593 1973 Unknown [id number] 2.16.840.1.195388.3.579.2.593 1973 Unknown [id number] 2.16.840.1.713311.3.579.2.593 1973 Unknown [id number] 2.16.840.1.095575.3.579.2.593 1973 Unknown [id number] 2.16.840.1.764248.3.579.2.593 1973 Unknown [id number] 2.16.840.1.935212.3.579.2.593 1973 Unknown [id number] 2.16.840.1.936170.3.579.2.593 1973 Unknown [id number] 2.16.840.1.136577.3.579.2.593 1973 Unknown [id number] 2.16.840.1.974405.3.579.2.593 1973 Unknown [id number] 2.16.840.1.189297.3.579.2.593 1973 Unknown [id number] 2.16.840.1.874756.3.579.2.593 1973 Unknown [id number] 2.16.840.1.491843.3.579.2.593 1973 Unknown [id number] 2.16.840.1.636822.3.579.2.593 1973 Unknown [id number] 2.16.840.1.292468.3.579.2.718 1973 Unknown [id number] 2.16.840.1.551809.3.579.2.718 Private Health Insurance BBS [id number] Unknown MMO [employer] [id number] Social History Date Type Detail Facility Sex Assigned At [facility] Other Start: 06-12-2023 Tobacco smoking stat [facility] Unknown if ever smoked [facility] Start: 1975 Sex Assigned At Male F [facility] Start: 11-13-2023 [facility] Medical Equipment Procedure Code Equipment Code Equipment Origin al Text Equipment Identifier Dates Sure-Fine Pen [place] 31G X 5 MM Blood Sugar Diagnostic [...] diabetes mellitus with hyperglycemia (ICD-10 - E11.65) [facility] Other 06-30-2023 Evaluation note* Encounter Date Diagnosis Assessment Notes Treatment Notes Treatment Clinical Notes Sep, Essential (primary) hypertension (ICD-10 - I10) [facility] Other 04-24-2023 Evaluation note* Encounter Date Diagnosis Assessment Notes Treatment Notes Treatment Clinical Notes Jul, Type 2 diabetes mellitus with hyperglycemia (ICD-10 - E11.65) Jul, intermediate (current) use of insulin (ICD-10 - Z79.4) [facility] Other 04-06-2023 NoteCONSULTATION CONSULTATION DATE: 07/28/2022 TO: [...] our patients to inform us about any [id number] medications or herbal remedies/nutritional supplements/alternative remedies. 2. [...] options with their primary care provider.[id number] Note CONSULTATION CONSULTATION DATE: 07/07/2022 HISTORY: This [...] up in the clinic post procedure.[id number] Evaluation note* Encounter Date Diagnosis Assessment Notes Treatment Notes Treatment Clinical Notes May, Elevated transaminase level (ICD-10 - R74.01) May, Essential (primary) hypertension (ICD-10 - I10) May, Controlled type 2 diabetes mellitus with hyperglycemia, without long-term current use of insulin (ICD-10 - E11.65) [facility] Other 02-27-2023 Evaluation note* Encounter Date Diagnosis [...] (ICD-10 - E78.2) Healthy diet and exercise. [facility] Other 02-02-2023 NoteCONSULTATION CONSULTATION DATE: 05/26/2022 HISTORY [...] followed up in the office thereafter.[facility] 05-10-2022 Evaluation note* Encounter Date Diagnosis [...] soap and water. UTD w/ tetanus booster [facility] Other 01-03-2023 Evaluation note* Encounter Date Diagnosis Assessment Notes Treatment Notes Treatment Clinical Notes Apr, Other chronic pain (ICD-10 - G89.29) Apr, Low back pain, unspecified (ICD-10 - M54.50) [facility] Other 03-02-2022 NoteChief Complaint consultation for screening [...] tab(s), Oral, Da (more content not included)... [facility] Comment: Electronically Signed By: [...] specific antigen) noneactive Wellness examination noneact brigette [facility] Work Phone: Evaluation note* Diagnosis Onset Date Resolution Status Allergic reaction [facility] Work Phone: Evaluation note* Diagnosis Onset Date Resolution Status Allergic reaction acute Seasonal allergies acute Depression, major, recurrent, in partial remission acute Essential (primary) hypertension acute Gastroesophageal reflux dise ase with esophagitis without hemorrhage acute Hyperlipidemia, mixed acute Type 2 diabetes mellitus with hyperglycemia acute [facility] Work Phone: Evaluation note* Diagnosis Onset Date Resolution Status Allergic reaction acute Seasonal allergies acute Depression, major, recurrent, in partial remission acute Essential (primary) hypertension acute Gastroesophageal reflux dise ase with esophagitis without hemorrhage acute Hyperlipidemia, mixed acute [id number] acute Type 2 diabetes mellitus with hyperglycemia acute Gastroesophageal reflux dise ase with esophagitis without hemorrhage acute [id number] acute Type 2 diabetes mellitus with hyperglycemia acute [facility] Work Phone: History general Narrative - [...] Debridement SLAP Lesion Surgical History Subacromion Decompression [facility] Other Hishwsq general Narrative - Reported* Type Description Date [...] Subacromion Decompression Hospitalization History see surgical history [facility] Other Summary Purpose Family History No Family History Records FoundNo Family History Records FoundNo Family History Records Found Advance Directives Advance Directive Response Recorded Date/ Time Advance Directives No May 29, 2023 3:54pm Reason for Referral Reason 05/26/22 Patient b drake referred for treatment of low back pain. Diagnosis 1 Osteoarthritis of sp ine with radiculopathy, lumbar region (M47.26) Referral Organization [facility] Kris strange Referring Provider First Name Aguila Referring Provider Last Name Kris Referring Provider Specialty Internal Me vida Ref[facility] Referred Provider VIDHYA MOSLEY Referred Address [address], [place],[address] Referred Provider Specialty Pain Medicin e Referral [...] to Dr. Anderson office for consult notes Emiyl Lee 06/06/2022 03:55:13 PM >faxed first request for consult notes to [id number] Emily Lee 06/07/2022 01:51:17 PM >received today notes sent for review. closing referral at this time. Clinical Notes CT lumbar spine comp leted July, P: [id number] F: [id number] Chief Complaint and Reason for Visit Chief [...] disease with esophagitis without hemorrhage Hyperlipidemia, mixed [id number] Type 2 diabetes mellitus with hyperglycemia Gastroesophageal reflux disease with esophagitis without hemorrhage [id number] Type 2 diabetes mellitus with hyperglycemia Additional Source Comments (unrecognized sect ion and content) No Status Records FoundNo Status Records FoundNo Status Records Found INFORMATION SOURCE (unrecogn ized section and content) DATE CREATED AUTHOR 07/20/2021 [facility] DATE CREATED AUTHOR AUTHOR'S ORGANIZ ATION 09/07/2022 [facility] DATE CREATED AUTHOR AUTHOR'S ORGANIZ ATION 11/07/2022 [facility] REASON FOR VISIT (unrecogniz ed section and content) Referralpossible cellulitisN o InformationPre-Op ClearancerefillRefillRefill Care Teams (unrecognized sec tion and content) Team Status: Active Member Role Status Dates Aguila Ponce DO Primary Care Provider Active Team Status: Inactive Member Role Status Dates Aguila Ponce DO Primary Care Provider Active Start: November 13, 2023 End: November 13, 2023 Thu Ren APRN BIOSTATISTICS TEACHER-C Attending Provider Act brigette Start: November 13, [...] BE BASED ON THE PRIMARY CLINICAL RECORDS. [employer] provides no warranty or guarantee of the accuracy or completeness of information in this document.
[2024-07-16 11:00] LABS: Basophils Absolute Auto 0.1 10^3/uL (0.0-0.1); Basophils Percent Auto 1.1 % (0.2-2.0); Eosinophils Absolute Auto 0.1 10^3/uL (0.0-0.7); Hematocrit 44.3 % (42.0-54.0); Hemoglobin 15.8 g/dL (14.0-18.0); Immature Granulocytes Abs Auto 0.02 10^3/uL (0.00-0.03); Immature Granulocytes Pct Auto 0.4 % (0.0-0.5); Lymphocytes Percent Auto 22.8 % (20.5-60.0); Mean Corpuscular HGB Conc 35.7 g/dL (29.9-35.2); Mean Corpuscular Hemoglobin 30.7 pg (25.9-34.0); Mean Platelet Volume 11.2 fL (9.5-13.5); Monocytes Absolute Auto 0.4 10^3/uL (0.3-0.8); Monocytes Percent Auto 8.1 % (1.7-12.0); Neutrophils Absolute Auto 2.9 10^3/uL (1.4-6.5); Neutrophils Percent Auto 65.6 % (43.0-75.0); Platelet Count 145 10^3/uL (150-450); Red Blood Count 5.15 10^6/uL (4.70-6.10); Red Cell Distribution Width 13.2 % (11.0-15.0); White Blood Count 4.5 10^3/uL (4.0-11.0)
[2024-07-16 11:18] LABS: Estimated Average Glucose 255 mg/dL; Glycohemoglobin A1C 10.5 % (4.5-6.2)
[2024-07-16 11:33] LABS: Microalbum Creatinine Ratio Ur 162.2 mg/g (0.0-29.9); Microalbumin Urine Random 10.4 mg/dL (<=30.0)
[2024-07-16 11:48] LABS: Alanine Aminotransferase 46 U/L (16-63); Albumin Globulin Ratio 1.1; Albumin Level 4.1 g/dL (3.4-5.0); Alkaline Phosphatase 196 U/L (46-116); Anion Gap 17.6; Aspartate Amino Transferase 28 U/L (15-37); BUN Creatinine Ratio 13.8; Calcium 9.1 mg/dL (8.5-10.1); Carbon Dioxide 26.4 mmol/L (21.0-32.0); Chloride 95 mmol/L (98-107); Cholesterol 286 mg/dL (<=200); Estimated GFR (African America >60 (>=60 mL/min/1.73m^2); Estimated GFR (Non-African Ame >60 (>=60 mL/min/1.73m^2); Globulin 3.9 g/dL; Glucose 380 mg/dL (74-106); HDL Cholesterol 36 mg/dL (40-60); Sodium 135 mmol/L (136-145); Triglycerides 1820 mg/dL (<=150)
[2024-07-16 12:04] LABS: Prostate Specific Antigen Scrn 0.15 ng/mL (<=4.00)
[2024-07-16 12:42] LABS: Chol HDL Ratio 7.9; LDL Cholesterol Direct 59 mg/dL
== END 2024-07-16 10:34 | disposition home or self-care (01) ==
LOC: LAB 10:34
PROVIDERS: PCP Internal Medicine; Visit Provider Internal Medicine
DX: Z00.00 Encounter for general adult medical examination without abnormal findings (principal); Z12.5 Encounter for screening for malignant neoplasm of prostate
CPT/HCPCS: 36415; 80053; 80061; 82043; 82570; 83036; 83721; 85025; G0103

== ENCOUNTER 2024-10-30 07:54 | Outpatient (OUT) | payer BC, SELFPAY ==
--- OUTSIDE RECORDS SUMMARY | 2024-10-30 07:58 | XMS_ITS | Clinical Summary ---
Author Organization [facility] Address [address] [place] [address] Care Team Providers Care Meat Counter Clerk Name Role Phone Aguila Ponce DO Primary Care Provider [phone] Allergies No known active allergies Medications No known medications Active Problems No known active problems Family History Medical History Relation Name Comments Diabetes Father Diabetes Mother Relation Name Status Comments Father Mother Social History Tobacco Use Types Packs/Day Years Used Date Smoking Tobacco: Never Assessed Smokeless Tobacco: Current Sex and Gender Information Value Date Recorded Sex Assigned at Not on file Legal Sex Male 10:42 AM EDT Gender Identity Not on file Sexual Orientation Not on file Last Filed Vital Signs Vital Sign Reading Time Taken Comments Blood Pressure - - Pulse - - Temperature 36 C (96.8 F) 08/25/2017 1:01 PM EDT Respiratory Rate - - Oxygen Saturation - - Inhaled Oxygen Concentration - - Weight 129.3 kg (285 lb) 08/25/2017 1:01 PM EDT Height 188 cm (6' 2 ) 08/25/2017 1:01 PM EDT Body Mass Index 36.59 08/25/2017 1:01 PM EDT Plan of Treatment Not on file Insurance [employer] Care Teams Meat Counter Clerk Relationship Specialty Start Date End Date Aguila Ponce DO PCP - General Internal Medicine 08/02/17
--- OUTSIDE RECORDS SUMMARY | 2024-10-30 07:58 | XMS_ITS | Clinical Summary ---
Author Organization [employer] Address [id number] [address] [place] [address] Care Team Providers Care Multiple Needle Stitcher Name Role Phone No Pcp, No Pcp Primary Care Provider Unavailabl e Social History Tobacco Use Types Packs/Day Years Used Date Smoking Tobacco: Never Assessed Childcare Answer Date Recorded Childcare Unknown 10/03/2018 Employment Answer Date Recorded Employment Unknown 10/03/2018 Purpose - Life Answer Date Recorded Purpose and direction in life Unknown Sex and Gender Information Value Date Recorded Sex Assigned at Not on file Legal Sex Male 11:34 AM EDT Gender Identity Not on file Sexual Orientation Not on file Plan of Treatment Health Maintenance Due Date Last Done Comments Depression Screening 1985 Tobacco Screening 1985 Adult BMI Screening 06/29/1991 DTaP,Tdap and Td Vaccines (1 - Tdap) 1992 Zoster (Shingles) Vaccine (1 of 2) 06/29/2023 Influenza Vaccine 12/23/2024 Medical Devices Not on file Care Teams Multiple Needle Stitcher Relationship Specialty Start Date End Date No Pcp, [place] [address] PCP - General Family Medicine 11/28/19
--- OUTSIDE RECORDS SUMMARY | 2024-10-30 07:58 | XMS_ITS | Clinical Summary ---
Author Organization [facility] Address [address] [place] [address] Phone Care Team Providers Care Assistant Director Of Residence Life Name Role Phone Unavailable Primary Care Provider Unavailabl e Social History Tobacco Use Types Packs/Day Years Used Date Smoking Tobacco: Never Assessed Sex and Gender Information Value Date Recorded Sex Assigned at Not on file Legal Sex Male 11:45 AM EST Gender Identity Not on file Sexual Orientation Not on file Plan of Treatment Not on file
--- OUTSIDE RECORDS SUMMARY | 2024-10-30 07:58 | XMS_ITS | Clinical Summary ---
Author Organization [facility] Address [address] [place] [address] Care Team Providers Care Photo Manager Name Role Phone Unavailable Primary Care Provider Unavailabl e Social History Tobacco Use Types Packs/Day Years Used Date Smoking Tobacco: Never Assessed Sex and Gender Information Value Date Recorded Sex Assigned at Not on file Legal Sex Male 6:46 PM EDT Gender Identity Not on file Sexual Orientation Not on file Last Filed Vital Signs Vital Sign Reading Time Taken Comments Blood Pressure - - Pulse - - Temperature - - Respiratory Rate - - Oxygen Saturation - - Inhaled Oxygen Concentration - - Weight 118 kg (260 lb) 06/08/2022 12:00 PM EST Height 188 cm (6' 2 ) 06/08/2022 12:00 PM EST Body Mass Index 33.38 06/08/2022 12:00 PM EST Plan of Treatment [place] [address] BS Member Subscriber Plan / Payer (Ef fective 2022-Present) Name:Yasir Mcpherson Member ID:[id number] Relation to Subscriber:Spouse Name:KIP MCPHERSON Subscriber ID:[id number] Date of :1976 Payer ID:Not on file Type:Not on file Address: [facility] [address] [place] [address]
[2024-10-30 08:46] LABS: Thyroid Stimulating Hormone 1.146 uIU/mL (0.358-3.740)
== END 2024-10-30 07:55 | disposition home or self-care (01) ==
LOC: LAB 07:56
PROVIDERS: PCP Internal Medicine; Visit Provider Internal Medicine
DX: E07.89 Other specified disorders of thyroid (principal)
CPT/HCPCS: 36415; 84439; 84443; 84480

== ENCOUNTER 2024-11-08 07:12 | Outpatient (OUT) | payer BC, SELFPAY ==
--- NOTE | 2024-11-08 07:14 | US_ITS ---
The [address] [address] Patient Name: MOI MCPHERSON MRN: [id number] date: 1975 Sex: M Assigned Patient Location: US Current Patient Location: Accession/Order Number: [id number] Exam Date: 11/08/2024 08:05 Report Date: 11/08/2024 08:10 At the request of: ODIN CENTENO DO Procedure: US thyroid THYROID ULTRASOUND CLINICAL DATA: Right neck lump for the past few weeks. COMPARISON: None The right thyroid lobe is enlarged. It measures 6.1 x 4.0 x 4.0 cm. The left lobe measures 4.0 x 1.1 x 1.5 cm. The isthmus measures 6 mm. There is heterogeneous echogenicity. There is a large TI-RADS 3 heterogeneous, slightly hyperechoic nodule at the mid pole on the right measuring 4.0 x 3.7 x 3.8 cm. There is moderate associated blood flow, predominantly at the periphery. No discrete nodules are seen on the left. US/US thyroid IMPRESSION: LARGE TI-RADS 3 RIGHT THYROID NODULE. ULTRASOUND-GUIDED BIOPSY COULD BE CONSIDERED. Impression dictated by: Johanne Arellano M.D. 11/08/2024 8:10 AM Dictation Location: [place] [address] Electronically authenticated by: [id number] Date: 11/08/2024 08:10
--- OUTSIDE RECORDS SUMMARY | 2024-11-08 07:14 | XMS_ITS | Clinical Summary ---
Author Organization [facility] Address [address] [place] [address] Phone Care Team Providers Care Sleep Scientist Name Role Phone Unavailable Primary Care Provider [...]
--- OUTSIDE RECORDS SUMMARY | 2024-11-08 07:14 | XMS_ITS | Clinical Summary ---
Author Organization [employer] Address [facility] [address] [place] [address] Care Team Providers Care Monitoring Analyst Name Role Phone No Pcp, No Pcp [...] Medical Devices Not on file Care Teams Monitoring Analyst Relationship Specialty Start Date End Date No Pcp, [place] [address] PCP - General Family Medicine 11/28/19
--- OUTSIDE RECORDS SUMMARY | 2024-11-08 07:14 | XMS_ITS | Clinical Summary ---
Author Organization [facility] Address [address], [address] [place] [address] Care Team Providers Care Aquarium Tank Attendant Name Role Phone Aguila Ponce DO Primary Care Provider [phone] Allergies No known active allergies Medications No [...] on file Insurance [employer] Care Teams Aquarium Tank Attendant Relationship Specialty Start Date End Date Aguila Ponce DO PCP - General Internal Medicine 08/02/17
--- OUTSIDE RECORDS SUMMARY | 2024-11-08 07:14 | XMS_ITS | Clinical Summary ---
Author Organization [facility] Healthcare Address [address] [place] [address] Care Team Providers Care Chair Springer Name Role Phone Unavailable Primary Care Provider [...] Treatment [place] [id number] BS
--- OUTSIDE RECORDS SUMMARY | 2024-11-08 07:15 | XMS_ITS | CCD ---
Author Organization [facility] Care Team Providers Care Associate Artistic Director Name Role Phone Aguila Ponce Unavailable LAKSHMIPATHY ., NARENDRANATH Attending Zina vailable LAKSHMIPATHY ., PRASHANT Admitting [...] Unavailable LAKSHMIPATHY ., NARENDRANATH Consulting Zina vailable RKIS, DR NEWBY Primary Care Unavailable YULIA ., [...] Attending Unavailable Provider, None Primary Care Unavailable Aguila Ponce DO Primary Care Provider Aguila Ponce DO Attending Provider Allergies Allergy Classification Reported Allergen(s) Allergy Type Date of Onset Reaction(s) Facility (2 sources) metFORMIN Drug Allergy unknown Octonotco Other (13 sources) SITagliptin Drug Allergy 4 unknown [facility] (12 sources) metFORMIN Drug Allergy 9 unknown [facility] (1 source) metFORMIN Drug Allergy [facility] (1 source) patient allergy list reviewed by nurse or physicia Propensity to adverse reactions 9 Comment:Done Octonotco Other Medications Current Medications Medication Drug Class(es) Dates Sig (Normalized) Sig (Original) BD Ultra-Fine Micro Pen Needle (7 sources) BD Ultra-Fine Micro Pen Needle 32g x1/4 misc needle subcutaneous as directed Active fenofibrate 160 mg oral tablet (1 source) Peroxisome Proliferator Receptor alpha Agonist Start: 07-16-2024 take 1 tablet by mouth once daily Fenofibrate 160 mg tablet Active 160 MG PO Daily July 16, 2024 12:00am Complies with drug therapy glimepiride 4 mg oral tablet (5 sources) [...] daily, 30 minutes before breakfast Orally Not-Taking 3 ml insulin glargine 100 unt/ml pen injector (2 sources) Insulin Analog Start: 10-08-2024 inject 10 [IU] by subcutaneous injection once daily in the evening Insulin Glargine (Lantus Solostar U-100 Insulin) 100 unit/mL (3 mL) insulin pen Active 10 UNIT SUBCUT Every evening 07 21October 08, 2024 12:00am Complies with drug therapy Start: 07-18-2024 End: 07-19-2024 Insulin Glargine (Basaglar T empo Pen(U-100)Insln) 100 unit/mL (3 mL) insulin pen, sensor Discontinued 20 UNIT SUBCUT Every evening 10 21July 18, 2024 12:00am July 19, 2024 10:54am 3 ml insulin lispro 100 unt/ml pen injector (2 sources) Insulin Analog Start: 07-18-2024 End: 07-18-2024 Insulin Lispro (Humalog Kwikpen Insulin) 100 unit/mL insulin pen Active 0 sliding scale dose SUBCUT Use as Directed Protocol: *If the corrective scale dose has been administered within the past 4 hours, do not use corrective scale again unless approved by prescriber* Condition: Dose/Route: Instructions: Condition: Fingerstick Blood Glucose Dose/Route: Insulin Units Condition: Dose/Route: 0 unit Condition: 131-180 mg/dl Dose/Route: 2 units Condition: 181- 240 mg/dl Dose/Route: 4 units Condition: 241- 300 mg/dl Dose/Route: 6 units Condition: 301- 350 mg/dl Dose/Route: 8 units Condition: > 350 mg/dl Dose/Route: 10 units Condition: Greater than or = 400 mg/dl Instructions: Call Provider July 18, 2024 5:05pm Maximum day supply 40u Please contact the information source for Protocol details. Complies with drug therapy omeprazole 40 mg delayed release oral capsule (19 sources) Proton Pump Inhibitor Start: 09-19-2023 End: 10-13-2024 take 1 capsule by mouth once daily at breakfast Omeprazole 40 mg capsule,delayed release(DR/EC) Active 0 .ROUTE .COMPLEX October 13, 2024 7:53am TAKE 1 CAPSULE BY MOUTH ONCE A DAY ON AN EMPTY STOMACH FOLLOWED IN 30 MINUTES BY BREAKFAST Complies with drug therapy Start: 06-12-2023 End: 09-19-2023 take 1 capsule by mouth once daily at breakfast Omeprazole 40 mg capsule,delayed release(DR/EC) Discontinued 40 MG PO Daily June 12, [...] use to test home BS daily Active Semaglutide (Rybelsus) 3 mg tablet (1 source) Start: 07-16-2024 take 1 tablet by mouth once daily Semaglutide (Rybelsus) 3 mg tablet Active 3 MG PO Daily July 16, 2024 12:00am Completed/Discontinued Medications Medication Drug Class(es) Dates Sig (Normalized) Sig (Original) benazepril hydrochloride 10 mg oral tablet (13 sources) Angiotensin Converting Enzyme Inhibitor Start: 06-12-2023 End: 07-07-2023 take 1 tablet by mouth once daily Benazepril 10 mg tablet Discontinued 10 MG PO Daily June 12, 2023 1:00am July 07, 2023 9:53am take 1 tablet by prince th every twenty-four hours Benazepril HCl 10 MG 1 tablet Orally Onc e a day for 90 days Active 24 hr buPROPion hydrochloride 300 mg extended release oral tablet (19 sources) Aminoketone Start: 06-12-2023 End: 11-29-2023 take 1 tablet by mouth once daily Bupropion Hcl 300 mg tablet extended release 24 hr Discontinued 300 MG PO Daily July 07, 2023 10:28am November 29, 2023 5:42pm take 1 tablet by prince th every twenty-four hours buPROPion HCl ER (XL) 300 MG 1 tablet in the morning Orally Once a day for 30 Active dapagliflozin 10 mg oral tablet (20 sources) Sodium-Glucose Cotransporter 2 Inhibitor Start: 06-20-2023 [...] twice daily for 7 days Apr, Not-Taking Dulaglutide (20 sources) GLP-1 Receptor Agonist Start: 01-05-2024 End: 04-09-2024 Dulaglutide 3 mg/0.5 mL pen injector Discontinued 3 MG SUBCUT every week 2 January 05, 2024 9:14am April 09, 2024 9:57am Start: 01-05-2024 inject 3 mg by subcu taneous injection every week Dulaglutide Active 3 MG SUBCUT every week 2 January 05, 2024 9:14am Start: 11-29-2023 End: 01-05-2024 Dulaglutide 1.5 mg/0.5 mL pe n injector Discontinued 1.5 MG SUBCUT every week 2 [...] Subcutaneous weekly for 28 days Jul, Active Dulaglutide 3 mg/0.5 mL pen injector (1 source) Start: 01-05-2024 End: 04-09-2024 Dulaglutide 3 mg/0.5 mL pen injector Discontinued 3 MG SUBCUT every week 2 January 05, 2024 9:14am April 09, 2024 9:57am 3 ml insulin aspart protamine, human 70 unt/ml / insulin aspart, human 30 unt/ml pen injector (7 sources) Insulin Analog NovoLOG Mix 70/3 0 FlexPen (70-30) 100 UNIT/ML 40 units before breakfast, 30 units before supper. Subcutaneous Not-Taking 3 ml insulin detemir 100 unt/ml pen injector (8 sources) Insulin Analog Start: 07-18-2024 End: 07-18-2024 inject 20 [IU] by subcutaneous injection once daily Insulin Detemir U-100 100 unit/mL (3 mL) insulin pen Discontinued 20 UNIT SUBCUT Daily 10 21July 18, 2024 1:48pm July 18, 2024 7:48pm Start: 07-16-2024 End: 07-18-2024 inject 15 [IU] by subcutaneous injection once daily Insulin Detemir U-100 100 unit/mL (3 mL) insulin pen Discontinued 15 UNIT SUBCUT Daily July 16, 2024 9:52am July 18, 2024 1:48pm Start: 04-11-2024 End: 07-16-2024 Insulin Detemir U-100 100 un it/mL (3 mL) insulin pen Discontinued 10 UNIT SUBCUT April 11, 2024 4:55pm July 16, 2024 9:52am Start: 04-09-2024 End: 04-11-2024 Insulin Detemir U-100 100 un it/mL (3 mL) insulin pen Discontinued UNIT SUBCUT April 09, 2024 1:00am April 11, 2024 4:55pm Insulin Glargine-Yfgn (1 source) Start: 07-19-2024 End: 10-08-2024 Insulin Glargine-Yfgn (Semglee(Insulin Glarg-Yfgn)Pen) 100 unit/mL (3 mL) insulin pen Discontinued 20 UNIT SUBCUT Daily 10 21July 19, 2024 12:00am October 08, 2024 5:38pm methylPREDNISolone 4 mg oral tablet (5 sources) Corticosteroid Start: 11-13-2023 End: 11-29-2023 take [...] nausea Not-Taking pregabalin 100 mg oral capsule (6 sources) Start: 07-07-2023 End: 11-29-2023 take 1 capsule by mouth once daily at bedtime Pregabalin (Lyrica) 100 mg capsule Discontinued 100 MG PO Daily at bedtime July 07, 2023 12:00am November 29, 2023 5:42pm Semaglutide (2 sources) Start: 04-11-2024 End: 07-16-2024 Semaglutide (Ozempic) 0.25 mg or 0.5 mg (2 mg/3 mL) pen injector Discontinued 0.25 MG SUBCUT every week 07 21April 11, 2024 1:00am July 16, 2024 9:51am for 4 weeks semaglutide 3 mg oral tablet (1 source) Start: 07-16-2024 End: 10-08-2024 take 1 tablet by mouth once daily Semaglutide (Rybelsus) 3 mg tablet Discontinued 3 MG PO Daily July 16, 2024 12:00am October 08, 2024 5:36pm tiZANidine 4 mg oral tablet (7 sources) [...] to other specified organisms] Episodic Allergic reactions (8 sources) Allergic reaction; Translations: [Allergy, unspecified, initial encounter] 11-13-2023 Episodic Diabetes mellitus with complications (20 sources) Hyperglycemia due to type 2 diabetes mellitus; Translations: [Type 2 diabetes mellitus with hyperglycemia] Onset: 06-22-2022 Chronic Diabetes mellitus without complication (2 sources) Type 2 diabetes mellitus without complications; Translations: [Type 2 diabetes mellitus without complication] Onset: 04-13-2018 Chronic Disorders of lipid metabolism (20 sources) Mixed hyperlipidemia; Translations: [Mixed hyperlipidemia] Onset: 05-11-2018 Chronic Esophageal disorders (14 sources) Gastro-esophageal reflux disease with esophagitis; Translations: [Gastro-esophageal reflux disease with esophagitis, without bleeding] 06-12-2023 Chronic Essential hypertension (20 sources) Essential hypertension; Translations: [Essential (primary) hypertension] Onset: 06-26-2022 Chronic Fluid and electrolyte disorders (3 sources) Hyponatremia; Translations: [Hypo-osmolality and hyponatremia] 01-05-2024 Episodic Miscellaneous mental health disorders (1 source) Primary insomnia; Translations: [Primary insomnia] Chronic Mood disorders (19 sources) Recurrent major depression in remission; Translations: [Major depressive disorder, recurrent, in partial remission] 07-06-2023 Chronic Nausea and vomiting (11 sources) Nausea and vomiting; Translations: [Nausea with vomiting, unspecified] Episodic Open wounds of extremities (1 source) Laceration without foreign body of left hand, initial encounter Episodic Other aftercare (3 sources) Long-term current use of insulin; Translations: [nurse epidemiologist (current) use of insulin] Episodic Other aftercare (1 source) long-term (current) use of insulin Episodic Other connective [...] Translations: [Diarrhea, unspecified] Episodic Other liver diseases (2 sources) Steatosis of liver; Translations: [Fatty (change of) liver, not elsewhere classified] 11-29-2023 Chronic Other liver diseases (3 sources) Fatty (change of) liver, not elsewhere [...] Chronic Other nutritional; endocrine; and metabolic disorders (9 sources) Obesity; Translations: [Obesity, unspecified] 04-11-2024 Chronic Other nutritional; endocrine; and metabolic disorders (1 source) Body mass index 30+ - obesity; Translations: [Body mass index 36.0-36.9, adult] Onset: 11-29-2016 Chronic Other nutritional; endocrine; and metabolic disorders (2 sources) Obese class I; Translations: [Body mass index 33.0-33.9, adult] Onset: 12-12-2018 Chronic Other nutritional; endocrine; and metabolic disorders (1 source) Morbid obesity; Translations: [Morbid (severe) obesity due to excess calories] Onset: 11-29-2016 Chronic Other nutritional; endocrine; and metabolic disorders (2 sources) H/O: diabetes mellitus; Translations: [Personal history of other endocrine, nutritional and metabolic disease] 04-11-2024 Episodic Other screening for suspected conditions (not mental disorders or infectious disease) (3 sources) Encounter for screening for malignant neoplasm of prostate; Translations: [Screening for malignant neoplasms of prostate] 07-07-2023 Episodic Comment on above: PSA: 0.15 - 06/2024 Other upper respiratory disease (6 sources) Allergic rhinitis due to pollen; Translations: [Allergic rhinitis due to pollen] Chronic Other upper respiratory disease (4 sources) Seasonal allergy; Translations: [Other seasonal allergic [...] Onset: 09-15-2021 Episodic Other aftercare (1 source) long-term (current) use of oral hypoglycemic drugs; Translations: [ALF USE ORAL HYPOGLYCEMIC DX] Onset: 09-17-2021 Episodic [...] Basophils (Bld) [#/Vol] 0.0 10 3/uL 0.0-0.1 [facility] Basophils/100 WBC Auto (Bld) on 11-20-2023 Basophils/100 WBC (Bld) 0.5 % 0.2-2.0 [facility] Eosinophils/100 WBC Auto (Bl d)on 11-20-2023 Eosinophils/100 WBC (Bld) 1.1 % 0.9-7.0 [facility] Erythrocyte distribution wid th Auto (RBC) [Ratio]on 11-20-2023 Erythrocyte distribution width (RBC) [Ratio] 12.1 % 11.0-15.0 [facility] Estimated glomerular filtrat ion rate (GFR) non- Americanon 11-20-2023 GFR/1.73 sq M.predicted among non-blacks MDRD (S/P/Bld) [Vol rate/Area] mL/min/{1.73_m2} >=60 [facility] Globulin Calc (S) [Mass/Vol] on 11-20-2023 Globulin (S) [Mass/Vol] 3.4 g/dL [facility] Hematocrit Auto (Bld) [Volum e fraction]on 11-20-2023 Hematocrit (Bld) [Volume fraction] 44.5 % 42.0-54.0 [facility] Hemoglobin [Mass/volume] in Bloodon 11-20-2023 Hemoglobin (Bld) [Mass/Vol] 16.3 g/dL 14.0-18.0 [facility] INR in Platelet poor plasma by Coagulation assayon 11-20-2023 INR Coag (PPP) [Relative time] 1.02 {INR} [facility] Comment on above: DESIRED INR:2.0-3.0 CONDITIONS NOT LISTED BELOW2.5-3.5 FOR PROSTHETIC HEART VALVE REPLACEMENT2.5-3.5 RECURRENT THROMBOSIS Laboratory - Chemistry and C hemistry - challengeon 11-20-2023 Albumin [Mass/Vol] 4.0 g/dL 3.4-5.0 [facility] ALP [Catalytic activity/Vol] 144 U/L High 46-116 [facility] ALT [Catalytic activity/Vol] 100 U/L High 16-63 [facility] AST [Catalytic activity/Vol] 63 U/L High 15-37 [facility] Bilirubin [Mass/Vol] 1.3 mg/dL High 0.2-1.0 [facility] Calcium [Mass/Vol] 9.0 mg/dL 8.5-10.1 [facility] Chloride [Moles/Vol] 93 mmol/L Low 98-107 [facility] CO2 [Moles/Vol] 22.2 mmol/L 21.0-32.0 [facility] Creatinine [Mass/Vol] 0.97 mg/dL 0.70-1.30 [facility] GFR/1.73 sq M.predicted MDRD (S/P/Bld) [Vol rate/Area] mL/min/{1.73_m2} >=60 [facility] Glucose [Mass/Vol] 276 mg/dL High 74-106 [facility] Potassium [Moles/Vol] 3.8 mmol/L 3.5-5.1 [facility] Protein [Mass/Vol] 7.4 g/dL 6.4-8.2 [facility] Sodium [Moles/Vol] 130 mmol/L Low 136-145 [facility] Urea nitrogen [Mass/Vol] 23.0 mg/dL High 7.0-18.0 [facility] Urea nitrogen/Creatinine [Mass ratio] 23.7 mg/mg [facility] Laboratory - Hematology and Cell countson 11-20-2023 Immature granulocytes/100 WBC (Bld) 0.3 % 0.0-0.5 [facility] Laboratory - Microbiology an d Antimicrobial susceptibilityon 11-20-2023 S. pyogenes Ag Ql (Unsp spec) Negative [facility] Leukocytes [#/volume] correc rebecca for nucleated erythrocytes in Blood by Automated counon 11-20-2023 WBC corrected for nucl RBC Auto (Bld) [#/Vol] 7.9 10 3/uL 4.0-11.0 [facility] Lymphocytes Auto (Bld) [#/Vo l]on 11-20-2023 Lymphocytes (Bld) [#/Vol] 1.4 10 3/uL 1.2-3.8 [facility] Lymphocytes/100 WBC Auto (Bl d)on 11-20-2023 Lymphocytes/100 WBC (Bld) 17.2 % Low 20.5-60.0 [facility] MCH Auto (RBC) [Entitic mass ]on 11-20-2023 MCH (RBC) [Entitic mass] 32.2 pg 25.9-34.0 [facility] MCHC Auto (RBC) [Mass/Vol]on 11-20-2023 MCHC (RBC) [Mass/Vol] 36.6 g/dL High 29.9-35.2 [facility] MCV Auto (RBC) [Entitic vol] on 11-20-2023 MCV (RBC) [Entitic vol] 87.9 fL 80.0-94.0 [facility] Monocytes Auto (Bld) [#/Vol] on 11-20-2023 Monocytes (Bld) [#/Vol] 0.6 10 3/uL 0.3-0.8 [facility] Monocytes/100 WBC Auto (Bld) on 11-20-2023 Monocytes/100 WBC (Bld) 8.0 % 1.7-12.0 [facility] Neutrophils Auto (Bld) [#/Vo l]on 11-20-2023 Neutrophils (Bld) [#/Vol] 5.8 10 3/uL 1.4-6.5 [facility] Neutrophils/100 WBC Auto (Bl d)on 11-20-2023 Neutrophils/100 WBC (Bld) 72.9 % 43.0-75.0 [facility] No Panel Informationon 11-19 Eosinophils # (Auto) 0.1 10 3/uL 0.0-0.7 [facility] Immature Granulocyte # (Auto) 0.02 10 3/uL 0.00-0.03 [facility] Platelet mean volume Auto (B ld) [Entitic vol]on 11-20-2023 Platelet mean volume (Bld) [Entitic vol] 10.8 fL 9.5-13.5 [facility] Platelets Auto (Bld) [#/Vol] on 11-20-2023 Platelets (Bld) [#/Vol] 164 10 3/uL 150-450 [facility] Prothrombin time (PT)on 10-23 PT Coag (PPP) [Time] 10.8 s 9.0-11.6 [facility] RBC Auto (Bld) [#/Vol]on RBC (Bld) [#/Vol] 5.06 10 6/uL 4.70-6.10 [facility] Serum or plasma albumin/glob ulin mass ratioon 11-20-2023 Albumin/Globulin [Mass ratio] 1.2 {ratio} [facility] Serum or plasma anion gap de terminationon 11-20-2023 Anion gap [Moles/Vol] 18.6 mmol/L [facility] POINT OF CARE GLUCOSEon Glucose [Mass/Vol] 254 mg/dL Critically high 74-106 T [facility] Comment on above: Performed By: #### P OCGLUC #### [facility] [address] [address] [address] Jose Cruz Balderas POINT OF CARE GLUCOSEon 07-24 Glucose [Mass/Vol] 241 mg/dL Critically high 74-106 [facility] Comment on above: Performed By: #### P OCGLUC #### [facility] [address] [address] [address] Jose Cruz Balderas POINT OF CARE GLUCOSEon 06-23 Glucose [Mass/Vol] 204 mg/dL Critically high 74-106 [facility] Comment on above: Performed By: #### P OCGLUC #### [facility] [address] [address] [address] Jose Cruz Balderas GLYCOHEMOGLOBIN A1Con 2022 ADA RECOMMENDATION SEE BELOW Normal [facility] Comment on above: Result Comment: ADA RECOMMENDED LIMIT 4.0 - 6.0 ADA THERAPEUTIC TARGET < 7.0 ACTION SUGGESTED > 7.0 Performed By: #### P OCGLUC #### [facility] [address] [place] [address] Dr. Jose Cruz Balderas Glucose [Mass/Vol] 134 mg/dL Normal [facility] Comment on above: Performed By: #### P OCGLUC #### [facility] [address] [address] [address] Jose Cruz Balderas HbA1c (Bld) [Mass fraction] 6.3 % Critically high 4.5-6.2 [facility] Comment on above: Performed By: #### P OCGLUC #### [facility] [address] [place] [address] Dr. Jose Cruz Balderas PROF 14(COMP METB)on 023 Albumin [Mass/Vol] 4.5 g/dL Normal 3.4-5.0 [facility] Comment on above: Performed By: #### C MP #### [facility] [address] [place] [address] Dr. Jose Cruz Balderas Albumin/Globulin [Mass ratio] 1.3 {ratio} Normal [facility] Comment on above: Performed By: #### C MP #### [facility] [address] [address] [address] Jose Cruz Balderas ALP [Catalytic activity/Vol] 93 U/L Normal 46-116 [facility] Comment on above: Performed By: #### C MP #### [facility] [address] [address] [address] Jose Cruz Balderas ALT [Catalytic activity/Vol] 41 U/L Normal 16-63 [facility] Comment on above: Performed By: #### C MP #### [facility] [address] [address] [address] Jose Cruz Balderas Anion gap [Moles/Vol] 12.0 mmol/L Normal Th [facility] Comment on above: Performed By: #### C MP #### [facility] [address] [address] [address] Jose Cruz Balderas AST [Catalytic activity/Vol] 21 U/L Normal 15-37 [facility] Comment on above: Performed By: #### C MP #### [facility] [address] [address] [address] Jose Cruz Balderas Bilirubin [Mass/Vol] 0.8 mg/dL Normal 0.2-1.0 [facility] Comment on above: Performed By: #### C MP #### [facility] [address] [address] [address] Jose Cruz Balderas Calcium [Mass/Vol] 9.3 mg/dL Normal 8.5-10.1 [facility] Comment on above: Performed By: #### C MP #### [facility] [address] [address] [address] Jose Cruz Balderas Chloride [Moles/Vol] 105 mmol/L Normal 98-107 [facility] Comment on above: Performed By: #### C MP #### [facility] [address] [address] [address] Jose Cruz Balderas CO2 [Moles/Vol] 26.7 mmol/L Normal 21.0-32.0 [facility] Comment on above: Performed By: #### C MP #### [facility] [address] [address] [address] Jose Cruz Balderas Creatinine [Mass/Vol] 0.82 mg/dL Normal 0.70-1.30 [facility] Comment on above: Performed By: #### C MP #### [facility] [address] [address] [address] Jose Cruz Balderas EGFR-AF PANAMANIAN >60 Normal >=60 [facility] Comment on above: Performed By: #### C MP #### [facility] [address] [address] [address] Jose Cruz Balderas EGFR-NON AF PANAMANIAN >60 Normal >=60 [facility] Comment on above: Performed By: #### C MP #### [facility] [address] [address] [address] Jose Cruz Balderas Globulin (S) [Mass/Vol] 3.5 g/dL Normal [facility] Comment on above: Performed By: #### C MP #### [facility] [address] [address] [address] Jose Cruz Balderas Glucose [Mass/Vol] 180 mg/dL Critically high 74-106 [facility] Comment on above: Performed By: #### C MP #### [facility] [address] [address] [address] Jose Cruz Balderas Potassium [Moles/Vol] 3.7 mmol/L Normal 3.5-5.1 [facility] Comment on above: Performed By: #### C MP #### [facility] [address] [address] [address] Jose Cruz Balderas Protein [Mass/Vol] 8.0 g/dL Normal 6.4-8.2 [facility] Comment on above: Performed By: #### C MP #### [facility] [address] [address] [address] Jose Cruz Balderas Sodium [Moles/Vol] 140 mmol/L Normal 136-145 [facility] Comment on above: Performed By: #### C MP #### [facility] [address] [address] [address] Jose Cruz Balderas Urea nitrogen [Mass/Vol] 19.0 mg/dL Critically high 7.0-18.0 [facility] Comment on above: Performed By: #### C MP #### [facility] [address] [place] [address] Dr. Jose Cruz Balderas Urea nitrogen/Creatinine [Mass ratio] 23.2 mg/mg Normal [facility] Comment on above: Performed By: #### C MP #### [facility] [address] [address] [address] Jose Cruz Balderas POINT OF CARE GLUCOSEon 05-26 Glucose [Mass/Vol] 174 mg/dL Critically high 74-106 T [facility] Comment on above: Performed By: #### P OCGLUC #### [facility] [address] [address] [address] Jose Cruz Balderas XR SHOULDER RT [...] BEATRIZ MITCHELL Date: 2022-04-26 15:27 Normal [facility] CBC AUTO DIFFon 04-21-2022 BASO # 0.0 103/ul Normal 0.0-0.1 [facility] Comment on above: Performed By: #### P OCGLUC #### [facility] [address] [place] [address] Dr. Jose Cruz Balderas Basophils/100 WBC (Bld) 0.8 % Normal 0.2-2.0 [facility] Comment on above: Performed By: #### P OCGLUC #### [facility] [address] [place] [address] Dr. Jose Cruz Balderas EO # 0.1 103/ul Normal 0.0-0.7 [facility] Comment on above: Performed By: #### P OCGLUC #### [facility] [address] [place] [address] Dr. Jose Cruz Balderas Eosinophils/100 WBC (Bld) 2.3 % Normal 0.9-7.0 [facility] Comment on above: Performed By: #### P OCGLUC #### [facility] [address] [place] [address] Dr. Jose Cruz Balderas Erythrocyte distribution width (RBC) [Ratio] 12.8 % Normal 11.0-15.0 [facility] Comment on above: Performed By: #### P OCGLUC #### [facility] [address] [place] [address] Dr. Jose Cruz Balderas Hematocrit (Bld) [Volume fraction] 47.2 % Normal 42.0-54.0 [facility] Comment on above: Performed By: #### P OCGLUC #### [facility] [address] [place] [address] Dr. Jose Cruz Balderas Hemoglobin (Bld) [Mass/Vol] 16.4 g/dL Normal 14.0-18.0 [facility] Comment on above: Performed By: #### P OCGLUC #### [facility] [address] [place] [address] Dr. Jose Cruz Balderas IG # 0.01 10e3/ul Normal 0.00-0.03 [facility] [place] Comment on above: Performed By: #### P OCGLUC #### [facility] [address] [place] [address] Dr. Jose Cruz Balderas IG % 0.2 % Normal 0.0-0.5 [facility] [place] Comment on above: Performed By: #### P OCGLUC #### [facility] [address] [place] [address] Dr. Jose Cruz Balderas LYMPH # 1.3 103/ul Normal 1.2-3.8 [facility] [place] Comment on above: Performed By: #### P OCGLUC #### [facility] [address] [place] [address] Dr. Jose Cruz Balderas Lymphocytes/100 WBC (Bld) 25.6 % Normal 20.5-60.0 [facility] [place] Comment on above: Performed By: #### P OCGLUC #### [facility] [address] [place] [address] Dr. Jose Cruz Balderas MANUAL DIFF REQ NO Normal [facility] Comment on above: Performed By: #### P OCGLUC #### [facility] [address] [place] [address] Dr. Jose Cruz Balderas MCH (RBC) [Entitic mass] 30.7 pg Normal 25.9-34.0 [facility] [place] Comment on above: Performed By: #### P OCGLUC #### [facility] [address] [place] [address] Dr. Jose Cruz Balderas MCHC (RBC) [Mass/Vol] 34.7 g/dL Normal 29.9-35.2 [facility] [place] Comment on above: Performed By: #### P OCGLUC #### [facility] [address] [place] [address] Dr. Jose Cruz Balderas MCV (RBC) [Entitic vol] 88.4 fL Normal 80.0-94.0 [facility] [place] Comment on above: Performed By: #### P OCGLUC #### [facility] [address] [place] [address] Dr. Jose Cruz Balderas MONO # 0.5 103/ul Normal 0.3-0.8 [facility] [place] Comment on above: Performed By: #### P OCGLUC #### [facility] [address] [place] [address] Dr. Jose Cruz Balderas Monocytes/100 WBC (Bld) 8.7 % Normal 1.7-12.0 [facility] [place] Comment on above: Performed By: #### P OCGLUC #### [facility] [address] [place] [address] Dr. Jose Cruz Balderas NEUT # 3.2 103/ul Normal 1.4-6.5 [facility] [place] Comment on above: Performed By: #### P OCGLUC #### [facility] [address] [address] [address] Jose Cruz Balderas Neutrophils/100 WBC (Bld) 62.4 % Normal 43.0-75.0 [facility] [place] Comment on above: Performed By: #### P OCGLUC #### [facility] [address] [address] [address] Jose Cruz Balderas Platelet mean volume (Bld) [Entitic vol] 10.9 fL Normal 9.5-13.5 [facility] [place] Comment on above: Performed By: #### P OCGLUC #### [facility] [address] [address] [address] Jose Cruz Balderas PLT 159 103/ul Normal 150-450 [facility] [place] Comment on above: Performed By: #### P OCGLUC #### [facility] [address] [address] [address] Jose Cruz Balderas RBC 5.34 106/ul Normal 4.70-6.10 [facility] [place] Comment on above: Performed By: #### P OCGLUC #### [facility] [address] [address] [address] Jose Cruz Balderas WBC 5.2 103/ul Normal 4.0-11.0 [facility] [place] Comment on above: Performed By: #### P OCGLUC #### [facility] [address] [address] [address] Jose Cruz Balderas GLYCOHEMOGLOBIN A1Con 2021 ADA RECOMMENDATION SEE BELOW Normal [facility] Comment on above: Result Comment: ADA RECOMMENDED LIMIT 4.0 - 6.0 ADA THERAPEUTIC TARGET < 7.0 ACTION SUGGESTED > 7.0 Performed By: #### P OCGLUC #### [facility] [address] [address] [address] Jose Cruz Balderas Glucose [Mass/Vol] 163 mg/dL Normal [facility] Comment on above: Performed By: #### P OCGLUC #### [facility] [address] [address] [address] Jose Cruz Balderas HbA1c (Bld) [Mass fraction] 7.3 % Critically high 4.5-6.2 [facility] [place] Comment on above: Performed By: #### P OCGLUC #### [facility] [address] [address] [address] Jose Cruz Balderas LIPID PROFILEon 04-21-2022 CHOL-HDL RATIO NORM SEE BELOW Normal [facility] Comment on above: Result Comment: 3.3 - 4.4 LOW RISK 4.4 - 7.1 AVERAGE RISK 7.1 - 11.0 MODERATE RISK >11.0 HIGH RISK Performed By: #### L IPID, CMP #### [facility] [address] [address] [address] Jose Cruz Balderas Cholesterol [Mass/Vol] 197 mg/dL Normal <=200 [facility] Comment on above: Performed By: #### L IPID, CMP #### [facility] [address] [address] [address] Jose Cruz Balderas Cholesterol in HDL [Mass/Vol] 49 mg/dL Normal 40-60 [facility] [place] Comment on above: Performed By: #### L IPID, CMP #### [facility] [address] [address] [address] Jose Cruz Balderas Cholesterol in LDL [Mass/Vol] 109.4 mg/dL Normal [facility] [place] Comment on above: Performed By: #### L IPID, CMP #### [facility] [address] [place], [place] [address] Dr. Jose Cruz Balderas Cholesterol.total/Chol esterol in HDL [Mass ratio] 4.0 {ratio} Normal [facility] [place] Comment on above: Performed By: #### L IPID, CMP #### [facility] [address] [place], [place] [address] Dr. Jose Cruz Balderas HDL NORMAL > or = 60 mg/dl - LOW CARDIOVASCULAR RISK <40 mg/dl - HIGH CARDIOVASCULAR RISK Normal [facility] [place] Comment on above: Performed By: #### L IPID, CMP #### [facility] [address] [address] [address] Jose Cruz Balderas LDL CALC NORMAL SEE BELOW Normal [facility] Comment on above: Result Comment: <100 mg/dl OPTIMAL 100 - 129 mg/dl NEAR OR ABOVE OPTIMAL 130 - 159 mg/dl BORDERLINE HIGH 160 - 189 mg/dl HIGH >190 mg/dl VERY HIGH Performed By: #### L IPID, CMP #### [facility] [address] [place] [address] Dr. Jose Cruz Balderas Triglyceride [Mass/Vol] 193 mg/dL Critically high <=150 [facility] [place] Comment on above: Performed By: #### L IPID, CMP #### [facility] [address] [address] [address] Jose Cruz Balderas VLDL CALC 38.6 mg/dL Normal [facility] [place] Comment on above: Performed By: #### L IPID, CMP #### [facility] [address] [place] [address] Dr. Jose Cruz Balderas MICROALBUMIN, RAND URon 12-2 mALB 1.4 mg/L Normal <=30.0 [facility] [place] Comment on above: Performed By: #### M ALBR #### [facility] [address] [place] [address] Dr. Jose Cruz Balderas PROF 14(COMP METB)on 022 Albumin [Mass/Vol] 4.3 g/dL Normal 3.4-5.0 [facility] Comment on above: Performed By: #### L IPID, CMP #### [facility] [address] [place] [address] Dr. Jose Cruz Balderas Albumin/Globulin [Mass ratio] 1.2 {ratio} Normal [facility] [place] Comment on above: Performed By: #### L IPID, CMP #### [facility] [address] [place] [address] Dr. Jose Cruz Balderas ALP [Catalytic activity/Vol] 94 U/L Normal 46-116 [facility] Comment on above: Performed By: #### L IPID, CMP #### [facility] [address] [place] [address] Dr. Jose Cruz Balderas ALT [Catalytic activity/Vol] 135 U/L Critically high 16-63 [facility] [place] Comment on above: Performed By: #### L IPID, CMP #### [facility] [address] [address] [address] Jose Cruz Balderas Anion gap [Moles/Vol] 11.7 mmol/L Normal Th [facility] Comment on above: Performed By: #### L IPID, CMP #### [facility] [address] [address] [address] Jose Cruz Balderas AST [Catalytic activity/Vol] 105 U/L Critically high 15-37 [facility] [place] Comment on above: Performed By: #### L IPID, CMP #### [facility] [address] [address] [address] Jose Cruz Balderas Bilirubin [Mass/Vol] 0.8 mg/dL Normal 0.2-1.0 [facility] [place] Comment on above: Performed By: #### L IPID, CMP #### [facility] [address] [place] [address] Dr. Jose Cruz Balderas Calcium [Mass/Vol] 9.3 mg/dL Normal 8.5-10.1 [facility] Comment on above: Performed By: #### L IPID, CMP #### [facility] [address] [address] [address] Jose Cruz Balderas Chloride [Moles/Vol] 101 mmol/L Normal 98-107 [facility] [place] Comment on above: Performed By: #### L IPID, CMP #### [facility] [address] [place] [address] Dr. Jose Cruz Bladeras CO2 [Moles/Vol] 32.8 mmol/L Critically high 21.0-32.0 [facility] [place] Comment on above: Performed By: #### L IPID, CMP #### [facility] [address] [address] [address] Jose Cruz Balderas Creatinine [Mass/Vol] 1.09 mg/dL Normal 0.70-1.30 [facility] [place] Comment on above: Performed By: #### L IPID, CMP #### [facility] [address] [place] [address] Dr. Jose Cruz Balderas EGFR-AF PANAMANIAN >60 Normal >=60 [facility] Comment on above: Performed By: #### L IPID, CMP #### [facility] [address] [address] [address] Jose Cruz Balderas EGFR-NON AF PANAMANIAN >60 Normal >=60 [facility] [place] Comment on above: Performed By: #### L IPID, CMP #### [facility] [address] [address] [address] Jose Cruz Balderas Globulin (S) [Mass/Vol] 3.6 g/dL Normal [facility] [place] Comment on above: Performed By: #### L IPID, CMP #### [facility] [address] [address] [address] Jose Cruz Balderas Glucose [Mass/Vol] 174 mg/dL Critically high 74-106 [facility] Comment on above: Performed By: #### L IPID, CMP #### [facility] [address] [place] [address] Dr. Jose Cruz Balderas Potassium [Moles/Vol] 4.5 mmol/L Normal 3.5-5.1 [facility] [place] Comment on above: Performed By: #### L IPID, CMP #### [facility] [address] [address] [address] Jose Cruz Balderas Protein [Mass/Vol] 7.9 g/dL Normal 6.4-8.2 [facility] Comment on above: Performed By: #### L IPID, CMP #### [facility] [address] [address] [address] Jose Cruz Balderas Sodium [Moles/Vol] 141 mmol/L Normal 136-145 [facility] Comment on above: Performed By: #### L IPID, CMP #### [facility] [address] [address] [address] Jose Cruz Balderas Urea nitrogen [Mass/Vol] 14.0 mg/dL Normal 7.0-18.0 [facility] [place] Comment on above: Performed By: #### L IPID, CMP #### [facility] [address] [place] [address] Dr. Jose Cruz Balderas Urea nitrogen/Creatinine [Mass ratio] 12.8 mg/mg Normal [facility] [place] Comment on above: Performed By: #### L IPID, CMP #### [facility] [address] [address] [address] Jose Cruz Balderas POINT OF CARE GLUCOSEon 08-23 Glucose [Mass/Vol] 240 mg/dL Critically high 74-106 [facility] Comment on above: Performed By: #### P OCGLUC #### [facility] [address] [address] [address] Jose Cruz Balderas XR FINGER MIN 2 VIEWSon 08-23 XR FINGER MIN 2 VIEWS EXAM: XR FINGER ID N 2 VIEWS HISTORY: Laceration of finger [...] by: SERGE TAN Date: 2021-09-15 19:17 Normal [facility] [place] Pathology Noteon 07-09-2021 Pathology Note [id number]#1.00CD:127 Normal [facility] Outside Colonoscopyon 2021 Outside Colonoscopy [id number] [id number]#1.00CD:127 Normal [facility] Lab Reportson 07-06-2021 Lab Reports [id number] FC#1.00CD:127 Normal [facility] Consent for Procedure/Surger yon 06-24-2021 Consent for Procedure/Surgery [id number] [id number]#1.00CD:127 Normal [facility] Ambulatory Visit Summaryon 0 06-23-2021 Ambulatory Visit Summary MOI OROURKE :1975 Visit Date:06/23/2021 Ambulatory Visit Instructions Your Diagnosis Nausea Dyspepsia, Abdominal pain, epigastric Change in bowel habits Abdominal pain, RLQ Frequent loose stools Your Care Team Attending Physician - NILL MD, Luc Martinez Primary Care Physician - AGUILA [...] no longer receiving treatment for. Hypertension Normal [facility] Physician Referralon 022 Physician Referral [id number]#1.00CD:127 Normal [facility] Physician Referralon 022 Physician Referral [id number] FC#1.00CD:127 Normal [facility] Vital Signs Date Time Vital Sign Value Performing Clinician Facility 10-24-2024 11:53-0400 Body height 187.96 cm Aguila Ball DO Work Phone: [facility] 10-24-2024 11:53-0400 Body mass index (BMI) [Ratio] 32.3 kg/m2 Aguila Ball DO Work Phone: [facility] 10-24-2024 11:53-0400 Body weight 114.07 kg Aguila Ball DO Work Phone: [facility] 10-24-2024 11:53-0400 Diastolic blood pressure 84 mm[Hg] Aguila Ball DO Work Phone: [facility] 10-24-2024 11:53-0400 Heart rate 63 /min Aguila Ball DO Work Phone: [facility] 10-24-2024 11:53-0400 Respiratory rate 12 /min Aguila Ball DO Work Phone: [facility] 10-24-2024 11:53-0400 Systolic blood pressure 123 mm[Hg] Aguila Ball DO Work Phone: [facility] 07-16-2024 09:53-0400 Body height 187.96 cm [facility] 07-16-2024 09:53-0400 Body mass index (BMI) [Ratio] 30 kg/m2 [facility] 07-16-2024 09:53-0400 Body weight 106.19 kg [facility] 07-16-2024 09:53-0400 Diastolic blood pressure 77 mm[Hg] [facility] 07-16-2024 09:53-0400 Heart rate 92 /min [facility] 07-16-2024 09:53-0400 Respiratory rate 12 /min [facility] 07-16-2024 09:53-0400 Systolic blood pressure 114 mm[Hg] [facility] 01-05-2024 09:09-0400 Body height 187.96 cm [facility] 01-05-2024 09:09-0400 Body mass index (BMI) [Ratio] 31.4 kg/m2 [facility] 01-05-2024 09:09-0400 Body weight 111.18 kg [facility] 01-05-2024 09:09-0400 Diastolic blood pressure 78 mm[Hg] [facility] 01-05-2024 09:09-0400 Heart rate 76 /min [facility] 01-05-2024 09:09-0400 Respiratory rate 12 /min [facility] 01-05-2024 09:09-0400 Systolic blood pressure 118 mm[Hg] [facility] 11-29-2023 16:02-0400 Body height 187.96 cm [facility] 11-29-2023 16:02-0400 Body mass index (BMI) [Ratio] 29.9 kg/m2 [facility] 11-29-2023 16:02-0400 Body weight 105.68 kg [facility] 11-29-2023 16:02-0400 Diastolic blood pressure 74 mm[Hg] [facility] 11-29-2023 16:02-0400 Heart rate 68 /min [facility] 11-29-2023 16:02-0400 Respiratory rate 12 /min [facility] 11-29-2023 16:02-0400 Systolic blood pressure 117 mm[Hg] [facility] 11-13-2023 14:05-0400 Body height 187.96 cm [facility] 11-13-2023 14:05-0400 Body mass index (BMI) [Ratio] 30 kg/m2 [facility] 11-13-2023 14:05-0400 Body weight 106.14 kg [facility] 11-13-2023 14:05-0400 Diastolic blood pressure 72 mm[Hg] [facility] 11-13-2023 14:05-0400 Heart rate 83 /min [facility] 11-13-2023 14:05-0400 SaO2% (BldA) [Mass fraction] 97 % [facility] 11-13-2023 14:05-0400 Systolic blood pressure 120 mm[Hg] [facility] 07-07-2023 09:53-0400 Body height 187.96 cm [facility] 07-07-2023 09:53-0400 Body mass index (BMI) [Ratio] 31.6 kg/m2 [facility] 07-07-2023 09:53-0400 Body weight 111.58 kg [facility] 07-07-2023 09:53-0400 Diastolic blood pressure 84 mm[Hg] [facility] 07-07-2023 09:53-0400 Heart rate 75 /min [facility] 07-07-2023 09:53-0400 Respiratory rate 12 /min [facility] 07-07-2023 09:53-0400 Systolic blood pressure 131 mm[Hg] [facility] 06-20-2022 15:00-0500 Body height 187.96 cm Aguila Ball Other [facility] Other 06-20-2022 15:00-0500 Body mass index (BMI) [Ratio] 33.74 kg/m2 Aguila Ball Other [facility] Other 06-20-2022 15:00-0500 Body weight 119.21 kg Aguila Ball Other [facility] Other 06-20-2022 15:00-0500 Diastolic blood pressure 70 mm[Hg] Aguila Ball Other [facility] Other 06-20-2022 15:00-0500 Respiratory rate 12 /min Aguila Ball Other [facility] Other 06-20-2022 15:00-0500 Systolic blood pressure 108 mm[Hg] Aguila Ball Other [facility] Other 05-10-2022 11:15-0500 Body height 187.96 cm Aguila Ball Other [facility] Other 05-10-2022 11:15-0500 Body mass index (BMI) [Ratio] 33.79 kg/m2 Aguila Ball Other [facility] Other 05-10-2022 11:15-0500 Body weight 119.39 kg Aguila Ball Other [facility] Other 05-10-2022 11:15-0500 Diastolic blood pressure 70 mm[Hg] Aguila Ball Other [facility] Other 05-10-2022 11:15-0500 Respiratory rate 12 /min Aguila Ball Other [facility] Other 05-10-2022 11:15-0500 Systolic blood pressure 118 mm[Hg] Aguila Ball Other [facility] Other Encounters Encounter Date Encounter Type Care Provider Facility Start: 10-24-2024 End: 10-24-2024 ambulatory Aguila Ponce DO Work Phone: [facility] Work Phone: Start: 10-24-2024 End: 10-24-2024 Patient encounter procedure Aguila Ponce DO -[facility] Work Phone: Start: 07-16-2024 End: 07-16-2024 ambulatory [facility] Work Phone: Start: 07-16-2024 End: 07-16-2024 Encounter for general adult medical examination without abnormal findings [facility] Start: 07-16-2024 End: 07-16-2024 Patient encounter procedure [facility] Work Phone: Start: 01-05-2024 End: 01-05-2024 ambulatory [facility] Work Phone: Start: 01-05-2024 End: 01-05-2024 Patient encounter procedure [facility] Work Phone: Start: 11-29-2023 End: 11-29-2023 ambulatory [facility] Work Phone: Start: 11-29-2023 End: 11-29-2023 Patient encounter procedure [facility] Work Phone: Start: 11-20-2023 Non-patient / Non-visit [facility] Work Phone: Start: 11-13-2023 End: 11-13-2023 ambulatory [facility] Work Phone: Start: 11-13-2023 End: 11-13-2023 Patient encounter procedure [facility] Work Phone: Start: 07-07-2023 End: 07-07-2023 ambulatory [facility] Work Phone: Start: 07-07-2023 End: 07-07-2023 Encounter for general adult medical examination without abnormal findings [facility] Start: 07-07-2023 End: 07-07-2023 Patient encounter procedure [facility] Work Phone: Start: 06-20-2023 Non-patient / Non-visit [facility] Work Phone: Start: 06-12-2023 Non-patient / Non-visit [facility] Work Phone: Start: 02-03-2023 End: 02-03-2023 ambulatory Aguila rKis Other [place] [facility] Other Start: 02-03-2023 Telephone encounter Aguila Ponce [facility] Start: 11-08-2022 End: 11-08-2022 ambulatory [facility] Facility:[facility] Start: 10-21-2022 End: 10-21-2022 ambulatory Aguila Ponce Other [facility] Other Start: 10-21-2022 Telephone encounter Aguila Ponce [facility] Start: 10-21-2022 End: 10-21-2022 ambulatory [facility] Facility:[facility] Start: 09-22-2022 ambulatory NARENDRANATH LAKSHMIPATHY . Facility:[facility] Start: 08-23-2022 End: 08-23-2022 ambulatory NARENDRANATH LAKSHMIPATHY . Facility:[facility] Start: 08-16-2022 End: 08-16-2022 ambulatory NARENDRANATH LAKSHMIPATHY . Facility:[facility] Start: 08-15-2022 End: 08-15-2022 ambulatory Aguila Ponce Other [facility] Other Start: 08-15-2022 Telephone encounter Aguila Ponce [facility] Start: 07-28-2022 End: 07-29-2022 ambulatory NARENDRANATH LAKSHMIPATHY . Facility:[facility] Start: 07-12-2022 End: 07-12-2022 ambulatory NARENDRANATH LAKSHMIPATHY . Facility:[facility] Start: 07-07-2022 End: 07-08-[address] AGUILA PONCE Facility:[facility] Start: 06-22-2022 End: 06-23-[address] AGUILA PONCE Facility:[facility] Start: 06-21-2022 Telephone encounter Aguila LANDRUM [facility] Start: 06-21-2022 End: 06-21-[address] AGUILA PONCE [facility] Other Start: 06-20-2022 End: 06-20-2022 ambulatory Aguila Ponce Other [facility] Other Start: 06-20-2022 Encounter for other preprocedural examination Aguila Ponce [facility] Start: 06-20-2022 Office outpatient vi sit 25 minutes Aguila Ponce [facility] Start: 05-26-2022 End: 05-27-[address] AGUILA PONCE Facility:[facility] Start: 05-10-2022 End: 05-10-2022 ambulatory Aguila Ponce Other [facility] Other Start: 05-10-2022 Office outpatient vi sit 15 minutes Aguila Ponce [facility] Start: 04-28-2022 End: 06-01-[address] AGUILA PONCE Facility:[facility] Start: 04-26-2022 Telephone encounter Aguila Ponce [facility] Start: 04-26-2022 End: 04-26-[address] AGUILA PONCE [place] [facility] Other Start: 04-23-2022 Encounter for genera l adult medical examination without abnormal findings DR AGUILA PONCE [facility] Start: 04-21-2022 End: 04-22-[address] AGUILA PONCE Facility:[facility] Start: 04-21-2022 End: 04-22-2022 Encounter for general adult medical examination without abnormal findings DR AGUILA PONCE Facility:[facility] Start: 03-31-2022 Adult health examination Aguila Ponce Other [facility] Other Start: 11-04-2021 End: 11-04-[address] [...] the presence orabsence of malignant disease.Performed at: [address] [id number] Director: Zach Lucia PhD, Phone: [phone] Start: 04-04-2018 General examination of patient Aguila Ponce Other End: 06-16-2021 Laboratory test result abnormal Aguila Ponce Other Plan of Treatment Date Care Activity Detail Author Comprehensive metabo lic 1999 panel - Serum or Plasma [facility] enter Comprehensive metabo lic 1999 panel - Serum or Plasma [facility] enter [facility] Immunizations Immunization Date Immunization Notes Care Provider Fa cili 09-15-2021 diphtheria, tetanus toxoids and pertussis vaccine Aguila Ponce Other [facility] 02-12-2021 COVID-19 Vaccine Mod sheri - Documentation Purposes Only Aguila Ponce Other [facility] 07-03-2020 COVID-19 Vaccine Jl ssen - Documentation Purposes Only Aguila Ponce Other [facility] Payers Date P[facility] Category [id number] 2019 Unknown [id number] 1975 Unknown [id number] 1975 Unknown [id number] 1975 Unknown [id number] 1975 Unknown [id number] 1975 Unknown [id number] 1975 Unknown [id number] 1975 Unknown [id number] 1975 Unknown [id number] 1975 Unknown [id number] 1975 Unknown [id number] [id number] 1975 Unknown [id number] [id number] 1973 Unknown [id number] 2.16.840.1.914599.3.579.2.593 1973 Unknown [id number] 2.16.840.1.188826.3.579.2.593 1973 Unknown [id number] 2.16.840.1.722574.3.579.2.593 1973 Unknown [id number] 2.16.840.1.628207.3.579.2.593 1973 Unknown [id number] 2.16.840.1.884850.3.579.2.593 1975 Unknown [id number] 2.16.840.1.193717.3.579.2.718 1975 Unknown [id number] [id number] Private Health Insurance [id number] [id number] Unknown O [employer] [id number] Social History Date Type Detail Facility Sex Assigned At [facility] Other Start: 06-12-2023 Tobacco smoking stat [facility] Unknown if ever smoked [facility] Start: 1975 Sex Assigned At Male [facility] Start: [facility] Start: 07-16-2024 Sex Male (finding) [facility] Medical Equipment Procedure Code Equipment Code Equipment Origin al Text Equipment Identifier Dates Sure-Fine Pen [place] 31G X 5 MM Blood Sugar Diagnostic [...] needle Start: 06-12-2023 Clinical Notes 06-23-2021 to 07-16-2024 Note Date & Type Note Facility 07-16-2024 Evaluation note Diagnosis Onset Date Resolution Depression, major, recurrent, in partial remission acute July 16, 2024 9:45am Gastroesophageal reflux disease with esophagitis without hemorrhage acute July 16 025 9:45am Hyperlipidemia, mixed acute Jun 9:45am Type 2 diabetes mellitus with hyperglycemia acute July 16 025 9:45am Screening PSA (prostate specific antigen) noneactive July 16 9:45am Wellness examination noneactive 2024 9:45am [facility] Work Phone: [phone] 562-802110-13-2023 Evaluation note* Encounter Date Diagnosis Assessment Notes Treatment Notes Treatment Clinical Notes Jan, Type 2 diabetes mellitus with hyperglycemia (ICD-10 - E11.65) [facility] Other 06-30-2023 Evaluation note* Encounter Date Diagnosis Assessment Notes Treatment Notes Treatment Clinical Notes Sep, Essential (primary) hypertension (ICD-10 - I10) [facility] Other 04-24-2023 Evaluation note* Encounter Date Diagnosis Assessment Notes Treatment Notes Treatment Clinical Notes Jul, Type 2 diabetes mellitus with hyperglycemia (ICD-10 - E11.65) Jul, long-term (current) use of insulin (ICD-10 - Z79.4) [facility] Other 04-06-2023 NoteCONSULTATION CONSULTATION DATE: 07/28/2022 TO: [...] our patients to inform us about any [id number] medications or herbal remedies/nutritional supplements/alternative remedies. 2. [...] treatment options with their primary care provider.[id number] Note CONSULTATION CONSULTATION DATE: 07/07/2022 HISTORY: This [...] followed up in the clinic post procedure.[id number] Evaluation note* Encounter Date Diagnosis Assessment Notes Treatment Notes Treatment Clinical Notes May, Elevated transaminase level (ICD-10 - R74.01) May, Essential (primary) hypertension (ICD-10 - I10) May, Controlled type 2 diabetes mellitus with hyperglycemia, without long-term current use of insulin (ICD-10 - E11.65) [facility] Other 02-27-2023 Evaluation note* Encounter Date Diagnosis [...] (ICD-10 - E78.2) Healthy diet and exercise. [facility] Other 02-02-2023 NoteCONSULTATION CONSULTATION DATE: 05/26/2022 HISTORY [...] be followed up in the office thereafter.[facility] 05-10-2022 Evaluation note* Encounter Date Diagnosis [...] soap and water. UTD w/ tetanus booster [facility] Other 01-03-2023 Evaluation note* Encounter Date Diagnosis Assessment Notes Treatment Notes Treatment Clinical Notes Apr, Other chronic pain (ICD-10 - G89.29) Apr, Low back pain, unspecified (ICD-10 - M54.50) [facility] Other 03-02-2022 NoteChief Complaint consultation for screening [...] tab(s), Oral, Da (more content not included)... 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 [facility] Work Phone: Evaluation note* Diagnosis Onset Date Resolution Status Allergic reaction acute [facility] Work Phone: Evaluation note* Diagnosis Onset Date Resolution Status Allergic reaction acute Seasonal allergies acute Depression, major, recurrent, in partial remission acute Essential (primary) hypertension acute Gastroesophageal reflux dise ase with esophagitis without hemorrhage acute Hyperlipidemia, mixed acute Type 2 diabetes mellitus with hyperglycemia acute [facility] Work Phone: Evaluation note* Diagnosis Onset Date Resolution Status Allergic reaction acute Seasonal allergies acute Depression, major, recurrent, in partial remission acute Essential (primary) hypertension acute Gastroesophageal reflux dise ase with esophagitis without hemorrhage acute Hyperlipidemia, mixed acute [id number] acute Type 2 diabetes mellitus with hyperglycemia acute Gastroesophageal reflux dise ase with esophagitis without hemorrhage acute [id number] acute Type 2 diabetes mellitus with hyperglycemia acute [facility] Work Phone: Evaluation note* Diagnosis Onset Date Resolution Status Admit Date Depression, major, recurrent , in partial remission acute October 24, 2024 11:43am Gastroesophageal reflux dise ase with esophagitis without hemorrhage acute October 24, 2024 1 1:43am Hyperlipidemia, mixed acute Oct 11:43am Obesity acute October 24, 2024 11:43am Type 2 diabetes mellitus wit h hyperglycemia acute October 24, 2024 1 1:43am [facility] Work Phone: History general Narrative - Reported* [...] Debridement SLAP Lesion Surgical History Subacromion Decompression [facility] Other History general Narrative - Reported* Type [...] Subacromion Decompression Hospitalization History see surgical history [facility] Other Reason for referral (narrative)No reason for referral information available[facility] Work Phone: Summary Purpose Family History No Family History Records FoundNo Family History Records FoundNo Family History Records Found Advance Directives Advance Directive Response Recorded Date/ Time Advance Directives No May 29, 2023 3:54pm Reason for Referral Reason 05/26/22 Patient morteza juan referred for treatment of low back pain. Diagnosis 1 Osteoarthritis of sp ine with radiculopathy, lumbar region (M47.26) Referral Organization [facility] Candelaria strange Referring Provider First Name Aguila Referring Provider Last Name Kris Referring Provider Specialty Internal Me dicine Referred Organization [facility] Referred Provider VIDHYA MOSLEY Referred Address [address] [place], [place],[address] Referred Provider Specialty Pain Medicin e Referral [...] >faxed first request for consult notes to [phone] Emily Lee 06/07/2022 01:51:17 PM >received today notes sent for review. closing referral at this time. Clinical Notes CT lumbar spine comp leted July, P: [id number] F: [id number] Chief Complaint and Reason for Visit Chief [...] disease with esophagitis without hemorrhage Hyperlipidemia, mixed [id number] Type 2 diabetes mellitus with hyperglycemia Gastroesophageal reflux disease with esophagitis without hemorrhage [id number] Type 2 diabetes mellitus with hyperglycemia Chief Complaint Admit Date wellness July 16, 2024 9:4 5am Reason for Visit Admit Date Depression, major, recurrent, in partial remission July 16, 2024 9:45am Gastroesophageal reflux dise ase with esophagitis without hemorrhage July 16, 2024 9:45am Hyperlipidemia, mixed July 16, 2024 9 :45am Type 2 diabetes mellitus with hyperglyce [facility] July 16, 2024 9:45am Screening PSA (prostate specific antigen ) July 16, 2024 9:45am Wellness examination July 16, 2024 9: 45am Chief Complaint Admit Date lump on right side of neck/uncontrolled blood suga October 24, 2024 11:43am Reason for Visit Admit Date Depression, major, recurrent, in partial remission October 24, 2024 11:43am Gastroesophageal reflux dise ase with esophagitis without hemorrhage October 24, 2024 11:43am Hyperlipidemia, mixed October 24, 2024 11: 43am Obesity October 24, 2024 11:43 am Type 2 diabetes mellitus with hyperglyce [facility] October 24, 2024 11:43am Additional Source Comments (unrecognized sect ion and content) No Status Records FoundNo Status Records FoundNo Status Records Found INFORMATION SOURCE (unrecogn ized section and content) DATE CREATED AUTHOR 07/20/2021 J[facility] DATE CREATED AUTHOR AUTHOR'S ORGANIZ ATION 09/07/2022 [facility] DATE CREATED AUTHOR AUTHOR'S ORGANIZ ATION 11/07/2022 [facility] REASON FOR VISIT (unrecogniz ed section and content) Referralpossible cellulitisN o InformationPre-Op ClearancerefillRefillRefill Care Teams (unrecognized sec tion and content) Team Status: Active Member Role Status Dates Aguila Ponce DO Primary Care Provider Active Team Status: Inactive Member Role Status Dates Aguila Ponce DO Primary Care Provider Active Start: November 13, 2023 End: November 13, 2023 Thu Ren APRN DINING ROOM COORDINATOR-C Attending Provider Act brigette Start: November 13, 2023 End: November 13, 2023 Team Status: Active Member Role Status Kerwin Ponce DO Primary Care Provider Active Start: June 12, 2023 DAX Gnozalez Attending Provider Active St art: June 12, 2023 Team Status: Active Member Role Status Kerwin Ponce DO Primary Care Provider Active Start: June 20, 2023 DAX Goldsmith Attending Provider Active Start : June 20, 2023 Team Status: Inactive Member Role Status Kerwin Ponce DO Primary Care Provide r, Attending Provider Active Start: July 07, 2023 End: July 07, 2023 Team Status: Active Member Role Status Kerwin Ponce DO Primary Care Provider Active Start: November 20, 2023 Edmar Overton Attending Provider Active Start: November 20, 2023 Team Status: Inactive Member Role Status Kerwin Ponce DO Primary Care Provide r, Attending Provider Active Start: November 29, 2023 End: November 29, 2023 Team Status: Inactive Member Role Status Kerwin Ponce DO Primary Care Provide r, Attending Provider Active Start: January 05, 2024 End: January 05, 2024 Team Status: Inactive Member Role Status Kerwin Ponce DO Primary Care Provide r, Attending Provider Active Start: July 16, 2024 End: July 16, 2024 Team Status: Inactive Member Role Status Kerwin Ponce DO Primary Care Provider Active Start: October 24, 2024 End: October 24, 2024 Aguila Ponce DO Attending Provider Active Sta rt: October 24, 2024 End: October 24, 2024 Goals (unrecognized section and content) Goals [...] BE BASED ON THE PRIMARY CLINICAL RECORDS. [facility], [facility]. provides no warranty or guarantee of the accuracy or completeness of information in this document.
== END 2024-11-08 07:13 | disposition home or self-care (01) ==
LOC: US 07:12
PROVIDERS: PCP Internal Medicine; Visit Provider Internal Medicine
DX: E07.89 Other specified disorders of thyroid (principal); E04.1 Nontoxic single thyroid nodule
CPT/HCPCS: 76536

== ENCOUNTER 2024-11-21 13:28 | Outpatient (OUT) | payer BC, SELFPAY ==
[2024-11-21 14:07] LABS: Protein Creatinine Ratio Urine 0.11; Total Protein Urine Random 12.3 mg/dL (<=11.9)
[2024-11-21 14:10] LABS: Hematocrit 42.9 % (42.0-54.0); Hemoglobin 15.1 g/dL (14.0-18.0); Immature Granulocytes Abs Auto 0.01 10^3/uL (0.00-0.03); Immature Granulocytes Pct Auto 0.2 % (0.0-0.5); Lymphocytes Absolute Auto 1.4 10^3/uL (1.2-3.8); Mean Corpuscular HGB Conc 35.2 g/dL (29.9-35.2); Mean Corpuscular Hemoglobin 31.4 pg (25.9-34.0); Mean Corpuscular Volume 89.2 fL (80.0-94.0); Platelet Count 165 10^3/uL (150-450); Red Blood Count 4.81 10^6/uL (4.70-6.10); White Blood Count 4.3 10^3/uL (4.0-11.0)
[2024-11-21 14:19] LABS: Alanine Aminotransferase 95 U/L (16-63); Albumin Globulin Ratio 1.3; Albumin Level 4.2 g/dL (3.4-5.0); Alkaline Phosphatase 118 U/L (46-116); Anion Gap 11.9; Aspartate Amino Transferase 52 U/L (15-37); Blood Urea Nitrogen 15.0 mg/dL (7.0-18.0); Calcium 8.7 mg/dL (8.5-10.1); Carbon Dioxide 30.2 mmol/L (21.0-32.0); Chloride 104 mmol/L (98-107); Estimated GFR (African America >60 (>=60 mL/min/1.73m^2); Estimated GFR (Non-African Ame >60 (>=60 mL/min/1.73m^2); Globulin 3.2 g/dL; Glucose 215 mg/dL (74-106); NT Pro B Type Natriuretic Pept 25.0 pg/mL (<=900.0); Potassium 4.1 mmol/L (3.5-5.1); Sodium 142 mmol/L (136-145); Total Protein 7.4 g/dL (6.4-8.2)
== END 2024-11-21 13:29 | disposition home or self-care (01) ==
LOC: LAB 13:30
PROVIDERS: PCP Internal Medicine; Visit Provider Internal Medicine
DX: R60.0 Localized edema (principal); E11.65 Type 2 diabetes mellitus with hyperglycemia; F10.90 Alcohol use, unspecified, uncomplicated; K76.0 Fatty (change of) liver, not elsewhere classified
CPT/HCPCS: 36415; 80053; 82570; 83880; 84156; 85025; 85378

== ENCOUNTER 2024-11-22 07:04 | Outpatient (OUT) | payer BC, SELFPAY ==
--- NOTE | 2024-11-22 07:05 | CA_ITS ---
Patient Name: MOI MCPHERSON MR#: [id number] : 1975 Exam Date: 11/22/2024 Ordering Doctor: DR ODIN CENTENO D.O. ECHOCARDIOGRAM REPORT PROCEDURE: CA ECHO DOPPLER COMPLETE INDICATIONS: Peripheral edema, Murmur COMPARISON: None. DESCRIPTION: COMPLETE ECHOCARDIOGRAM Real-time transthoracic echocardiography with 2D, M-mode, spectral and color flow Doppler performed. QUALITY: Technical quality was good. LEFT VENTRICLE: Normal chamber size. Normal left ventricular wall thickness. Global left ventricular systolic function is normal. LV EF: Estimated left ventricular ejection fraction is 65%. DIASTOLIC: Normal diastolic function. ATRIAL SEPTUM: LEFT ATRIUM: Normal chamber size. RIGHT ATRIUM: Mild dilatation. RIGHT VENTRICLE: Normal chamber size. Normal right ventricular systolic function. TRICUSPID VALVE: Normal mobility and thickness. No stenosis with trivial regurgitation. No evidence of pulmonary hypertension. RVSP 27 mmHg. MITRAL VALVE: Normal mobility and thickness. No evidence of mitral valve stenosis. There is no mitral annular calcification. No mitral regurgitation. AORTIC VALVE: Normal trileaflet appearance. No visible sclerosis. Normal leaflet mobility. No evidence of aortic valve stenosis. No aortic regurgitation. AORTIC ROOT: Normal diameter and appearance, measuring 3.7 cm. The ascending aorta is normal in size, measures 3.4 cm. PULMONIC VALVE: Normal thickness and mobility. No stenosis. Trivial regurgitation. PERICARDIUM: No evidence of pericardial effusion. IVC: Collapses with inspiration. Normal size. PLEURA: CONCLUSION: 1. Normal ventricular size and systolic function. Estimated LVEF is 65%. 2. Normal diastolic function. 3. No significant valvular dysfunction. 4. Normal right-sided pressures. Adult Echocardiography Procedure Report Left Ventricle LVEDD (3.7 - 5.6 cm): 4.87 cm LVESD (2.2 - 4.0 cm): 2.90 cm LVIVS thickness (0.6 - 1.2 cm): 0.96 cm LVPW thickness (0.5 - 1.0 cm): 0.90 cm e': 0.11 m/s E - e': 8.27 LVOT Max Gradient: 4.90 mm[Hg] LVOT Area (cm2): 1.11 m/s Peak Velocity (LVOT): 1.11 m/s Mean Velocity (LVOT): 0.77 m/s LVOT Diameter 2.47 cm Left Ventricular Ejection Fraction: 65 % Left Atrium LA Volume Index (2D A2C): 26.48 ml/m2 Left Atrium Systolic Dimension: 4.06 cm Mitral Valve MV E to A Ratio: 1.07 Mitral Valve A-Wave Peak Velocity: 0.87 m/s Mitral Valve E-Wave Peak Velocity: 0.93 m/s Right Ventricle RV Internal Diastolic Dimension: 3.26 cm Aorta AO Root Diam: 3.75 cm Ascending Ao Diam: 3.44 cm Aortic Valve AoV Area (Peak Gutierrez): 4.33 cm2, 4.33 cm2 AoV Area (VTI): 4.10 cm2, 4.10 cm2 Peak Velocity(Antegrade Flow): 1.23 m/s Peak Gradient(Antegrade Flow): 6.02 mm[Hg] Mean Velocity(Antegrade Flow): 0.83 m/s Mean Gradient(Antegrade Flow): 3.12 mm[Hg] Velocity Time Integral: 27.80 cm Tricuspid Valve Peak Velocity (Regurgitant Flow): 2.23 m/s, 2.45 m/s, 2.35 m/s Pulmonic Valve Mean Gradient: 2.21 mm[Hg], 2.67 mm[Hg], 2.55 mm[Hg] Mean Velocity: 0.69 m/s, 0.77 m/s, 0.75 m/s Peak Velocity: 1.04 m/s Peak Gradient: 3.97 mm[Hg], 4.74 mm[Hg], 4.20 mm[Hg] Right Atrium Right Atrium Systolic Pressure: 39.63 ml, 39.63 ml Dictated by: Sal Leonard M.D. on 11/22/2024 at 17:49 Approved by: Sal Leonard M.D. on 11/22/2024 at 17:51
--- OUTSIDE RECORDS SUMMARY | 2024-11-22 07:06 | XMS_ITS | CCD ---
Author Organization [facility] Care Team Providers Care Service Worker Name Role Phone Aguila Ponce Unavailable LAKSHMIPATHY [...] Unavailable Aguila Ponce DO Primary Care Provider [phone] Aguila Ponce DO Attending Provider Allergies Allergy Classification Reported Allergen(s) Allergy Type Date of Onset Reaction(s) Facility (2 sources) metFORMIN Drug Allergy unknown [facility] Other (16 sources) SITagliptin Drug Allergy 4 unknown [facility] (15 sources) metFORMIN Drug Allergy 9 unknown [facility] (1 source) metFORMIN Drug Allergy The [facility] (1 source) patient allergy list reviewed by nurse or physicia Propensity to adverse reactions 9 Comment:Done [employer] Other Medications Current Medications Medication Drug Class(es) Dates Sig (Normalized) Sig (Original) BD Ultra-Fine Micro Pen Needle (7 sources) BD Ultra-Fine Micro Pen Needle 32g x1/4 misc needle subcutaneous as directed Active fenofibrate 160 mg oral tablet (6 sources) Peroxisome Proliferator Receptor alpha Agonist Start: 07-16-2024 End: 11-12-2024 take 1 tablet by mouth once daily Fenofibrate 160 mg tablet Active 160 MG PO Daily November 12, 2024 11:25am Complies with drug therapy glimepiride 4 mg [...] ml insulin glargine 100 unt/ml pen injector (8 sources) Insulin Analog Start: 10-08-2024 inject 10 [...] 18, 2024 12:00am July 19, 2024 10:54am omeprazole 40 mg delayed release oral capsule (20 sources) Proton Pump Inhibitor Start: 09-19-2023 End: [...] (Original) benazepril hydrochloride 10 mg oral tablet (16 sources) Angiotensin Converting Enzyme Inhibitor Start: 06-12-2023 [...] hydrochloride 300 mg extended release oral tablet (20 sources) Aminoketone Start: 06-12-2023 End: 11-29-2023 take [...] ml insulin detemir 100 unt/ml pen injector (20 sources) Insulin Analog Start: 07-18-2024 End: 07-18-2024 [...] 1:00am April 11, 2024 4:55pm Insulin Glargine-Yfgn (4 sources) Start: 07-19-2024 End: 10-08-2024 Insulin Glargine-Yfgn (Semglee(Insulin Glarg-Yfgn)Pen) 100 unit/mL (3 mL) insulin pen Discontinued 20 UNIT SUBCUT Daily 10 21July 19, 2024 12:00am October 08, 2024 5:38pm 3 ml insulin lispro 100 unt/ml pen injector (10 sources) Insulin Analog Start: 07-18-2024 End: 11-19-2024 Insulin Lispro (Humalog Kwikpen Insulin) 100 unit/mL insulin pen Discontinued 0 sliding scale dose SUBCUT Use as Directed Protocol: *If the corrective scale dose has been administered within the past 4 hours, do not use corrective scale again unless approved by prescriber* Condition: == Dose/Route: == Instructions: == Condition: Fingerstick Blood Glucose Dose/Route: Insulin Units Condition: Dose/Route: 0 unit Condition: 131-180 mg/dl Dose/Route: 2 units Condition: 181- 240 mg/dl Dose/Route: 4 units Condition: 241- 300 mg/dl Dose/Route: 6 units Condition: 301- 350 mg/dl Dose/Route: 8 units Condition: > 350 mg/dl Dose/Route: 10 units Condition: Greater than or = 400 mg/dl Instructions: Call Provider July 18, 2024 5:05pm November 19, 2024 12:49pm Maximum day supply 40u Please contact the information source for Protocol details. methylPREDNISolone 4 mg oral tablet (8 sources) Corticosteroid Start: 11-13-2023 End: 11-29-2023 take [...] nausea Not-Taking pregabalin 100 mg oral capsule (9 sources) Start: 07-07-2023 End: 11-29-2023 take 1 capsule by mouth once daily at bedtime Pregabalin (Lyrica) 100 mg capsule Discontinued 100 MG PO Daily at bedtime July 07, 2023 12:00am November 29, 2023 5:42pm Semaglutide (5 sources) Start: 04-11-2024 End: 07-16-2024 Semaglutide (Ozempic) 0.25 mg or 0.5 mg (2 mg/3 mL) pen injector Discontinued 0.25 MG SUBCUT every week 07 21April 11, 2024 1:00am July 16, 2024 9:51am for 4 weeks semaglutide 3 mg oral tablet (4 sources) Start: 07-16-2024 End: 10-08-2024 take 1 tablet [...] to other specified organisms] Episodic Allergic reactions (11 sources) Allergic reaction; Translations: [Allergy, unspecified, initial [...] [Mixed hyperlipidemia] Onset: 05-11-2018 Chronic Esophageal disorders (17 sources) Gastro-esophageal reflux disease with esophagitis; Translations: [Gastro-esophageal reflux disease with esophagitis, without bleeding] 06-12-2023 Chronic Essential hypertension (20 sources) Essential hypertension; Translations: [Essential (primary) hypertension] Onset: 06-26-2022 Chronic Fluid and electrolyte disorders (6 sources) Hyponatremia; Translations: [Hypo-osmolality and hyponatremia] 01-05-2024 Episodic Miscellaneous mental health disorders (1 source) Primary insomnia; Translations: [Primary insomnia] Chronic Mood disorders (20 sources) Recurrent major depression in remission; Translations: [Major depressive disorder, recurrent, in partial remission] 07-06-2023 Chronic Nausea and vomiting (11 sources) Nausea and vomiting; Translations: [Nausea with vomiting, unspecified] Episodic Open wounds of extremities (1 source) Laceration without foreign body of left hand, initial encounter Episodic Other aftercare (3 sources) Long-term current use of insulin; Translations: [termite helper (current) use of insulin] Episodic Other aftercare (1 source) termite helper (current) use of insulin Episodic Other connective [...] elsewhere classified] 11-29-2023 Chronic Other liver diseases (8 sources) Fatty (change of) liver, not elsewhere [...] Chronic Other nutritional; endocrine; and metabolic disorders (16 sources) Obesity; Translations: [Obesity, unspecified] 04-11-2024 Chronic [...] Chronic Other nutritional; endocrine; and metabolic disorders (5 sources) H/O: diabetes mellitus; Translations: [Personal history of other endocrine, nutritional and metabolic disease] 04-11-2024 Episodic Other screening for suspected conditions (not mental disorders or infectious disease) (6 sources) Encounter for screening for malignant neoplasm of prostate; Translations: [Screening for malignant neoplasms of prostate] 07-07-2023 Episodic Comment on above: PSA: 0.15 - 06/2024 Other upper respiratory disease (6 sources) Allergic rhinitis due to pollen; Translations: [Allergic rhinitis due to pollen] Chronic Other upper respiratory disease (7 sources) Seasonal allergy; Translations: [Other seasonal allergic [...] of patient refusal] Episodic Residual codes; unclassified (4 sources) Peripheral edema; Translations: [Localized edema] 11-12-2024 Episodic Skin and subcutaneous tissue infections (6 [...] Translations: [Nicotine dependence, chewing tobacco, uncomplicated] Chronic Thyroid disorders (4 sources) Thyroid nodule; Translations: [Nontoxic single thyroid nodule] Chronic Comment on above: US: 4x3.7x3.8cm TR3 right sided nodule - 10/2024 Thyroid disorders (7 sources) Mass of thyroid gland; Translations: [Other specified disorders of thyroid] 10-24-2024 Episodic Unclassified (4 sources) LOW BACK PAIN, UNSPECIFIED; Translations: [LOW BACK PAIN, UNSPECIFIED] Onset: 07-16-2022 Unclassified (1 source) ELEV LVLS LIVER TRANSAMINASE LVLS; Translations: [ELEV LVLS LIVER TRANSAMINASE LVLS] Onset: 06-26-2022 Unclassified (2 sources) E04.1 - Nontoxic single thyroid nodule Viral infection (10 sources) Disease caused by [...] (current) use of oral hypoglycemic drugs; Translations: [QUALITATIVE RESEARCHER USE ORAL HYPOGLYCEMIC DX] Onset: 09-17-2021 Episodic [...] Test Name Value Interpretation Reference Range Facility Laboratory - Chemistry and C hemistry - challengeOrdered By: Aguila Ponce on 10-30-2024 Free T4 [Mass/Vol] 0.87 ng/dL 0.76-1.46 [facility] TSH Qn 1.146 m[IU]/L 0.358-3.740 [facility] No Panel InformationOrdered By: Aguila Ponce on 10-30-2024 Total Triiodothyronine 131 ng/dL 71-180 [facility] Comment on above: Performed at: [facility] [id number] [place], [place] [id number] Director: Zach Lucia PhD, Phone: [phone] Basophils Auto (Bld) [#/Vol] on 11-20-2023 Basophils (Bld) [#/Vol] 0.0 10 3/uL 0.0-0.1 [facility] Basophils/100 WBC Auto (Bld) on 11-20-2023 Basophils/100 WBC (Bld) 0.5 % 0.2-2.0 [facility] Eosinophils/100 WBC Auto (Bl d)on 11-20-2023 Eosinophils/100 WBC (Bld) 1.1 % 0.9-7.0 [facility] Erythrocyte distribution wid th Auto (RBC) [Ratio]on 11-20-2023 Erythrocyte distribution width (RBC) [Ratio] 12.1 % 11.0-15.0 [facility] Estimated glomerular filtrat ion rate (GFR) non- Americanon 11-20-2023 GFR/1.73 sq M.predicted among non-blacks MDRD (S/P/Bld) [Vol rate/Area] mL/min/{1.73_m2} >=60 [facility] Globulin Calc (S) [Mass/Vol] on 11-20-2023 Globulin (S) [Mass/Vol] 3.4 g/dL [facility] Hematocrit Auto (Bld) [Volum e fraction]on 11-20-2023 Hematocrit (Bld) [Volume fraction] 44.5 % 42.0-54.0 [facility] Hemoglobin [Mass/volume] in Bloodon 11-20-2023 Hemoglobin (Bld) [Mass/Vol] 16.3 g/dL 14.0-18.0 [facility] INR in Platelet poor plasma by Coagulation assayon 11-20-2023 INR Coag (PPP) [Relative time] 1.02 {INR} [facility] Comment on above: DESIRED INR:2.0-3.0 CONDITIONS NOT LISTED BELOW2.5-3.5 FOR PROSTHETIC HEART VALVE REPLACEMENT2.5-3.5 RECURRENT THROMBOSIS Laboratory - Chemistry and C hemistry - challengeon 11-20-2023 Albumin [Mass/Vol] 4.0 g/dL 3.4-5.0 [facility] ALP [Catalytic activity/Vol] 144 U/L High 46-116 [facility] ALT [Catalytic activity/Vol] 100 U/L High 16-63 [facility] AST [Catalytic activity/Vol] 63 U/L High 15-37 [facility] Bilirubin [Mass/Vol] 1.3 mg/dL High 0.2-1.0 [facility] Calcium [Mass/Vol] 9.0 mg/dL 8.5-10.1 [facility] Chloride [Moles/Vol] 93 mmol/L Low 98-107 [facility] CO2 [Moles/Vol] 22.2 mmol/L 21.0-32.0 [facility] Creatinine [Mass/Vol] 0.97 mg/dL 0.70-1.30 [facility] GFR/1.73 sq M.predicted MDRD (S/P/Bld) [Vol rate/Area] mL/min/{1.73_m2} >=60 [facility] Glucose [Mass/Vol] 276 mg/dL High 74-106 [facility] Potassium [Moles/Vol] 3.8 mmol/L 3.5-5.1 [facility] Protein [Mass/Vol] 7.4 g/dL 6.4-8.2 [facility] Sodium [Moles/Vol] 130 mmol/L Low 136-145 [facility] Urea nitrogen [Mass/Vol] 23.0 mg/dL High 7.0-18.0 [facility] Urea nitrogen/Creatinine [Mass ratio] 23.7 mg/mg [facility] Laboratory - Hematology and Cell countson 11-20-2023 Immature granulocytes/100 WBC (Bld) 0.3 % 0.0-0.5 [facility] Laboratory - Microbiology an d Antimicrobial susceptibilityon 11-20-2023 S. pyogenes Ag Ql (Unsp spec) Negative [facility] Leukocytes [#/volume] correc rebecca for nucleated erythrocytes in Blood by Automated counon 11-20-2023 WBC corrected for nucl RBC Auto (Bld) [#/Vol] 7.9 10 3/uL 4.0-11.0 [facility] Lymphocytes Auto (Bld) [#/Vo l]on 11-20-2023 Lymphocytes (Bld) [#/Vol] 1.4 10 3/uL 1.2-3.8 [facility] Lymphocytes/100 WBC Auto (Bl d)on 11-20-2023 Lymphocytes/100 WBC (Bld) 17.2 % Low 20.5-60.0 [facility] MCH Auto (RBC) [Entitic mass ]on 11-20-2023 MCH (RBC) [Entitic mass] 32.2 pg 25.9-34.0 [facility] MCHC Auto (RBC) [Mass/Vol]on 11-20-2023 MCHC (RBC) [Mass/Vol] 36.6 g/dL High 29.9-35.2 [facility] MCV Auto (RBC) [Entitic vol] on 11-20-2023 MCV (RBC) [Entitic vol] 87.9 fL 80.0-94.0 [facility] Monocytes Auto (Bld) [#/Vol] on 11-20-2023 Monocytes (Bld) [#/Vol] 0.6 10 3/uL 0.3-0.8 [facility] Monocytes/100 WBC Auto (Bld) on 11-20-2023 Monocytes/100 WBC (Bld) 8.0 % 1.7-12.0 [facility] Neutrophils Auto (Bld) [#/Vo l]on 11-20-2023 Neutrophils (Bld) [#/Vol] 5.8 10 3/uL 1.4-6.5 [facility] Neutrophils/100 WBC Auto (Bl d)on 11-20-2023 Neutrophils/100 WBC (Bld) 72.9 % 43.0-75.0 [facility] No Panel Informationon 11-19 Eosinophils # (Auto) 0.1 10 3/uL 0.0-0.7 [facility] Immature Granulocyte # (Auto) 0.02 10 3/uL 0.00-0.03 [facility] Platelet mean volume Auto (B ld) [Entitic vol]on 11-20-2023 Platelet mean volume (Bld) [Entitic vol] 10.8 fL 9.5-13.5 [facility] Platelets Auto (Bld) [#/Vol] on 11-20-2023 Platelets (Bld) [#/Vol] 164 10 3/uL 150-450 [facility] Prothrombin time (PT)on 10-23 PT Coag (PPP) [Time] 10.8 s 9.0-11.6 [facility] RBC Auto (Bld) [#/Vol]on RBC (Bld) [#/Vol] 5.06 10 6/uL 4.70-6.10 [facility] Serum or plasma albumin/glob ulin mass ratioon 11-20-2023 Albumin/Globulin [Mass ratio] 1.2 {ratio} [facility] Serum or plasma anion gap de terminationon 11-20-2023 Anion gap [Moles/Vol] 18.6 mmol/L [facility] POINT OF CARE GLUCOSEon 050 Glucose [Mass/Vol] 254 mg/dL Critically high -[address] [place] [address] Comment on above: Performed By: #### P OCGLUC #### [facility] [address] [address] [address] Jose Cruz Balderas POINT OF CARE GLUCOSEon 07-24 Glucose [Mass/Vol] 241 mg/dL Critically high -[address] [place] [address] Comment on above: Performed By: #### P OCGLUC #### [facility] [address] [address] [address] Jose Cruz Balderas POINT OF CARE GLUCOSEon 06-23 Glucose [Mass/Vol] 204 mg/dL Critically high -106 [facility] Comment on above: Performed By: #### P OCGLUC #### [facility] [address] [place] [address] Dr. Jose Cruz Balderas GLYCOHEMOGLOBIN A1Con 2022 ADA RECOMMENDATION SEE BELOW Normal [facility] Comment on above: Result Comment: ADA RECOMMENDED LIMIT 4.0 - 6.0 ADA THERAPEUTIC TARGET < 7.0 ACTION SUGGESTED > 7.0 Performed By: #### P OCGLUC #### [facility] [address] [address] [address] Jose Cruz Balderas Glucose [Mass/Vol] 134 mg/dL Normal [facility] Comment on above: Performed By: #### P OCGLUC #### [facility] [address] [address] [address] Jose Cruz Balderas HbA1c (Bld) [Mass fraction] 6.3 % Critically high 4.5-6.2 [facility] Comment on above: Performed By: #### P OCGLUC #### [facility] [address] [address] [address] Jose Cruz Balderas PROF 14(COMP METB)on 023 Albumin [Mass/Vol] 4.5 g/dL Normal 3.4-5.0 [facility] Comment on above: Performed By: #### C MP #### [facility] [address] [place] [address] Dr. Jose Cruz Balderas Albumin/Globulin [Mass ratio] 1.3 {ratio} Normal [facility] Comment on above: Performed By: #### C MP #### [facility] [address] [place] [address] Dr. Jose Cruz Balderas ALP [Catalytic activity/Vol] 93 U/L Normal 46-116 [facility] Comment on above: Performed By: #### C MP #### [facility] [address] [place] [address] Dr. oJse Cruz Balderas ALT [Catalytic activity/Vol] 41 U/L Normal 16-63 [facility] Comment on above: Performed By: #### C MP #### [facility] [address] [place] [address] Dr. Jose Cruz Balderas Anion gap [Moles/Vol] 12.0 mmol/L Normal [facility] Comment on above: Performed By: #### C MP #### [facility] [address] [place] [address] Dr. Jose Cruz Balderas AST [Catalytic activity/Vol] 21 U/L Normal 15-37 [facility] Comment on above: Performed By: #### C MP #### [facility] [address] [address] [address] Jose Cruz Balderas Bilirubin [Mass/Vol] 0.8 mg/dL Normal 0.2-1.0 [facility] Comment on above: Performed By: #### C MP #### [facility] [address] [place] [address] Dr. Jose Cruz Balderas Calcium [Mass/Vol] 9.3 mg/dL Normal 8.5-10.1 [facility] Comment on above: Performed By: #### C MP #### [facility] [address] [place] [address] Dr. Jose Cruz Balderas Chloride [Moles/Vol] 105 mmol/L Normal 98-107 [facility] Comment on above: Performed By: #### C MP #### [facility] [address] [place] [address] Dr. Jose Cruz Balderas CO2 [Moles/Vol] 26.7 mmol/L Normal 21.0-32.0 [facility] Comment on above: Performed By: #### C MP #### [facility] [address] [place] [address] Dr. Jose Cruz Balderas Creatinine [Mass/Vol] 0.82 mg/dL Normal 0.70-1.30 [facility] Comment on above: Performed By: #### C MP #### [facility] [address] [place] [address] Dr. Jose Cruz Balderas EGFR-AF SLOVENIAN >60 Normal >=60 [facility] Comment on above: Performed By: #### C MP #### [facility] [address] [place] [address] Dr. Jose Cruz Balderas EGFR-NON AF SLOVENIAN >60 Normal >=60 [facility] Comment on above: Performed By: #### C MP #### [facility] [address] [place] [address] Dr. Jose Cruz Balderas Globulin (S) [Mass/Vol] 3.5 g/dL Normal [facility] Comment on above: Performed By: #### C MP #### [facility] [address] [place] [address] Dr. Jose Cruz Balderas Glucose [Mass/Vol] 180 mg/dL Critically high 74-106 [facility] Comment on above: Performed By: #### C MP #### [facility] [address] [address] [address] Jose Cruz Balderas Potassium [Moles/Vol] 3.7 mmol/L Normal 3.5-5.1 [facility] Comment on above: Performed By: #### C MP #### [facility] [address] [address] [address] Jose Cruz Balderas Protein [Mass/Vol] 8.0 g/dL Normal 6.4-8.2 [facility] Comment on above: Performed By: #### C MP #### [facility] [address] [place] [address] Dr. Jose Cruz Balderas Sodium [Moles/Vol] 140 mmol/L Normal 136-145 [facility] Comment on above: Performed By: #### C MP #### [facility] [address] [address] [address] Jose Cruz Balderas Urea nitrogen [Mass/Vol] 19.0 mg/dL Critically high 7.0-18.0 [facility] Comment on above: Performed By: #### C MP #### [facility] [address] [place] [address] Dr. Jose Cruz Balderas Urea nitrogen/Creatinine [Mass ratio] 23.2 mg/mg Normal [facility] Comment on above: Performed By: #### C MP #### [facility] [address] [place] [address] Dr. Jose Cruz Balderas POINT OF CARE GLUCOSEon 05-26 Glucose [Mass/Vol] 174 mg/dL Critically high 74-106 [facility] Comment on above: Performed By: #### P OCGLUC #### [facility] [address] [place] [address] Dr. Jose Cruz Balderas XR SHOULDER RT [...] BEATRIZ MITCHELL Date: 2022-04-26 15:27 Normal [facility] CBC AUTO DIFFon 04-21-2022 BASO # 0.0 103/ul Normal 0.0-0.1 [facility] Comment on above: Performed By: #### P OCGLUC #### [facility] [address] [place] [address] Dr. Jose Cruz Balderas Basophils/100 WBC (Bld) 0.8 % Normal 0.2-2.0 [facility] Comment on above: Performed By: #### P OCGLUC #### [facility] [address] [place] [address] Dr. Jose Cruz Balderas EO # 0.1 103/ul Normal 0.0-0.7 [facility] Comment on above: Performed By: #### P OCGLUC #### [facility] [address] [place] [address] Dr. Jose Cruz Balderas Eosinophils/100 WBC (Bld) 2.3 % Normal 0.9-7.0 [facility] Comment on above: Performed By: #### P OCGLUC #### [facility] [address] [place] [address] Dr. Jose Cruz Balderas Erythrocyte distribution width (RBC) [Ratio] 12.8 % Normal 11.0-15.0 [facility] Comment on above: Performed By: #### P OCGLUC #### [facility] [address] [address] [address] Jose Cruz Balderas Hematocrit (Bld) [Volume fraction] 47.2 % Normal 42.0-54.0 [facility] Comment on above: Performed By: #### P OCGLUC #### [facility] [address] [place] [address] Dr. Jose Cruz Balderas Hemoglobin (Bld) [Mass/Vol] 16.4 g/dL Normal 14.0-18.0 [facility] Comment on above: Performed By: #### P OCGLUC #### [facility] [address] [place] [address] Dr. Jose Cruz Balderas IG # 0.01 10e3/ul Normal 0.00-0.03 [facility] Comment on above: Performed By: #### P OCGLUC #### [facility] [address] [place] [address] Dr. Jose Cruz Balderas IG % 0.2 % Normal 0.0-0.5 [facility] Comment on above: Performed By: #### P OCGLUC #### [facility] [address] [place] [address] Dr. Jose Cruz Balderas LYMPH # 1.3 103/ul Normal 1.2-3.8 [facility] Comment on above: Performed By: #### P OCGLUC #### [facility] [address] [place] [address] Dr. Jose Cruz Balderas Lymphocytes/100 WBC (Bld) 25.6 % Normal 20.5-60.0 [facility] Comment on above: Performed By: #### P OCGLUC #### [facility] [address] [place] [address] Dr. Jose Cruz Balderas MANUAL DIFF REQ NO Normal [facility] Comment on above: Performed By: #### P OCGLUC #### [facility] [address] [place] [address] Dr. Jose Cruz Balderas MCH (RBC) [Entitic mass] 30.7 pg Normal 25.9-34.0 [facility] Comment on above: Performed By: #### P OCGLUC #### [facility] [address] [address] [address] Jose Cruz Balderas MCHC (RBC) [Mass/Vol] 34.7 g/dL Normal 29.9-35.2 [facility] Comment on above: Performed By: #### P OCGLUC #### [facility] [address] [address] [address] Jose Cruz Balderas MCV (RBC) [Entitic vol] 88.4 fL Normal 80.0-94.0 [facility] Comment on above: Performed By: #### P OCGLUC #### [facility] [address] [address] [address] Jose Cruz Balderas MONO # 0.5 103/ul Normal 0.3-0.8 [facility] Comment on above: Performed By: #### P OCGLUC #### [facility] [address] [place] [address] Dr. Jose Cruz Balderas Monocytes/100 WBC (Bld) 8.7 % Normal 1.7-12.0 [facility] Comment on above: Performed By: #### P OCGLUC #### [facility] [address] [place] [address] Dr. Jose Cruz Balderas NEUT # 3.2 103/ul Normal 1.4-6.5 [facility] Comment on above: Performed By: #### P OCGLUC #### [facility] [address] [place] [address] Dr. Jose Cruz Balderas Neutrophils/100 WBC (Bld) 62.4 % Normal 43.0-75.0 [facility] Comment on above: Performed By: #### P OCGLUC #### [facility] [address] [place] [address] Dr. Jose Cruz Balderas Platelet mean volume (Bld) [Entitic vol] 10.9 fL Normal 9.5-13.5 [facility] Comment on above: Performed By: #### P OCGLUC #### [facility] [address] [place] [address] Dr. Jose rCuz Balderas PLT 159 103/ul Normal 150-450 [facility] Comment on above: Performed By: #### P OCGLUC #### [facility] [address] [address] [address] Jose Cruz Balderas RBC 5.34 106/ul Normal 4.70-6.10 [facility] Comment on above: Performed By: #### P OCGLUC #### [facility] [address] [address] [address] Jose Cruz Balderas WBC 5.2 103/ul Normal 4.0-11.0 [facility] Comment on above: Performed By: #### P OCGLUC #### [facility] [address] [address] [address] Jose Cruz Balderas GLYCOHEMOGLOBIN A1Con 2021 ADA RECOMMENDATION SEE BELOW Normal [facility] Comment on above: Result Comment: ADA RECOMMENDED LIMIT 4.0 - 6.0 ADA THERAPEUTIC TARGET < 7.0 ACTION SUGGESTED > 7.0 Performed By: #### P OCGLUC #### [facility] [address] [place] [address] Dr. Jose Cruz Balderas Glucose [Mass/Vol] 163 mg/dL Normal [facility] Comment on above: Performed By: #### P OCGLUC #### [facility] [address] [address] [address] Jose Cruz Balderas HbA1c (Bld) [Mass fraction] 7.3 % Critically high 4.5-6.2 [facility] Comment on above: Performed By: #### P OCGLUC #### [facility] [address] [place] [address] Dr. Jose Cruz Balderas LIPID PROFILEon 04-21-2022 CHOL-HDL RATIO NORM SEE BELOW Normal [facility] Comment on above: Result Comment: 3.3 - 4.4 LOW RISK 4.4 - 7.1 AVERAGE RISK 7.1 - 11.0 MODERATE RISK >11.0 HIGH RISK Performed By: #### L IPID, CMP #### [facility] [address] [place] [address] Dr. Jose Cruz Balderas Cholesterol [Mass/Vol] 197 mg/dL Normal <=200 Th [facility] Comment on above: Performed By: #### L IPID, CMP #### [facility] [address] [address] [address] Jose Cruz Balderas Cholesterol in HDL [Mass/Vol] 49 mg/dL Normal 40-60 [facility] Comment on above: Performed By: #### L IPID, CMP #### [facility] [address] [place] [address] Dr. Jose Cruz Balderas Cholesterol in LDL [Mass/Vol] 109.4 mg/dL Normal [facility] Comment on above: Performed By: #### L IPID, CMP #### [facility] [address] [place] [address] Dr. Jose Cruz Balderas Cholesterol.total/Melinda sterol in HDL [Mass ratio] 4.0 {ratio} Normal [facility] Comment on above: Performed By: #### L IPID, CMP #### [facility] [address] [place] [address] Dr. Jose Cruz Balderas HDL NORMAL > or = 60 mg/dl - LOW CARDIOVASCULAR RISK <40 mg/dl - HIGH CARDIOVASCULAR RISK Normal [facility] Comment on above: Performed By: #### L IPID, CMP #### [facility] [address] [place] [address] Dr. Jose Cruz Balderas LDL CALC NORMAL SEE BELOW Normal [facility] Comment on above: Result Comment: <100 mg/dl OPTIMAL 100 - 129 mg/dl NEAR OR ABOVE OPTIMAL 130 - 159 mg/dl BORDERLINE HIGH 160 - 189 mg/dl HIGH >190 mg/dl VERY HIGH Performed By: #### L IPID, CMP #### [facility] [address] [place] [address] Dr. Jose Cruz Balderas Triglyceride [Mass/Vol] 193 mg/dL Critically high <=150 [facility] Comment on above: Performed By: #### L IPID, CMP #### [facility] [address] [place] [address] Dr. Jose Cruz Balderas VLDL CALC 38.6 mg/dL Normal [facility] Comment on above: Performed By: #### L IPID, CMP #### [facility] [address] [place] [address] Dr. Jose Cruz Balderas MICROALBUMIN, RAND URon 12-2 mALB 1.4 mg/L Normal <=30.0 [facility] Comment on above: Performed By: #### M ALBR #### [facility] [address] [place] [address] Dr. Jose Cruz Balderas PROF 14(COMP METB)on 022 Albumin [Mass/Vol] 4.3 g/dL Normal 3.4-5.0 [facility] Comment on above: Performed By: #### L IPID, CMP #### [facility] [address] [place] [address] Dr. Jose Cruz Balderas Albumin/Globulin [Mass ratio] 1.2 {ratio} Normal [facility] Comment on above: Performed By: #### L IPID, CMP #### [facility] [address] [place] [address] Dr. Jose Cruz Balderas ALP [Catalytic activity/Vol] 94 U/L Normal 46-116 [facility] Comment on above: Performed By: #### L IPID, CMP #### [facility] [address] [place] [address] Dr. Jose Cruz Balderas ALT [Catalytic activity/Vol] 135 U/L Critically high 16-63 [facility] Comment on above: Performed By: #### L IPID, CMP #### [facility] [address] [place] [address] Dr. Jose Cruz Balderas Anion gap [Moles/Vol] 11.7 mmol/L Normal [facility] Comment on above: Performed By: #### L IPID, CMP #### [facility] [address] [place] [address] Dr. Jose Cruz Balderas AST [Catalytic activity/Vol] 105 U/L Critically high 15-37 [facility] Comment on above: Performed By: #### L IPID, CMP #### [facility] [address] [place] [address] Dr. Jose Cruz Balderas Bilirubin [Mass/Vol] 0.8 mg/dL Normal 0.2-1.0 [facility] Comment on above: Performed By: #### L IPID, CMP #### [facility] [address] [place] [address] Dr. Jose Cruz Balderas Calcium [Mass/Vol] 9.3 mg/dL Normal 8.5-10.1 [facility] Comment on above: Performed By: #### L IPID, CMP #### [facility] [address] [place] [address] Dr. Jose Cruz Balderas Chloride [Moles/Vol] 101 mmol/L Normal 98-107 [facility] Comment on above: Performed By: #### L IPID, CMP #### [facility] [address] [place] [address] Dr. Jose Cruz Balderas CO2 [Moles/Vol] 32.8 mmol/L Critically high 21.0-32.0 [facility] Comment on above: Performed By: #### L IPID, CMP #### [facility] [address] [place] [address] Dr. Jose Cruz Balderas Creatinine [Mass/Vol] 1.09 mg/dL Normal 0.70-1.30 [facility] Comment on above: Performed By: #### L IPID, CMP #### [facility] [address] [place] [address] Dr. Jose Cruz Balderas EGFR-AF SLOVENIAN >60 Normal >=60 [facility] Comment on above: Performed By: #### L IPID, CMP #### [facility] [address] [place] [address] Dr. Jose Cruz Balderas EGFR-NON AF SLOVENIAN >60 Normal >=60 [facility] Comment on above: Performed By: #### L IPID, CMP #### [facility] [address] [place] [address] Dr. Jose Cruz Balderas Globulin (S) [Mass/Vol] 3.6 g/dL Normal [facility] Comment on above: Performed By: #### L IPID, CMP #### [facility] [address] [place] [address] Dr. Jose Cruz Balderas Glucose [Mass/Vol] 174 mg/dL Critically high 74-106 [facility] Comment on above: Performed By: #### L IPID, CMP #### [facility] [address] [place] [address] Dr. Jose Cruz Balderas Potassium [Moles/Vol] 4.5 mmol/L Normal 3.5-5.1 [facility] Comment on above: Performed By: #### L IPID, CMP #### [facility] [address] [address] [address] Jose Cruz Balderas Protein [Mass/Vol] 7.9 g/dL Normal 6.4-8.2 [facility] Comment on above: Performed By: #### L IPID, CMP #### [facility] [address] [address] [address] Jose Cruz Balderas Sodium [Moles/Vol] 141 mmol/L Normal 136-145 [facility] Comment on above: Performed By: #### L IPID, CMP #### [facility] [address] [place] [address] Dr. Jose Cruz Balderas Urea nitrogen [Mass/Vol] 14.0 mg/dL Normal 7.0-18.0 [facility] Comment on above: Performed By: #### L IPID, CMP #### [facility] [address] [place] [address] Dr. Jose Cruz Balderas Urea nitrogen/Creatinine [Mass ratio] 12.8 mg/mg Normal [facility] Comment on above: Performed By: #### L IPID, CMP #### [facility] [address] [place] [address] Dr. Jose Cruz Balderas POINT OF CARE GLUCOSEon 08-23 Glucose [Mass/Vol] 240 mg/dL Critically high 74-106 [facility] Comment on above: Performed By: #### P OCGLUC #### [facility] [address] [place] [address] Dr. Jose Cruz Balderas XR FINGER MIN [...] by: SERGE TAN Date: 2021-09-15 19:17 Normal [facility] Pathology Noteon 07-09-2021 Pathology Note [id number]#1.00CD:127 Normal [facility] Outside Colonoscopyon 2021 Outside Colonoscopy [id number] [id number]#1.00CD:127 Normal [facility] Lab Reportson 07-06-2021 Lab Reports [id number] FC#1.00CD:127 Normal [facility] Consent for Procedure/Surger yon 06-24-2021 Consent for Procedure/Surgery [id number] [id number]#1.00CD:127 Normal [facility] Ambulatory Visit Summaryon 0 06-23-2021 Ambulatory [...] are no longer receiving treatment for. Hypertension [facility] Physician Referralon 022 Physician Referral [id number]#1.00CD:127 [facility] Physician Referralon 022 Physician Referral [id number] FC#1.00CD:127 [facility] Vital Signs Date Time Vital Sign Value Performing Clinician Facility 11-12-2024 09:00-0400 Body height 187.96 cm [employer] Work Phone: [facility] 11-12-2024 09:00-0400 Body mass index (BMI) [Ratio] 32.8 kg/m2 [employer] Work Phone: [facility] 11-12-2024 09:00-0400 Body weight 116.11 kg Aguila Ball DO Work Phone: [facility] 11-12-2024 09:00-0400 Diastolic blood pressure 86 mm[Hg] Aguila Ball DO Work Phone: [facility] 11-12-2024 09:00-0400 Heart rate 61 /min Aguila Ball DO Work Phone: [facility] 11-12-2024 09:00-0400 Respiratory rate 12 /min Aguila Ball DO Work Phone: [facility] 11-12-2024 09:00-0400 SaO2% (BldA) [Mass fraction] 97 % Aguila Ball DO Work Phone: [facility] 11-12-2024 09:00-0400 Systolic blood pressure 134 mm[Hg] Aguila Ball DO Work Phone: [facility] 10-24-2024 11:53-0400 Body height 187.96 cm Aguila Ball DO Work Phone: [facility] 10-24-2024 11:53-0400 Body mass index (BMI) [Ratio] 32.3 kg/m2 Aguila Ball DO Work Phone: [facility] 10-24-2024 11:53-0400 Body weight 114.07 kg Aguila Ball DO Work Phone: [facility] 10-24-2024 11:53-0400 Diastolic blood pressure 84 mm[Hg] Aguila Ball DO Work Phone: [facility] 10-24-2024 11:53-0400 Heart rate 63 /min Aguila Ball DO Work Phone: [facility] 10-24-2024 11:53-0400 Respiratory rate 12 /min Aguila Ball DO Work Phone: [facility] 10-24-2024 11:53-0400 Systolic blood pressure 123 mm[Hg] Aguila Ball DO Work Phone: [facility] 07-16-2024 09:53-0400 Body height 187.96 cm [facility] 07-16-2024 09:53-0400 Body mass index (BMI) [Ratio] 30 kg/m2 [facility] 07-16-2024 09:53-0400 Body weight 106.19 kg [facility] 07-16-2024 09:53-0400 Diastolic blood pressure 77 mm[Hg] [facility] 07-16-2024 09:53-0400 Heart rate 92 /min [facility] 07-16-2024 09:53-0400 Respiratory rate 12 /min [facility] 07-16-2024 09:53-0400 Systolic blood pressure 114 mm[Hg] [facility] 01-05-2024 09:09-0400 Body height 187.96 cm [facility] 01-05-2024 09:09-0400 Body mass index (BMI) [Ratio] 31.4 kg/m2 [facility] 01-05-2024 09:09-0400 Body weight 111.18 kg [facility] 01-05-2024 09:09-0400 Diastolic blood pressure 78 mm[Hg] [facility] 01-05-2024 09:09-0400 Heart rate 76 /min [facility] 01-05-2024 09:09-0400 Respiratory rate 12 /min [facility] 01-05-2024 09:09-0400 Systolic blood pressure 118 mm[Hg] [facility] 11-29-2023 16:02-0400 Body height 187.96 cm [facility] 11-29-2023 16:02-0400 Body mass index (BMI) [Ratio] 29.9 kg/m2 [facility] 11-29-2023 16:02-0400 Body weight 105.68 kg [facility] 11-29-2023 16:02-0400 Diastolic blood pressure 74 mm[Hg] [facility] 11-29-2023 16:02-0400 Heart rate 68 /min [facility] 11-29-2023 16:02-0400 Respiratory rate 12 /min [facility] 11-29-2023 16:02-0400 Systolic blood pressure 117 mm[Hg] [facility] 11-13-2023 14:05-0400 Body height 187.96 cm [facility] 11-13-2023 14:05-0400 Body mass index (BMI) [Ratio] 30 kg/m2 [facility] 11-13-2023 14:05-0400 Body weight 106.14 kg [facility] 11-13-2023 14:05-0400 Diastolic blood pressure 72 mm[Hg] [facility] 11-13-2023 14:05-0400 Heart rate 83 /min [facility] 11-13-2023 14:05-0400 SaO2% (BldA) [Mass fraction] 97 % [facility] 11-13-2023 14:05-0400 Systolic blood pressure 120 mm[Hg] [facility] 07-07-2023 09:53-0400 Body height 187.96 cm [facility] 07-07-2023 09:53-0400 Body mass index (BMI) [Ratio] 31.6 kg/m2 [facility] 07-07-2023 09:53-0400 Body weight 111.58 kg [facility] 07-07-2023 09:53-0400 Diastolic blood pressure 84 mm[Hg] [facility] 07-07-2023 09:53-0400 Heart rate 75 /min [facility] 07-07-2023 09:53-0400 Respiratory rate 12 /min [facility] 07-07-2023 09:53-0400 Systolic blood pressure 131 mm[Hg] [facility] 06-20-2022 15:00-0500 Body height 187.96 cm Aguila Ball Other [facility] 10X10 Room Other 06-20-2022 15:00-0500 Body mass index (BMI) [Ratio] 33.74 kg/m2 Aguila Ball Other [facility] 10X10 Room Other 06-20-2022 15:00-0500 Body weight 119.21 kg Aguila Ball Other [facility] 10X10 Room Other 06-20-2022 15:00-0500 Diastolic blood pressure 70 mm[Hg] Aguila Ball Other [employer] Other 06-20-2022 15:00-0500 Respiratory rate 12 /min Aguila Ball Other [employer] Other 06-20-2022 15:00-0500 Systolic blood pressure 108 mm[Hg] Aguila Ball Other [employer] Other 05-10-2022 11:15-0500 Body height 187.96 cm Aguila Ball Other [employer] Other 05-10-2022 11:15-0500 Body mass index (BMI) [Ratio] 33.79 kg/m2 Aguila Ball Other [employer] Other 05-10-2022 11:15-0500 Body weight 119.39 kg Aguila Ball Other [employer] Other 05-10-2022 11:15-0500 Diastolic blood pressure 70 mm[Hg] Aguila Ball Other [employer] Other 05-10-2022 11:15-0500 Respiratory rate 12 /min Aguila Ball Other [employer] Other 05-10-2022 11:15-0500 Systolic blood pressure 118 mm[Hg] Aguila Ball Other [employer] Other Encounters Encounter Date Encounter Type Care Provider Facility Start: 11-19-2024 ambulatory Aguila Ponce DO Work Phone: [facility] Work Phone: Start: 11-19-2024 Non-patient / Non-visit Aguila ellsworth DO -[employer] Work Phone: Start: 11-12-2024 End: 11-12-2024 ambulatory Aguila Ponce DO Work Phone: [facility] Work Phone: Start: 11-12-2024 End: 11-12-2024 Patient encounter procedure Aguila Ponce DO -[facility] Work Phone: Start: 10-30-2024 Non-patient / Non-visit Aguila Kadeem ellsworth DO -[facility] Work Phone: Start: 10-24-2024 End: 10-24-2024 ambulatory Aguila Ponce DO Work Phone: [facility] Work Phone: Start: 10-24-2024 End: 10-24-2024 Patient encounter procedure Aguila Ponce DO -[facility] Work Phone: Start: 07-16-2024 End: 07-16-[address] [facility] Work Phone: Start: 07-16-2024 End: 07-16-2024 Encounter for general adult medical examination without abnormal findings [facility] Start: 07-16-2024 End: 07-16-2024 Patient encounter procedure [facility] Work Phone: Start: 01-05-2024 End: 01-05-[address] [facility] Work Phone: Start: 01-05-2024 End: 01-05-2024 Patient encounter procedure [facility] Work Phone: Start: 11-29-2023 End: 11-29-2023 ambulatory [facility] Work Phone: Start: 11-29-2023 End: 11-29-2023 Patient encounter procedure [facility] Work Phone: Start: 11-20-2023 Non-patient / Non-visit [facility] Work Phone: Start: 11-13-2023 End: 11-13-[address] [facility] Work Phone: Start: 11-13-2023 End: 11-13-2023 Patient encounter procedure [facility] Work Phone: Start: 07-07-2023 End: 07-07-[address] [facility] Work Phone: Start: 07-07-2023 End: 07-07-2023 Encounter for general adult medical examination without abnormal findings [facility] Start: 07-07-2023 End: 07-07-2023 Patient encounter procedure [facility] Work Phone: Start: 06-20-2023 Non-patient / Non-visit [facility] [facility] Work Phone: Start: 06-12-2023 Non-patient / Non-visit [facility] Work Phone: Start: 02-03-2023 End: 02-03-2023 ambulatory Aguila Ponce Other [employer] Other Start: 02-03-2023 Telephone encounter Aguila Ponce DIALLO [facility] Start: 11-08-2022 End: 11-08-2022 ambulatory [facility] Facility:[facility] Start: 10-21-2022 End: 10-21-2022 ambulatory Aguila Ponce Other [employer] Other Start: 10-21-2022 Telephone encounter Aguila Ponce DIALLO [facility] Start: 10-21-2022 End: 10-21-2022 ambulatory [facility] Facility:[facility] Start: 09-22-2022 ambulatory NARENDRANATH LAKSHMIPATHY . Facility:[facility] Start: 08-23-2022 End: 08-23-2022 ambulatory NARENDRANATH LAKSHMIPATHY . Facility:[facility] Start: 08-16-2022 End: 08-16-2022 ambulatory NARENDRANATH LAKSHMIPATHY . Facility:[facility] Start: 08-15-2022 End: 08-15-2022 ambulatory Aguila Ponce Other [employer] Other Start: 08-15-2022 Telephone encounter Aguila LANDRUM [facility] Start: 07-28-2022 End: 07-29-2022 ambulatory NARENDRANATH LAKSHMIPATHY . Facility:[facility] Start: 07-12-2022 End: 07-12-2022 ambulatory NARENDRANATH LAKSHMIPATHY . Facility:[facility] Start: 07-07-2022 End: 07-08-[address] AGUILA PONCE Facility:[facility] Start: 06-22-2022 End: 06-23-[address] AGUILA PONCE Facility:[facility] Start: 06-21-2022 Telephone encounter Aguila LANDRUM [facility] Start: 06-21-2022 End: 06-21-[address] AGUILA PONCE [employer] Other Start: 06-20-2022 End: 06-20-2022 ambulatory Aguila Ponce Other [employer] Other Start: 06-20-2022 Encounter for other preprocedural examination [facility] Start: 06-20-2022 Office outpatient vi sit 25 minutes Aguila Ponce [facility] Start: 05-26-2022 End: 05-27-[address] AGUILA PONCE Facility:[facility] Start: 05-10-2022 End: 05-10-2022 ambulatory Aguila Ponce Other [employer] Other Start: 05-10-2022 Office outpatient vi sit 15 minutes [facility] Start: 04-28-2022 End: 06-01-[address] AGUILA PONCE Facility:[facility] Start: 04-26-2022 Telephone encounter [facility] Start: 04-26-2022 End: 04-26-[address] AGUILA PONCE [employer] Other Start: 04-23-2022 Encounter for genera l adult medical examination without abnormal findings DR AGUILA PONCE [facility] Start: 04-21-2022 End: 04-22-[address] AGUILA PONCE Facility:[facility] Start: 04-21-2022 End: 04-22-2022 Encounter for general adult medical examination without abnormal findings DR AGUILA PONCE Facility:[facility] Start: 03-31-2022 Adult health examination Aguila Ponce Other [facility] 10X10 Room Other Start: 11-04-2021 End: 11-04-[address] AGUILA PONCE Facility:[facility] Start: 09-24-2021 ambulatory DANIELLE Rendon Facili ty:[facility] Start: 09-17-2021 End: 09-17-[address] [...] the presence orabsence of malignant disease.Performed at: [facility] [address] Director: Zach Lucia PhD, Phone: [phone] Start: 04-04-2018 General examination of patient Aguila Ponce Other End: 06-16-2021 Laboratory test result abnormal Aguila Ponce Other Plan of Treatment Date Care Activity Detail Author Start: 11-19-2024 Patient referral [facility] Work Phone: Comprehensive metabo lic 1999 panel - Serum or Plasma [facility] Comprehensive metabo lic 1999 panel - Serum or Plasma [facility] Comprehensive metabo lic 1999 panel - Serum or Plasma [facility] Fibrin D-dimer [Pres ence] in Platelet poor plasma by Latex agglutination [facility] Patient referral [facility] Work Phone: [facility] Thyroid gland [facility] Immunizations Immunization Date Immunization Notes Care Provider Fa cilijama 09-15-2021 diphtheria, tetanus toxoids and pertussis vaccine Aguila Ponce Other [facility] 02-12-2021 COVID-19 Vaccine Mod sheri - Documentation Purposes Only Aguila Ponce Other [facility] 07-03-2020 COVID-19 Vaccine Jl ssen - Documentation Purposes Only Agiula Ponce Other [facility] Payers Date Payer Category Payer [facility] [id number] 2019 Unknown [id number] 1973 Unknown [id number] 1973 Unknown [id number] 1973 Unknown [id number] [id number] 1973 Unknown [id number] [id number] 1973 Unknown [id number] 2.840.1.115830.3.579.2.593 1973 Unknown [id number] 2.840.1.581815.3.579.2.593 1973 Unknown [id number] [id number]3 1973 Unknown [id number] [id number] 1973 Unknown [id number] [id number] 1973 Unknown [id number] [id number] 1973 Unknown [id number] [id number]3 1973 Unknown [id number] 2.16.840.1.082954.3.579.2.593 1973 Unknown [id number] 2.16.840.1.268688.3.579.2.593 1973 Unknown [id number] 2.16.840.1.357982.3.579.2.593 1973 Unknown [id number] 2.16.840.1.213966.3.579.2.593 1973 Unknown [id number] 2.16.840.1.439143.3.579.2.593 1973 Unknown [id number] [id number] 1973 Unknown [id number] [id number] Private Health Insurance [id number] [id number] Unknown MMO [employer] [id number] Social History Date Type Detail Facility Sex Assigned At Located Within [facility] 10X10 Room Other Start: 06-12-2023 Tobacco smoking stat [facility] Unknown if ever smoked [facility] Start: 1975 Sex Assigned At Male F [facility] Start: [facility]13-[facility] Start: 07-16-2024 Sex Male (finding) [facility] Medical Equipment Procedure Code Equipment Code Equipment Origin al Text Equipment Identifier Dates Sure-Fine [place] 31G X 5 MM Blood Sugar Diagnostic [...] needle Start: 06-12-2023 Clinical Notes 06-23-2021 to 11-19-2024 Note Date & Type Note Facility 11-19-2024 Hospital Discharg e instructions Ambulatory OrdersReferral to ENT Time Frame: 11/19/24, Location: None [facility] Work Phone: 10-24-2024 Evaluation note Diagnosis Onset Date Resolution Obesity acute October 24, 2024 11:43am Thyroid mass of unclear etiology acute October 24, 2024 11:43am Type 2 diabetes mellitus with hyperglycemia acute October 24 11:43am Thyroid mass deleted October 24 11:43am Obesity acute November 12 8:54am Type 2 diabetes mellitus with hyperglycemia acute November 12 8:54am [facility] Work Phone: 1(410) 950-536307-03-2025 Evaluation note* Diagnosis Onset Date Resolution Status Admit Date Obesity acute October 24, 2024 11:43am Type 2 diabetes mellitus wit h hyperglycemia acute October 24, 2024 1 1:43am Thyroid mass deleted October 24 11:43am Thyroid mass of unclear etiology del eted October 24, 2024 11:43am Metabolic dysfunction-associ ated steatotic liver disease and increased alco acute November 12, 2024 8:54am Peripheral edema acute October 8:54am Type 2 diabetes mellitus wit h hyperglycemia acute November 12, 2024 8:54am [facility] Work Phone: 1(770) 105-818303-25-2025 Evaluation note* Diagnosis Onset Date Resolution Status Admit Date Depression, major, recurrent , in partial remission acute July 16 9:45am Gastroesophageal reflux dise ase with esophagitis without hemorrhage acute July 16, 2024 9:45am Hyperlipidemia, mixed acute Jun 9:45am Type 2 diabetes mellitus wit h hyperglycemia acute July 16, 2024 9:45am Screening PSA (prostate spec ific antigen) noneactive July 16, 2024 9:45am Wellness examination noneactive 2024 9:45am [facility] Work Phone: 1(996) 377-251410-13-2023 Evaluation note* Encounter Date Diagnosis Assessment Notes Treatment Notes Treatment Clinical Notes Jan, Type 2 diabetes mellitus with hyperglycemia (ICD-10 - E11.65) [employer] Other 06-30-2023 Evaluation note* Encounter Date Diagnosis Assessment Notes Treatment Notes Treatment Clinical Notes Sep, Essential (primary) hypertension (ICD-10 - I10) [employer] Other 04-24-2023 Evaluation note* Encounter Date Diagnosis Assessment Notes Treatment Notes Treatment Clinical Notes Jul, Type 2 diabetes mellitus with hyperglycemia (ICD-10 - E11.65) Jul, long-term (current) use of insulin (ICD-10 - Z79.4) [employer] Other 04-06-2023 NoteCONSULTATION CONSULTATION DATE: 07/28/2022 TO: [...] our patients to inform us about any [id number] medications or herbal remedies/nutritional supplements/alternative remedies. 2. [...] treatment options with their primary care provider.[id number] Note CONSULTATION CONSULTATION DATE: 07/07/2022 HISTORY: This [...] followed up in the clinic post procedure.[id number] Evaluation note* Encounter Date Diagnosis Assessment Notes Treatment Notes Treatment Clinical Notes May, Elevated transaminase level (ICD-10 - R74.01) May, Essential (primary) hypertension (ICD-10 - I10) May, Controlled type 2 diabetes mellitus with hyperglycemia, without long-term current use of insulin (ICD-10 - E11.65) [employer] Other 02-27-2023 Evaluation note* Encounter Date Diagnosis [...] (ICD-10 - E78.2) Healthy diet and exercise. [employer] Other 02-02-2023 NoteCONSULTATION CONSULTATION DATE: 05/26/2022 HISTORY [...] be followed up in the office thereafter.[facility] 05-10-2022 Evaluation note* Encounter Date Diagnosis [...] soap and water. UTD w/ tetanus booster [employer] Other 01-03-2023 Evaluation note* Encounter Date Diagnosis Assessment Notes Treatment Notes Treatment Clinical Notes Apr, Other chronic pain (ICD-10 - G89.29) Apr, Low back pain, unspecified (ICD-10 - M54.50) [employer] Other 03-02-2022 NoteChief Complaint consultation for screening [...] tab(s), Oral, Da (more content not included)... [facility]Result Comment: Electronically Signed By: [...] specific antigen) noneactive Wellness examination noneact brigette [facility] Work Phone: Evaluation note* Diagnosis Onset Date Resolution Status Allergic reaction acute [facility] Work Phone: Evaluation note* Diagnosis Onset Date Resolution Status Allergic reaction acute Seasonal allergies acute Depression, major, recurrent, in partial remission acute Essential (primary) hypertension acute Gastroesophageal reflux dise ase with esophagitis without hemorrhage acute Hyperlipidemia, mixed acute Type 2 diabetes mellitus with hyperglycemia acute [facility] Work Phone: Evaluation note* Diagnosis Onset Date Resolution Status Allergic reaction acute Seasonal allergies acute Depression, major, recurrent, in partial remission acute Essential (primary) hypertension acute Gastroesophageal reflux dise ase with esophagitis without hemorrhage acute Hyperlipidemia, mixed acute [id number] acute Type 2 diabetes mellitus with hyperglycemia acute Gastroesophageal reflux dise ase with esophagitis without hemorrhage acute [id number] acute Type 2 diabetes mellitus with hyperglycemia acute [facility] Work Phone: Evaluation note* Diagnosis Onset Date Resolution Status Admit Date Depression, major, recurrent , in partial remission acute October 24, 2024 11:43am Gastroesophageal reflux dise ase with esophagitis without hemorrhage acute October 24, 2024 1 1:43am Hyperlipidemia, mixed acute Oct 11:43am Obesity acute October 24, 2024 11:43am Type 2 diabetes mellitus wit h hyperglycemia acute October 24, 2024 1 1:43am [facility] Work Phone: [place] general Narrative - Reported* Type Description Date [...] History colonoscopy 07/07/2021 Surgical History Lumbar Discectomy 2000 Surgical History Lumbar Decompression Surgical History Bilateral Laminectomies Surgical History Foraminotomies 2003 Surgical History Right Knee Arthroscopy 2009 Surgical History Lumbar Discectomy with Fusion 2 011 Surgical History cholecystectomy 1993 Surgical History Arthroscopy L Shoulder 12/2016 Surgical History Debridement SLAP Lesion Surgical History Subacromion Decompression [employer] Other History general Narrative - Reported* Type [...] History colonoscopy 07/07/2021 Surgical History Lumbar Discectomy 2000 Surgical History Lumbar Decompression Surgical History Bilateral Laminectomies Surgical History Foraminotomies 2003 Surgical History Right Knee Arthroscopy 2009 Surgical History Lumbar Discectomy with Fusion 2 011 Surgical History cholecystectomy 1993 Surgical History Arthroscopy L Shoulder 12/2016 Surgical History Debridement SLAP Lesion Surgical History Subacromion Decompression Hospitalization History see surgical history [employer] Other Reason for referral (narrative)No reason for referral information availableMem[facility] Work Phone: Summary Purpose Family History No Family History Records FoundNo Family History Records FoundNo Family History Records Found Advance Directives Advance Directive Response Recorded Date/ Time Advance Directives No May 29, 2023 3:54pm Reason for Referral Reason 05/26/22 Patient morteza juan referred for treatment of low back pain. Diagnosis 1 Osteoarthritis of sp ine with radiculopathy, lumbar region (M47.26) Referral Organization [facility] alie Referring Provider First Name Aguila Referring Provider Last Name Kris Referring Provider Specialty Internal Me dicine Referred Organization [facility] Referred Provider MOSLEYVIDHYA Referred Address [address], [place],[address] Referred Provider Specialty Pain Medicin e Referral [...] cover the injections. faxed letter to Dr. Anderosn office for consult notes Emily Lee 06/06/2022 03:55:13 PM >faxed first request for consult notes to [phone] Emily Lee 06/07/2022 01:51:17 PM >received today notes sent for review. closing referral at this time. Clinical Notes CT lumbar spine comp leted July, P: [id number] F: [id number] Chief Complaint and Reason for Visit Chief [...] disease with esophagitis without hemorrhage Hyperlipidemia, mixed [id number] Type 2 diabetes mellitus with hyperglycemia Gastroesophageal reflux disease with esophagitis without hemorrhage [id number] Type 2 diabetes mellitus with hyperglycemia Chief Complaint Admit Date wellness July 16, 2024 9:4 5am Reason for Visit Admit Date Depression, major, recurrent, in partial remission July 16, 2024 9:45am Gastroesophageal reflux dise ase with esophagitis without hemorrhage July 16, 2024 9:45am Hyperlipidemia, mixed July 16, 2024 9 :45am Type 2 diabetes mellitus with hyperglyce lizy July 16, 2024 9:45am Screening PSA (prostate [...] am Type 2 diabetes mellitus with hyperglyce lizy October 24, 2024 11:43am Chief Complaint Admit Date lump on right side of neck/uncontrolled blood suga October 24, 2024 11:43am lower extremity swelling November 12, 2024 8:54am Reason for Visit Admit Date Obesity October 24, 2024 11:43 am Thyroid mass of unclear etiology October 11:43am Type 2 diabetes mellitus with hyperglyce lizy October 24, 2024 11:43am Thyroid mass October 24, 2024 11:43 am Obesity November 12, 2024 8:54 am Type 2 diabetes mellitus with hyperglyce lizy November 12, 2024 8:54am Chief Complaint Admit Date lump on right side of neck/uncontrolled blood suga October 24, 2024 11:43am lower extremity swelling November 12, 2024 8:54am Referral Order November 19, 2024 5:30 pm Reason for Visit Admit Date Obesity October 24, 2024 11:43 am Type 2 diabetes mellitus with hyperglyce lizy October 24, 2024 11:43am Thyroid mass October 24, 2024 11:43 am Thyroid mass of unclear etiology October 11:43am Metabolic dysfunction-associ ated steatotic liver disease and increased alco November 12, 2024 8:54am Peripheral edema November 12, 2024 8:54 am Type 2 diabetes mellitus with hyperglyce lizy November 12, 2024 8:54am Additional Source Comments (unrecognized sect ion and content) No Status Records FoundNo Status Records FoundNo Status Records Found INFORMATION SOURCE (unrecogn ized section and content) DATE CREATED AUTHOR 07/20/2021 [facility] DATE CREATED AUTHOR AUTHOR'S ORGANIZ [...] End: November 13, 2023 Thu Ren [employer] Attending Provider Act brigette Start: November 13, [...] Status Dates Aguila Ponce DO Primary Care Provide r, Attending [...] 2024 Team Status: Inactive Member Role Status Dates Aguila Ponce , DO Primary Care Provide r, Attending Provider Active Start: July 16, 2024 End: July 16, 2024 Team Status: Inactive Member Role Status Dates Aguila Ponce , DO Primary Care Provider Active Start: October 24, 2024 End: October 24, 2024 Aguila Ball , DO Attending Provider Active Sta rt: October 24, 2024 End: October 24, 2024 Team Status: Active Member Role Status Dates Aguila Ponce , DO Primary Care Provider Active Start: October 30, 2024 Aguila Ball , DO Attending Provider Active Sta rt: October 30, 2024 Team Status: Inactive Member Role Status Dates Aguila Ponce , DO Primary Care Provider Active Start: November 12, 2024 End: November 12, 2024 Aguila Ball , DO Attending Provider Active Sta rt: November 12, 2024 End: November 12, 2024 Team Status: Active Member Role Status Dates Aguila Ponce , DO Primary Care Provider Active Start: November 19, 2024 Aguila Ball , DO Attending Provider Active Sta rt: November 19, 2024 Goals (unrecognized section and content) Goals [...] BE BASED ON THE PRIMARY CLINICAL RECORDS. [facility] [employer] provides no warranty or guarantee of the accuracy or completeness of information in this document.
== END 2024-11-22 07:05 | disposition home or self-care (01) ==
LOC: CARD 07:04
PROVIDERS: PCP Internal Medicine; Visit Provider Internal Medicine
DX: R60.0 Localized edema (principal); R01.1 Cardiac murmur, unspecified
CPT/HCPCS: 93306

== ENCOUNTER 2024-12-02 07:04 | Outpatient (OUT) | payer BC, SELFPAY ==
--- NOTE | 2024-12-02 07:07 | US_ITS ---
[place] [id number] Patient Name: MOI MCPHERSON MRN: [id number] date: 1975 Sex: M Assigned Patient Location: [place] Current Patient Location: [place] Accession/Order Number: [id number] Exam Date: 12/02/2024 11:00 Report Date: 12/02/2024 11:01 At the request of: ODIN CENTENO DO Procedure: US right upper quadrant LIMITED ABDOMINAL ULTRASOUND: CLINICAL HISTORY: Metabolic dysfunction associated steatotic liver disease COMPARISON: None TECHNIQUE: Grayscale and color Doppler images of the right upper quadrant organs were obtained. FINDINGS: Pancreas: Visualized portions appear unremarkable. Liver: Fatty infiltration. Gallbladder: Removed. CBD: 2.6 mm RT KIDNEY: No Hydronephrosis US/US right upper quadrant IMPRESSION: FATTY INFILTRATION OF LIVER. NO ACUTE PROCESS.. Impression dictated by: Bart Gil Jr., D.O. 12/02/2024 11:01 AM Dictation Location: [place] [address] Electronically authenticated by: [id number] Y Date: 12/02/2024 11:01
--- OUTSIDE RECORDS SUMMARY | 2024-12-02 07:07 | XMS_ITS | CCD ---
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 Role Phone Aguila Ponce Unavailable LAKSHMIPATHY [...] BALL, DR NEWBY Attending Unavailable BALL, DR NWEBY Primary Care Unavailable MISC, DR WEBSTER Attending [...] Facility (2 sources) metFORMIN Drug Allergy unknown [employer] Other (16 sources) SITagliptin Drug Allergy 4 unknown [facility] (15 sources) metFORMIN Drug Allergy 9 unknown [facility] (1 source) metFORMIN Drug Allergy [facility] Repository (1 source) patient allergy list reviewed by nurse or physicia Propensity to adverse reactions 9 Comment:Done [employer] Other Medications Current Medications Medication Drug Class(es) [...] sources) Long-term current use of insulin; 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] Episodic Other aftercare (1 source) 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 Episodic Other connective [...] Onset: 09-15-2021 Episodic Other aftercare (1 source) 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; Translations: [REGISTERED CLIENT ASSOCIATE USE ORAL HYPOGLYCEMIC DX] Onset: 09-17-2021 Episodic [...] 10-30-2024 Free T4 [Mass/Vol] 0.87 ng/dL 0.76-1.46 [facility] TSH Qn 1.146 m[IU]/L 0.358-3.740 [facility] No Panel InformationOrdered By: Aguila Ponce on 10-30-2024 Total Triiodothyronine 131 ng/dL 71-180 [facility] Comment on above: Performed at: [facility] [id number] [place], [place] [id number] Director: Zach Lucia PhD, Phone: [phone] Basophils Auto (Bld) [#/Vol] on 11-20-2023 Basophils (Bld) [#/Vol] 0.0 10 3/uL 0.0-0.1 [facility] Basophils/100 WBC Auto (Bld) on 11-20-2023 Basophils/100 WBC (Bld) 0.5 % 0.2-2.0 [facility] Eosinophils/100 WBC Auto (Bl d)on 11-20-2023 [...] 11-20-2023 Globulin (S) [Mass/Vol] 3.4 g/dL F [facility] Hematocrit Auto (Bld) [Volum e fraction]on [...] challengeon 11-20-2023 Albumin [Mass/Vol] 4.0 g/dL 3.4-5.0 [facility] ALP [Catalytic activity/Vol] 144 U/L High 46-116 [facility] ALT [Catalytic activity/Vol] 100 U/L High 16-63 [facility] AST [Catalytic activity/Vol] 63 U/L High 15-37 [facility] Bilirubin [Mass/Vol] 1.3 mg/dL High 0.2-1.0 [facility] Calcium [Mass/Vol] 9.0 mg/dL 8.5-10.1 [facility] Chloride [Moles/Vol] 93 mmol/L Low 98-107 [facility] CO2 [Moles/Vol] 22.2 mmol/L 21.0-32.0 [facility] Creatinine [Mass/Vol] 0.97 mg/dL 0.70-1.30 [facility] GFR/1.73 sq M.predicted MDRD (S/P/Bld) [Vol rate/Area] mL/min/{1.73_m2} >=60 [facility] Glucose [Mass/Vol] 276 mg/dL High 74-106 [facility] Potassium [Moles/Vol] 3.8 mmol/L 3.5-5.1 [facility] Protein [Mass/Vol] 7.4 g/dL 6.4-8.2 [facility] Sodium [Moles/Vol] 130 mmol/L Low 136-145 [facility] Urea nitrogen [Mass/Vol] 23.0 mg/dL High [...] MCHC (RBC) [Mass/Vol] 36.6 g/dL High 29.9-35.2 [facility] MCV Auto (RBC) [Entitic vol] on 11-20-2023 MCV (RBC) [Entitic vol] 87.9 fL 80.0-94.0 [facility] Monocytes Auto (Bld) [#/Vol] on 11-20-2023 Monocytes (Bld) [#/Vol] 0.6 10 3/uL 0.3-0.8 [facility] Monocytes/100 WBC Auto (Bld) on 11-20-2023 Monocytes/100 WBC (Bld) 8.0 % 1.7-12.0 [facility] Neutrophils Auto (Bld) [#/Vo l]on 11-20-2023 Neutrophils (Bld) [#/Vol] 5.8 10 3/uL 1.4-6.5 [facility] Neutrophils/100 WBC Auto (Bl d)on 11-20-2023 Neutrophils/100 WBC (Bld) 72.9 % 43.0-75.0 [facility] No Panel Informationon 11-19 Eosinophils # (Auto) 0.1 10 3/uL 0.0-0.7 [facility] Immature Granulocyte # (Auto) 0.02 10 3/uL 0.00-0.03 [facility] Platelet mean volume Auto (B ld) [Entitic vol]on 11-20-2023 Platelet mean volume (Bld) [Entitic vol] 10.8 fL 9.5-13.5 [facility] Platelets Auto (Bld) [#/Vol] on 11-20-2023 Platelets (Bld) [#/Vol] 164 10 3/uL 150-450 [facility] Prothrombin time (PT)on 10-23 PT Coag (PPP) [Time] 10.8 s 9.0-11.6 [facility] RBC Auto (Bld) [#/Vol]on RBC (Bld) [#/Vol] 5.06 10 6/uL 4.70-6.10 [facility] Serum or plasma albumin/glob ulin mass ratioon 11-20-2023 Albumin/Globulin [Mass ratio] 1.2 {ratio} [facility] Serum or plasma anion gap de terminationon 11-20-2023 Anion gap [Moles/Vol] 18.6 mmol/L [facility] POINT OF CARE GLUCOSEon 050 Glucose [Mass/Vol] 254 mg/dL Critically high -[address] [place] [address] Comment on above: Performed By: #### P OCGLUC #### [facility] [address] [address] [address] Jose Cruz Balderas POINT OF CARE GLUCOSEon 07-24 Glucose [Mass/Vol] 241 mg/dL Critically high -[address] [place] [address] Comment on above: Performed By: #### P OCGLUC #### [facility] [address] [address] [address] Jose Cruz Balderas POINT OF CARE GLUCOSEon 06-23 Glucose [Mass/Vol] 204 mg/dL Critically high -106 [facility] Comment on above: Performed By: #### P OCGLUC #### [facility] [address] [place] [address] Dr. Jose Cruz Balderas GLYCOHEMOGLOBIN A1Con 2022 ADA RECOMMENDATION SEE BELOW Normal [facility] Comment on above: Result Comment: ADA RECOMMENDED LIMIT 4.0 - 6.0 ADA THERAPEUTIC TARGET < 7.0 ACTION SUGGESTED > 7.0 Performed By: #### P OCGLUC #### [facility] [address] [address] [address] Jose Cruz Balderas Glucose [Mass/Vol] 134 mg/dL Normal [facility] Comment on above: Performed By: #### P OCGLUC #### [facility] [address] [address] [address] Jose Cruz Balderas HbA1c (Bld) [Mass fraction] 6.3 % Critically high 4.5-6.2 [facility] Comment on above: Performed By: #### P OCGLUC #### [facility] [address] [address] [address] Jose Cruz Balderas PROF 14(COMP METB)on 023 Albumin [Mass/Vol] 4.5 g/dL Normal 3.4-5.0 [facility] Comment on above: Performed By: #### C MP #### [facility] [address] [place] [address] Dr. Jose Cruz Balderas Albumin/Globulin [Mass ratio] 1.3 {ratio} Normal [facility] Comment on above: Performed By: #### C MP #### [facility] [address] [place] [address] Dr. Jose Cruz Balderas ALP [Catalytic activity/Vol] 93 U/L Normal 46-116 [facility] Comment on above: Performed By: #### C MP #### [facility] [address] [place] [address] Dr. Jose Cruz Balderas ALT [Catalytic activity/Vol] 41 U/L Normal 16-63 [facility] Comment on above: Performed By: #### C MP #### [facility] [address] [place] [address] Dr. Jose Cruz Balderas Anion gap [Moles/Vol] 12.0 mmol/L Normal [facility] Comment on above: Performed By: #### C MP #### [facility] [address] [place] [address] Dr. Jose Cruz Balderas AST [Catalytic activity/Vol] 21 U/L Normal 15-37 [facility] Comment on above: Performed By: #### C MP #### [facility] [address] [address] [address] Jose Cruz Balderas Bilirubin [Mass/Vol] 0.8 mg/dL Normal 0.2-1.0 [facility] Comment on above: Performed By: #### C MP #### [facility] [address] [place] [address] Dr. Jose Cruz Balderas Calcium [Mass/Vol] 9.3 mg/dL Normal 8.5-10.1 [facility] Comment on above: Performed By: #### C MP #### [facility] [address] [place] [address] Dr. Jose Cruz Balderas Chloride [Moles/Vol] 105 mmol/L Normal 98-107 [facility] Comment on above: Performed By: #### C MP #### [facility] [address] [place] [address] Dr. Jose Cruz Balderas CO2 [Moles/Vol] 26.7 mmol/L Normal 21.0-32.0 [facility] Comment on above: Performed By: #### C MP #### [facility] [address] [place] [address] Dr. Jose Cruz Balderas Creatinine [Mass/Vol] 0.82 mg/dL Normal 0.70-1.30 [facility] Comment on above: Performed By: #### C MP #### [facility] [address] [place] [address] Dr. Jose Cruz Balderas EGFR-AF LITHUANIAN >60 Normal >=60 [facility] Comment on above: Performed By: #### C MP #### [facility] [address] [place] [address] Dr. Jose Cruz Balderas EGFR-NON AF LITHUANIAN >60 Normal >=60 [facility] Comment on above: Performed By: #### C MP #### [facility] [address] [place] [address] Dr. Jose Cruz Balderas Globulin (S) [Mass/Vol] 3.5 g/dL Normal [facility] Comment on above: Performed By: #### C MP #### [facility] [address] [place] [address] Dr. Jose Cruz Balderas Glucose [Mass/Vol] 180 mg/dL Critically high 74-106 [facility] Comment on above: Performed By: #### C MP #### [facility] [address] [address] [address] Jose Cruz Balderas Potassium [Moles/Vol] 3.7 mmol/L Normal 3.5-5.1 [facility] Comment on above: Performed By: #### C MP #### [facility] [address] [address] [address] Jose Cruz Balderas Protein [Mass/Vol] 8.0 g/dL Normal 6.4-8.2 [facility] Comment on above: Performed By: #### C MP #### [facility] [address] [place] [address] Dr. Jose Cruz Balderas Sodium [Moles/Vol] 140 mmol/L Normal 136-145 [facility] Comment on above: Performed By: #### C MP #### [facility] [address] [address] [address] Jose Cruz Balderas Urea nitrogen [Mass/Vol] 19.0 mg/dL Critically high 7.0-18.0 [facility] Comment on above: Performed By: #### C MP #### [facility] [address] [place] [address] Dr. Jose Cruz Balderas Urea nitrogen/Creatinine [Mass ratio] 23.2 mg/mg Normal [facility] Comment on above: Performed By: #### C MP #### [facility] [address] [place] [address] Dr. Jose Cruz Balderas POINT OF CARE GLUCOSEon 05-26 Glucose [Mass/Vol] 174 mg/dL Critically high 74-106 [facility] Comment on above: Performed By: #### P OCGLUC #### [facility] [address] [place] [address] Dr. Jose Cruz Balderas XR SHOULDER RT [...] BEATRIZ MITCHELL Date: 2022-04-26 15:27 Normal [facility] CBC AUTO DIFFon 04-21-2022 BASO # 0.0 103/ul Normal 0.0-0.1 [facility] Comment on above: Performed By: #### P OCGLUC #### [facility] [address] [place] [address] Dr. Jose Cruz Balderas Basophils/100 WBC (Bld) 0.8 % Normal 0.2-2.0 [facility] Comment on above: Performed By: #### P OCGLUC #### [facility] [address] [place] [address] Dr. Jose Cruz Balderas EO # 0.1 103/ul Normal 0.0-0.7 [facility] Comment on above: Performed By: #### P OCGLUC #### [facility] [address] [place] [address] Dr. Jose Cruz Balderas Eosinophils/100 WBC (Bld) 2.3 % Normal 0.9-7.0 [facility] Comment on above: Performed By: #### P OCGLUC #### [facility] [address] [place] [address] Dr. Jose Cruz Baldersa Erythrocyte distribution width (RBC) [Ratio] 12.8 % Normal 11.0-15.0 [facility] Comment on above: Performed By: #### P OCGLUC #### [facility] [address] [address] [address] Jose Cruz Balderas Hematocrit (Bld) [Volume fraction] 47.2 % Normal 42.0-54.0 [facility] Comment on above: Performed By: #### P OCGLUC #### [facility] [address] [place] [address] Dr. Jose Cruz Balderas Hemoglobin (Bld) [Mass/Vol] 16.4 g/dL Normal 14.0-18.0 [facility] Comment on above: Performed By: #### P OCGLUC #### [facility] [address] [place] [address] Dr. Jose Cruz Balderas IG # 0.01 10e3/ul Normal 0.00-0.03 [facility] Comment on above: Performed By: #### P OCGLUC #### [facility] [address] [place] [address] Dr. Jose Cruz Balderas IG % 0.2 % Normal 0.0-0.5 [facility] Comment on above: Performed By: #### P OCGLUC #### [facility] [address] [place] [address] Dr. Jose Cruz Balderas LYMPH # 1.3 103/ul Normal 1.2-3.8 [facility] Comment on above: Performed By: #### P OCGLUC #### [facility] [address] [place] [address] Dr. Jose Cruz Balderas Lymphocytes/100 WBC (Bld) 25.6 % Normal 20.5-60.0 [facility] Comment on above: Performed By: #### P OCGLUC #### [facility] [address] [place] [address] Dr. Jose Cruz Balderas MANUAL DIFF REQ NO Normal [facility] Comment on above: Performed By: #### P OCGLUC #### [facility] [address] [place] [address] Dr. Jose Cruz Balderas MCH (RBC) [Entitic mass] 30.7 pg Normal 25.9-34.0 [facility] Comment on above: Performed By: #### P OCGLUC #### [facility] [address] [address] [address] Jose Cruz Balderas MCHC (RBC) [Mass/Vol] 34.7 g/dL Normal 29.9-35.2 [facility] Comment on above: Performed By: #### P OCGLUC #### [facility] [address] [address] [address] Jose Cruz Balderas MCV (RBC) [Entitic vol] 88.4 fL Normal 80.0-94.0 [facility] Comment on above: Performed By: #### P OCGLUC #### [facility] [address] [address] [address] Jose Cruz Balderas MONO # 0.5 103/ul Normal 0.3-0.8 [facility] Comment on above: Performed By: #### P OCGLUC #### [facility] [address] [place] [address] Dr. Jose Cruz Balderas Monocytes/100 WBC (Bld) 8.7 % Normal 1.7-12.0 [facility] Comment on above: Performed By: #### P OCGLUC #### [facility] [address] [place] [address] Dr. Jose Cruz Balderas NEUT # 3.2 103/ul Normal 1.4-6.5 [facility] Comment on above: Performed By: #### P OCGLUC #### [facility] [address] [place] [address] Dr. Jose Cruz Balderas Neutrophils/100 WBC (Bld) 62.4 % Normal 43.0-75.0 [facility] Comment on above: Performed By: #### P OCGLUC #### [facility] [address] [place] [address] Dr. Jose Cruz Balderas Platelet mean volume (Bld) [Entitic vol] 10.9 fL Normal 9.5-13.5 [facility] Comment on above: Performed By: #### P OCGLUC #### [facility] [address] [place] [address] Dr. Jose Cruz Balderas PLT 159 103/ul Normal 150-450 [facility] Comment on above: Performed By: #### P OCGLUC #### [facility] [address] [address] [address] Jose Cruz Balderas RBC 5.34 106/ul Normal 4.70-6.10 [facility] Comment on above: Performed By: #### P OCGLUC #### [facility] [address] [address] [address] Jose Cruz Balderas WBC 5.2 103/ul Normal 4.0-11.0 [facility] Comment on above: Performed By: #### P OCGLUC #### [facility] [address] [address] [address] Jose Cruz Balderas GLYCOHEMOGLOBIN A1Con 2021 ADA RECOMMENDATION SEE BELOW Normal [facility] Comment on above: Result Comment: ADA RECOMMENDED LIMIT 4.0 - 6.0 ADA THERAPEUTIC TARGET < 7.0 ACTION SUGGESTED > 7.0 Performed By: #### P OCGLUC #### [facility] [address] [place] [address] Dr. Jose Cruz Balderas Glucose [Mass/Vol] 163 mg/dL Normal [facility] Comment on above: Performed By: #### P OCGLUC #### [facility] [address] [address] [address] Jose Cruz Balderas HbA1c (Bld) [Mass fraction] 7.3 % Critically high 4.5-6.2 [facility] Comment on above: Performed By: #### P OCGLUC #### [facility] [address] [place] [address] Dr. Jose Cruz Balderas LIPID PROFILEon 04-21-2022 CHOL-HDL RATIO NORM SEE BELOW Normal [facility] Comment on above: Result Comment: 3.3 - 4.4 LOW RISK 4.4 - 7.1 AVERAGE RISK 7.1 - 11.0 MODERATE RISK >11.0 HIGH RISK Performed By: #### L IPID, CMP #### [facility] [address] [place] [address] Dr. Jose Cruz Balderas Cholesterol [Mass/Vol] 197 mg/dL Normal <=200 [facility] Comment on above: Performed By: #### L IPID, CMP #### [facility] [address] [address] [address] Jose Cruz Balderas Cholesterol in HDL [Mass/Vol] 49 mg/dL Normal 40-60 [facility] Comment on above: Performed By: #### L IPID, CMP #### [facility] [address] [place] [address] Dr. Jose Cruz Balderas Cholesterol in LDL [Mass/Vol] 109.4 mg/dL Normal [facility] Comment on above: Performed By: #### L IPID, CMP #### [facility] [address] [place] [address] Dr. Jose Cruz Balderas Cholesterol.total/Melinda sterol in HDL [Mass ratio] 4.0 {ratio} Normal [facility] Comment on above: Performed By: #### L IPID, CMP #### [facility] [address] [place] [address] Dr. Jose Cruz Balderas HDL NORMAL > or = 60 mg/dl - LOW CARDIOVASCULAR RISK <40 mg/dl - HIGH CARDIOVASCULAR RISK Normal [facility] Comment on above: Performed By: #### L IPID, CMP #### [facility] [address] [place] [address] Dr. Jose Cruz Balderas LDL CALC NORMAL SEE BELOW Normal [facility] Comment on above: Result Comment: <100 mg/dl OPTIMAL 100 - 129 mg/dl NEAR OR ABOVE OPTIMAL 130 - 159 mg/dl BORDERLINE HIGH 160 - 189 mg/dl HIGH >190 mg/dl VERY HIGH Performed By: #### L IPID, CMP #### [facility] [address] [place] [address] Dr. Jose Cruz Balderas Triglyceride [Mass/Vol] 193 mg/dL Critically high <=150 [facility] Comment on above: Performed By: #### L IPID, CMP #### [facility] [address] [place] [address] Dr. Jose Cruz Balderas VLDL CALC 38.6 mg/dL Normal [facility] Comment on above: Performed By: #### L IPID, CMP #### [facility] [address] [place] [address] Dr. Jose Cruz Balderas MICROALBUMIN, RAND URon 12-2 mALB 1.4 mg/L Normal <=30.0 [facility] Comment on above: Performed By: #### M ALBR #### [facility] [address] [place] [address] Dr. Jose Cruz Balderas PROF 14(COMP METB)on 022 Albumin [Mass/Vol] 4.3 g/dL Normal 3.4-5.0 [facility] Comment on above: Performed By: #### L IPID, CMP #### [facility] [address] [place] [address] Dr. Jose Cruz Balderas Albumin/Globulin [Mass ratio] 1.2 {ratio} Normal [facility] Comment on above: Performed By: #### L IPID, CMP #### [facility] [address] [place] [address] Dr. Jose Cruz Balderas ALP [Catalytic activity/Vol] 94 U/L Normal 46-116 [facility] Comment on above: Performed By: #### L IPID, CMP #### [facility] [address] [place] [address] Dr. Jose Cruz Balderas ALT [Catalytic activity/Vol] 135 U/L Critically high 16-63 [facility] Comment on above: Performed By: #### L IPID, CMP #### [facility] [address] [place] [address] Dr. Jose Cruz Balderas Anion gap [Moles/Vol] 11.7 mmol/L Normal [facility] Comment on above: Performed By: #### L IPID, CMP #### [facility] [address] [place] [address] Dr. Jose Cruz Balderas AST [Catalytic activity/Vol] 105 U/L Critically high 15-37 [facility] Comment on above: Performed By: #### L IPID, CMP #### [facility] [address] [place] [address] Dr. Jose Cruz Balderas Bilirubin [Mass/Vol] 0.8 mg/dL Normal 0.2-1.0 [facility] Comment on above: Performed By: #### L IPID, CMP #### [facility] [address] [place] [address] Dr. Jose Cruz Balderas Calcium [Mass/Vol] 9.3 mg/dL Normal 8.5-10.1 [facility] Comment on above: Performed By: #### L IPID, CMP #### [facility] [address] [place] [address] Dr. Jose Cruz Balderas Chloride [Moles/Vol] 101 mmol/L Normal 98-107 [facility] Comment on above: Performed By: #### L IPID, CMP #### [facility] [address] [place] [address] Dr. Jose Cruz Balderas CO2 [Moles/Vol] 32.8 mmol/L Critically high 21.0-32.0 [facility] Comment on above: Performed By: #### L IPID, CMP #### [facility] [address] [place] [address] Dr. Jose Cruz Balderas Creatinine [Mass/Vol] 1.09 mg/dL Normal 0.70-1.30 [facility] Comment on above: Performed By: #### L IPID, CMP #### [facility] [address] [place] [address] Dr. Jose Cruz Balderas EGFR-AF LITHUANIAN >60 Normal >=60 [facility] Comment on above: Performed By: #### L IPID, CMP #### [facility] [address] [place] [address] Dr. Jose Cruz Balderas EGFR-NON AF LITHUANIAN >60 Normal >=60 [facility] Comment on above: Performed By: #### L IPID, CMP #### [facility] [address] [place] [address] Dr. Jose Cruz Balderas Globulin (S) [Mass/Vol] 3.6 g/dL Normal [facility] Comment on above: Performed By: #### L IPID, CMP #### [facility] [address] [place] [address] Dr. Jose Cruz Balderas Glucose [Mass/Vol] 174 mg/dL Critically high 74-106 [facility] Comment on above: Performed By: #### L IPID, CMP #### [facility] [address] [place] [address] Dr. Jose Cruz Balderas Potassium [Moles/Vol] 4.5 mmol/L Normal 3.5-5.1 [facility] Comment on above: Performed By: #### L IPID, CMP #### [facility] [address] [address] [address] Jose Cruz Balderas Protein [Mass/Vol] 7.9 g/dL Normal 6.4-8.2 [facility] Comment on above: Performed By: #### L IPID, CMP #### [facility] [address] [address] [address] Jose Cruz Balderas Sodium [Moles/Vol] 141 mmol/L Normal 136-145 [facility] Comment on above: Performed By: #### L IPID, CMP #### [facility] [address] [place] [address] Dr. Jose Cruz Balderas Urea nitrogen [Mass/Vol] 14.0 mg/dL Normal 7.0-18.0 [facility] Comment on above: Performed By: #### L IPID, CMP #### [facility] [address] [place] [address] Dr. Jose Cruz Balderas Urea nitrogen/Creatinine [Mass ratio] 12.8 mg/mg Normal [facility] Comment on above: Performed By: #### L IPID, CMP #### [facility] [address] [place] [address] Dr. Jose Cruz Balderas POINT OF CARE GLUCOSEon 08-23 Glucose [Mass/Vol] 240 mg/dL Critically high 74-106 [facility] Comment on above: Performed By: #### P OCGLUC #### [facility] [address] [place] [address] Dr. Jose Cruz Balderas XR FINGER MIN [...] by: SERGE TAN Date: 2021-09-15 19:17 Normal [facility] Pathology Noteon 07-09-2021 Pathology Note [id number]#1.00CD:127 Normal [facility] Outside Colonoscopyon 2021 Outside Colonoscopy [id number] [id number]#1.00CD:127 Normal [facility] Lab Reportson 07-06-2021 Lab Reports [id number] FC#1.00CD:127 Normal [facility] Consent for Procedure/Surger yon 06-24-2021 Consent for Procedure/Surgery [id number] F5#1.00CD:127 Normal [facility] Ambulatory Visit Summaryon 0 06-23-2021 Ambulatory Visit [...] are no longer receiving treatment for. Hypertension [facility] Physician Referralon 022 Physician Referral [id number] B2#1.00CD:127 [facility] Physician Referralon 022 Physician Referral [id number] FC#1.00CD:127 [facility] Vital Signs Date Time Vital Sign Value Performing Clinician Facility 11-12-2024 09:00-0400 Body height 187.96 cm [employer] Work Phone: [facility] 11-12-2024 09:00-0400 Body mass index (BMI) [Ratio] 32.8 kg/m2 [employer] Work Phone: [facility] 11-12-2024 09:00-0400 Body weight 116.11 kg Aguila Ball DO Work Phone: [facility] 11-12-2024 09:00-0400 Diastolic blood pressure 86 mm[Hg] Aguila Ball DO Work Phone: [facility] 11-12-2024 09:00-0400 Heart rate 61 /min Aguila Ball DO Work Phone: [facility] 11-12-2024 09:00-0400 Respiratory rate 12 /min Aguila Ball DO Work Phone: [facility] 11-12-2024 09:00-0400 SaO2% (BldA) [Mass fraction] 97 % Aguila Ball DO Work Phone: [facility] 11-12-2024 09:00-0400 Systolic blood pressure 134 mm[Hg] Aguila Ball DO Work Phone: [facility] 10-24-2024 11:53-0400 Body height 187.96 cm Aguila Ball DO Work Phone: [facility] 10-24-2024 11:53-0400 Body mass index (BMI) [Ratio] 32.3 kg/m2 Aguila Ball DO Work Phone: [facility] 10-24-2024 11:53-0400 Body weight 114.07 kg Aguila Ball DO Work Phone: [facility] 10-24-2024 11:53-0400 Diastolic blood pressure 84 mm[Hg] Aguila Ball DO Work Phone: [facility] 10-24-2024 11:53-0400 Heart rate 63 /min Aguila Ball DO Work Phone: [facility] 10-24-2024 11:53-0400 Respiratory rate 12 /min Aguila Ball DO Work Phone: [facility] 10-24-2024 11:53-0400 Systolic blood pressure 123 mm[Hg] Aguila Ball DO Work Phone: [facility] 07-16-2024 09:53-0400 Body height 187.96 cm [facility] 07-16-2024 09:53-0400 Body mass index (BMI) [Ratio] 30 kg/m2 [facility] 07-16-2024 09:53-0400 Body weight 106.19 kg [facility] 07-16-2024 09:53-0400 Diastolic blood pressure 77 mm[Hg] [facility] 07-16-2024 09:53-0400 Heart rate 92 /min [facility] 07-16-2024 09:53-0400 Respiratory rate 12 /min [facility] 07-16-2024 09:53-0400 Systolic blood pressure 114 mm[Hg] [facility] 01-05-2024 09:09-0400 Body height 187.96 cm [facility] 01-05-2024 09:09-0400 Body mass index (BMI) [Ratio] 31.4 kg/m2 [facility] 01-05-2024 09:09-0400 Body weight 111.18 kg [facility] 01-05-2024 09:09-0400 Diastolic blood pressure 78 mm[Hg] [facility] 01-05-2024 09:09-0400 Heart rate 76 /min [facility] 01-05-2024 09:09-0400 Respiratory rate 12 /min [facility] 01-05-2024 09:09-0400 Systolic blood pressure 118 mm[Hg] [facility] 11-29-2023 16:02-0400 Body height 187.96 cm [facility] 11-29-2023 16:02-0400 Body mass index (BMI) [Ratio] 29.9 kg/m2 [facility] 11-29-2023 16:02-0400 Body weight 105.68 kg [facility] 11-29-2023 16:02-0400 Diastolic blood pressure 74 mm[Hg] [facility] 11-29-2023 16:02-0400 Heart rate 68 /min [facility] 11-29-2023 16:02-0400 Respiratory rate 12 /min [facility] 11-29-2023 16:02-0400 Systolic blood pressure 117 mm[Hg] [facility] 11-13-2023 14:05-0400 Body height 187.96 cm [facility] 11-13-2023 14:05-0400 Body mass index (BMI) [Ratio] 30 kg/m2 [facility] 11-13-2023 14:05-0400 Body weight 106.14 kg [facility] 11-13-2023 14:05-0400 Diastolic blood pressure 72 mm[Hg] [facility] 11-13-2023 14:05-0400 Heart rate 83 /min [facility] 11-13-2023 14:05-0400 SaO2% (BldA) [Mass fraction] 97 % [facility] 11-13-2023 14:05-0400 Systolic blood pressure 120 mm[Hg] [facility] 07-07-2023 09:53-0400 Body height 187.96 cm [facility] 07-07-2023 09:53-0400 Body mass index (BMI) [Ratio] 31.6 kg/m2 [facility] 07-07-2023 09:53-0400 Body weight 111.58 kg [facility] 07-07-2023 09:53-0400 Diastolic blood pressure 84 mm[Hg] [facility] 07-07-2023 09:53-0400 Heart rate 75 /min [facility] 07-07-2023 09:53-0400 Respiratory rate 12 /min [facility] 07-07-2023 09:53-0400 Systolic blood pressure 131 mm[Hg] [facility] 06-20-2022 15:00-0500 Body height 187.96 cm Aguila Ball Other [facility] [employer] Other 06-20-2022 15:00-0500 Body mass index (BMI) [Ratio] 33.74 kg/m2 Aguila Ball Other [facility] [employer] Other 06-20-2022 15:00-0500 Body weight 119.21 kg Aguila Ball Other [facility] [employer] Other 06-20-2022 15:00-0500 Diastolic blood pressure 70 mm[Hg] Aguila Ball Other [employer] Other 06-20-2022 15:00-0500 Respiratory rate 12 /min Aguila Ball Other [employer] Other 06-20-2022 15:00-0500 Systolic blood pressure 108 mm[Hg] Aguila Ball Other [employer] Other 05-10-2022 11:15-0500 Body height 187.96 cm Aguila Ball Other [employer] Other 05-10-2022 11:15-0500 Body mass index (BMI) [Ratio] 33.79 kg/m2 Aguila Ball Other [employer] Other 05-10-2022 11:15-0500 Body weight 119.39 kg Aguila Ball Other [employer] Other 05-10-2022 11:15-0500 Diastolic blood pressure 70 mm[Hg] Aguila Ball Other [employer] Other 05-10-2022 11:15-0500 Respiratory rate 12 /min Aguila Ball Other [employer] Other 05-10-2022 11:15-0500 Systolic blood pressure 118 mm[Hg] Aguila Ball Other [employer] Other Encounters Encounter Date Encounter Type Care Provider Facility Start: 11-19-2024 ambulatory Aguila Ponce DO Work Phone: [facility] Work Phone: Start: 11-19-2024 Non-patient / Non-visit Aguila ellsworth DO -[employer] Work Phone: Start: 11-12-2024 End: 11-12-2024 ambulatory Aguila Ponce DO Work Phone: [facility] Work Phone: Start: 11-12-2024 End: 11-12-2024 Patient encounter procedure Aguila Ponce DO -[facility] Work Phone: Start: 10-30-2024 Non-patient / Non-visit Aguila Kadeem ellsworth DO -[facility] Work Phone: Start: 10-24-2024 End: 10-24-2024 ambulatory Aguila Ponce DO Work Phone: [facility] Work Phone: Start: 10-24-2024 End: 10-24-2024 Patient encounter procedure Aguila Ponce DO -[facility] Work Phone: Start: 07-16-2024 End: 07-16-2024 ambulatory [facility] Work Phone: Start: 07-16-2024 End: 07-16-2024 Encounter for general adult medical examination without abnormal findings [facility] Start: 07-16-2024 End: 07-16-2024 Patient encounter procedure [facility] Work Phone: Start: 01-05-2024 End: 01-05-2024 ambulatory [facility] Work Phone: Start: 01-05-2024 End: 01-05-2024 Patient encounter procedure [facility] Work Phone: Start: 11-29-2023 End: 11-29-2023 ambulatory [facility] Work Phone: Start: 11-29-2023 End: 11-29-2023 Patient encounter procedure [facility] Work Phone: Start: 11-20-2023 Non-patient / Non-visit [facility] Work Phone: Start: 11-13-2023 End: 11-13-2023 ambulatory [facility] Work Phone: Start: 11-13-2023 End: 11-13-2023 Patient encounter procedure [facility] Work Phone: Start: 07-07-2023 End: 07-07-2023 ambulatory [facility] Work Phone: Start: 07-07-2023 End: 07-07-2023 Encounter for general adult medical examination without abnormal findings [facility] Start: 07-07-2023 End: 07-07-2023 Patient encounter procedure [facility] Work Phone: Start: 06-20-2023 Non-patient / Non-visit [facility] [employer] [facility] Work Phone: Start: 06-12-2023 Non-patient / Non-visit [facility] Work Phone: Start: 02-03-2023 End: 02-03-2023 ambulatory Aguila Ponce Other [employer] Other Start: 02-03-2023 Telephone encounter Aguila Ponce [facility] Start: 11-08-2022 End: 11-08-2022 ambulatory [facility] Facility:[facility] Start: 10-21-2022 End: 10-21-2022 ambulatory Aguila Ponce Other [employer] Other Start: 10-21-2022 Telephone encounter Aguila Ponce DIALL[facility] Start: 10-21-2022 End: 10-21-2022 ambulatory [facility] Facility:[facility] Start: 09-22-2022 ambulatory NARENDRANATH LAKSHMIPATHY . Facility:[facility] Start: 08-23-2022 End: 08-23-2022 ambulatory NARENDRANATH LAKSHMIPATHY . Facility:[facility] Start: 08-16-2022 End: 08-16-2022 ambulatory NARENDRANATH LAKSHMIPATHY . Facility:[facility] Start: 08-15-2022 End: 08-15-2022 ambulatory Aguila Ponce Other [employer] Other Start: 08-15-2022 Telephone encounter Aguila LANDRUM [...] 06-21-2022 End: 06-21-[address] AGUILA PONCE [employer] Other Start: 06-20-2022 End: 06-20-2022 ambulatory Aguila Ponce Other [employer] Other Start: 06-20-2022 Encounter for other preprocedural examination [facility] Start: 06-20-2022 Office outpatient vi sit 25 minutes Aguila Ponce [facility] Start: 05-26-2022 End: 05-27-[address] AGUILA PONCE Facility:[facility] Start: 05-10-2022 End: 05-10-2022 ambulatory Aguila Ponce Other [employer] Other Start: 05-10-2022 Office outpatient vi sit 15 minutes [facility] Start: 04-28-2022 End: 06-01-[address] AGUILA PONCE Facility:[facility] Start: 04-26-2022 Telephone encounter [facility] Start: 04-26-2022 End: 04-26-[address] AGUILA PONCE [employer] Other Start: 04-23-2022 Encounter for genera l adult medical examination without abnormal findings DR AGUILA PONCE [facility] Start: 04-21-2022 End: 04-22-[address] AGUILA PONCE Facility:[facility] Start: 04-21-2022 End: 04-22-2022 Encounter for general adult medical examination without abnormal findings DR AGUILA PONCE Facility:[facility] Start: 03-31-2022 Adult health examination Aguila Ponce Other [facility] [employer] Other Start: 11-04-2021 End: 11-04-[address] [...] the presence orabsence of malignant disease.Performed at: [facility] [employer] Director: Zach Lucia PhD, Phone: [phone] Start: 04-04-2018 General examination of patient Aguila Ponce Other End: 06-16-2021 Laboratory test result abnormal Aguila Ponce Other Plan of Treatment Date Care Activity Detail Author Start: 11-19-2024 Patient referral [facility] Work Phone: Comprehensive metabo lic 1999 panel - Serum or Plasma [facility] Comprehensive metabo lic 1999 panel - Serum or Plasma [facility] Comprehensive metabo lic 1999 panel - Serum or Plasma [facility] Fibrin D-dimer [Pres ence] in Platelet poor plasma by Latex agglutination [facility] Patient referral [facility] Work Phone: [facility] Thyroid gland [facility] Immunizations Immunization [...] Medical Center Payers Date Payer Category Payer [facility] [id number] 2019 Unknown [id number] 1973 Unknown [id number] 1973 Unknown [id number] 2.840.1.289066.3.579.2.593 1973 Unknown [id number] 2.16840.1.501763.3.579.2.593 1973 Unknown [id number] 2.16840.1.918135.3.579.2.593 1973 Unknown [id number] 2.840.1.040727.3.579.2.593 1973 Unknown [id number] 2.840.1.830506.3.579.2.593 1973 Unknown [id number] 2.16.840.1.491180.3.579.2.593 1973 Unknown [id number] 2.16840.1.906948.3.579.2.593 1973 Unknown [id number] 2.16840.1.463081.3.579.2.593 1973 Unknown [id number] 2.16840.1.996070.3.579.2.593 1973 Unknown [id number] 2.16.840.1.452036.3.579.2.593 1973 Unknown [id number] 2.16.840.1.035724.3.579.2.593 1973 Unknown [id number] 2.16.840.1.660750.3.579.2.593 1973 Unknown [id number] 2.16.840.1.945011.3.579.2.593 1973 Unknown [id number] 2.16.840.1.581200.3.579.2.593 1973 Unknown [id number] 2.16.840.1.876228.3.579.2.593 1973 Unknown [id number] 2.16.840.1.698175.3.579.2.718 1973 Unknown [id number] 2.16.840.1.578757.3.579.2.718 Private Health Insurance BBS [id number] Unknown M[employer] [id number] Social History Date Type Detail Facility Sex Assigned At [facility] [employer] Other Start: 06-12-2023 Tobacco smoking stat [facility] Unknown if ever smoked [facility] Start: 1975 Sex Assigned At Male F [facility] Start: 11-13-2023 [facility] Start: 07-16-2024 Sex Male (finding) [facility] Medical Equipment Procedure Code Equipment Code Equipment Origin al Text Equipment Identifier Dates Sure-Fine [place] 31G X 5 MM Blood Sugar Diagnostic [...] to ENT Time Frame: 11/19/24, Location: None [facility] Work Phone: 10-24-2024 Evaluation note Diagnosis Onset Date Resolution Obesity acute October 24, 2024 11:43am Thyroid mass of unclear etiology acute October 24, 2024 11:43am Type 2 diabetes mellitus with hyperglycemia acute October 24 11:43am Thyroid mass deleted October 24 11:43am Obesity acute November 12 8:54am Type 2 diabetes mellitus with hyperglycemia acute November 12 8:54am [facility] Work Phone: 1(903) 866-145807-03-2025 Evaluation note* Diagnosis Onset Date Resolution Status [...] h hyperglycemia acute November 12, 2024 8:54am [facility] Work Phone: 1(678) 512-757703-25-2025 Evaluation note* Diagnosis Onset Date Resolution Status [...] 2024 9:45am Wellness examination noneactive 2024 9:45am [facility] Work Phone: 1(804) 172-410810-13-2023 Evaluation note* Encounter Date Diagnosis Assessment Notes Treatment Notes Treatment Clinical Notes Jan, Type 2 diabetes mellitus with hyperglycemia (ICD-10 - E11.65) [employer] Other 06-30-2023 Evaluation note* Encounter Date Diagnosis Assessment Notes Treatment Notes Treatment Clinical Notes Sep, Essential (primary) hypertension (ICD-10 - I10) [employer] Other 04-24-2023 Evaluation note* Encounter Date Diagnosis Assessment Notes Treatment Notes Treatment Clinical Notes Jul, Type 2 diabetes mellitus with hyperglycemia (ICD-10 - E11.65) Jul, senior living (current) use of insulin (ICD-10 - Z79.4) [employer] Other 04-06-2023 NoteCONSULTATION CONSULTATION DATE: 07/28/2022 TO: [...] our patients to inform us about any [id number] medications or herbal remedies/nutritional supplements/alternative remedies. 2. [...] treatment options with their primary care provider.[facility] [id number] Note CONSULTATION CONSULTATION DATE: 07/07/2022 HISTORY: This [...] followed up in the clinic post procedure.[facility] [id number] Evaluation note* Encounter Date Diagnosis Assessment Notes Treatment Notes Treatment Clinical Notes May, Elevated transaminase level (ICD-10 - R74.01) May, Essential (primary) hypertension (ICD-10 - I10) May, Controlled type 2 diabetes mellitus with hyperglycemia, without long-term current use of insulin (ICD-10 - E11.65) [employer] Other 02-27-2023 Evaluation note* Encounter Date Diagnosis [...] (ICD-10 - E78.2) Healthy diet and exercise. [employer] Other 02-02-2023 NoteCONSULTATION CONSULTATION DATE: 05/26/2022 HISTORY [...] be followed up in the office thereafter.[facility] 05-10-2022 Evaluation note* Encounter Date [...] soap and water. UTD w/ tetanus booster [employer] Other 01-03-2023 Evaluation note* Encounter Date Diagnosis Assessment Notes Treatment Notes Treatment Clinical Notes Apr, Other chronic pain (ICD-10 - G89.29) Apr, Low back pain, unspecified (ICD-10 - M54.50) [employer] Other 03-02-2022 NoteChief Complaint consultation for screening [...] tab(s), Oral, Da (more content not included)... [facility]Result Comment: Electronically Signed By: XANDER DIEHL, Luc Blandon\Date and Time Signed: 06/23/21 17:02 EST Evaluation note* Diagnosis Onset Date Resolution Status Depression, major, recurrent, in partial remission acute Essential (primary) hypertension acute Gastroesophageal reflux dise ase with esophagitis without hemorrhage acute Hyperlipidemia, mixed acute Type 2 diabetes mellitus with hyperglycemia acute Screening PSA (prostate specific antigen) noneactive Wellness examination noneact brigette [facility] Work Phone: Evaluation note* Diagnosis Onset Date Resolution Status Allergic reaction acute [facility] Work Phone: Evaluation note* Diagnosis Onset Date Resolution Status Allergic reaction acute Seasonal allergies acute Depression, major, recurrent, in partial remission acute Essential (primary) hypertension acute Gastroesophageal reflux dise ase with esophagitis without hemorrhage acute Hyperlipidemia, mixed acute Type 2 diabetes mellitus with hyperglycemia acute [facility] Work Phone: Evaluation note* Diagnosis Onset Date Resolution Status Allergic reaction acute Seasonal allergies acute Depression, major, recurrent, in partial remission acute Essential (primary) hypertension acute Gastroesophageal reflux dise ase with esophagitis without hemorrhage acute Hyperlipidemia, mixed acute [id number] acute Type 2 diabetes mellitus with hyperglycemia acute Gastroesophageal reflux dise ase with esophagitis without hemorrhage acute [id number] acute Type 2 diabetes mellitus with hyperglycemia acute [facility] Work Phone: Evaluation note* Diagnosis Onset Date Resolution Status Admit Date Depression, major, recurrent , in partial remission acute October 24, 2024 11:43am Gastroesophageal reflux dise ase with esophagitis without hemorrhage acute October 24, 2024 1 1:43am Hyperlipidemia, mixed acute Oct 11:43am Obesity acute October 24, 2024 11:43am Type 2 diabetes mellitus wit h hyperglycemia acute October 24, 2024 1 1:43am [facility] Work Phone: Hisycbk general Narrative - Reported* Type Description Date [...] Debridement SLAP Lesion Surgical History Subacromion Decompression [employer] Other History general Narrative - Reported* Type [...] Subacromion Decompression Hospitalization History see surgical history [employer] Other Reason for referral (narrative)No reason for referral information availableC[facility] Work Phone: Summary Purpose Family History No Family History Records FoundNo Family History Records FoundNo Family History Records Found Advance Directives Advance Directive Response Recorded Date/ Time Advance Directives No May 29, 2023 3:54pm Reason for Referral Reason 05/26/22 Patient morteza juan referred for treatment of low back pain. Diagnosis 1 Osteoarthritis of sp ine with radiculopathy, lumbar region (M47.26) Referral Organization [facility] Referring Provider First Name Aguila Referring Provider Last Name Kris Referring Provider Specialty Internal Me dicine Referred Organization [facility] Referred Provider MOSLEYVIDHYA Referred Address [address], [place],[address] Referred Provider Specialty Pain Medicin e Referral [...] >faxed first request for consult notes to [phone] Emily Lee 06/07/2022 01:51:17 PM >received today notes sent for review. closing referral at this time. Clinical Notes CT lumbar spine comp leted July, P: [id number] F: [id number] Chief Complaint and Reason for Visit Chief [...] disease with esophagitis without hemorrhage Hyperlipidemia, mixed [id number] Type 2 diabetes mellitus with hyperglycemia Gastroesophageal reflux disease with esophagitis without hemorrhage [id number] Type 2 diabetes mellitus with hyperglycemia Chief [...] End: November 13, 2023 Thu Ren APRN PATIENT ACCOUNT SPECIALIST-C Attending Provider Act brigette Start: November 13, [...] BE BASED ON THE PRIMARY CLINICAL RECORDS. [facility] [employer] provides no warranty or guarantee of the accuracy or completeness of information in this document.
== END 2024-12-02 07:05 | disposition home or self-care (01) ==
LOC: US 07:05
PROVIDERS: PCP Internal Medicine; Visit Provider Internal Medicine
DX: K76.0 Fatty (change of) liver, not elsewhere classified (principal); F10.90 Alcohol use, unspecified, uncomplicated
CPT/HCPCS: 76705

== ENCOUNTER 2025-01-13 08:11 | Outpatient (OUT) | payer BC, SELFPAY ==
--- OUTSIDE RECORDS SUMMARY | 2025-01-13 08:17 | XMS_ITS | CCD ---
Author Organization [facility] Care Team Providers Care Premises Technician Name Role Phone Aguila Ponce Unavailable LAKSHMIPATHY ., PRASHANT Attending Zina vailable LAKSHMIPATHY ., PRASHANT Admitting Zina vailable JACOBO, DR NEWBY Primary Care Unavailable MARISABEL ROJAS Admitting Unavailable MARISABEL ROJAS Attending Unavailable BALL, DR NEWBY Primary Care Unavailable GRECHNY ., HASEEB COHN Consulting UnavailSERGE Laboy Consulting Unavailable JACOBO, DR NEWBY Primary Care Unavailable STEPANIC, DR MINER Admitting Unavailable STEPANIC, DR MINER Attending Unavailable BALL, DR NEWBY Primary Care Unavailable ANDERSON ., DR NADIR Xiao Admitting Unavailable ANDERSON ., DR NADIR Xiao Consulting Unavailable ANDERSON ., DR NADIR Xiao Attending Unavailable LAKSHMIPATHY ., PRASHANT Attending Zina vailable LAKSHMIPATHY ., PRASHANT Admitting Zina vailable JACOBO, DR NEWBY Primary Care Unavailable SB VILLAFANA Consulting Unavailable LAKSHMIPATHY ., PRASHANT Consulting Zina vailable JACOBO, DR NEWBY Primary Care Unavailable ANDERSON ., DR NADIR Xiao Admitting Unavailable ANDERSON ., DR NADIR Xiao Attending Unavailable MOSLEY .VDIHYA Consulting Unavailable ELIZABETH JUNIOR Consulting Unavailable JACOBO, DR NEWBY Primary Care Unavailable BALL, DR NEWBY Attending Unavailable BALL, DR NEWBY Admitting Unavailable BALL, DR NEWBY Consulting Unavailable JACOBO, DR NEWBY Admitting Unavailable JACOBO, DR NEWBY Primary Care Unavailable JACOBO, DR NEWBY Consulting Unavailable JACOBO, DR NEWBY Attending Unavailable BALL, DR NEWBY Admitting Unavailable BALL, DR NEWBY Primary Care Unavailable BALL, DR NEWBY Consulting Unavailable BALL, DR NEWBY Attending Unavailable BALL, DR NEWBY Primary Care Unavailable MISC, DR WEBSTER Attending Unavailable MISC, DR WEBSTER Admitting Unavailable MISC, DR WEBSTER Consulting Unavailable ZIEBER, DR BEATRIZ Martinez Consulting Unavailable JACOBO, DR NEWBY Primary Care Unavailable ANDERSON ., DR NADIR Xiao Admitting Unavailable ANDERSON ., DR NADIR Xiao Consulting Unavailable ANDERSON ., DR NADIR Xiao Attending Unavailable MOSLEY ., VIDHYA Consulting Unavailable LAKSHMIPATHY ., NARENDRANATH Attending Zina vailable LAKSHMIPATHY ., NARENDRANATH Admitting Zina vailable LAKSHMIPATHY ., NARENDRANATH Consulting Zina vailable JCAOBO, DR NEWBY Primary Care Unavailable LAKSHMIPATHY ., NARENDRANATH Attending Zina vailable LAKSHMIPATHY ., NARENDRANATH Admitting Zina vailable LAKSHMIPATHY ., NARENDRANATH Consulting Zina vailable JACOBO, DR NEWBY Primary Care Unavailable LAKSHMIPATHY ., NARENDRANATH Attending Zina vailable LAKSHMIPATHY ., NARENDRANATH Admitting Zina vailable JACOBO, DR NEWBY Primary Care Unavailable SB VILLAFANA Consulting Unavailable LAKSHMIPATHY ., MONICARANBONG Consulting Zina vailable JACOBO, DR NEWBY Primary Care Unavailable YULIA ., DANIELLE Admitting Unavailable YULIA ., DANIELLE Attending Unavailable YULIA ., DANIELLE Consulting Unavailable YULIA ., DANIELLE Attending Unavailable YULIA ., DANIELLE Admitting Unavailable DR AGUILA PONCE Primary Care Unavailable YULIA ., DANIELLE Consulting Unavailable KRISTOFER MENON Attending Unavailable Provider, None Primary Care Unavailable KRISTOFER MENON Admitting Unavailable STEPKRISTOFER VILLAFUERTE Admitting Unavailable STEPKRISTOFER VILLAFUERTE Attending Unavailable Provider, None Primary Care Unavailable Aguila Ponce DO Primary Care Provider Aguila Ponce DO Attending Provider Aguila Ponce DO Primary Care Provider Aguila Luo DO Attending Provider [phone] AGUILA LUO Attending Unavailable AGUILA LUO Attending Unavailable AGUILA LUO Attending Unavailable Aguila Ponce Primary Care Unavailable Aguila Luo Attending Unavailable Aguila Luo Admitting Unavailable Aguila Luo Attending Unavailable Aguila Luo Admitting Unavailable Aguila Ponce Primary Care Unavailable Allergies Allergy Classification Reported Allergen(s) Allergy Type Date of Onset Reaction(s) Facility (2 sources) metFORMIN Drug Allergy unknown [facility] Other (20 sources) SITagliptin Drug Allergy 4 unknown, metabolic acidosis [facility] (20 sources) metFORMIN Drug Allergy 9 unknown, Diarrhea [facility] (1 source) metFORMIN Drug Allergy [facility] (1 source) patient allergy list reviewed by nurse or physicia Propensity to adverse reactions 9 Comment:Done [facility] Other (1 source) metFORMIN Drug Allergy [address] [facility] Repository (1 source) SITagliptin Drug Allergy [address] [facility] Repository Medications Current Medications Medication Drug Class(es) Dates Sig (Normalized) Sig (Original) BD Ultra-Fine Micro Pen Needle (7 sources) BD Ultra-Fine Micro Pen Needle 32g x1/4 misc needle subcutaneous as directed Active fenofibrate 160 mg oral tablet (20 sources) Peroxisome Proliferator Receptor alpha Agonist Start: 07-16-2024 End: 12-03-2024 fenofibrate (Triglide) 160 MG tablet Daily 11/12/2024 Active glimepiride 4 mg oral tablet (5 [...] ml insulin glargine 100 unt/ml pen injector (20 sources) Insulin Analog Start: 10-08-2024 insulin glargi ne (Lantus) 100 UNIT/ML pen 10 Units 10/08/2024 Active Start: 10-08-2024 End: 12-03-2024 inject 10 [IU] by subcutaneous injection once daily in the evening Insulin Glargine (Lantus Solostar U-100 Insulin) 100 unit/mL (3 mL) insulin pen Discontinued 10 UNIT SUBCUT Every evening 07 21October 08, 2024 12:00am December 03, 2024 4:58pm Start: 07-18-2024 End: 07-19-2024 Insulin Glargine (Basaglar T empo Pen(U-100)Insln) 100 unit/mL (3 mL) insulin pen, sensor Discontinued 20 UNIT SUBCUT Every evening 10 21July 18, 2024 12:00am July 19, 2024 10:54am Insulin Glargine-Yfgn (8 sources) Start: 12-03-2024 Insulin Glargi ne-Yfgn (Semglee(Insulin Glarg-Yfgn)Pen) 100 unit/mL (3 mL) insulin pen Active 15 UNIT SUBCUT Every evening December 03, 2024 12:00am Complies with drug therapy Start: 12-03-2024 Start: 07-19-2024 End: 10-08-2024 Insulin Glargine-Yfgn (Semgl ee(Insulin Glarg-Yfgn)Pen) 100 unit/mL (3 mL) insulin pen Discontinued 20 UNIT SUBCUT Daily 10 21July 19, 2024 12:00am October 08, 2024 5:38pm 3 ml insulin lispro 100 unt/ml pen injector (20 sources) Insulin Analog Start: 11-22-2024 Insulin Lispro (Humalog Kwikpen Insulin) 100 unit/mL insulin pen Active 0 sliding scale dose SUBCUT Use as Directed Protocol: *If the corrective scale dose has been administered within the past 4 hours, do not use corrective scale again unless approved by prescriber* Condition: Dose/Route: Instructions: Condition: Fingerstick Blood Glucose Dose/Route: Insulin Units Condition: Dose/Route: 0 unit Condition: 131-180 mg/dl Dose/Route: 4 units Condition: 181- 240 mg/dl Dose/Route: 8 units Condition: 241- 300 mg/dl Dose/Route: 12 units Condition: 301- 350 mg/dl Dose/Route: 16 units Condition: > 350 mg/dl Dose/Route: 20 units Condition: Greater than or = 400 mg/dl Instructions: Call Provider November 22, 2024 4:32pm Maximum day supply 60u Please contact the information source for Protocol details. Complies with drug therapy Start: 07-18-2024 End: 11-22-2024 insulin lispro (HumaLOG) 100 UNIT/ML injection Use as Directed Protocol: *If the corrective [...] or = 400 mg/dl Instructions: Call Provider 11/19/2024 Active omeprazole 40 mg delayed release oral capsule (20 sources) Proton Pump Inhibitor Start: 10-13-2024 omeprazo le (PriLOSEC) [address] capsule .COMPLEX 10/13/2024 Active Start: 09-19-2023 End: 12-03-2024 take 1 capsule by mouth once daily at breakfast Omeprazole 40 mg capsule,delayed release(DR/EC) Discontinued 0 .ROUTE .COMPLEX 90 October 13, 2024 7:53am December 03, 2024 4:59pm TAKE 1 CAPSULE BY MOUTH ONCE A [...] (Original) benazepril hydrochloride 10 mg oral tablet (18 sources) Angiotensin Converting Enzyme Inhibitor Start: 06-12-2023 [...] 05, 2024 9:14am April 09, 2024 9:57am ibuprofen 200 mg oral capsule (2 sources) Nonsteroidal Anti-inflammatory Drug Start: 12-03-2024 take 1 capsule by mouth every six hours in the morning for pain Ibuprofen 200 mg capsule Active 800 MG PO Every morning December 03, 2024 12:00am On Hold: Resume on 12/16/24. ok to take 200mg every 6 hrs for pain Complies with drug therapy Start: 12-03-2024 take 4 capsules by mouth once daily in the morning 3 ml insulin aspart protamine, human 70 unt/ml / insulin aspart, human 30 unt/ml pen injector (7 sources) Insulin Analog NovoLOG Mix 70/3 0 FlexPen (70-30) 100 UNIT/ML 40 units before breakfast, 30 units before supper. Subcutaneous Not-Taking 3 ml insulin detemir 100 unt/ml pen injector (20 sources) Insulin Analog Start: End: inject 20 [IU] by subcutaneous injection once [...] 09, 2024 1:00am April 11, 2024 4:55pm methylPREDNISolone 4 mg oral tablet (10 sources) Corticosteroid Start: 11-13-2023 End: 11-29-2023 take [...] nausea Not-Taking pregabalin 100 mg oral capsule (11 sources) Start: 07-07-2023 End: 11-29-2023 take 1 capsule by mouth once daily at bedtime Pregabalin (Lyrica) 100 mg capsule Discontinued 100 MG PO Daily at bedtime July 07, 2023 12:00am November 29, 2023 5:42pm Semaglutide (7 sources) Start: 04-11-2024 End: 07-16-2024 Semaglutide (Ozempic) 0.25 mg or 0.5 mg (2 mg/3 mL) pen injector Discontinued 0.25 MG SUBCUT every week 07 21April 11, 2024 1:00am July 16, 2024 9:51am for 4 weeks semaglutide 3 mg oral tablet (6 sources) Start: 07-16-2024 End: 10-08-2024 take 1 [...] Classification Problem Date Documented Da te Episodic/Chronic Acute bronchitis (1 source) Acute bronchitis; Translations: [Acute bronchitis due to other specified organisms] Episodic Complications of surgical procedures or medical care (2 sources) History of subtotal thyroidectomy; Translations: [Postprocedural hypothyroidism] 12-16-2024 Chronic Miscellaneous mental health disorders (1 source) Primary insomnia; Translations: [Primary insomnia] Chronic Open wounds of extremities (1 source) Laceration without foreign body of left hand, initial encounter Episodic Other aftercare (3 sources) Long-term current use of insulin; 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] Episodic Other aftercare (1 source) senior living (current) use of insulin Episodic Other connective [...] infectious origin; Translations: [Diarrhea, unspecified] Episodic Other liver diseases (12 sources) Fatty (change of) liver, not elsewhere classified; Translations: [Other chronic nonalcoholic liver disease] 11-29-2023 Chronic Other nervous system disorders (20 sources) Chronic pain; Translations: [Other chronic pain] Onset: 11-28-2024 Resolved: 11-28-2024 11-28-2024 Chronic Other nervous system disorders (1 source) Other chronic pain Chronic Other non-traumatic joint disorders (4 sources) Other specific joint derangements of right shoulder, not elsewhere classified; Translations: [OTH SPEC JOINT DERANG RT SHLDR NEC] Onset: 04-26-2022 Chronic Other nutritional; endocrine; and metabolic disorders [...] dependence, chewing tobacco, uncomplicated] Chronic Thyroid disorders (14 sources) Mass of thyroid gland; Translations: [Other specified disorders of thyroid] Onset: 12-09-2024 10-24-2024 Episodic Unclassified (4 sources) LOW BACK PAIN, UNSPECIFIED; Translations: [LOW BACK PAIN, UNSPECIFIED] Onset: 07-16-2022 Unclassified (1 source) ELEV LVLS LIVER TRANSAMINASE LVLS; Translations: [ELEV LVLS LIVER TRANSAMINASE LVLS] Onset: 06-26-2022 Unclassified (3 sources) E04.1 - Nontoxic single thyroid nodule Viral infection (10 sources) Disease caused by 2019-nCoV; Translations: [COVID-19] Onset: 11-04-2021 Past or Other Problems Problem Classification Problem Date Documented Da te Episodic/Chronic Abdominal pain (20 sources) Epigastric pain; Translations: [Epigastric pain] Onset: 12-02-2024 Resolved: 12-02-2024 12-02-2024 Episodic Allergic reactions (20 sources) Allergic reaction; Translations: [Allergy, unspecified, initial encounter] Onset: 11-28-2024 Resolved: 11-28-2024 11-13-2023 Episodic Diabetes mellitus with complications (20 sources) Hyperglycemia due to type 2 diabetes mellitus; Translations: [Type 2 diabetes mellitus with hyperglycemia] Onset: 06-22-2022 Resolved: 11-28-2024 Chronic Diabetes mellitus without complication (11 sources) Type 2 diabetes mellitus without complications; Translations: [Type 2 diabetes mellitus without complication] Onset: 04-13-2018 Resolved: 12-02-2024 12-02-2024 Chronic Diabetes mellitus without complication (9 sources) Glycosuria; Translations: [Glycosuria] Onset: 12-02-2024 Resolved: 12-02-2024 12-02-2024 Episodic Disorders of lipid metabolism (20 sources) Mixed hyperlipidemia; Translations: [Mixed hyperlipidemia] Onset: 05-11-2018 Resolved: 11-28-2024 Chronic E Codes: Cut/pierceb (1 source) Contact with other powered hand tools and household machinery, initial encounter; Translations: [CONTACT OTH POWER HT AND HH MACH INIT] Onset: 09-17-2021 Episodic Esophageal disorders (20 sources) Gastro-esophageal reflux disease with esophagitis; Translations: [Gastro-esophageal reflux disease with esophagitis, without bleeding] Onset: 11-28-2024 Resolved: 12-02-2024 06-12-2023 Chronic Esophageal disorders (7 sources) Esophageal disorders; Translations: [Gastroesophageal reflux disease with esophagitis without hemorrhage] Essential hypertension (20 sources) Essential hypertension; Translations: [Essential (primary) hypertension] Onset: 06-26-2022 Resolved: 11-28-2024 Chronic Comment on above: Echo: LVEF 65%, NOLAN, normal RV size/function, RVSP 11/2024 Fluid and electrolyte disorders (18 sources) Hyponatremia; Translations: [Hypo-osmolality and hyponatremia] Onset: 11-28-2024 Resolved: 11-28-2024 01-05-2024 Episodic Genitourinary symptoms and ill-defined conditions (18 sources) Dysuria; Translations: [Dysuria] Onset: 12-02-2024 Resolved: 12-02-2024 12-02-2024 Episodic Headache; including migraine (1 source) Tension-type headache; [...] [Other malaise and fatigue] Onset: 04-04-2018 Episodic Mood disorders (20 sources) Recurrent major depression in remission; Translations: [Major depressive disorder, recurrent, in partial remission] Onset: 11-28-2024 Resolved: 12-02-2024 07-06-2023 Chronic Mycoses (1 source) Candidal balanitis; Translations: [Candidal balanitis] Resolved: 07-14-2020 Episodic Nausea and vomiting (20 sources) Nausea and vomiting; Translations: [Nausea with vomiting, unspecified] Onset: 12-02-2024 Resolved: 12-02-2024 12-02-2024 Episodic Open wounds of extremities (4 sources) Laceration without foreign body of right index finger without damage to nail, initial encounter; Translations: [LAC W/O FB RT IF W/O DMG NAIL INIT] Onset: 09-15-2021 Episodic Other aftercare (1 source) senior living (current) use of oral hypoglycemic drugs; Translations: [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 DX] Onset: 09-17-2021 Episodic [...] specified as traumatic] Onset: 09-16-2016 Episodic Other connective tissue disease (10 sources) Impingement syndrome of right shoulder region; Translations: [Impingement syndrome of right shoulder] Onset: 11-28-2024 Resolved: 11-28-2024 11-28-2024 Episodic Other disorders of stomach and duodenum (9 sources) Indigestion; Translations: [Functional dyspepsia] Onset: 12-02-2024 Resolved: 12-02-2024 12-02-2024 Episodic Other gastrointestinal disorders (10 sources) Diarrhea; Translations: [Diarrhea, unspecified] Onset: 12-02-2024 Resolved: 12-02-2024 12-02-2024 Episodic Other gastrointestinal disorders (9 sources) Altered bowel function; Translations: [Other specified symptoms and signs involving the digestive system and abdomen] Onset: 12-02-2024 Resolved: 12-02-2024 12-02-2024 Episodic Other liver diseases (12 sources) Steatosis of liver; Translations: [Fatty (change of) liver, not elsewhere classified] Onset: 11-28-2024 Resolved: 11-28-2024 11-29-2023 Chronic Other liver diseases (1 source) Elevated levels of transaminase & lactic acid dehydrogenase; Translations: [Nonspecific elevation of levels of transaminase or lactic acid dehydrogenase (LDH)] Onset: 06-23-2018 Episodic Other lower respiratory disease (1 source) Cough; Translations: [Cough, unspecified] Onset: 10-22-2018 Episodic Other male genital disorders (9 sources) Phimosis; Translations: [Phimosis] Onset: 12-02-2024 Resolved: 12-02-2024 12-02-2024 Episodic Other non-traumatic joint disorders (10 sources) Derangement of right shoulder joint; Translations: [Other specific joint derangements of right shoulder, not elsewhere classified] Onset: 11-28-2024 Resolved: 11-28-2024 11-28-2024 Chronic Other non-traumatic joint disorders (17 sources) Shoulder joint pain; Translations: [Pain in right shoulder] Onset: 09-16-2016 Resolved: 11-28-2024 11-28-2024 Episodic Other non-traumatic joint disorders (1 source) Arthralgia of the pelvic region and thigh; Translations: [Pain in joint, pelvic region and thigh] Onset: 04-04-2018 Episodic Other nutritional; endocrine; and metabolic disorders (20 sources) Obesity; Translations: [Obesity, unspecified] Onset: 11-28-2024 Resolved: 11-28-2024 04-11-2024 Chronic Other nutritional; endocrine; and metabolic disorders (17 sources) H/O: diabetes mellitus; Translations: [Personal history of other endocrine, nutritional and metabolic disease] Onset: 11-28-2024 Resolved: 11-28-2024 04-11-2024 Episodic Other screening for suspected conditions (not mental disorders or infectious disease) (18 sources) Encounter for screening for malignant neoplasm of prostate; Translations: [Screening for malignant neoplasms of prostate] Onset: 11-28-2024 Resolved: 11-28-2024 07-07-2023 Episodic Comment on above: PSA: 0.15 - 06/2024 Other upper respiratory disease (19 sources) Seasonal allergy; Translations: [Other seasonal allergic rhinitis] Onset: 11-28-2024 Resolved: 11-28-2024 11-14-2023 Chronic Other upper respiratory disease (1 source) Bleeding from nose; Translations: [Epistaxis] Onset: 04-11-2014 Episodic Residual codes; unclassified (18 sources) Peripheral edema; Translations: [Localized edema] Onset: 11-28-2024 Resolved: 11-28-2024 11-12-2024 Episodic Residual codes; unclassified (9 sources) History of circumcision; Translations: [Other specified postprocedural states] Onset: 12-02-2024 Resolved: 12-02-2024 12-02-2024 Episodic Residual codes; unclassified (9 sources) User of smokeless tobacco; Translations: [Tobacco use] Onset: 12-02-2024 Resolved: 12-02-2024 12-02-2024 Episodic Residual codes; unclassified (9 sources) Swelling; Translations: [Edema, unspecified] Onset: 12-02-2024 Resolved: 12-02-2024 12-02-2024 Episodic Screening and history of mental health and substance abuse codes (1 source) Personal history of nicotine dependence; Translations: [PERSONAL HISTORY OF NICOTINE DEPEND] Onset: 09-17-2021 Episodic Sprains and strains (20 sources) Strain of muscle(s) and tendon(s) of the rotator cuff of right shoulder, initial encounter; Translations: [Sprains and strains of other specified sites of shoulder and upper arm] Onset: 11-28-2024 Resolved: 11-28-2024 11-28-2024 Episodic Thyroid disorders (17 sources) Thyroid nodule; Translations: [Nontoxic single thyroid nodule] Onset: 11-28-2024 Resolved: 11-28-2024 Chronic Comment on above: US: 4x3.7x3.8cm TR3 right sided nodule - 10/2024 Unclassified (1 source) Low back pain, unspecified M54.50 Unclassified (1 source) Elevated transaminase level R74.01 Unclassified (1 source) LOW BACK PAIN, UNSPECIFIED; Translations: [LOW BACK PAIN, UNSPECIFIED] Onset: 07-28-2022 Unclassified (1 source) Long-term current use of drug therapy; Translations: [Long-term (current) use of other medications] Onset: 04-11-2018 Results Test Name Value Interpretation Reference Range Facility Capillary blood glucose dillon urement by glucometer (mass/volume)Ordered By: Aguila Luo on 12-09-2024 Glucose [Mass/Vol] 160 mg/dL Normal [facility] Comment on above: Random Glucose Refer ence Range is dependent on time and content of last meal. Glucose of more than 200 mg/dL in a nonstressed, ambulatory subject supports the diagnosis of Diabetes Mellitus. Result Comment: [facility] Glucose Reference Range is dependent on time and content of last meal. Glucose of more than 200 mg/dL in a nonstressed, ambulatory subject supports the diagnosis of Diabetes Mellitus. PERFORMED BY: [facility] [address] [place] [address] PATHOLOGIST SALESPERSON FURS NELI OBANDO M.D. Performed By: #### G HORTENSIA #### Point of Care testing , GLUCOSE POCT GLUCOMETERSon 0 12-09-2024 Glucose [Mass/Vol] 160 mg/dL [facility] Comment on above: Random Glucose Refer ence Range is dependent on time and content of last meal. Glucose of more than 200 mg/dL in a nonstressed, ambulatory subject supports the diagnosis of Diabetes Mellitus. [facility] COMMEMT1 Glu2: Cleaned Meter [facility] Glucose [Mass/Vol] 204 mg/dL [facility] Comment on above: Random Glucose Refer ence Range is dependent on time and content of last meal. Glucose of more than 200 mg/dL in a nonstressed, ambulatory subject supports the diagnosis of Diabetes Mellitus. [facility] Glucose Poct Glucometerson 0 12-09-2024 Commemt1 Glu2: Cleaned Meter Normal [facility] Comment on above: Result Comment: PERF ORMED BY: [facility] [address] [place] [address] PATHOLOGIST SALESPERSON FURS NELI OBANDO M.D. Performed By: #### G HORTENSIA #### Point of Care testing , Glucose [Mass/Vol] 204 mg/dL Normal [facility] Comment on above: Result Comment: [facility] Glucose Reference Range is dependent on time and content of last meal. Glucose of more than 200 mg/dL in a nonstressed, ambulatory subject supports the diagnosis of Diabetes Mellitus. Performed By: #### G HAWALS #### Point of Care testing , Gene 12-09-2024 L -- ---- Specimen: [id number] Received: 12/09/24 Status: VU Bateman Num: [id number] Spec Type: Surgical Subm Dr: Aguila Luo DO Tissues: A THYROID - Lobe (RT THYROID LOBE AND ISTHMUS) Procedures: HE/5, Gross/Micro L5 ---- Age/ Patient Sex Location Account Attending Physician ---- Yasir Orourke 49/M [place] [id number] Aguila Luo DO ---- SPEC NUM: [id number] RECD: 12/09/24 STATUS: VU HAUSERRadha NUM: [id number] RODRIGUEZ: 12/09/[address] [facility] [address]: Aguila Luo DO ENTERED: 12/09/[address]: TRENT TYPE: Surgical DEPT: S ORDERED: HE/5, Gross/Micro L5 ORDERED: HE/5, Gross/Micro L5 [facility] agrees the 46 mm nodule is benign. 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 - Thyroid follicular nodular disease, with dominant nodule. See scanned report CASE SUMMARY: (THYROID GLAND)? Standard(s): AJCC-UICC 8 SPECIMEN? ---- Specimen: [id number] Received: 12/09/24 Status: VU Fransico Num: [id number] Spec Type: Surgical Subm Dr: Aguila Luo DO Tissues: A THYROID - Lobe (RT THYROID LOBE AND ISTHMUS) Procedures: ZAHRA, Gross/Micro L5 ---- Patient: Favio Orourkeoy [id number] (Continued) ---- Specimen: [id number] Received: 12/09/24 (Continued) Signed (signature on file) Howie Garcia JR, MD 12/10/24 1106 ---- Specimen: [id number] Received: 12/09/24 Status: VU Hauserradha Num: [id number] Spec Type: Surgical Subm Dr: Aguila Luo, Tissues: A THYROID - Lobe (RT THYROID LOBE AND ISTHMUS) Procedures: HE/Anahi, Gross/Micro L5 ---- Patient: Yasir Orourke [id number] (Continued) ---- Specimen: [id number] Received: 12/09/24 (Continued) Procedure? Right partial excision TUMOR? Tumor Focality Unifocal?(pending consult) Tumor Site? Right lobe? Tumor Size? Greatest dimension in Centimeters (cm): 0.3 cm Histologic Tumor Types and Subtypes Papillary carcinoma, infiltrative follicular subtype? Tumor Proliferative Activity? Mitotic Rate? Less than 3 mitoses per 2mm2? Tumor Necrosis? Not identified? Angioinvasion (vascular invasion) Not identified? Lymphatic Invasion Not identified? ---- Specimen: [id number] Received: 12/09/24 Status: VU Bateman Num: [id number] Spec Type: Surgical Subm Dr: Aguila Luo DO Tissues: A THYROID - Lobe (RT THYROID LOBE AND ISTHMUS) Procedures: /5, Gross/Micro L5 ---- Patient: Yasir Orourke [id number] (Continued) ---- Specimen: [id number] Received: 12/09/24 (Continued) Signed (signature on file) Howie Garcia JR, MD 12/10/24 1106 ---- Specimen: Received: 12/09/24 Status: VU Bateman Num: [id number] Spec Type: Surgical Subm Dr: Aguila Luo,DO Tissues: A THYROID - Lobe (RT THYROID LOBE AND ISTHMUS) Procedures: HE/5, Gross/Micro L5 ---- Patient: Yasir Orourke [id number] (Continued) ---- Specimen: [id number] Received: 12/09/24 (Continued) Perineural Invasion? Not identified? Extrathyroidal Extension? Not identified? Margin Status All margins negative for carcinoma? Distance from Invasive Carcinoma to Closest Margin? Specify in Millimeters (mm)? Exact distance:3.5 mm REGIONAL LYMPH NODES? Regional Lymph Node Status? Not applicable (no regional lymph nodes subm (more content not included)... Normal [facility] No Panel InformationOrdered By: Aguila Luo on 12-09-2024 Bedside Glucose Comment Glu2: cleaned meter [facility] Calcium [Mass/volume] in Ser um or PlasmaOrdered By: Aguila Luo on 12-03-2024 Calcium [Mass/Vol] 8.9 mg/dL Normal 8.6-10.3 [facility] Comment on above: Order Comment: Comme nt PST Performed By: #### V [id number], PTH, TSH3, T3T, T4T, CA #### [facility] [address] ECG 12 lead ECGon 12-03-2024 ECG 12 lead ECG [facility] Main [address] [address] Electrocardiograph Report Signed Patient: Yasir Orourke MR#: [id number] : 1975 Acct:[id number] Age/Sex: 49 / M ADM Date: 12/03/24 Loc: Room: Type: [facility] CLI Attending Dr: Aguila Luo DO Ordering Provider: Aguila Luo DO Date of Service: 12/03/2404/17/1637 ECG/ECG 12 lead ECG: pst Copies to: Test Reason : Blood Pressure : */* mmHG Vent. Rate : 68 BPM Atrial Rate : 68 BPM P-R Int : 196 ms QRS Dur : 76 ms QT Int : 410 ms P-R-T Axes : 20 61 69 degrees QTcB Int : 435 ms Normal sinus rhythm Normal ECG When compared with ECG of 25-Feb-2011 09:53, No significant change was found Confirmed by JOSR DIEHL [facility] ([id number]) on 12/04/2024 5:31:31 PM Referred By: Electronically Signed By: JOSE MIGUEL DIOR MD [facility] Transcribed By: MUS Signed By Jose Miguel Dior MD, [facility] 12/04/24 1731 Normal [facility] Parathyrin.intact [Mass/Vol] on 12-03-2024 PARATHYROID HORMONE INTACT 29.1 pg/mL pg/mL [facility] Healthcare Comment PST [facility] Parathyrin.intact [Mass/volu me] in Serum or PlasmaOrdered By: Aguila Luo on 12-03-2024 Parathyrin.intact [Mass/Vol] 29.1 pg/mL [facility] Parathyroid Hormone Intacton 12-03-2024 Parathyroid Hormone Intact 29.1 pg/mL Normal [facility] Comment on above: Order Comment: Comme nt PST Result Comment: PERF ORMED BY: [address] [address] PATHOLOGIST SALESPERSON FURS NELI OBANDO M.D. Performed By: #### V [id number], PTH, TSH3, T3T, T4T, CA #### [address] [place] [address] [facility] Thyrotropin [Units/volume] i n Serum or PlasmaOrdered By: Aguila Luo on 12-03-2024 TSH Qn 0.56 m[IU]/L Normal 0.45-5.[address] [facility] Comment on above: Order Comment: Comme nt PST Performed By: #### V [id number], PTH, TSH3, T3T, T4T, CA #### [facility] [address] [id number] [facility] Thyroxine (T4) [Mass/volume] in Serum or PlasmaOrdered By: Aguila Luo on 12-03-2024 T4 [Mass/Vol] 7.08 ug/dL Normal 5.39-11.[address] [facility] Comment on above: Order Comment: Comme nt PST Performed By: #### V [id number], PTH, TSH3, T3T, T4T, CA #### [facility] [address] [id number] [place] Triiodothyronine (T3) Totalo n 12-03-2024 Triiodothyronine (T3) Total 1.00 ng/mL Normal 0.87-1.78 [facility] Comment on above: Order Comment: Comme nt PST Performed By: #### V [id number], PTH, TSH3, T3T, T4T, CA #### [facility] [address] [place], [place] [id number] [place] Triiodothyronine (T3) [Mass/ volume] in Serum or PlasmaOrdered By: Aguila Luo on 12-03-2024 T3 [Mass/Vol] 1.00 ng/mL 0.87-1.[address] [facility] Vitamin D 25 Hydroxy Totalon 12-03-2024 Vitamin D 25 Hydroxy Total 14.0 ng/mL Low 30-100 [facility] Comment on above: Order Comment: Comme nt PST Result Comment: DIMITRIS MIN D STATUS 25(OH)VITAMIN D RANGE (ng/mL) Deficient <20 Insufficient 20 to <30 Sufficient 30 to 100 Reference: Janneth MF,Rodríguez NC, Leroy CHRISTOPHER, et al. Evaluation,treatment, and prevention of vitamin D deficiency; an Endocrine Society clinical practice guideline. JCEM. 2010; 96(7):1911-. PERFORMED BY: [facility] [address] [place] [address] PATHOLOGIST SALESPERSON FURS NELI OBANDO M.D. Performed By: #### V [id number], PTH, TSH3, T3T, T4T, CA #### [facility] [address] [phone] [facility] Vitamin D+Metabolites [Mass/ volume] in Serum or PlasmaOrdered By: Aguila Luo on 12-03-2024 Vitamin D+Metabolites [Mass/Vol] 14.0 ng/mL Low 30-[address] [facility] Comment on above: VITAMIN D STATUS 25( [place])VITAMIN D RANGE (ng/mL) Deficient <20 Insufficient 20 to <30Sufficient 30 to 100Reference: Janneth MF,Rodríguez CARMEN, Leroy CHRISTOPHER, et al. Evaluation,treatment, and prevention of vitamin D deficiency; an Endocrine Society clinical practice guideline. JCEM. 2010; 96(7):1911-30. Basophils Auto (Bld) [#/Vol] Ordered By: Aguila Ponce on 11-21-2024 Basophils (Bld) [#/Vol] 0.1 10 3/uL 0.0-0.[address] [facility] Basophils/100 WBC Auto (Bld) Ordered By: Aguila Ponce on 11-21-2024 Basophils/100 WBC (Bld) 1.2 % 0.2-2.0 [facility] Eosinophils/100 WBC Auto (Bl d)Ordered By: Aguila Ponce on 11-21-2024 Eosinophils/100 WBC (Bld) 3.7 % 0.9-7.[address] [facility] Erythrocyte distribution wid th Auto (RBC) [Ratio]Ordered By: Aguila Ponce on 11-21-2024 Erythrocyte distribution width (RBC) [Ratio] 11.4 % 11.0-15.[address] [facility] Fibrin D-dimer [Presence] in Platelet poor plasma by Latex agglutinationOrdered By: Aguila Ponce on 11-21-2024 Fibrin D-dimer LA Ql (PPP) 0.28 mg/L FEU <=0.[address] [facility] Comment on above: Increases in D-Dimer concentration observed withthromboembolic events can be variable due to localization,size, and age of the thrombus. Therefore, a thromboembolicevent cannot be diagnosed with certainty on the basis of thereference range. D-Dimers may also be elevated for a varietyof disorders including advanced age, , coronarydisease, cancer, liver disease, infection, inflammation,hematoma, DIC, trauma, post-surgery, diabetes, thrombolyticor anticoagulant therapy, stress, and generalizedhospitalization. Globulin Calc (S) [Mass/Vol] Ordered By: Aguila Ponce on 11-21-2024 Globulin (S) [Mass/Vol] 3.2 g/dL [facility] Glomerular filtration rate ( GFR) estimation in non- AmericanOrdered By: Aguila Ponce on 11-21-2024 GFR/1.73 sq M.predicted among non-blacks MDRD (S/P/Bld) [Vol rate/Area] mL/min/{1.73_m2} >=60 mL/min/1.73m [address] [facility] Hematocrit Auto (Bld) [Volum e fraction]Ordered By: Aguila Ponce on 11-21-2024 Hematocrit (Bld) [Volume fraction] 42.9 % 42.0-54.[address] [facility] Hemoglobin [Mass/volume] in BloodOrdered By: Aguila Ponce 11-21-2024 Hemoglobin (Bld) [Mass/Vol] 15.1 g/dL 14.0-18.[address] [facility] Laboratory - Chemistry and C hemistry - challengeOrdered By: Aguila Ponce on 11-21-2024 Albumin [Mass/Vol] 4.2 g/dL 3.4-5.0 [facility] ALP [Catalytic activity/Vol] 118 U/L High 46-[address] [facility] ALT [Catalytic activity/Vol] 95 U/L High 16-[address] [facility] AST [Catalytic activity/Vol] 52 U/L High 15-[address] [facility] Bilirubin [Mass/Vol] 0.7 mg/dL 0.2-1.0 [facility] Calcium [Mass/Vol] 8.7 mg/dL 8.5-10.1 [facility] Chloride [Moles/Vol] 104 mmol/L 98-107 [facility] CO2 [Moles/Vol] 30.2 mmol/L 21.0-32.0 [facility] Creatinine [Mass/Vol] 0.93 mg/dL 0.70-1.30 [facility] GFR/1.73 sq M.predicted MDRD (S/P/Bld) [Vol rate/Area] mL/min/{1.73_m2} >=60 mL/min/1.73m [address] [facility] Glucose [Mass/Vol] 215 mg/dL High 74-106 [facility] Natriuretic peptide B (Bld) [Mass/Vol] 25.0 pg/mL <=900.[address] [facility] Potassium [Moles/Vol] 4.1 mmol/L 3.5-5.1 [facility] Protein [Mass/Vol] 7.4 g/dL 6.4-8.2 [facility] Sodium [Moles/Vol] 142 mmol/L 136-145 [facility] Urea nitrogen [Mass/Vol] 15.0 mg/dL 7.0-18.[address] [facility] Urea nitrogen/Creatinine [Mass ratio] 16.1 mg/mg [facility] Laboratory - Hematology and Cell countsOrdered By: Aguila Ponce on 11-21-2024 Immature granulocytes/100 WBC (Bld) 0.2 % 0.0-0.[address] [facility] Laboratory - UrinalysisOrder ed By: Aguila Ponce on 11-21-2024 Protein (U) [Mass/Vol] 12.3 mg/dL High <=11.9 [facility] Leukocytes [#/volume] correc rebecca for nucleated erythrocytes in Blood by Automated counOrdered By: Aguila Ponce on 11-21-2024 WBC corrected for nucl RBC Auto (Bld) [#/Vol] 4.3 10 3/uL 4.0-11.[address] [facility] Lymphocytes Auto (Bld) [#/Vo l]Ordered By: Aguila Ponce on 11-21-2024 Lymphocytes (Bld) [#/Vol] 1.4 10 3/uL 1.2-3.[address] [facility] Lymphocytes/100 WBC Auto (Bl d)Ordered By: Aguila Ponce on 11-21-2024 Lymphocytes/100 WBC (Bld) 32.7 % 20.5-60.[address] [facility] MCH Auto (RBC) [Entitic mass ]Ordered By: Aguila Ponce on 11-21-2024 MCH (RBC) [Entitic mass] 31.4 pg 25.9-34.[address] [facility] MCHC Auto (RBC) [Mass/Vol]Or dered By: Aguila Ponce on 11-21-2024 MCHC (RBC) [Mass/Vol] 35.2 g/dL 29.9-35.2 [facility] MCV Auto (RBC) [Entitic vol] Ordered By: Aguila Ponce on 11-21-2024 MCV (RBC) [Entitic vol] 89.2 fL 80.0-94.0 [facility] Monocytes Auto (Bld) [#/Vol] Ordered By: Aguila Ponce on 11-21-2024 Monocytes (Bld) [#/Vol] 0.4 10 3/uL 0.3-0.[address] [facility] Monocytes/100 WBC Auto (Bld) Ordered By: Aguila Ponce on 11-21-2024 Monocytes/100 WBC (Bld) 9.3 % 1.7-12.0 [facility] Neutrophils Auto (Bld) [#/Vo l]Ordered By: Aguila Ponce on 11-21-2024 Neutrophils (Bld) [#/Vol] 2.3 10 3/uL 1.4-6.[address] [facility] Neutrophils/100 WBC Auto (Bl d)Ordered By: Aguila Ponce on 11-21-2024 Neutrophils/100 WBC (Bld) 52.9 % 43.0-75.[address] [facility] No Panel InformationOrdered By: Aguila Ponce on 11-21-2024 Eosinophils # (Auto) 0.2 10 3/uL 0.0-0.7 [facility] Immature Granulocyte # (Auto) 0.01 10 3/uL 0.00-0.[address] [facility] Urine Random Creatinine 115.29 mg/dL 20.00-300. [address] [facility] Platelet mean volume Auto (B ld) [Entitic vol]Ordered By: Aguila Ponce on 11-21-2024 Platelet mean volume (Bld) [Entitic vol] 11.4 fL 9.5-13.[address] [facility] Platelets Auto (Bld) [#/Vol] Ordered By: Aguila Ponce on 11-21-2024 Platelets (Bld) [#/Vol] 165 10 3/uL 150-[address] [facility] RBC Auto (Bld) [#/Vol]Ordere d By: Aguila Ponce on 11-21-2024 RBC (Bld) [#/Vol] 4.81 10 6/uL 4.70-6.10 [facility] Serum or plasma albumin/glob ulin mass ratioOrdered By: Aguila Ponce on 11-21-2024 Albumin/Globulin [Mass ratio] 1.3 {ratio} [facility] Serum or plasma anion gap de terminationOrdered By: Aguila Ponce on 11-21-2024 Anion gap [Moles/Vol] 11.9 mmol/L [facility] Urine protein/creatinine rat ioOrdered By: Aguila Ponce on 11-21-2024 Protein/Creatinine (U) [Ratio] 0.[address] [facility] Laboratory - Chemistry and C hemistry - challengeOrdered By: Aguila Ponce on 10-30-2024 Free T4 [Mass/Vol] 0.87 ng/dL 0.76-1.46 [facility] TSH Qn 1.146 m[IU]/L 0.358-3.[address] [facility] No Panel InformationOrdered By: Aguila Ponce on 10-30-2024 Total Triiodothyronine 131 ng/dL 71-180 [facility] Comment on above: Performed at: [address] [id number] Director: Zach Lucia PhD, Phone: [phone] Basophils Auto (Bld) [#/Vol] on 11-20-2023 Basophils (Bld) [#/Vol] 0.0 10 3/uL 0.0-0.[address] [facility] Basophils/100 WBC Auto (Bld) on 11-20-2023 Basophils/100 WBC (Bld) 0.5 % 0.2-2.0 [facility] Eosinophils/100 WBC Auto (Bl d)on 11-20-2023 Eosinophils/100 WBC (Bld) 1.1 % 0.9-7.[address] [facility] Erythrocyte distribution wid th Auto (RBC) [Ratio]on 11-20-2023 Erythrocyte distribution width (RBC) [Ratio] 12.1 % 11.0-15.[address] [facility] Estimated glomerular filtrat ion rate (GFR) non- Americanon 11-20-2023 GFR/1.73 sq M.predicted among non-blacks MDRD (S/P/Bld) [Vol rate/Area] mL/min/{1.73_m2} >=[address] [facility] Globulin Calc (S) [Mass/Vol] on 11-20-2023 Globulin (S) [Mass/Vol] 3.4 g/dL [facility] Hematocrit Auto (Bld) [Volum e fraction]on 11-20-2023 Hematocrit (Bld) [Volume fraction] 44.5 % 42.0-54.[address] [facility] Hemoglobin [Mass/volume] in Bloodon 11-20-2023 Hemoglobin (Bld) [Mass/Vol] 16.3 g/dL 14.0-18.[address] [facility] INR in Platelet poor plasma by Coagulation assayon 11-20-2023 INR Coag (PPP) [Relative time] 1.02 {INR} [facility] Comment on above: DESIRED INR:2.0-3.0 CONDITIONS NOT LISTED BELOW2.5-3.5 FOR PROSTHETIC HEART VALVE REPLACEMENT2.5-3.5 RECURRENT THROMBOSIS Laboratory - Chemistry and C hemistry - challengeon 11-20-2023 Albumin [Mass/Vol] 4.0 g/dL 3.4-5.0 [facility] ALP [Catalytic activity/Vol] 144 U/L High 46-[address] [facility] ALT [Catalytic activity/Vol] 100 U/L High 16-[address] [facility] AST [Catalytic activity/Vol] 63 U/L High 15-[address] [facility] Bilirubin [Mass/Vol] 1.3 mg/dL High 0.2-1.0 [facility] Calcium [Mass/Vol] 9.0 mg/dL 8.5-10.1 [facility] Chloride [Moles/Vol] 93 mmol/L Low 98-107 [facility] CO2 [Moles/Vol] 22.2 mmol/L 21.0-32.0 [facility] Creatinine [Mass/Vol] 0.97 mg/dL 0.70-1.30 [facility] GFR/1.73 sq M.predicted MDRD (S/P/Bld) [Vol rate/Area] mL/min/{1.73_m2} >=[address] [facility] Glucose [Mass/Vol] 276 mg/dL High 74-106 [facility] Potassium [Moles/Vol] 3.8 mmol/L 3.5-5.1 [facility] Protein [Mass/Vol] 7.4 g/dL 6.4-8.2 [facility] Sodium [Moles/Vol] 130 mmol/L Low 136-145 [facility] Urea nitrogen [Mass/Vol] 23.0 mg/dL High 7.0-18.[address] [facility] Urea nitrogen/Creatinine [Mass ratio] 23.7 mg/mg [facility] Laboratory - Hematology and Cell countson 11-20-2023 Immature granulocytes/100 WBC (Bld) 0.3 % 0.0-0.[address] [facility] Laboratory - Microbiology an d Antimicrobial susceptibilityon 11-20-2023 S. pyogenes Ag Ql (Unsp spec) Negative [facility] Leukocytes [#/volume] correc rebecca for nucleated erythrocytes in Blood by Automated counon 11-20-2023 WBC corrected for nucl RBC Auto (Bld) [#/Vol] 7.9 10 3/uL 4.0-11.[address] [facility] Lymphocytes Auto (Bld) [#/Vo l]on 11-20-2023 Lymphocytes (Bld) [#/Vol] 1.4 10 3/uL 1.2-3.[address] [facility] Lymphocytes/100 WBC Auto (Bl d)on 11-20-2023 Lymphocytes/100 WBC (Bld) 17.2 % Low 20.5-60.[address] [facility] MCH Auto (RBC) [Entitic mass ]on 11-20-2023 MCH (RBC) [Entitic mass] 32.2 pg 25.9-34.[address] [facility] MCHC Auto (RBC) [Mass/Vol]on 11-20-2023 MCHC (RBC) [Mass/Vol] 36.6 g/dL High 29.9-35.2 [facility] MCV Auto (RBC) [Entitic vol] on 11-20-2023 MCV (RBC) [Entitic vol] 87.9 fL 80.0-94.0 [facility] Monocytes Auto (Bld) [#/Vol] on 11-20-2023 Monocytes (Bld) [#/Vol] 0.6 10 3/uL 0.3-0.[address] [facility] Monocytes/100 WBC Auto (Bld) on 11-20-2023 Monocytes/100 WBC (Bld) 8.0 % 1.7-12.0 [facility] Neutrophils Auto (Bld) [#/Vo l]on 11-20-2023 Neutrophils (Bld) [#/Vol] 5.8 10 3/uL 1.4-6.[address] [facility] Neutrophils/100 WBC Auto (Bl d)on 11-20-2023 Neutrophils/100 WBC (Bld) 72.9 % 43.0-75.[address] [facility] No Panel Informationon 11-19 Eosinophils # (Auto) 0.1 10 3/uL 0.0-0.7 [facility] Immature Granulocyte # (Auto) 0.02 10 3/uL 0.00-0.[address] [facility] Platelet mean volume Auto (B ld) [Entitic vol]on 11-20-2023 Platelet mean volume (Bld) [Entitic vol] 10.8 fL 9.5-13.[address] [facility] Platelets Auto (Bld) [#/Vol] on 11-20-2023 Platelets (Bld) [#/Vol] 164 10 3/uL 150-[address] [facility] Prothrombin time (PT)on 10-23 PT Coag (PPP) [Time] 10.8 s 9.0-11.6 [facility] RBC Auto (Bld) [#/Vol]on RBC (Bld) [#/Vol] 5.06 10 6/uL 4.70-6.10 [facility] Serum or plasma albumin/glob ulin mass ratioon 11-20-2023 Albumin/Globulin [Mass ratio] 1.2 {ratio} [facility] Serum or plasma anion gap de terminationon 11-20-2023 Anion gap [Moles/Vol] 18.6 mmol/L [facility] POINT OF CARE GLUCOSEon 05-0 Glucose [Mass/Vol] 254 mg/dL Critically high 74-106 [facility] Comment on above: Performed By: #### P OCGLUC #### [facility] [address] [address] [address] Jose Cruz Balderas POINT OF CARE GLUCOSEon 07-24 Glucose [Mass/Vol] 241 mg/dL Critically high [facility]106 [facility] Comment on above: Performed By: #### P OCGLUC #### [facility] [address] [address] [address] Jose Cruz Balderas POINT OF CARE GLUCOSEon 06-23 Glucose [Mass/Vol] 204 mg/dL Critically high -106 [facility] Comment on above: Performed By: #### P OCGLUC #### [facility] [address] [address] [address] Jose Cruz Balderas GLYCOHEMOGLOBIN A1Con 2022 ADA RECOMMENDATION SEE BELOW Normal [facility] Comment on above: Result Comment: ADA RECOMMENDED LIMIT 4.0 - 6.0 ADA THERAPEUTIC TARGET < 7.0 ACTION SUGGESTED > 7.0 Performed By: #### P OCGLUC #### [facility] [address] [address] [address] Jose Cruz Balderas Glucose [Mass/Vol] 134 mg/dL Normal [facility] Comment on above: Performed By: #### P OCGLUC #### [facility] [address] [address] [address] Jose Cruz Balderas HbA1c (Bld) [Mass fraction] 6.3 % Critically high 4.5-6.2 [facility] Comment on above: Performed By: #### P OCGLUC #### [facility] [address] [address] [address] Jose Cruz Balderas PROF 14(COMP METB)on 023 Albumin [Mass/Vol] 4.5 g/dL Normal 3.4-5.0 [facility] Comment on above: Performed By: #### C MP #### [facility] [address] [place] [address] Dr. Jose Cruz Balderas Albumin/Globulin [Mass ratio] 1.3 {ratio} Normal [facility] Comment on above: Performed By: #### C MP #### [facility] [address] [place] [address] Dr. Jose Cruz Balderas ALP [Catalytic activity/Vol] 93 U/L Normal 46-116 [facility] Comment on above: Performed By: #### C MP #### [facility] [address] [place] [address] Dr. Jose Cruz Balderas ALT [Catalytic activity/Vol] 41 U/L Normal 16-63 [facility] Comment on above: Performed By: #### C MP #### [facility] [address] [place] [address] Dr. Jose Cruz Balderas Anion gap [Moles/Vol] 12.0 mmol/L Normal [facility] Comment on above: Performed By: #### C MP #### [facility] [address] [place] [address] Dr. Jose Cruz Balderas AST [Catalytic activity/Vol] 21 U/L Normal 15-37 [facility] Comment on above: Performed By: #### C MP #### [facility] [address] [place] [address] Dr. Jose Cruz Balderas Bilirubin [Mass/Vol] 0.8 mg/dL Normal 0.2-1.0 [facility] Comment on above: Performed By: #### C MP #### [facility] [address] [place] [address] Dr. Jose Cruz Balderas Calcium [Mass/Vol] 9.3 mg/dL Normal 8.5-10.1 [facility] Comment on above: Performed By: #### C MP #### [facility] [address] [place] [address] Dr. Jose Cruz Balderas Chloride [Moles/Vol] 105 mmol/L Normal 98-107 [facility] Comment on above: Performed By: #### C MP #### [facility] [address] [address] [address] Jose Cruz Balderas CO2 [Moles/Vol] 26.7 mmol/L Normal 21.0-32.0 [facility] Comment on above: Performed By: #### C MP #### [facility] [address] [address] [address] Jose Cruz Balderas Creatinine [Mass/Vol] 0.82 mg/dL Normal 0.70-1.30 [facility] Comment on above: Performed By: #### C MP #### [facility] [address] [address] [address] Jose Cruz Balderas EGFR-AF GRENADIAN >60 Normal >=60 [facility] Comment on above: Performed By: #### C MP #### [facility] [address] [address] [address] Jose Cruz Balderas EGFR-NON AF GRENADIAN >60 Normal >=60 [facility] Comment on above: Performed By: #### C MP #### [facility] [address] [address] [address] Jose Cruz Balderas Globulin (S) [Mass/Vol] 3.5 g/dL Normal [facility] Comment on above: Performed By: #### C MP #### [facility] [address] [place] [address] Dr. Jose Cruz Balderas Glucose [Mass/Vol] 180 mg/dL Critically high 74-106 [facility] Comment on above: Performed By: #### C MP #### [facility] [address] [address] [address] Jose Cruz Balderas Potassium [Moles/Vol] 3.7 mmol/L Normal 3.5-5.1 [facility] Comment on above: Performed By: #### C MP #### [facility] [address] [address] [address] Jose Cruz Balderas Protein [Mass/Vol] 8.0 g/dL Normal 6.4-8.2 [facility] Comment on above: Performed By: #### C MP #### [facility] [address] [address] [address] Jose Cruz Balderas Sodium [Moles/Vol] 140 mmol/L Normal 136-145 [facility] Comment on above: Performed By: #### C MP #### [facility] [address] [address] [address] Jose Cruz Balderas Urea nitrogen [Mass/Vol] 19.0 mg/dL Critically high 7.0-18.0 [facility] Comment on above: Performed By: #### C MP #### [facility] [address] [place] [address] Dr. Jose Cruz Balderas Urea nitrogen/Creatinine [Mass ratio] 23.2 mg/mg Normal [facility] Comment on above: Performed By: #### C MP #### [facility] [address] [place] [address] Dr. Jose Cruz Balderas POINT OF CARE GLUCOSEon 05-26 Glucose [Mass/Vol] 174 mg/dL Critically high 74-106 [facility] Comment on above: Performed By: #### P OCGLUC #### [facility] [address] [place] [address] Dr. Jose Cruz Balderas XR SHOULDER RT [...] BEATRIZ MITCHELL Date: 2022-04-26 15:27 Normal [facility] CBC AUTO DIFFon 04-21-2022 BASO # 0.0 103/ul Normal 0.0-0.1 [facility] Comment on above: Performed By: #### P OCGLUC #### [facility] [address] [place] [address] Dr. Jose Cruz Balderas Basophils/100 WBC (Bld) 0.8 % Normal 0.2-2.0 [facility] Comment on above: Performed By: #### P OCGLUC #### [facility] [address] [place] [address] Dr. Jose Cruz Balderas EO # 0.1 103/ul Normal 0.0-0.7 [facility] Comment on above: Performed By: #### P OCGLUC #### [facility] [address] [place] [address] Dr. Jose Cruz Balderas Eosinophils/100 WBC (Bld) 2.3 % Normal 0.9-7.0 [facility] Comment on above: Performed By: #### P OCGLUC #### [facility] [address] [place] [address] Dr. Jose Cruz Balderas Erythrocyte distribution width (RBC) [Ratio] 12.8 % Normal 11.0-15.0 [facility] Comment on above: Performed By: #### P OCGLUC #### [facility] [address] [place] [address] Dr. Jose Cruz Balderas Hematocrit (Bld) [Volume fraction] 47.2 % Normal 42.0-54.0 [facility] Comment on above: Performed By: #### P OCGLUC #### [facility] [address] [place] [address] Dr. Jose Cruz Balderas Hemoglobin (Bld) [Mass/Vol] 16.4 g/dL Normal 14.0-18.0 [facility] Comment on above: Performed By: #### P OCGLUC #### [facility] [address] [place] [address] Dr. Jose Cruz Balderas IG # 0.01 10e3/ul Normal 0.00-0.03 [facility] Comment on above: Performed By: #### P OCGLUC #### [facility] [address] [place] [address] Dr. Jose Cruz Balderas IG % 0.2 % Normal 0.0-0.5 [facility] Comment on above: Performed By: #### P OCGLUC #### [facility] [address] [address] [address] Jose Cruz Balderas LYMPH # 1.3 103/ul Normal 1.2-3.8 [facility] Comment on above: Performed By: #### P OCGLUC #### [facility] [address] [place] [address] Dr. Jose Cruz Balderas Lymphocytes/100 WBC (Bld) 25.6 % Normal 20.5-60.0 [facility] Comment on above: Performed By: #### P OCGLUC #### [facility] [address] [place] [address] Dr. Jose Cruz Balderas MANUAL DIFF REQ NO Normal [facility] Comment on above: Performed By: #### P OCGLUC #### [facility] [address] [place] [address] Dr. Jose Cruz Balderas MCH (RBC) [Entitic mass] 30.7 pg Normal 25.9-34.0 [facility] Comment on above: Performed By: #### P OCGLUC #### [facility] [address] [place] [address] Dr. Jose Cruz Balderas MCHC (RBC) [Mass/Vol] 34.7 g/dL Normal 29.9-35.2 [facility] Comment on above: Performed By: #### P OCGLUC #### [facility] [address] [place] [address] Dr. Jose Cruz Balderas MCV (RBC) [Entitic vol] 88.4 fL Normal 80.0-94.0 [facility] Comment on above: Performed By: #### P OCGLUC #### [facility] [address] [place] [address] Dr. Jose Cruz Balderas MONO # 0.5 103/ul Normal 0.3-0.8 [facility] Comment on above: Performed By: #### P OCGLUC #### [facility] [address] [place] [address] Dr. Jose Cruz Balderas Monocytes/100 WBC (Bld) 8.7 % Normal 1.7-12.0 [facility] Comment on above: Performed By: #### P OCGLUC #### [facility] [address] [address] [address] Jose Cruz Balderas NEUT # 3.2 103/ul Normal 1.4-6.5 [facility] Comment on above: Performed By: #### P OCGLUC #### [facility] [address] [place] [address] Dr. Jose Cruz Balderas Neutrophils/100 WBC (Bld) 62.4 % Normal 43.0-75.0 [facility] Comment on above: Performed By: #### P OCGLUC #### [facility] [address] [place] [address] Dr. Jose Cruz Balderas Platelet mean volume (Bld) [Entitic vol] 10.9 fL Normal 9.5-13.5 [facility] Comment on above: Performed By: #### P OCGLUC #### [facility] [address] [place] [address] Dr. Jose Cruz Balderas PLT 159 103/ul Normal 150-450 [facility] Comment on above: Performed By: #### P OCGLUC #### [facility] [address] [place] [address] Dr. Jose Cruz Balderas RBC 5.34 106/ul Normal 4.70-6.10 [facility] Comment on above: Performed By: #### P OCGLUC #### [facility] [address] [place] [address] Dr. Jose Cruz Balderas WBC 5.2 103/ul Normal 4.0-11.0 [facility] Comment on above: Performed By: #### P OCGLUC #### [facility] [address] [place] [address] Dr. Jose Cruz Balderas GLYCOHEMOGLOBIN A1Con 2021 ADA RECOMMENDATION SEE BELOW Normal [facility] Comment on above: Result Comment: ADA RECOMMENDED LIMIT 4.0 - 6.0 ADA THERAPEUTIC TARGET < 7.0 ACTION SUGGESTED > 7.0 Performed By: #### P OCGLUC #### [facility] [address] [place] [address] Dr. Jose Cruz Balderas Glucose [Mass/Vol] 163 mg/dL Normal [facility] Comment on above: Performed By: #### P OCGLUC #### [facility] [address] [address] [address] Jose Cruz Balderas HbA1c (Bld) [Mass fraction] 7.3 % Critically high 4.5-6.2 [facility] Comment on above: Performed By: #### P OCGLUC #### [facility] [address] [place] [address] Dr. Jose Cruz Balderas LIPID PROFILEon 04-21-2022 CHOL-HDL RATIO NORM SEE BELOW Normal [facility] Comment on above: Result Comment: 3.3 - 4.4 LOW RISK 4.4 - 7.1 AVERAGE RISK 7.1 - 11.0 MODERATE RISK >11.0 HIGH RISK Performed By: #### L IPID, CMP #### [facility] [address] [place] [address] Dr. Jose Cruz Balderas Cholesterol [Mass/Vol] 197 mg/dL Normal <=200 [facility] Comment on above: Performed By: #### L IPID, CMP #### [facility] [address] [address] [address] Jose Cruz Balderas Cholesterol in HDL [Mass/Vol] 49 mg/dL Normal 40-60 [facility] Comment on above: Performed By: #### L IPID, CMP #### [facility] [address] [address] [address] Jose Cruz Balderas Cholesterol in LDL [Mass/Vol] 109.4 mg/dL Normal [facility] Comment on above: Performed By: #### L IPID, CMP #### [facility] [address] [place] [address] Dr. Jose Cruz Balderas Cholesterol.total/Melinda sterol in HDL [Mass ratio] 4.0 {ratio} Normal [facility] Comment on above: Performed By: #### L IPID, CMP #### [facility] [address] [address] [address] Jose Cruz Balderas HDL NORMAL > or = 60 mg/dl - LO W CARDIOVASCULAR RISK <40 mg/dl - HIGH CARDIOVASCULAR RISK Normal [facility] Comment on above: Performed By: #### L IPID, CMP #### [facility] [address] [address] [address] Jose Cruz Balderas LDL CALC NORMAL SEE BELOW Normal [facility] Comment on above: Result Comment: <100 mg/dl OPTIMAL 100 - 129 mg/dl NEAR OR ABOVE OPTIMAL 130 - 159 mg/dl BORDERLINE HIGH 160 - 189 mg/dl HIGH >190 mg/dl VERY HIGH Performed By: #### L IPID, CMP #### [facility] [address] [address] [address] Jose Cruz Balderas Triglyceride [Mass/Vol] 193 mg/dL Critically high <=150 [facility] Comment on above: Performed By: #### L IPID, CMP #### [facility] [address] [address] [address] Jose Cruz Balderas VLDL CALC 38.6 mg/dL Normal [facility] Comment on above: Performed By: #### L IPID, CMP #### [facility] [address] [place] [address] Dr. Jose Cruz Balderas MICROALBUMIN, RAND URon 03-25 mALB 1.4 mg/L Normal <=30.0 [facility] Comment on above: Performed By: #### M ALBR #### [facility] [address] [address] [address] Jose Cruz Balderas PROF 14(COMP METB)on 022 Albumin [Mass/Vol] 4.3 g/dL Normal 3.4-5.0 [facility] Comment on above: Performed By: #### L IPID, CMP #### [facility] [address] [place] [address] Dr. Jose Cruz Balderas Albumin/Globulin [Mass ratio] 1.2 {ratio} Normal [facility] Comment on above: Performed By: #### L IPID, CMP #### [facility] [address] [address] [address] Jose Cruz Balderas ALP [Catalytic activity/Vol] 94 U/L Normal 46-116 [facility] Comment on above: Performed By: #### L IPID, CMP #### [facility] [address] [address] [address] Jose Cruz Balderas ALT [Catalytic activity/Vol] 135 U/L Critically high 16-63 [facility] Comment on above: Performed By: #### L IPID, CMP #### [facility] [address] [address] [address] Jose Cruz Balderas Anion gap [Moles/Vol] 11.7 mmol/L Normal [facility] Comment on above: Performed By: #### L IPID, CMP #### [facility] [address] [address] [address] Jose Cruz Balderas AST [Catalytic activity/Vol] 105 U/L Critically high 15-37 [facility] Comment on above: Performed By: #### L IPID, CMP #### [facility] [address] [address] [address] Jose Cruz Balderas Bilirubin [Mass/Vol] 0.8 mg/dL Normal 0.2-1.0 [facility] Comment on above: Performed By: #### L IPID, CMP #### [facility] [address] [address] [address] Jose Cruz Balderas Calcium [Mass/Vol] 9.3 mg/dL Normal 8.5-10.1 [facility] Comment on above: Performed By: #### L IPID, CMP #### [facility] [address] [address] [address] Jose Cruz Balderas Chloride [Moles/Vol] 101 mmol/L Normal 98-107 [facility] Comment on above: Performed By: #### L IPID, CMP #### [facility] [address] [address] [address] Jose Cruz Balderas CO2 [Moles/Vol] 32.8 mmol/L Critically high 21.0-32.0 [facility] Comment on above: Performed By: #### L IPID, CMP #### [facility] [address] [address] [address] Jose Cruz Balderas Creatinine [Mass/Vol] 1.09 mg/dL Normal 0.70-1.30 [facility] Comment on above: Performed By: #### L IPID, CMP #### [facility] [address] [address] [address] Jose Cruz Balderas EGFR-AF GRENADIAN >60 Normal >=60 [facility] Comment on above: Performed By: #### L IPID, CMP #### [facility] [address] [address] [address] Jose Cruz Balderas EGFR-NON AF GRENADIAN >60 Normal >=60 [facility] Comment on above: Performed By: #### L IPID, CMP #### [facility] [address] [address] [address] Jose Cruz Balderas Globulin (S) [Mass/Vol] 3.6 g/dL Normal [facility] Comment on above: Performed By: #### L IPID, CMP #### [facility] [address] [address] [address] Jose Cruz Balderas Glucose [Mass/Vol] 174 mg/dL Critically high 74-106 [facility] Comment on above: Performed By: #### L IPID, CMP #### [facility] [address] [address] [address] Jose Cruz Balderas Potassium [Moles/Vol] 4.5 mmol/L Normal 3.5-5.1 [facility] Comment on above: Performed By: #### L IPID, CMP #### [facility] [address] [address] [address] Jose Cruz Balderas Protein [Mass/Vol] 7.9 g/dL Normal 6.4-8.2 [facility] Comment on above: Performed By: #### L IPID, CMP #### [facility] [address] [address] [address] Jose Cruz Balderas Sodium [Moles/Vol] 141 mmol/L Normal 136-145 [facility] Comment on above: Performed By: #### L IPID, CMP #### [facility] [address] [address] [address] Jose Cruz Balderas Urea nitrogen [Mass/Vol] 14.0 mg/dL Normal 7.0-18.0 [facility] Comment on above: Performed By: #### L IPID, CMP #### [facility] [address] [address] [address] Jose Cruz Balderas Urea nitrogen/Creatinine [Mass ratio] 12.8 mg/mg Normal [facility] Comment on above: Performed By: #### L IPID, CMP #### [facility] [address] [place] [address] Dr. Jose Cruz Balderas POINT OF CARE GLUCOSEon 08-23 Glucose [Mass/Vol] 240 mg/dL Critically high 74-106 [facility] Comment on above: Performed By: #### P OCGLUC #### [facility] [address] [place] [address] Dr. Jose Cruz Balderas XR FINGER MIN 2 VIEWSon 08-23 XR FINGER MIN 2 VIEWS EXAM: XR FINGER DC N 2 VIEWS HISTORY: Laceration of finger [...] by: SERGE TAN Date: 2021-09-15 19:17 Normal [facility] Pathology Noteon 07-09-2021 Pathology Note [id number] .00CD:127 Normal [facility] Outside Colonoscopyon 2021 Outside Colonoscopy [id number]#1.0 0CD:127 Normal [facility] Lab Reportson 07-06-2021 Lab Reports [id number] 0CD:127 Normal [facility] Consent for Procedure/Surger yon 06-24-2021 Consent for Procedure/Surgery [id number] 0CD:127 Normal [facility] Ambulatory Visit Summaryon 0 06-23-2021 Ambulatory Visit Summary YASIR OROURKE :1975 Visit Date:06/23/2021 Ambulatory Visit Instructions Your Diagnosis Nausea Dyspepsia, Abdominal pain, epigastric Change in bowel habits Abdominal pain, RLQ Frequent loose stools Your Care Team Attending Physician - Luc TERRELL MD Primary Care Physician - AGUILA PONCE DO [...] no longer receiving treatment for. Hypertension Normal [facility] Physician Referralon 022 Physician Referral [id number] 0CD:127 [facility] Physician Referralon 022 Physician Referral [id number] 0CD:127 [facility] Vital Signs Date Time Vital Sign Value Performing Clinician Facility 12-16-2024 14:35-0400 Body height 188 cm [employer] Work Phone: [facility] 12-16-2024 14:35-0400 Body mass index (BMI) [Ratio] 33.38 kg/m2 [employer] Work Phone: [facility] 12-16-2024 14:35-0400 Body weight 117.94 kg [employer] Work Phone: [facility] 12-09-2024 10:50-0400 Diastolic blood pressure 73 mm[Hg] [employer] Work Phone: [facility] 12-09-2024 10:50-0400 Heart rate 70 /min [employer] DO Work Phone: [facility] 12-09-2024 10:50-0400 Respiratory rate 16 /min [employer] Work Phone: [facility] 12-09-2024 10:50-0400 SaO2% (BldA) [Mass fraction] 94 % Agu[employer] Ball DO Work Phone: [facility] 12-09-2024 10:50-0400 Systolic blood pressure 134 mm[Hg] [employer] Ball DO Work Phone: [facility] 12-09-2024 09:55-0400 Body temperature 97 [degF] [employer] Ball DO Work Phone: [facility] 12-09-2024 09:27-0400 Inhaled oxygen flow rate 8 L/min Aguila Ball DO Work Phone: [facility] 12-09-2024 07:10-0400 Body height 187.96 cm Aguila Ball DO Work Phone: [facility] 12-09-2024 07:10-0400 Body weight 118.3 kg Aguila Ball DO Work Phone: [facility] 11-12-2024 09:00-0400 Body height 187.96 cm Aguila Ball DO Work Phone: [facility] 11-12-2024 09:00-0400 Body mass index (BMI) [Ratio] 32.8 kg/m2 Aguila Ball DO Work Phone: [facility] 11-12-2024 09:00-0400 Body weight 116.11 kg Aguila Ball DO Work Phone: [facility] 11-12-2024 09:00-0400 Diastolic blood pressure 86 mm[Hg] Aguila Ball DO Work Phone: [facility] 11-12-2024 09:00-0400 Heart rate 61 /min Aguila Ball DO Work Phone: [facility] 11-12-2024 09:00-0400 Respiratory rate 12 /min Aguila Ball DO Work Phone: [facility] 11-12-2024 09:00-0400 SaO2% (BldA) [Mass fraction] 97 % Aguila Ball DO Work Phone: [facility] 11-12-2024 09:00-0400 Systolic blood pressure 134 mm[Hg] Aguila Ball DO Work Phone: [facility] 10-24-2024 11:53-0400 Body height 187.96 cm Aguila Ball DO Work Phone: [facility] 10-24-2024 11:53-0400 Body mass index (BMI) [Ratio] 32.3 kg/m2 Aguila Ball DO Work Phone: [facility] 10-24-2024 11:53-0400 Body weight 114.07 kg Aguila Ball DO Work Phone: [facility] 10-24-2024 11:53-0400 Diastolic blood pressure 84 mm[Hg] Aguila Ball DO Work Phone: [facility] 10-24-2024 11:53-0400 Heart rate 63 /min Aguila Ball DO Work Phone: [facility] 10-24-2024 11:53-0400 Respiratory rate 12 /min Aguila Ball DO Work Phone: [facility] 10-24-2024 11:53-0400 Systolic blood pressure 123 mm[Hg] Aguila Ball DO Work Phone: [facility] 07-16-2024 09:53-0400 Body height 187.96 cm [facility] 07-16-2024 09:53-0400 Body mass index (BMI) [Ratio] 30 kg/m2 [facility] 07-16-2024 09:53-0400 Body weight 106.19 kg [facility] 07-16-2024 09:53-0400 Diastolic blood pressure 77 mm[Hg] [facility] 07-16-2024 09:53-0400 Heart rate 92 /min [facility] 07-16-2024 09:53-0400 Respiratory rate 12 /min [facility] 07-16-2024 09:53-0400 Systolic blood pressure 114 mm[Hg] [facility] 01-05-2024 09:09-0400 Body height 187.96 cm [facility] 01-05-2024 09:09-0400 Body mass index (BMI) [Ratio] 31.4 kg/m2 [facility] 01-05-2024 09:09-0400 Body weight 111.18 kg [facility] 01-05-2024 09:09-0400 Diastolic blood pressure 78 mm[Hg] [facility] 01-05-2024 09:09-0400 Heart rate 76 /min [facility] 01-05-2024 09:09-0400 Respiratory rate 12 /min [facility] 01-05-2024 09:09-0400 Systolic blood pressure 118 mm[Hg] [facility] 11-29-2023 16:02-0400 Body height 187.96 cm [facility] 11-29-2023 16:02-0400 Body mass index (BMI) [Ratio] 29.9 kg/m2 [facility] 11-29-2023 16:02-0400 Body weight 105.68 kg [facility] 11-29-2023 16:02-0400 Diastolic blood pressure 74 mm[Hg] [facility] 11-29-2023 16:02-0400 Heart rate 68 /min [facility] 11-29-2023 16:02-0400 Respiratory rate 12 /min [facility] 11-29-2023 16:02-0400 Systolic blood pressure 117 mm[Hg] [facility] 11-13-2023 14:05-0400 Body height 187.96 cm [facility] 11-13-2023 14:05-0400 Body mass index (BMI) [Ratio] 30 kg/m2 [facility] 11-13-2023 14:05-0400 Body weight 106.14 kg [facility] 11-13-2023 14:05-0400 Diastolic blood pressure 72 mm[Hg] [facility] 11-13-2023 14:05-0400 Heart rate 83 /min [facility] 11-13-2023 14:05-0400 SaO2% (BldA) [Mass fraction] 97 % [facility] 11-13-2023 14:05-0400 Systolic blood pressure 120 mm[Hg] [facility] 07-07-2023 09:53-0400 Body height 187.96 cm [facility] 07-07-2023 09:53-0400 Body mass index (BMI) [Ratio] 31.6 kg/m2 [facility] 07-07-2023 09:53-0400 Body weight 111.58 kg [facility] 07-07-2023 09:53-0400 Diastolic blood pressure 84 mm[Hg] [facility] 07-07-2023 09:53-0400 Heart rate 75 /min [facility] 07-07-2023 09:53-0400 Respiratory rate 12 /min [facility] 07-07-2023 09:53-0400 Systolic blood pressure 131 mm[Hg] [facility] 06-20-2022 15:00-0500 Body height 187.96 cm Aguila Ball Other [facility] [employer] Other 06-20-2022 15:00-0500 Body mass index (BMI) [Ratio] 33.74 kg/m2 Aguila Ball Other [facility] [employer] Other 06-20-2022 15:00-0500 Body weight 119.21 kg Aguila Ball Other [facility] [employer] Other 06-20-2022 15:00-0500 Diastolic blood pressure 70 mm[Hg] Aguila Ball Other [facility] [employer] Other 06-20-2022 15:00-0500 Respiratory rate 12 /min Aguila Ball Other [facility] [employer] Other 06-20-2022 15:00-0500 Systolic blood pressure 108 mm[Hg] Aguila Ball Other [facility] [employer] Other 05-10-2022 11:15-0500 Body height 187.96 cm Aguila Ball Other [facility] [employer] Other 05-10-2022 11:15-0500 Body mass index (BMI) [Ratio] 33.79 kg/m2 Aguila Ponce Other [employer] Other 05-10-2022 11:15-0500 Body weight 119.39 kg Aguila Ball Other [employer] Other 05-10-2022 11:15-0500 Diastolic blood pressure 70 mm[Hg] Aguila Ball Other [employer] Other 05-10-2022 11:15-0500 Respiratory rate 12 /min Aguila Ponce Other [employer] Other 05-10-2022 11:15-0500 Systolic blood pressure 118 mm[Hg] Aguila Ponce Other [employer] Other Encounters Encounter Date Encounter Type Care Provider Facility Start: 12-16-2024 End: 12-16-2024 Postop follow up visit related to original px Aguila Kruseedicarlos DO Work Phone: [facility] Comment on above: Status post partial thyroidectomy (Primary Dx) Start: 12-16-2024 End: 12-16-2024 ambulatory AGUILA LUO Not Available Start: 12-16-2024 End: 12-16-2024 Bamboo flowsheet Aguila Halie Kruseedicarlos DO [facility] Start: 12-16-2024 End: 12-16-2024 Bamboo flowsheet Aguila Halie Kruseedicarlos DO [facility] Start: 12-09-2024 End: 12-09-2024 External Result Encounter Aguila Luo DO Work Phone: [facility] External Department Unsolicited Start: 12-09-2024 End: 12-09-2024 External Result Encounter Aguila Luo DO Work Phone: [facility] External Department Unsolicited Start: 12-09-2024 End: 12-09-2024 ambulatory AGUILA LUO Not Available Start: 12-09-2024 End: 12-09-2024 Admission to same day surgery center Aguila Luo DO [facility] [place] Start: 12-09-2024 End: 12-09-2024 ambulatory Aguila Ponce DO Work Phone: [facility] Work Phone: Start: 12-03-2024 End: 12-03-2024 Patient encounter procedure Aguila Luo DO -Pre-Surgical Testing Work Phone: Start: 12-03-2024 End: 12-03-2024 ambulatory Aguila Ponce DO Work Phone: [facility] Work Phone: Start: 12-03-2024 Encounter for preprocedural laboratory examination Aguila Luo [facility] Start: 12-03-2024 End: 12-03-2024 External Result Encounter Aguila Luo DO Work Phone: [facility] External Department Unsolicited Start: 12-03-2024 End: 12-03-2024 External Result Encounter Aguila Luo DO Work Phone: [facility] External Department Unsolicited Start: 12-02-2024 End: 12-02-2024 ambulatory AGUILA LUO Not Available Start: 12-02-2024 End: 12-02-2024 Office outpatient new 60 minutes Aguila Luo DO Work Phone: [facility] Comment on above: 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) Start: 12-02-2024 End: 12-02-2024 Bamboo flowsheet Aguila Luo DO Work Phone: [facility] Start: 12-02-2024 End: 12-02-2024 Bamboo flowsheet Aguila Luo DO Work Phone: [facility] Start: 11-21-2024 Non-patient / Non-visit Aguila ellsworth DO -[facility] Work Phone: Start: 11-19-2024 ambulatory Aguila Ponce DO Work Phone: [facility] Work Phone: Start: 11-19-2024 Non-patient / Non-visit Aguila ellsworth DO -[facility] Work Phone: Start: 11-12-2024 End: 11-12-2024 ambulatory Aguila Ponce DO Work Phone: [facility] Work Phone: Start: 11-12-2024 End: 11-12-2024 Patient encounter procedure Aguila Ponce DO -[facility] Work Phone: Start: 10-30-2024 Non-patient / Non-visit Aguila ellsworth DO -[facility] Work Phone: Start: 10-24-2024 End: 10-24-2024 ambulatory Aguila Ponce DO Work Phone: [facility] Work Phone: Start: 10-24-2024 End: 10-24-2024 Patient encounter procedure Aguila Ponce DO -[facility] Work Phone: Start: 07-16-2024 End: 07-16-2024 ambulatory [facility] Work Phone: Start: 07-16-2024 End: 07-16-2024 Encounter for general adult medical examination without abnormal findings [facility] Start: 07-16-2024 End: 07-16-2024 Patient encounter procedure On License Of [facility] Work Phone: Start: 01-05-2024 End: 01-05-2024 ambulatory [facility] Work Phone: Start: 01-05-2024 End: 01-05-2024 Patient encounter procedure On License Of [facility] Work Phone: Start: 11-29-2023 End: 11-29-2023 ambulatory [facility] Work Phone: Start: 11-29-2023 End: 11-29-2023 Patient encounter procedure On License Of [facility] Work Phone: Start: 11-20-2023 Non-patient / Non-visit On License Of [facility] Work Phone: Start: 11-13-2023 End: 11-13-2023 ambulatory [facility] Work Phone: Start: 11-13-2023 End: 11-13-2023 Patient encounter procedure On License Of [facility] Work Phone: Start: 07-07-2023 End: 07-07-2023 ambulatory [facility] Work Phone: Start: 07-07-2023 End: 07-07-2023 Encounter for general adult medical examination without abnormal findings [facility] Start: 07-07-2023 End: 07-07-2023 Patient encounter procedure On License [facility] Work Phone: Start: 06-20-2023 Non-patient / Non-visit On License [facility] Work Phone: Start: 06-12-2023 Non-patient / Non-visit On License Of [facility] Work Phone: Start: 02-03-2023 End: 02-03-2023 ambulatory Aguila Ponce Other [employer] Other Start: 02-03-2023 Telephone encounter Aguila Ponce [facility] Start: 11-08-2022 End: 11-08-2022 ambulatory [facility] Start: 10-21-2022 End: 10-21-2022 ambulatory Aguila Ponce Other [employer] Other Start: 10-21-2022 Telephone encounter Aguila Ponce [facility] Start: 10-21-2022 End: 10-21-2022 ambulatory KRISTOFER MENON Facility:[facility] Start: 09-22-2022 ambulatory NARENDRANATH LAKSHMIPATHY . Facility:[facility] Start: 08-23-2022 End: 08-23-2022 ambulatory NARENDRANATH LAKSHMIPATHY . Facility:[facility] Start: 08-16-2022 End: 08-16-2022 ambulatory NARENDRANATH LAKSHMIPATHY . Facility:[facility] Start: 08-15-2022 End: 08-15-2022 ambulatory Aguila Ponce Other [employer] Other Start: 08-15-2022 Telephone encounter Aguila LANDRUM [facility] Start: 07-28-2022 End: 07-29-2022 ambulatory NARENDRANATH LAKSHMIPATHY . Facility:[facility] Start: 07-12-2022 End: 07-12-2022 ambulatory NARENDRANATH LAKSHMIPATHY . Facility:[facility] Start: 07-07-2022 End: 07-08-[address] AGUILA PONCE Facility:[facility] Start: 06-22-2022 End: 06-23-[address] AGUILA PONCE Facility:[facility] Start: 06-21-2022 Telephone encounter Aguila LANDRUM [facility] Start: 06-21-2022 End: 06-21-[address] AGUILA PONCE [employer] Other Start: 06-20-2022 End: 06-20-2022 ambulatory Aguila Ponce Other [employer] Other Start: 06-20-2022 Encounter for other preprocedural examination Aguila Ponce [facility] Start: 06-20-2022 Office outpatient vi sit 25 minutes Aguila Ponce [facility] Start: 05-26-2022 End: 05-27-[address] AGUILA PONCE Facility:[facility] Start: 05-10-2022 End: 05-10-2022 ambulatory Aguila Ponce Other [employer] Other Start: 05-10-2022 Office outpatient vi sit 15 minutes Aguila Ponce [facility] Start: 04-28-2022 End: 06-01-[address] AGUILA PONCE Facility:[facility] Start: 04-26-2022 Telephone encounter Aguila Ponce [facility] Start: 04-26-2022 End: 04-26-[address] AGUILA PONCE [facility] [employer] Other Start: 04-23-2022 Encounter for genera l adult medical examination without abnormal findings DR AGUILA PONCE [facility] Start: 04-21-2022 End: 04-22-[address] AGUILA PONCE Facility:[facility] Start: 04-21-2022 End: 04-22-2022 Encounter for general adult medical examination without abnormal findings DR AGUILA PONCE Facility:[facility] Start: 03-31-2022 Adult health examination Aguila Ponce Other [facility] [employer] Other Start: 11-04-2021 End: 11-04-[address] AGUILA PONCE Facility:[facility] Start: 09-24-2021 ambulatory DANIELLE PIKE . Facili ty:[facility] Start: 09-17-2021 End: 09-17-[address] AGUILA PONCE Facility:[facility] Start: 09-15-2021 End: 09-15-2021 ambulatory MARISABEL ROJAS Facility:[facility] Procedures Date Procedure Procedure Detail Performing Clinician Start: 12-09-2024 GLUCOSE POCT GLUCOMETERS Aguila Velasquez ek DO Work Phone: Start: 12-09-2024 Lobectomy of thyroid gland Aguila Ponce DO Work Phone: Start: 12-09-2024 GLUCOSE POCT GLUCOMETERS Aguila Velasquez ek DO Work Phone: Start: 12-03-2024 Assay of parathormone Aguila Luo DO Work Phone: Start: 11-20-2023 Carcinoembryonic antigen cea Comment on above: Nonsmokers <3.9 Smokers <5.6[employer] Electrochemiluminescence Immunoassay(ECLIA)Values obtained with different assay methods or kitscannot be used interchangeably. Results cannot beinterpreted as absolute evidence of the presence orabsence of malignant disease.Performed at: - [facility] [id number] [place], [place] [id number] Director: Zach Lucia PhD, Phone: [phone] Start: 04-04-2018 General examination of patient Aguila Ponce Other End: 06-16-2021 Laboratory test result abnormal Aguila Ponce Other Plan of Treatment Date Care Activity Detail Author Start: 12-23-2024 Influenza vaccination Influenz a Vaccine (#1) [facility] Start: 12-16-2024 End: 12-16-2024 Patient encounter procedure [facility] Comment on above: Arrived Start: 12-09-2024 End: 12-09-[address] [facility] Start: 11-19-2024 Patient referral [facility] Work Phone: Start: 1975 Screening for malign ant neoplasm of colon [facility] Calcium [Mass/volume ] in Serum or Plasma Calcium Lab Routine 12/03/2024 4:58 PM EDT [facility] Work Phone: Comprehensive metabo lic 1999 panel - Serum or Plasma [facility] Comprehensive metabo lic 2000 panel - Serum or Plasma [facility] Comprehensive metabo lic 2000 panel - Serum or Plasma [facility] Fibrin D-dimer [Presence] in Platelet poor plasma by Latex agglutination [facility] Patient Education [facility] your [facility] Work Phone: Patient referral [facility] Work Phone: US Heart Transthoracic [facility] US Thyroid gland [facility] Immunizations Immunization Date Immunization Notes Care Provider Fa cility 09-15-2021 diphtheria, tetanus toxoids and pertussis vaccine Aguila Ponce Other [facility] 02-12-2021 COVID-19 Vaccine Mod sheri - Documentation Purposes Only Aguila Ponce Other [facility] 07-03-2020 COVID-19 Vaccine Jl ssen - Documentation Purposes Only Aguila Ponce Other [facility] Payers Date Payer Category Payer Self-pay 2022 [employer] Blue [employer] BCBS [id number] 2022 Blue Cross Blue Shield [id number] 2019 Unknown [id number] 1973 Unknown [id number] 2.16.840.1.184211.3.579.2. 593 1973 Unknown [id number] 2.16.840.1.894939.3.579.2. 593 1973 Unknown [id number] 2.16.840.1.681290.3.579.2. 593 1973 Unknown [id number] 2.16.840.1.331547.3.579.2. 593 1973 Unknown [id number] 2.16.840.1.896328.3.579.2. 593 1973 Unknown [id number] 2.16.840.1.054656.3.579.2. 593 1973 Unknown [id number] 2.16.840.1.559744.3.579.2. 593 1973 Unknown [id number] 2.16.840.1.714159.3.579.2. 593 1973 Unknown [id number] 2.16840.1.159146.3.579.2. 593 1973 Unknown [id number] 2.16.840.1.902572.3.579.2. 593 1973 Unknown [id number] .16840.1.545327.3.579.2. 593 1973 Unknown [id number] 2.16840.1.795583.3.579.2. 593 1973 Unknown [id number] .840.1.338553.3.579.2. 593 1973 Unknown [id number] .840.1.128855.3.579.2. 593 1973 Unknown [id number] .840.1.726467.3.579.2. 593 1973 Unknown [id number] .840.1.571959.3.579.2. 593 1973 Unknown [id number] .840.1.516700.3.579.2. 718 1973 Unknown [id number] .840.1.954331.3.579.2. 718 1973 Unknown [id number] .840.1.570138.3.579.2. 1259 1973 Unknown [id number] .840.1.175452.3.579.2. 1259 1973 Unknown [id number] 840.1.350247.3.579.2. 1259 Private Health Insurance [id number] [id number] Unknown [facility] Netk Access [id number] Unknown [id number] 840.1.499708.3.579.2. 531 Unknown [id number] 2.16.840.1.778842.3.579.2. 531 Social History Date Type Detail Facility Start: 12-16-2024 Sex Assigned At N [facility] [employer] Other Start: 06-12-2023 Tobacco smoking stat us NDIS Unknown if ever smoked [facility] Start: 1975 Sex Assigned At Male F [facility] Start: 11-13-2023 End: 12-16-2024 Tobacco smoking status NDIS Never smoked tobacco (finding) [facility] Start: 07-16-2024 Sex Male (finding) [facility] Start: 1975 Sex assigned at Not on file N [facility] Start: 12-03-2024 End: 12-09-2024 Tobacco smoking status NDIS Ex-smoker (finding) [facility] Start: 12-16-2024 Tobacco use and exposure Smokeless tobacco non-user [facility] Start: 12-16-2024 Alcoholic beverage intake Ex-drinker (finding) [facility] Start: 12-16-2024 History of Social function [facility] Medical Equipment Procedure Code Equipment Code Equipment Origin al Text Equipment Identifier Dates Sure-Fine Pen Kirby 31G X 5 MM Blood Sugar Diagnostic [...] 32 gauge x 1/4 needle Start: 06-12-2023 Goals Date Patient Goal Desired Activity /State Clinical Notes 06-23-2021 to 12-16-2024 Aguila Luo, DO - 12/16/2024 2:30 PM EDTBenfareed Luo, DO - 12/02/2024 3:30 PM EDT Note Date & Type Note Facility 12-16-2024 History of Present illness Narrative HPI Patient presents today 1 week postop right hemithyroidectomy. 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 I made the patient aware. He is doing very well. Relevant postoperative physical examination Incision intact, no evidence of hematoma or seroma, voice is normal. Assessment/plan Yasir was seen today for post-op. Diagnoses and all orders for this visit: Status post partial thyroidectomy (Primary) Comments: Patient was given postoperative instructions. I will call him once I get the final report. I will see him back in 1 month with lab work. documented in this encounter [facility] 12-02-2024 History of Present illness Narrative Allergies as of 12/02/2024 - never reviewed Allergen Reaction Noted Metformin 10/24/2024 Sitagliptin 10/24/2024 Past Medical History: Diagnosis Date Allergic reaction 11/28/2024 Gastroesophageal reflux disease with esophagitis without hemorrhage 11/28/2024 H/O diabetic ketoacidosis 11/28/2024 Hyponatremia 11/28/2024 Impingement syndrome of right shoulder 11/28/2024 Internal derangement of right shoulder 11/28/2024 Metabolic dysfunction-associated steatotic liver disease and increased alcohol intake (MetALD) 11/28/2024 Mixed hyperlipidemia 11/28/2024 Obesity 11/28/2024 Other chronic pain 11/28/2024 Peripheral edema 11/28/2024 Primary hypertension 11/28/2024 Recurrent major depressive disorder, in partial remission 11/28/2024 Screening PSA (prostate specific antigen) 11/28/2024 PSA: 0.15 - 06/2024 Seasonal allergies 11/28/2024 Shoulder joint pain 11/28/2024 Strain of rotator cuff of right shoulder 11/28/2024 Superior glenoid labrum lesion of right shoulder 11/28/2024 Thyroid nodule 11/28/2024 US: 4x3.7x3.8cm TR3 right sided nodule - 10/2024 Type 2 diabetes mellitus with hyperglycemia (HCC) 11/28/2024 Current Outpatient Medications: fenofibrate (Triglide) 160 MG tablet, Daily, Disp: , Rfl: insulin glargine (Lantus) 100 UNIT/ML pen, 10 Units, Disp: , Rfl: insulin lispro (HumaLOG) 100 UNIT/ML injection, Use as Directed Protocol: *If the corrective scale dose has been administered within the past 4 hours, do not use corrective scale again unless approved by prescriber* Condition: Dose/Route: Instructions: Condition: Fingerstick Blood Glucose Dose/Route: Insulin Units Condition: < 130 mg/dl Dose/Route: 0 unit Condition: 131-180 mg/dl Dose/Route: 2 units Condition: 181- 240 mg/dl Dose/Route: 4 units Condition: 241- 300 mg/dl Dose/Route: 6 units Condition: 301- 350 mg/dl Dose/Route: 8 units Condition: > 350 mg/dl Dose/Route: 10 units Condition: Greater than or = 400 mg/dl Instructions: Call Provider, Disp: , Rfl: omeprazole (PriLOSEC) [address] capsule, .COMPLEX, Disp: , Rfl: No past surgical history on file. Social History Socioeconomic History Marital status: Spouse name: Not on file Number of children: Not on file Years of education: Not on file Highest education level: Not on file Occupational History Not on file Tobacco Use Smoking status: Not on file Smokeless tobacco: Not on file Substance and Sexual Activity Alcohol use: Not on file Drug use: Not on file Sexual activity: Not on file Other Topics Concern Not on file Social History Narrative Not on file Social Drivers of Health Financial Resource Strain: Not on file Food Insecurity: Not on file Transportation Needs: Not on file Physical Activity: Not on file Stress: Not on file Social Connections: Not on file Intimate Partner Violence: Not on file Housing Stability: Not on file Subjective Patient ID: HPI Patient is a 49-year-old male referred for recently found sizable right thyroid mass. Patient relates when shaving in late September he noticed a lump in his right neck. Really pretty much asymptomatic. No personal risk factors for thyroid cancer. Underwent outside ultrasound revealing a right-sided thyroid mass more than 3 cm in size. Patient has no personal risk factors for thyroid cancer. Thyroid function studies are normal. Review of Systems ROS The specialty specific review of systems is noncontributory except for that recorded in the intake questionnaire and /or described in the history of present illness. Objective ENT Physical Exam Physical Exam Constitutional: Appearance: Normal appearance. HENT: Head: Atraumatic. Ears: External ear shows no abnormality Bilateral ear canals are clear Tympanic membranes intact, no evidence of middle ear fluid or other pathology. Nose: External nose appears to be normal Nares patent. Septal deviation to the left with spur No evidence of polyp, mass or pus bilaterally. Oral Cavity: No evidence of trismus Lips appear normal Dental good Tongue of normal size and configuration, floor of mouth mucosa clear. Buccal mucosa shows no evidence of ulceration, mass or other abnormality Hard palate soft palate mucosa intact with no evidence of mass, ulceration or other abnormality Uvula of normal size and configuration Oropharynx: Tonsils small Posterior pharyngeal wall normal Neck: No evidence of palpable abnormality Thyroid without evidence of thyromegaly or mass. No cervical lymphadenopathy present. Cardiovascular: Rate and Rhythm: Normal rate and regular rhythm. . Skin: General: Skin is warm and dry. Neurological: General: No focal deficit present. Mental Status: alert and oriented to person, place, and time. THYROID ULTRASOUND EXAMINATION Indication: Thyroid nodule After informed consent was obtained the patient was placed supine on the examining table. Patient was asked to extend the neck. Topical ultrasound jelly was used. The right lobe of the thyroid gland measures _ 6.1 cm in greatest dimension. A good portion of the lobe is replaced by a single solid hypoechoic nodule with some peripheral vascularity but no calcification measuring a little over 4 cm in size. That does appear to be some minor infraclavicular extension. No adenopathy is noted. The isthmus is unremarkable. The left lobe of the thyroid gland measures __ 5.2 cm greatest dimension. No identifiable nodular mass. There is no adenopathy in the central compartment. There is no appreciable adenopathy in either lateral neck. FIBEROPTIC NASOPHARYNGOLARYNGOSCOPY A diagnostic flexible fiberoptic laryngoscopy was performed. The flexible fiberoptic laryngoscope was placed into the nose and advanced to the level of the tip of the epiglottis. Examination of the larynx including both surfaces of the epiglottis false and true vocal folds, arytenoids and surrounding mucosal surfaces show no evidence of lesion, ulceration or mass. Normal bilateral true vocal fold motion is present. Bilateral piriform sinuses and base of tongue appear without lesion Assessment/Plan Diagnoses and all orders for this visit: Thyroid mass of unclear etiology (Primary) Comments: Given the patient is a male over the age of 50, the rather rapid onset of the mass and the size of the mass I recommended a right thyroid lobectomy At the time of surgery if indicated I will perform a frozen section and if this is malignant then I will perform a completion thyroidectomy and possible central compartment neck dissection. The risks and benefits of thyroidectomy were discussed with the patient. These include but are not inclusive of perioperative , infection, major neurovascular injury, recurrent laryngeal nerve injury/dysfx, hoarsness, permanent vocal cord paralysis, permanent hyoparathyroidism, poor scaring, swallowing and/or voice difficulties, etc. The patient has consented to proceed. documented in this encounter [facility] 11-19-2024 Hospital Discharge instructions Ambulatory OrdersReferral to ENT Time Frame: 11/19/24, Location: None Selected [facility] Work Phone: 10-24-2024 Evaluation note Diagnosis Onset Date Resolution Obesity acute October 24, 2024 11:43am Thyroid mass of unclear etiology acute October 24, 2024 11:43am Type 2 diabetes mellitus with hyperglycemia acute October 24 11:43am Thyroid mass deleted October 24 11:43am Obesity acute November 12 8:54am Type 2 diabetes mellitus with hyperglycemia acute November 12 8:54am [facility] Work Phone: 1(460) 372-962107-03-2025 Evaluation note* Diagnosis Onset Date Resolution Status [...] h hyperglycemia acute November 12, 2024 8:54am [facility] Work Phone: 1(977) 116-590703-25-2025 Evaluation note* Diagnosis Onset Date Resolution Status Admit Date Depression, major, recurrent , in partial remission acute July 16 9:45am Gastroesophageal reflux dise ase with esophagitis without hemorrhage acute July 16, 2024 9:45am Hyperlipidemia, mixed acute Mar 2024 9:45am Type 2 diabetes mellitus wit h hyperglycemia acute July 16, 2024 9:45am Screening PSA (prostate spec ific antigen) noneactive July 16, 2024 9:45am Wellness examination noneactive 2024 9:45am [facility] Work Phone: 1(980) 439-375110-13-2023 Evaluation note* Encounter Date Diagnosis Assessment Notes Treatment Notes Treatment Clinical Notes Jan, Type 2 diabetes mellitus with hyperglycemia (ICD-10 - E11.65) [employer] Other 06-30-2023 Evaluation note* Encounter Date Diagnosis Assessment Notes Treatment Notes Treatment Clinical Notes Sep, Essential (primary) hypertension (ICD-10 - I10) [employer] Other 04-24-2023 Evaluation note* Encounter Date Diagnosis Assessment Notes Treatment Notes Treatment Clinical Notes Jul, Type 2 diabetes mellitus with hyperglycemia (ICD-10 - E11.65) Jul, senior living (current) use of insulin (ICD-10 - Z79.4) [employer] Other 04-06-2023 NoteCONSULTATION CONSULTATION DATE: 07/28/2022 TO: [...] our patients to inform us about any [id number] medications or herbal remedies/nutritional supplements/alternative remedies. 2. [...] treatment options with their primary care provider.[facility] [id number] Note CONSULTATION CONSULTATION DATE: 07/07/2022 HISTORY: This [...] followed up in the clinic post procedure.[facility] [id number] Evaluation note* Encounter Date Diagnosis Assessment Notes Treatment Notes Treatment Clinical Notes May, Elevated transaminase level (ICD-10 - R74.01) May, Essential (primary) hypertension (ICD-10 - I10) May, Controlled type 2 diabetes mellitus with hyperglycemia, without long-term current use of insulin (ICD-10 - E11.65) [employer] Other 02-27-2023 Evaluation note* Encounter Date Diagnosis [...] (ICD-10 - E78.2) Healthy diet and exercise. [employer] Other 02-02-2023 NoteCONSULTATION CONSULTATION DATE: 05/26/2022 HISTORY [...] be followed up in the office thereafter.[facility] 05-10-2022 Evaluation note* Encounter Date [...] soap and water. UTD w/ tetanus booster [employer] Other 01-03-2023 Evaluation note* Encounter Date Diagnosis Assessment Notes Treatment Notes Treatment Clinical Notes Apr, Other chronic pain (ICD-10 - G89.29) Apr, Low back pain, unspecified (ICD-10 - M54.50) [employer] Other 03-02-2022 NoteChief Complaint consultation for screening [...] tab(s), Oral, Da (more content not included)... [facility]Result Comment: Electronically Signed [...] specific antigen) noneactive Wellness examination noneact brigette [facility] Work Phone: Evaluation note* Diagnosis Onset Date Resolution Status Allergic reaction acute [facility] Work Phone: Evaluation note* Diagnosis Onset Date Resolution Status Allergic reaction acute Seasonal allergies acute Depression, major, recurrent, in partial remission acute Essential (primary) hypertension acute Gastroesophageal reflux dise ase with esophagitis without hemorrhage acute Hyperlipidemia, mixed acute Type 2 diabetes mellitus with hyperglycemia acute [facility] Work Phone: Evaluation note* Diagnosis Onset Date Resolution Status Allergic reaction acute Seasonal allergies acute Depression, major, recurrent, in partial remission acute Essential (primary) hypertension acute Gastroesophageal reflux dise ase with esophagitis without hemorrhage acute Hyperlipidemia, mixed acute [id number] acute Type 2 diabetes mellitus with hyperglycemia acute Gastroesophageal reflux dise ase with esophagitis without hemorrhage acute [id number] acute Type 2 diabetes mellitus with hyperglycemia acute [facility] Work Phone: Evaluation note* Diagnosis Onset Date Resolution Status Admit Date Depression, major, recurrent , in partial remission acute October 24, 2024 11:43am Gastroesophageal reflux dise ase with esophagitis without hemorrhage acute October 24, 2024 1 1:43am Hyperlipidemia, mixed acute Oct 11:43am Obesity acute October 24, 2024 11:43am Type 2 diabetes mellitus wit h hyperglycemia acute October 24, 2024 1 1:43am [facility] Work Phone: Evaluation note* Diagnosis Thyroid mass of unclear etiology- Primary documented in this encounter [facility] HealthcareEvaluation note* Diagnosis Status post partial thyroidectomy- Primary Other postprocedural status [facility]* Type Description Date [...] Debridement SLAP Lesion Surgical History Subacromion Decompression [employer] Other Hisrzrj general Narrative - Reported* Type Description Date [...] Subacromion Decompression Hospitalization History see surgical history [facility] Other Hospital Discharge instructions Additional Instructions DISCHARGE INSTRUCTIONS FOR THYROIDECTOMY ACTIVITY -No lifting or straining. -[No strenuous activity for 2 weeks.] -[Sleep with head elevated on two pillows.] -May shower [today or tomorrow?] -[You may shower and wash the incision with soap and water, but do not submerge the incision or allow prolonged exposure to water. Pat dry.] -[No driving for at least 5 days, or while taking prescription pain medicine.] WOUND CARE/DRESSING -Be sure to keep your incision clean and dry. -[There is a clear, glue-like adhesive on your incision. Do not peel or pick at this adhesive. It wall fall off on its own after a few days.] -[Call the office if incision area appears to have any sign of infection, such as increased swelling, redness, or purulent drainage.] -[Watch for bleeding, swelling, difficulty breathing, difficulty swallowing.] MEDICATION -If any prescriptions have been given to you, be sure to take as directed. OTHER Any problems- call the office or return to the Emergency Room. If you are having excessive or persistent pain, swelling, fever (oral temp >101), yellow-green foul smelling drainage or bleeding from incision, excessive redness of incision, nausea, vomiting, or any other problems, you should first call your surgeon for advice. If you are unable to contact your surgeon, seek help from a hospital emergency room. FOLLOW UP -Call the office to follow up in one week. [][facility] Work Phone: reason for referral (narrative)No reason for referral [facility]: reason for visit Narrative* Consultation (Routine) - Closed Specialty Diagnoses / Procedures Referred By Contac t Referred To Contact Otolaryngology Diagnoses Nontoxic single thyroid nodule Procedures CT UNLISTED EVALUATION AND MANAGEMENT SERVICE On License Of [facility] [address] [place] [address] Phone: tel: fax: Aguila Lou, DO [address] [place] [address] Phone: tel: fax: Referral ID Status Reason Start Date Expiration Date Visits Re quested Visits Authorized [id number] Closed 11/20/2024 05/19/2025 1 1 [facility] Healthcare Summary Purpose Family History No Family History Records Found Relationship Condition Age at Onset Recorded Date/T anish father Malignant neoplasm of liver Unknown Type 2 diabetes mellitus Unknown mother Type 2 diabetes mellitus Unknown sister Disorder of thyroid Unknown Advance Directives No Advanced Directives Records Found Advance Directive Response Recorded Date/ Time Advance Directives No May 29, 2023 3:54pm Reason for Referral Reason 05/26/22 Patient b drake referred for treatment of low back pain. Diagnosis 1 Osteoarthritis of sp ine with radiculopathy, lumbar region (M47.26) Referral Organization [facility] Referring Provider First Name Aguila Referring Provider Last Name Jacobo Referring Provider Specialty Internal Me dicine Referred Organization [facility] Referred Provider VIDHYA MOSLEY Referred Address [address], [place],[address] Referred Provider Specialty Pain Medicin e Referral [...] >faxed first request for consult notes to [phone] Emily Lee 06/07/2022 01:51:17 PM >received today notes sent for review. closing referral at this time. Clinical Notes CT lumbar spine comp leted July, P: [id number] F: [id number] Chief Complaint and Reason for Visit Chief [...] disease with esophagitis without hemorrhage Hyperlipidemia, mixed [id number] Type 2 diabetes mellitus with hyperglycemia Gastroesophageal reflux disease with esophagitis without hemorrhage [id number] Type 2 diabetes mellitus with hyperglycemia Chief [...] Referral Order November 19, 2024 5:30 pm Right Thyroid Nodule December 03, 2024 4 :34pm Chief Complaint Admit Date lump on right side of neck/uncontrolled blood suga October 24, 2024 11:43am lower extremity swelling November 12, 2024 8:54am Referral Order November 19, 2024 5:30 pm Right Thyroid Nodule December 03, 2024 4 :34pm Right Thyroid Nodule December 09, 2024 6 :41am Additional Source Comments (unrecognized sect ion and content) No Status Records FoundNo Status Records FoundNo Status Records FoundNo Status Records FoundNo Status Records Found INFORMATION SOURCE (unrecogn ized section and content) DATE CREATED AUTHOR 07/20/2021 [facility] [place] [facility] DATE CREATED AUTHOR AUTHOR'S ORGANIZ ATION 09/07/2022 [facility] DATE CREATED AUTHOR AUTHOR'S ORGANIZ ATION 11/07/2022 [facility] DATE CREATED AUTHOR AUTHOR'S ORGANIZ ATION 12/17/2024 [facility] EPIC DATE CREATED AUTHOR AUTHOR'S ORGANIZ ATION 01/02/2025 [facility] REASON FOR VISIT (unrecogniz ed section and content) Reason Comments Post-op Post op Right thyroi d Care Teams (unrecognized sec tion and content) Team Status: Active Member Role Status Dates Aguila Ponce DO Primary Care Provider Active Team Status: Inactive Member Role Status Dates Aguila Ponce DO Primary Care Provider Active Start: November 13, 2023 End: November 13, 2023 Thu Ren APRN BREAKER OFF-C Attending Provider Act brigette Start: November 13, [...] Provider Active Start: October 30, 2024 Aguila Ponce DO Attending Provider Active Sta rt: October 30, 2024 Team Status: Inactive Member Role Status Dates Aguila Ponce DO Primary Care Provider Active Start: November 12, 2024 End: November 12, 2024 Aguila Ponce , Attending Provider Active Sta rt: November 12, 2024 End: November 12, 2024 Team Status: Active Member Role Status Dates Aguila Ponce DO Primary Care Provider Active Start: November 19, 2024 Aguila Ponce DO Attending Provider Active Sta rt: November 19, 2024 Premises Technician Relationship Specialty Start Date End Date Aguila Ponce DO [address] [place] [address] PCP - General Internal Medicine 12/02/24 Premises Technician Relationship Specialty Start Date End Date Aguila Ponce DO [address] [place] [address] PCP - General Internal Medicine 12/02/24 Team Status: Active Member Role Status Dates Aguila Ponce DO Primary Care Provider Active Start: November 21, 2024 Aguila Ponce DO Attending Provider Active Sta rt: November 21, 2024 Team Status: Inactive Member Role Status Dates Aguila Ponce DO Primary Care Provider Active Start: December 03, 2024 End: December 03, 2024 Aguila Luo DO Attending Provider Active S tart: December 03, 2024 End: December 03, 2024 Premises Technician Relationship Specialty Start Date End Date JacoboAguilaDO [address] [place] [address] PCP - General Internal Medicine 12/02/24 Team Status: Inactive Member Role Status Dates Aguila Ponce DO Primary Care Provider Active Start: December 09, 2024 End: December 09, 2024 Aguila Luo DO Attending Provider Active S tart: December 09, 2024 End: December 09, 2024 Premises Technician Relationship Specialty Start Date End Date Aguila Ponce DO [address] [place] [address] PCP - General Internal Medicine 12/02/24 Premises Technician Relationship Specialty Start Date End Date Aguila Ponce DO [address] [place] [address] PCP - General Internal Medicine 12/02/24 Goals (unrecognized section and content) Goals may [...] BE BASED ON THE PRIMARY CLINICAL RECORDS. [facility]. provides no warranty or guarantee of the accuracy or completeness of information in this document.
[2025-01-13 08:58] LABS: Thyroid Stimulating Hormone 2.315 uIU/mL (0.358-3.740)
== END 2025-01-13 08:12 | disposition home or self-care (01) ==
LOC: LAB 08:12
PROVIDERS: PCP Internal Medicine; Visit Provider Otolaryngology
DX: E89.0 Postprocedural hypothyroidism (principal); E07.89 Other specified disorders of thyroid
CPT/HCPCS: 36415; 84432; 84436; 84443; 84480

== ENCOUNTER 2025-04-15 08:12 | Outpatient (OUT) | payer BC, SELFPAY ==
--- OUTSIDE RECORDS SUMMARY | 2024-12-10 10:15 | XMS_ITS ---
Author Organization [facility] [place] Address [address] [place] [address] Care Team Providers Care Thoracic Surgeon Name Role Phone Aguila Ponce DO Primary Care Provider Unavaila Letty Montelongo [phone] REASON FOR VISIT MD Encounters Encounter Location Date Provider Diagnosis The [facility] [address] [place] [address] 12/10/2024 Letty Gramajo Plan Of Treatment No Information Progress Notes * MOI MCPHERSONDOB:1975 ( 49 yo M)Acc No.[id number]:12/10/2024 UNLOCKED PROGRESS NOTE Progress Notes Patient: MOI HOWARD :?Letty Cloud M.D.:1975???Age:49 Y ???Sex:MaleDate:12/10/2024Phone:[phone]:[facility] [place]Hcv:Aguila Ponce DO Subjective: * Chief Complaints: * 1 . MD. * Medical History: Objective: * Vitals: Assessment: Plan: * Treatment: * * Electronic signature of Letty Gramajo MD, [id number] on 04/15/2025 at 08:17 AM ESTSign off status: PendingVisit Status:?CANC (Cancelled) * Provider: Dhiraj Cloud M.D. Date: 0 12/10/2024 Generated for Printing/Faxing/eTransmitting on:?04/15/2025 08:17 AM EST
--- OUTSIDE RECORDS SUMMARY | 2025-04-15 08:18 | XMS_ITS | Clinical Summary ---
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
--- OUTSIDE RECORDS SUMMARY | 2025-04-15 08:18 | XMS_ITS | Clinical Summary ---
Author Organization [facility] Address [address] 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
--- OUTSIDE RECORDS SUMMARY | 2025-04-15 08:18 | XMS_ITS | Clinical Summary ---
Author Organization [facility] Address [address] [place] [address] Care Team Providers Care Aircraft Restorer Name Role Phone Aguila Ponce Primary Care Provider [phone] Allergies Active AllergyReactionsCriticalityNoted YnobAdyrynyeFwpcybzvs31/03/2025 Other Reaction(s): unknown Mmrjhmiuisy20/03/2025 Other Reaction(s): unknown Medications MedicationSigDispense QuantityRefillsLast FilledStart DateEnd DateStatus fenofibrate (Triglide) 160 MG tablet Daily5Active insulin glargine (Lantus) 100 UNIT/ML pen 10 Units5Active insulin lispro (HumaLOG) 100 UNIT/ML injection Use [...] than or = 400 mg/dl Instructions: Call Etbvlviz05/29/2025tive omeprazole (PriLOSEC) [address] capsule .WSWKKMD14/22/2025Active Active Problems No known active problems Resolved Problems ProblemNoted DateDiagnosed DateResolved DateAltered bowel gxsxruaj07/11/2025 12/02/2024Diabetes zvubwlar54Diarrhea Zkaerup87Epigastric painGastroesophageal reflux hotsckw28GlycosuriaHistory of vjehxkbklawv86IndigestionNausea12/02/2024 12/02/20242905Gbavavpr05Phimosis of penis Recurrent depressive dfxrunpj32Right lower quadrant abdominal painSmokeless tobacco useSwelling llergic wyrhoiru32Gastroesophageal reflux disease with esophagitis without xbopgyhmom81H/O diabetic shlctbxywkmr32HyponatremiaImpingement syndrome of right codeboww91Internal derangement of right wofdwxoi46Metabolic dysfunction-associated steatotic liver disease and increased alcohol intake (MetALD)Mixed ckxksfqyrnfcaw13ObesityOther chronic pain Peripheral edemaPrimary hypertension Recurrent major depressive disorder, in partial remission Screening PSA (prostate specific antigen)11/28/2024 11/28/2024 Overview (11/28/2024): PSA: 0.15 - 06/2024 Seasonal umpoevpjf39Shoulder joint pain Strain of rotator cuff of right uuodotyy84Superior glenoid labrum lesion of right djpselul21Thyroid endqsa0711/28/2024 11/28/2024 Overview (11/28/2024): US: 4x3.7x3.8cm TR3 right sided nodule - 10/2024 Type 2 diabetes mellitus with bbgtfgdxhfuwt08 Encounters DateTypeDepartmentCare KzpaDedycnxksiy56/06/2025 4:00 PM EDTOffice Visit [facility] [place] [facility] [address] [place] [address] Aguila Luo, DO Status post partial iirawnpfpjwew07/06/2025amboo flowsheet [facility] [place] [facility] [address] [place] [address] Aguila Luo, DO 01/27/2025Travelfrom Last 3 Months Immunizations ImmunizationAdministration DatesNext JqrVAY7409/15/2021 Social History Tobacco UseTypesPacks/DayYears UsedDateSmoking Tobacco: NeverSmokeless Tobacco: Never Tobacco Cessation:Counseling Given: Not Answered Alcohol UseStandard Drinks/WeekCommentsNot Currently0 (1 standard drink = 0.6 oz pure alcohol)Sex and Gender InformationValueDate RecordedSex Assigned at Not on fileLegal OscPhcl8007/06/2022 6:46 PM EDTGender IdentityNot on fileSexual OrientationNot on file Last Filed Vital Signs Vital SignReadingTime TakenCommentsBlood Pressure--Pulse--Temperature-- Respiratory Rate--Oxygen Saturation--Inhaled Oxygen Concentration--Xmufwh046 kg (260 lb)01/27/2025 3:55 PM CYFEugqjz078 cm (6' 2 )01/27/2025 3:55 PM EDTBody Mass Index33.381 3:55 PM EDT Plan of Treatment DateTypeDepartmentCare Team (Latest Contact Info)Gvykbsjrxuk20/07/2026 8:15 AM EDTOffice Visit [facility] [place] [facility] [address] [place] [address] Aguila Luo DO [address] [place] [address] Health MaintenanceDue DateLast DoneCommentsCT Tgznoxmiemnn85/07/1974Colonoscopy 1973Colorectal Cancer Qqqwlkzzv42/07/1974FIT-DNA1973FIT1973 FOBT1973 5226Smwlsuajxexxa71/07/1974Influenza Vaccine (#1)2024 Pneumococcal Vaccine: Pediatrics (0 to 5 Years) and At-Risk Patients (6 to 64 Years)Aged OutNo longer eligible based on patient's age to complete this topic Insurance Care Teams Team MemberRelationshipSpecialtyStart DateEnd Date Aguila Ponce DO [address] [place] [address] PCP - GeneralInternal Medicine12/02/24
--- OUTSIDE RECORDS SUMMARY | 2025-04-15 08:18 | XMS_ITS | Clinical Summary ---
Author Organization [facility] 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 Name Role Phone Aguila Ponce DO Primary Care Provider [phone] Allergies No known active allergies Medications No known medications Active Problems No known active problems Family History Medical HistoryRelationNameCommentsDiabetesFatherDiabetesMotherRelationName StatusCommentsFatherMother Social History Tobacco UseTypesPacks/DayYears UsedDateSmoking Tobacco: Never AssessedSmokeless Tobacco: CurrentSex and Gender InformationValueDate RecordedSex Assigned at BirthNot on fileLegal FcvMjfg9008/02/2017 10:42 AM EDTGender IdentityNot on file Sexual OrientationNot on file Last Filed Vital Signs Vital SignReadingTime TakenCommentsBlood Pressure--Pulse--Ygtwluwppsg56 ??C (96.8 ??F)08/25/2017 1:01 PM EDTRespiratory Rate--Oxygen Saturation--Inhaled Oxygen Concentration--Xovnyc657.3 kg (285 lb)08/25/2017 1:01 PM LNDWmbruv322 cm (6' 2 )08/25/2017 1:01 PM EDTBody Mass Index36.59008/25/2017 1:01 PM EDT Plan of Treatment Not on file Insurance * Guarantor: Yasir McphersonAccount TypeRelation to PatientDate of BirthPhone Billing AddressPersonal/SwpnivInyr70/07/1976 (Home) [address] [place] [address] Care Teams Team MemberRelationshipSpecialtyStart DateEnd Date Aguila Ponce DO PCP - GeneralInternal Medicine08/02/17
--- OUTSIDE RECORDS SUMMARY | 2025-04-15 08:18 | XMS_ITS | Patient Health Record ---
Author Organization [facility] [place] Address [address] [place] [address] Care Team Providers Care Associate Professor Of Radiology Name Role Phone Aguila Ponce DO Primary Care Provider Unavaila herson Gramajo Letty Unavailable [phone] Reason For Referral No Information Problems Problem Type SNOMED Code ICD Code Onset Dates Problem Status W/U Status Risk Notes Problem Gastroesophageal ref lux disease (871566878) GERD (gastroesophageal reflux disease) (K21.9) ActiveconfirmedProblemAlcohol abuse (53270140)Alcohol abuse (F10.10)Active confirmedProblemThrombocytopenia (265484988)Thrombocytopenia (D69.6)Active confirmedProblemHyperbilirubinemia (01560382)Hyperbilirubinemia (E80.6)Active confirmedProblemDiabetes mellitus (46014120)Diabetes mellitus (E11.9)Active confirmedProblemAlcoholic fatty liver (87952400)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
[2025-04-15 08:57] LABS: Hematocrit 43.6 % (42.0-54.0); Hemoglobin 15.7 g/dL (14.0-18.0); Immature Granulocytes Abs Auto 0.02 10^3/uL (0.00-0.03); Immature Granulocytes Pct Auto 0.5 % (0.0-0.5); Lymphocytes Absolute Auto 1.2 10^3/uL (1.2-3.8); Mean Corpuscular HGB Conc 36.0 g/dL (29.9-35.2); Mean Corpuscular Hemoglobin 30.8 pg (25.9-34.0); Mean Corpuscular Volume 85.7 fL (80.0-94.0); Platelet Count 137 10^3/uL (150-450); Red Blood Count 5.09 10^6/uL (4.70-6.10); White Blood Count 4.1 10^3/uL (4.0-11.0)
[2025-04-15 09:08] LABS: INR 1.03; Prothrombin Time 10.8 sec (9.0-11.6)
[2025-04-15 09:56] LABS: Alanine Aminotransferase 180 U/L (16-63); Albumin Globulin Ratio 1.3; Albumin Level 4.2 g/dL (3.4-5.0); Alkaline Phosphatase 125 U/L (46-116); Anion Gap 12.7; Aspartate Amino Transferase 106 U/L (15-37); Blood Urea Nitrogen 13.0 mg/dL (7.0-18.0); Calcium 9.3 mg/dL (8.5-10.1); Carbon Dioxide 29.2 mmol/L (21.0-32.0); Chloride 104 mmol/L (98-107); Estimated GFR (African America >60 (>=60 mL/min/1.73m^2); Estimated GFR (Non-African Ame >60 (>=60 mL/min/1.73m^2); Globulin 3.2 g/dL; Glucose 267 mg/dL (74-106); Potassium 3.9 mmol/L (3.5-5.1); Sodium 142 mmol/L (136-145); Total Protein 7.4 g/dL (6.4-8.2)
[2025-04-16 04:07] LABS: AFP, Serum, Tumor Marker 3.2 ng/mL (0.0-8.4)
[2025-04-16 05:07] LABS: Hep A Ab, Total Negative (Negative)
== END 2025-04-15 08:13 | disposition home or self-care (01) ==
LOC: LAB 08:14
PROVIDERS: PCP Internal Medicine; Visit Provider Internal Medicine
DX: K76.0 Fatty (change of) liver, not elsewhere classified (principal); K21.00 Gastro-esophageal reflux disease with esophagitis, without bleeding
CPT/HCPCS: 36415; 80048; 80076; 82105; 85025; 85610; 86317; 86704; 86708; 86803; 87340